=== PATIENT | male | born 1950 | race Caucasian/White ===

== ENCOUNTER 2020-10-30 16:02 | Emergency (ER) | payer MEDICARE, SELFPAY ==
[2020-10-30 16:09] VITALS: BP 160/63; PULSE 85; RESP 16; TEMP 37.5; O2SAT 98
--- NOTE | 2020-10-30 16:35 | ED.URI ---
HPI - URI/Sore Throat General Chief Complaint: Upper Respiratory Infection Stated Complaint: fever/congestion/cough Time Seen by Provider: 10/30/20 16:20 Source: patient and RN notes reviewed Mode of arrival: ambulatory Limitations: no limitations History of Present Illness HPI Narrative: Patient presents today complaining of cough, postnasal drip, fever up to 100, nasal congestion since yesterday. Denies shortness of breath, sore throat, rhinorrhea. Denies any sick contacts. He has been taking ibuprofen and Benadryl with relief. Patient was vaccinated against COVID-19 with a [employer] vaccine on 06/09/2020. MD elicited complaint: cough Related Data Home Medications Medication Instructions Recorded Confirmed amlodipine 5 mg PO DAILY 10/30/20 10/30/20 atorvastatin 20 mg PO DAILY 10/30/20 10/30/20 finasteride 5 mg PO DAILY 10/30/20 10/30/20 glimepiride 1 mg PO DAILY 10/30/20 10/30/20 lisinopril-hydrochlorothiazide 20 tablet PO DAILY 10/30/20 10/30/20 metformin 500 mg PO DAILY 10/30/20 10/30/20 metoprolol succinate 100 mg PO DAILY 10/30/20 10/30/20 paroxetine HCl 20 mg PO DAILY 10/30/20 10/30/20 sitagliptin [Januvia] 100 mg PO DAILY 10/30/20 10/30/20 Allergies Allergy/AdvReac Type Severity Reaction Status Date / Time No Known Allergies Allergy Unverified 05/15/13 23:33 Review of Systems Review of Systems: Narrative: CONSTITUTIONAL: Denies body aches, chills, or sweats.+ Fever EYES: Denies visual changes, redness, or discharge. ENT: Denies rhinorrhea, sore throat, or otalgia.+ Congestion, postnasal drip CARDIOVASCULAR: Denies chest pain, palpitations, or edema. RESPIRATORY: Denies dyspnea.+ Cough GASTROINTESTINAL: Denies abdominal pain, nausea, vomiting, or diarrhea. GENITOURINARY: Denies dysuria or hematuria. SKIN: Denies rash, itching, or wounds. MUSCULOSKELETAL: Denies back pain, joint pain, or myalgia. NEUROLOGIC: Denies headache, numbness, tingling, or weakness. PSYCH: Denies depression or anxiety. [facility] Past Medical History Medical History (Updated 10/30/20 @ 16:41 by Heidi Olivares, [facility], ) Anxiety Diabetes High cholesterol Hypertension Panic attacks Family History Family History (Updated 02/16/14 @ 08:45 by DOCTOR UNKNOWN) Other Hypertension Social History Social History Smoking status: Never smoker Alcohol intake: never Comments At time of signature, I have reviewed and agree with nursing past medical, surgical, social and family history unless otherwise noted. Please see nursing chart for further information. There is no relevant family history pertinent to the presenting complaint Exam Narrative: Exam Narrative: GENERAL: Well-appearing, well-nourished, and in no acute distress. HEAD: Normocephalic, atraumatic. EYES: EOMI. No redness or drainage. Conjunctivae normal. ENT: Mucous membranes pink and moist. Nares congested. No rhinorrhea. TMs normal bilaterally. Throat normal. Uvula midline. NECK: Normal AROM. Supple. No lymphadenopathy. CHEST: No respiratory distress. Clear to auscultation. HEART: Regular rate and rhythm. No murmur appreciated. Normal peripheral pulses. EXTREMITIES: Normal range of motion. No edema. SKIN: Warm, dry, no rash. Capillary refill normal. Normal skin turgor. NEURO: No focal deficits. Alert and oriented x3. Gait steady. PSYCH: Normal affect. No signs of depression or anxiety. Course Vital Signs Vital signs: Vital Signs Temperature 99.5 F 10/30/20 16:09 Pulse Rate 85 10/30/20 16:09 Respiratory Rate 16 10/30/20 16:09 Blood Pressure 160/63 H 10/30/20 16:09 Pulse Oximetry 98 10/30/20 16:09 Temperature 99.5 F 10/30/20 16:09 Pulse Rate 85 10/30/20 16:09 Respiratory Rate 16 10/30/20 16:09 Blood Pressure 160/63 H 10/30/20 16:09 Pulse Oximetry 98 10/30/20 16:09 Reviewed. Pt has been instructed to follow up with his PCP regarding his elevated blood pressure today. MDM - URI/Sore Throat Diff
== END 2020-10-30 16:48 | disposition home or self-care (01) ==
PROVIDERS: Emergency Provider Nurse Practitioner; PCP Family Medicine Adolescent Medicine
DX: U07.1 COVID-19 (principal); F41.9 Anxiety disorder, unspecified; E11.9 Type 2 diabetes mellitus without complications; E78.00 Pure hypercholesterolemia, unspecified; I10 Essential (primary) hypertension
CPT/HCPCS: 87426; 99203; 99213; C9803; G0463

== ENCOUNTER 2020-11-10 03:28 | Inpatient (IN) | payer MEDICARE, SELFPAY ==
[2020-11-10] VITALS (23 sets, daily range): BP systolic 151–189; BP diastolic 55–73; PULSE 57–95; RESP 12–20; TEMP 36.4–37.3; O2SAT 85–97; BMI 34.8
--- NOTE | ~2020-11-10 | XR_ITS ---
EXAMINATION: XR chest 1V portable INDICATION: Shortness of breath TECHNIQUE: Portable AP chest at 0343 hours COMPARISON: 06/21/2017 FINDINGS: There are diffuse opacities throughout all lung zones. There is no pleural effusion or. The heart size is upper limits of normal for technique. IMPRESSION: 1. Diffuse lung disease, consistent with atelectasis versus pneumonia versus pulmonary edema. Reviewed, dictated and finalized at location A. IMPRESSION: 1. Diffuse lung disease, consistent with atelectasis versus pneumonia versus pu lmonary edema.
--- NOTE | 2020-11-10 03:36 | ECG_ITS ---
Measurements Intervals [place] Rate: 59 P: 28 NE: 208 QRS: -4 QRSD: 106 T: -4 QT: 487 QTc: 484 Interpretive Statements SINUS BRADYCARDIA INCOMPLETE RIGHT BUNDLE BRANCH BLOCK PROLONGED QT INTERVAL BASELINE ARTIFACT- I, II, III, AVR, AVL, AVF, V1-V6 ABNORMAL ECG Electronically Signed On 11-10-2020 6:31:55 CDT by Ehsan Saenz D.O.
[2020-11-10 04:05] LABS: Basophils Percent Auto 0.1 % (0.2-1.2); Eosinophils Percent Auto 0.1 % (0-4.4); Hematocrit 37.2 % (42.0-52.0); Hemoglobin 12.2 g/dL (14.0-18.0); Immature Granulocyte Absolute 0.15 K/mm3 (0.00-0.031); Immature Granulocyte Percent A 2.2 % (0-0.5); Lymphocytes Absolute Auto 0.61 K/mm3 (0.9-3.2); Lymphocytes Percent Auto 8.9 % (18.3-44.2); Mean Corpuscular HGB Conc 32.8 g/dl (32-36); Mean Corpuscular Hemoglobin 28.8 pg (26-34); Mean Corpuscular Volume 87.9 fl (80-100); Monocytes Absolute Auto 0.3 K/mm3 (0.1-0.6); Monocytes Percent Auto 4.5 % (2.6-8.5); Neutrophils Absolute Auto 5.8 K/mm3 (1.3-6.7); Neutrophils Percent Auto 84.2 % (45.5-73.1); Platelet Count Result 214 k/mm3 (150-375); Red Blood Count 4.23 M/mm3 (4.6-6.20); Red Cell Distribution Width 13.8 % (11.5-14.5); White Blood Count 6.8 K/mm3 (4.5-10.0)
[2020-11-10 04:16] LABS: INR 1.1; Prothrombin Time 13.7 Seconds (11.1-14.7)
[2020-11-10 04:17] LABS: Partial Thromboplastin Time 28.9 SECONDS (22.3-36.8)
[2020-11-10 04:21] LABS: Lactic Acid Reflex 1.7 mmol/L (0.7-2.1)
--- NOTE | 2020-11-10 04:23 | ED.SOB ---
HPI - SOB/Dyspnea General Chief Complaint: Shortness of Breath/Dyspnea Stated Complaint: covid + sob History of Present Illness HPI Narrative: 69 yo male w/ h/o DM, htn presents from home by EMS for COVID-19. He tested positive for COVID-19 at the end of last month. Since that time he has had cough, congestion, SOB, fever, generalized weakness. He has stopped taking his medications. He does not feel that he is able to take care of himself at home. Related Data Home Medications Medication Instructions Recorded Confirmed amlodipine 5 mg PO DAILY 10/30/20 10/30/20 atorvastatin 20 mg PO DAILY 10/30/20 10/30/20 finasteride 5 mg PO DAILY 10/30/20 10/30/20 glimepiride 1 mg PO DAILY 10/30/20 10/30/20 lisinopril-hydrochlorothiazide 20 tablet PO DAILY 10/30/20 10/30/20 metformin 500 mg PO DAILY 10/30/20 10/30/20 metoprolol succinate 100 mg PO DAILY 10/30/20 10/30/20 paroxetine HCl 20 mg PO DAILY 10/30/20 10/30/20 sitagliptin [Januvia] 100 mg PO DAILY 10/30/20 10/30/20 Allergies Allergy/AdvReac Type Severity Reaction Status Date / Time No Known Allergies Allergy Verified 11/10/20 03:40 Review of Systems Constitutional: Constitutional: Reports fatigue, Reports fever(s) and Reports weakness ENT: Denies sore throat Cardiovascular: Cardiovascular: Denies chest pain Respiratory: Respiratory: Reports chest congestion, Reports cough and Reports dyspnea Gastrointestinal: Gastrointestinal: Reports abdominal pain, Reports diarrhea, Reports nausea and Denies vomiting Genitourinary: Genitourinary: Reports no additional male genitourinary complaints Musculoskeletal: Musculoskeletal: Reports myalgias Neurologic: Reports weakness PMFSH Past Medical History Medical History Anxiety Diabetes High cholesterol Hypertension Panic attacks Family History Family History Other Hypertension Social History Social History Smoking status: Never smoker Alcohol intake: never Exam Const: General: alert and ill appearing acutely and chronically Orientation/consciousness: patient oriented x3 Other: deshevled HENMT: Head: normal to inspection Eyes: Pupils: Equal, round and reactive pupils present Neck: Neck: normal visual inspection Resp: Effort & Inspection: normal respiratory effort Auscultation: crackles Cardio: Rate: regular rate Rhythm: regular rhythm GI: GI Palp: Yes Soft to palpation and No Tenderness to palpation present (GI) Skin: General skin exam: normal color Neuro: General: patient oriented x3, moves all extremities and CN's II-XI intact bilaterally Speech: normal speech Extrem: General: edema bilateral (mild) Course Vital Signs Vital signs: Vital Signs Temperature 37.2 C 11/10/20 03:28 Pulse Rate 61 11/10/20 03:28 Respiratory Rate 20 11/10/20 03:28 Blood Pressure 189/70 H 11/10/20 03:28 Pulse Oximetry 85 L 11/10/20 03:28 Temperature 37.2 C 11/10/20 03:28 Pulse Rate 61 11/10/20 03:28 Respiratory Rate 20 11/10/20 03:28 Blood Pressure 189/70 H 11/10/20 03:28 Pulse Oximetry 93 11/10/20 03:28 MDM - SOB/Dyspnea Differential Diagnosis Differential diagnosis: Likely acute exacerbation of chronic obstructive airways disease Medical Records Attestation: I reviewed the patient's medical records. Lab Data Attestation: I reviewed the patient's lab results. Result diagrams: 11/10/20 03:57 11/10/20 03:57 Labs: Lab Results 11/10/20 11/10/20 11/10/20 Range/Units 03:57 03:57 03:57 WBC 6.8 (4.5-10.0) K/mm3 RBC 4.23 L (4.6-6.20) M/mm3 Hgb 12.2 L (14.0-18.0) g/dL Hct 37.2 L (42.0-52.0) % MCV 87.9 (80-100) fl MCH 28.8 (26-34) pg MCHC 32.8 (32-36) g/dl RDW 13.8 (11.5-14.5) % Plt Count 214 (150-375) k/mm3 MPV 11.0 H (7
[2020-11-10] MEDS: DEXAMETHASONE SOD PHOS INJ 4 MG/ML VIAL 10 MG IV PUSH (04:28)
[2020-11-10 04:29] LABS: NT Pro B Type Natriuretic Pept 777 pg/mL (5-100)
[2020-11-10 04:41] LABS: Add Urine Microscopic? YES; Appearance Urine Clear (Clear); Bilirubin Urine Negative (Negative); Blood Urine 1+ (Negative); Color Urine Yellow (Yellow); Glucose Urine UA Negative (Negative); Ketones Urine Negative (Negative); Leukocyte Esterase Ur Negative LEU/UL (Negative); Nitrate Urine Negative (Negative); Protein Urine 2+ mg/dL (Negative); RBC Urine 0-2 /hpf (0-2); Squamous Epithelial Cell Urine Rare /hpf (Few); WBC Urine 0-3 /hpf
[2020-11-10 04:43] LABS: Alanine Aminotransferase 31 U/L (4-50); Albumin Level 3.2 g/dL (3.5-5.1); Alkaline Phosphatase 62 U/L (38-126); Anion Gap 4 mmol/L (8-16); Aspartate Amino Transferase 41 U/L (17-59); Bilirubin,Total 1.2 mg/dL (0.2-1.3); Blood Urea Nitrogen 14 mg/dL (9-20); CRP 8.8 mg/dL (<1.0); Calcium 8.3 mg/dL (8.4-10.2); Carbon Dioxide 35 mmol/L (22-30); Chloride 96 mmol/L (98-107); Estimated CRCL calculation 100 ml/min; Estimated Glomerular Filt Rate > 60; Glucose 264 mg/dL (65-110); Potassium 2.8 mmol/L (3.4-5.0); Sodium 135 mmol/L (137-145)
[2020-11-10 05:27] LABS: INR 1.1; Prothrombin Time 13.8 Seconds (11.1-14.7)
--- NOTE | 2020-11-10 06:31 | ADMGEN ---
This patient, Christian Prado, was admitted to 3 Med Surg Room 315-01 AT 0545. Patient/family oriented to hospital policies and general routines including ID bracelet, bed and alarms, visiting hours, pain management, procedures, bathroom and other care routines, personal items, smoking policy, room service/diet, and visiting hours. Information on how to activate the Rapid Response Team has been discussed. Patient/Family are encouraged to report perceived risks to care and to ask questions if they do not understand what they are told or what they should do.
[2020-11-10] MEDS: REMDESIVIR 200 MG/NS 250 ML 200 MG/250 ML BAG 250 MG IVPB (07:32)
[2020-11-10 08:24] LABS: Magnesium 1.6 mg/dL (1.6-2.3)
[2020-11-10] MEDS: IPRATROPIUM BR 0.02% INH SOLN 0.5 MG/2.5 ML VIAL INHALATION ×3 (08:30→20:28)
[2020-11-10] MEDS: ALBUTEROL SULFATE NEB 2.5 MG/0.5 ML INH 5 MG INHALATION ×3 (08:30→20:29)
[2020-11-10 08:39] LABS: Glucose Point of Care 314 mg/dl (65-105)
[2020-11-10] MEDS: INSULIN ASPART (*BKC) 100 UNITS/ML SUB-Q ×4 (09:21→21:34)
[2020-11-10] MEDS: metFORMIN HCL XR 500 MG TAB.SR.24H PO (09:29)
[2020-11-10] MEDS: GLIMEPIRIDE 1 MG TABLET PO (09:29)
[2020-11-10] MEDS: amLODIPine BESYLATE 5 MG TABLET PO (09:29)
[2020-11-10] MEDS: FINASTERIDE 5 MG TABLET PO (09:30)
[2020-11-10] MEDS: PARoxetine 20 MG TABLET PO (09:30)
[2020-11-10] MEDS: ASPIRIN 81 MG CHEWABLE TABLET PO (09:30)
[2020-11-10] MEDS: METOPROLOL SUCCINATE EXT REL 100 MG TABCR PO (09:30)
[2020-11-10] MEDS: hydroCHLOROthiazide 12.5 MG CAPSULE PO (09:31)
[2020-11-10] MEDS: lisinopriL 20 MG TABLET PO (09:31)
[2020-11-10] MEDS: ATORVASTATIN 20 MG TABLET PO (09:31)
[2020-11-10 11:40] LABS: Glucose Point of Care 328 mg/dl (65-105)
[2020-11-10] MEDS: ENOXAPARIN 40 MG/0.4 ML SYRINGE SUB-Q ×2 (11:54→20:05)
--- NOTE | 2020-11-10 14:52 | PM.IMHP ---
H&P: HPI History of Present Illness Date/Time: 11/10/20 14:52 patient is 69-year-old male history of diabetes, hypertension and COPD, patient was diagnosed with COVID-19 end of last month, patient presented emergency depart is more tired and unable to take care of himself, he has not been taking his medication, is a poor historian, upon arrival his oxygen was 85% on room air and patient was placed on 2 L nasal cannula, from emergency depart patient was started on dexamethasone 10 mg IV q.day 04/16, Remdesivir 04/11, and patient has agreed to the convalescent plasma today. chest x-ray shows pneumonia versus pulmonary edema, is hypokalemic with potassium of 2.8, most likely secondary to poor p.o. intake, will supplement. Patient is unable to provider detail ROS. Chief Complaint: COVID-19 Review of Systems Review of Systems: ROS unobtainable: Yes unobtainable due to medical condition PMFSH Past Medical History Medical History (Updated 11/10/20 @ 15:14 by Alex Toth MD) Anxiety Diabetes High cholesterol Hypertension Panic attacks Family History Family History (Updated 11/10/20 @ 06:35 by Chuyita Winter RN) Father Hypertension Cerebrovascular accident Mother Hypertension Cerebrovascular accident Social History Social History Smoking status: Never smoker Alcohol intake: never Substance use: never Spiritual care concerns: No Meds Home Medications and Allergies Home Medications Medication Instructions Recorded Confirmed Type amlodipine 5 mg PO DAILY 10/30/20 11/10/20 History atorvastatin 20 mg PO DAILY 10/30/20 11/10/20 History finasteride 5 mg PO DAILY 10/30/20 11/10/20 History glimepiride 1 mg PO DAILY 10/30/20 11/10/20 History lisinopril-hydrochlorothiazide 20 tablet PO DAILY 10/30/20 11/10/20 History metformin 500 mg PO DAILY 10/30/20 11/10/20 History metoprolol succinate 100 mg PO DAILY 10/30/20 11/10/20 History paroxetine HCl 20 mg PO DAILY 10/30/20 11/10/20 History sitagliptin [Januvia] 100 mg PO DAILY 10/30/20 11/10/20 History aspirin [Baby Aspirin] 81 mg PO DAILY 11/10/20 11/10/20 History lorazepam 0.5 mg PO TID PRN 11/10/20 11/10/20 History Allergies Allergy/AdvReac Type Severity Reaction Status Date / Time No Known Allergies Allergy Verified 11/10/20 05:42 Vital Signs Vital Signs - 24 hr 11/10/20 03:28 11/10/20 06:00 11/10/20 08:30 Temperature 99.0 F 98.6 F Pulse Rate 61 66 58 L Respiratory Rate 20 18 18 Blood Pressure 189/70 H 180/71 H Pulse Oximetry 93 89 L 90 11/10/20 08:43 11/10/20 09:00 11/10/20 09:15 Temperature 98.6 F Pulse Rate 57 L 60 77 Respiratory Rate 20 14 Blood Pressure 178/68 H Pulse Oximetry 95 95 11/10/20 09:30 11/10/20 12:00 11/10/20 12:47 Temperature 99.1 F Pulse Rate 66 80 95 Respiratory Rate 12 Blood Pressure 153/73 H Pulse Oximetry 90 11/10/20 14:46 Temperature 99.1 F Pulse Rate 95 Respiratory Rate 12 Blood Pressure 153/73 H Pulse Oximetry 90 Exam Narrative: appears chronically ill older than his age Patient is comfortable, NAD HEENT: eyes are clear and none icteric LUNGS: normal respiratory effort ABD: moderately distended Lower extremities: no edema SKIN: nonjaundiced Neuro: confused. H&P: Results Labs Labs: Short CBC 11/10/20 Range/Units 03:57 WBC 6.8 (4.5-10.0) K/mm3 Hgb 12.2 L (14.0-18.0) g/dL Hct 37.2 L (42.0-52.0) % Plt Count 214 (150-375) k/mm3 BMP 11/10/20 11/10/20 03:57 03:57 Sodium 135 L Potassium 2.8 L* Chloride 96 L Carbon Dioxide 35 H BUN 14 Creatinine 0.90 Cancelled Glucose 264 H Calcium 8.3 L Liver Function 11/10/20 11/10/20 Range/Units 03:57 03:57 Total Bilirubin 1.2 (0.2-1.3) mg/dL AST 41 (17-59) U/L ALT 31 Cancelled (4-50) U/L Alkaline Phosphatase 62 (38-126) U/L Albumin 3.2 L (3.5-5.1) g/dL Urine 11/10/20 Range/Un
[2020-11-10 15:08] LABS: Alanine Aminotransferase 41 U/L (4-50); Alkaline Phosphatase 63 U/L (38-126); Anion Gap 12 mmol/L (8-16); Aspartate Amino Transferase 43 U/L (17-59); Bilirubin,Total 0.8 mg/dL (0.2-1.3); Blood Urea Nitrogen 15 mg/dL (9-20); Calcium 7.8 mg/dL (8.4-10.2); Carbon Dioxide 26 mmol/L (22-30); Chloride 91 mmol/L (98-107); Estimated CRCL calculation 113 ml/min; Estimated Glomerular Filt Rate > 60; Glucose 435 mg/dL (65-110); Potassium 3.1 mmol/L (3.4-5.0); Sodium 129 mmol/L (137-145)
[2020-11-10] MEDS: TUBING, BLOOD PLUM PUMP TUBING 1 EACH XX (15:24)
[2020-11-10] MEDS: SODIUM CHLORIDE 0.9% IV 250 ML 30 ML IV CONT (15:25)
[2020-11-10] MEDS: MAGNESIUM SULF 2 GM/WATER 50ML 2 GM/50 ML BAG IVPB (17:10)
[2020-11-10 17:13] LABS: Glucose Point of Care 325 mg/dl (65-105)
[2020-11-10] MEDS: POTASSIUM CHLORIDE 20 MEQ TABLET 40 MEQ PO (17:16)
[2020-11-10 20:12] LABS: Glucose Point of Care 302 mg/dl (65-105)
[2020-11-10] MEDS: INSULIN GLARGINE (*BKC) 100 UNITS/ML 10 UNITS SUB-Q (21:35)
[2020-11-10] MEDS: WATER FOR IRRIGATION, STERILE 1,000 ML BOTTLE 1000 ML (22:00)
[2020-11-11] VITALS (18 sets, daily range): BP systolic 154–170; BP diastolic 63–73; PULSE 56–83; RESP 14–24; TEMP 36.4–36.8; O2SAT 91–95
[2020-11-11] MEDS: IPRATROPIUM BR 0.02% INH SOLN 0.5 MG/2.5 ML VIAL INHALATION ×4 (02:33→19:54)
[2020-11-11] MEDS: ALBUTEROL SULFATE NEB 2.5 MG/0.5 ML INH 5 MG INHALATION ×4 (02:33→19:54)
[2020-11-11 07:35] LABS: Hematocrit 36.8 % (42.0-52.0); Hemoglobin 11.9 g/dL (14.0-18.0); Mean Corpuscular HGB Conc 32.3 g/dl (32-36); Mean Corpuscular Hemoglobin 29.1 pg (26-34); Mean Platelet Volume 11.5 fl (7.4-10.4); Platelet Count Result 214 k/mm3 (150-375); Red Blood Count 4.09 M/mm3 (4.6-6.20)
[2020-11-11 07:46] LABS: INR 1.1; Prothrombin Time 14.4 Seconds (11.1-14.7)
[2020-11-11 07:49] LABS: Alanine Aminotransferase 29 U/L (4-50); Alkaline Phosphatase 53 U/L (38-126); Anion Gap 8 mmol/L (8-16); Aspartate Amino Transferase 38 U/L (17-59); Bilirubin,Total 0.7 mg/dL (0.2-1.3); Blood Urea Nitrogen 15 mg/dL (9-20); CRP 7.6 mg/dL (<1.0); Calcium 7.9 mg/dL (8.4-10.2); Carbon Dioxide 28 mmol/L (22-30); Chloride 98 mmol/L (98-107); Estimated CRCL calculation 113 ml/min; Estimated Glomerular Filt Rate > 60; Glucose 218 mg/dL (65-110); Magnesium 1.8 mg/dL (1.6-2.3); Potassium 2.6 mmol/L (3.4-5.0); Sodium 134 mmol/L (137-145)
[2020-11-11 07:51] LABS: Glucose Point of Care 217 mg/dl (65-105)
[2020-11-11] MEDS: POTASSIUM CHLORIDE 20 MEQ TABLET 40 MEQ PO ×3 (08:58→16:03)
[2020-11-11] MEDS: MAGNESIUM OXIDE 400 MG TABLET PO (08:59)
[2020-11-11] MEDS: ATORVASTATIN 20 MG TABLET PO (09:02)
[2020-11-11] MEDS: ENOXAPARIN 40 MG/0.4 ML SYRINGE SUB-Q ×2 (09:02→20:50)
[2020-11-11] MEDS: GLIMEPIRIDE 1 MG TABLET PO (09:05)
[2020-11-11] MEDS: METOPROLOL SUCCINATE EXT REL 100 MG TABCR PO (09:06)
[2020-11-11] MEDS: metFORMIN HCL XR 500 MG TAB.SR.24H PO (09:06)
[2020-11-11] MEDS: PARoxetine 20 MG TABLET PO (09:06)
[2020-11-11] MEDS: amLODIPine BESYLATE 5 MG TABLET PO (09:06)
[2020-11-11] MEDS: ASPIRIN 81 MG CHEWABLE TABLET PO (09:07)
[2020-11-11] MEDS: FINASTERIDE 5 MG TABLET PO (09:07)
[2020-11-11] MEDS: lisinopriL 20 MG TABLET PO (09:08)
[2020-11-11] MEDS: INSULIN ASPART (*BKC) 100 UNITS/ML SUB-Q ×4 (09:11→18:03)
[2020-11-11] MEDS: REMDESIVIR 100 MG/NS 250 ML 100 MG/250 ML BAG 250 MG IVPB (10:16)
[2020-11-11 12:24] LABS: Glucose Point of Care 453 mg/dl (65-105)
[2020-11-11 15:48] LABS: Glucose Point of Care 404 mg/dl (65-105)
[2020-11-11] MEDS: INSULIN ASPART (*BKC) 100 UNITS/ML 8 UNITS SUB-Q (16:00)
--- NOTE | 2020-11-11 17:33 | PM.IMPN ---
Progress Note: A&P Assessment and Plan (1) COVID-19: Code(s): U07.1 - COVID-19 Status: Acute Assessment and Plan: 11/11: Remdesivir and Dexamethasone day 2, Oxygen requirement 7 L (stable) Continue Azithromycin and Ceftriaxone to cover possible concomitan CAP Consider adding Tocilizumab IF oxygen requirement and CRP increase (2) Acute respiratory failure with hypoxia: Code(s): J96.01 - Acute respiratory failure with hypoxia Status: Acute Assessment and Plan: Due to COVID-19 Pneumonia (3) Hypokalemia: Code(s): E87.6 - Hypokalemia Status: Acute Assessment and Plan: Likely due to poor p.o. intake PO supplementation F/u lab (4) Diabetes: Code(s): E11.9 - Type 2 diabetes mellitus without complications Status: Inactive Assessment and Plan: Hyperglycemia due to steroid continue SSI protocol (5) Hypertension: Code(s): I10 - Essential (primary) hypertension Status: Inactive Assessment and Plan: Continue home meds Monitor Subjective Date/time seen: 11/11/20 17:33 Interval history: Admitted 11/10 with acute hypoxia and COVID-19 pneumonia. 11/10 Dexamethasone and Remdesivir started. 11/11 visit: Feeling better. Appetite fair. Food tastes bland. Tired. No cp. No sob at rest. Minimal cough. No gi/gu c/o. No ABNL bleeding. Review of Systems Review of Systems: All systems reviewed & are unremarkable except as noted in HPI and below Exam Narrative: GEN: Patient is comfortable, NAD HEENT: PERRL, sclerae nonicteric, mucosa moist NECK: No JVD LUNGS: normal respiratory effort, coarse BS ABD: BS+, soft, nontender Lower extremities: no edema or cyanosis NEURO: CN symmetric to inspection PSYCH: Alert. Ox4. Objective Data Vital Signs Vital Signs: Vital Signs - 24 hr 11/10/20 20:00 11/10/20 20:23 11/10/20 20:32 Temperature 97.6 F Pulse Rate 60 72 70 Respiratory Rate 18 16 16 Blood Pressure 154/55 H Pulse Oximetry 91 11/10/20 21:56 11/10/20 22:45 11/10/20 23:28 Temperature Pulse Rate Respiratory Rate Blood Pressure Pulse Oximetry 90 90 94 11/11/20 00:00 11/11/20 02:22 11/11/20 02:33 Temperature 97.6 F Pulse Rate 62 67 Respiratory Rate 18 16 Blood Pressure 155/65 H Pulse Oximetry 94 91 11/11/20 02:44 11/11/20 04:00 11/11/20 08:00 Temperature 97.5 F L Pulse Rate 70 61 56 L Respiratory Rate 14 18 Blood Pressure 164/63 H Pulse Oximetry 95 91 11/11/20 08:18 11/11/20 09:06 11/11/20 09:10 Temperature 97.9 F Pulse Rate 61 66 62 Respiratory Rate 14 16 Blood Pressure 165/67 H Pulse Oximetry 95 91 11/11/20 09:24 11/11/20 14:00 11/11/20 14:16 Temperature 97.7 F Pulse Rate 68 67 76 Respiratory Rate 16 14 16 Blood Pressure 154/67 H Pulse Oximetry 92 11/11/20 14:28 11/11/20 16:00 Temperature Pulse Rate 83 65 Respiratory Rate 16 Blood Pressure Pulse Oximetry Intake/Output Intake/Output: Intake & Output 11/08/20 11/09/20 11/10/20 11/11/20 23:59 23:59 23:59 23:59 Intake Total 2719 1580 Output Total 500 Balance 2719 1080 Meds/Results Medications: Active Medications Generic Name Dose Route Start Last Admin Trade Name Oscar PRN Reason Stop Dose Admin Albuterol 5 mg 11/10/20 08:00 11/11/20 14:16 Albuterol Sulfate Neb 2.5 Mg/0.5 Ml Inh INHALATION 5 mg Q6HRT RODDY Administration Amlodipine Besylate 5 mg 11/10/20 09:00 11/11/20 09:06 Amlodipine Besylate 5 Mg Tablet PO 5 mg DAILY RODDY Administration Aspirin 81 mg 11/10/20 09:00 11/11/20 09:07 Aspirin 81 Mg Chewable Tablet PO 81 mg DAILY RODDY Administration Atorvastatin Calcium 20 mg 11/10/20 09:00 11/11/20 09:02 Atorvastatin 20 Mg Tablet PO 20 mg DAILY [facility] Administration Dexamethasone Sodium Phosphate 6 mg 11/10/20 09:00 11/11/20 09:15 Dexamethasone Sod Phos Inj 10 Mg/Ml 1 Ml Vial IV PUSH 11/19/20 09:01 6 mg DAILY [facility]
[2020-11-11 17:46] LABS: Glucose Point of Care 313 mg/dl (65-105)
[2020-11-11] MEDS: INSULIN GLARGINE (*BKC) 100 UNITS/ML 25 UNITS SUB-Q (20:49)
[2020-11-11 22:46] LABS: Glucose Point of Care 262 mg/dl (65-105)
[2020-11-12] VITALS (18 sets, daily range): BP systolic 160–175; BP diastolic 41–77; PULSE 60–75; RESP 12–20; TEMP 36.8–37.1; O2SAT 91–95
[2020-11-12] MEDS: ALBUTEROL SULFATE NEB 2.5 MG/0.5 ML INH 5 MG INHALATION ×4 (02:04→20:27)
[2020-11-12] MEDS: IPRATROPIUM BR 0.02% INH SOLN 0.5 MG/2.5 ML VIAL INHALATION ×4 (02:05→20:27)
[2020-11-12 07:50] LABS: Glucose Point of Care 223 mg/dl (65-105)
[2020-11-12 08:00] LABS: Hematocrit 36.3 % (42.0-52.0); Hemoglobin 12.2 g/dL (14.0-18.0); Mean Corpuscular HGB Conc 33.6 g/dl (32-36); Mean Corpuscular Hemoglobin 29.5 pg (26-34); Mean Corpuscular Volume 87.9 fl (80-100); Mean Platelet Volume 11.3 fl (7.4-10.4); Platelet Count Result 265 k/mm3 (150-375); Red Blood Count 4.13 M/mm3 (4.6-6.20); Red Cell Distribution Width 13.8 % (11.5-14.5); White Blood Count 7.3 K/mm3 (4.5-10.0)
[2020-11-12 08:11] LABS: INR 1.2; Prothrombin Time 14.9 Seconds (11.1-14.7)
[2020-11-12 08:16] LABS: Alanine Aminotransferase 33 U/L (4-50); Albumin Level 3.2 g/dL (3.5-5.1); Alkaline Phosphatase 61 U/L (38-126); Anion Gap 7 mmol/L (8-16); Aspartate Amino Transferase 36 U/L (17-59); Bilirubin,Total 0.7 mg/dL (0.2-1.3); Blood Urea Nitrogen 15 mg/dL (9-20); Calcium 8.1 mg/dL (8.4-10.2); Carbon Dioxide 30 mmol/L (22-30); Chloride 99 mmol/L (98-107); Estimated CRCL calculation 113 ml/min; Estimated Glomerular Filt Rate > 60; Glucose 189 mg/dL (65-110); Magnesium 1.8 mg/dL (1.6-2.3); Potassium 2.8 mmol/L (3.4-5.0); Sodium 136 mmol/L (137-145)
[2020-11-12 08:31] LABS: CRP 13.3 mg/dL (<1.0)
[2020-11-12] MEDS: INSULIN ASPART (*BKC) 100 UNITS/ML SUB-Q ×3 (09:13→16:11)
[2020-11-12] MEDS: POTASSIUM CHLORIDE 20 MEQ TABLET.ER 40 MEQ PO ×3 (09:14→16:11)
[2020-11-12] MEDS: ASPIRIN 81 MG CHEWABLE TABLET PO (09:14)
[2020-11-12] MEDS: METOPROLOL SUCCINATE EXT REL 100 MG TABCR PO (09:14)
[2020-11-12] MEDS: metFORMIN HCL XR 500 MG TAB.SR.24H PO (09:14)
[2020-11-12] MEDS: amLODIPine BESYLATE 5 MG TABLET 10 MG PO (09:14)
[2020-11-12] MEDS: ENOXAPARIN 40 MG/0.4 ML SYRINGE SUB-Q ×2 (09:14→21:18)
[2020-11-12] MEDS: PARoxetine 20 MG TABLET PO (09:14)
[2020-11-12] MEDS: lisinopriL 20 MG TABLET PO (09:15)
[2020-11-12] MEDS: MAGNESIUM OXIDE 400 MG TABLET PO (09:15)
[2020-11-12] MEDS: GLIMEPIRIDE 1 MG TABLET PO (09:15)
[2020-11-12] MEDS: ATORVASTATIN 20 MG TABLET PO (09:15)
[2020-11-12] MEDS: MAGNESIUM SULF 1 GM/D5W 100 ML 1 GM/100 ML BAG IVPB (09:15)
[2020-11-12] MEDS: FINASTERIDE 5 MG TABLET PO (09:15)
[2020-11-12] MEDS: REMDESIVIR 100 MG/NS 250 ML 100 MG/250 ML BAG 250 MG IVPB (10:58)
[2020-11-12 12:24] LABS: Glucose Point of Care 330 mg/dl (65-105)
[2020-11-12 16:40] LABS: Glucose Point of Care 385 mg/dl (65-105)
--- NOTE | 2020-11-12 17:34 | PM.IMPN ---
Progress Note: A&P Assessment and Plan (1) COVID-19: Code(s): U07.1 - COVID-19 Status: Acute Assessment and Plan: 11/12: Remdesivir and Dexamethasone day 3, Oxygen requirement 7 L (stable) Continue Azithromycin and Ceftriaxone to cover possible concomitant CAP Consider adding Tocilizumab IF oxygen requirements and CRP increase (2) Acute respiratory failure with hypoxia: Code(s): J96.01 - Acute respiratory failure with hypoxia Status: Acute Assessment and Plan: Due to COVID-19 Pneumonia (3) Hypokalemia: Code(s): E87.6 - Hypokalemia Status: Acute Assessment and Plan: Likely due to poor p.o. intake PO supplementation F/u lab (4) Diabetes: Code(s): E11.9 - Type 2 diabetes mellitus without complications Status: Inactive Assessment and Plan: Hyperglycemia due to steroid continue SSI protocol and premeal insulin and basal glargine (5) Hypertension: Code(s): I10 - Essential (primary) hypertension Status: Inactive Assessment and Plan: Continue home meds Monitor Subjective Date/time seen: 11/12/20 17:34 Interval history: Admitted 11/10 with acute hypoxia and COVID-19 pneumonia. 11/10 Dexamethasone and Remdesivir started. 11/12 visit: Feeling better. Appetite fair. Food tastes bland. Tired. No cp. No sob at rest. Minimal cough. No gi/gu c/o. No ABNL bleeding. Review of Systems Review of Systems: All systems reviewed & are unremarkable except as noted in HPI and below Exam Narrative: GEN: NAD HEENT: PERRL, sclerae nonicteric, mucosa moist NECK: No JVD HEART: NLS S1/S2, RR LUNGS: normal respiratory effort, COARSE BS WITH SCATTERED CRACKLES AT BASES ABD: BS+, soft, nontender Lower extremities: no edema or cyanosis NEURO: CN symmetric to inspection PSYCH: Alert. Ox4. Objective Data Vital Signs Vital Signs: Vital Signs - 24 hr 11/11/20 20:00 11/11/20 20:10 11/11/20 20:15 Temperature 98.1 F Pulse Rate 74 70 75 Respiratory Rate 20 20 Blood Pressure 164/66 H Pulse Oximetry 92 11/11/20 23:38 11/12/20 00:00 11/12/20 02:05 Temperature 98.2 F Pulse Rate 65 62 64 Respiratory Rate 20 20 Blood Pressure 170/73 H Pulse Oximetry 91 91 11/12/20 02:21 11/12/20 04:00 11/12/20 08:00 Temperature 98.3 F 98.4 F Pulse Rate 60 60 70 Respiratory Rate 16 20 12 Blood Pressure 164/41 H 175/77 H Pulse Oximetry 94 95 11/12/20 09:01 11/12/20 09:11 11/12/20 09:14 Temperature Pulse Rate 65 62 62 Respiratory Rate 18 18 Blood Pressure Pulse Oximetry 11/12/20 09:15 11/12/20 12:00 11/12/20 14:15 Temperature Pulse Rate 74 73 Respiratory Rate 18 Blood Pressure Pulse Oximetry 93 11/12/20 14:25 11/12/20 14:45 11/12/20 16:08 Temperature 98.7 F 98.2 F Pulse Rate 74 71 73 Respiratory Rate 18 12 14 Blood Pressure 167/76 H 169/74 H Pulse Oximetry 92 94 Intake/Output Intake/Output: Intake & Output 11/09/20 11/10/20 11/11/20 11/12/20 23:59 23:59 23:59 23:59 Intake Total 2719 3040 1250 Output Total 500 500 Balance 2719 6890 750 Meds/Results Medications: Active Medications Generic Name Dose Route Start Last Admin Trade Name Oscar PRN Reason Stop Dose Admin Albuterol 5 mg 11/10/20 08:00 11/12/20 14:14 Albuterol Sulfate Neb 2.5 Mg/0.5 Ml Inh INHALATION 5 mg Q6HRT RODDY Administration Amlodipine Besylate 10 mg 11/12/20 09:00 11/12/20 09:14 Amlodipine Besylate 5 Mg Tablet PO 10 mg DAILY RODDY Administration Aspirin 81 mg 11/10/20 09:00 11/12/20 09:14 Aspirin 81 Mg Chewable Tablet PO 81 mg DAILY RODDY Administration Atorvastatin Calcium 20 mg 11/10/20 09:00 11/12/20 09:15 Atorvastatin 20 Mg Tablet PO 20 mg DAILY RODDY Administration Dexamethasone Sodium Phosphate 6 mg 11/10/20 09:00 11/12/20 09:14 Dexamethasone Sod Phos Inj 10 Mg/Ml 1 Ml Vial IV PUSH 11/19/20 09:01 6 mg DAILY RODDY Administration Dextrose 12.
[2020-11-12] MEDS: INSULIN GLARGINE (*BKC) 100 UNITS/ML 25 UNITS SUB-Q (21:19)
[2020-11-13] VITALS (14 sets, daily range): BP systolic 149–178; BP diastolic 55–87; PULSE 61–80; RESP 18–20; TEMP 36.2–37.2; O2SAT 91–96
[2020-11-13] MEDS: ALBUTEROL SULFATE NEB 2.5 MG/0.5 ML INH 5 MG INHALATION ×4 (02:30→23:46)
[2020-11-13] MEDS: IPRATROPIUM BR 0.02% INH SOLN 0.5 MG/2.5 ML VIAL INHALATION ×4 (02:31→23:46)
[2020-11-13 04:34] LABS: Glucose Point of Care 353 mg/dl (65-105)
[2020-11-13 06:46] LABS: Hematocrit 35.5 % (42.0-52.0); Hemoglobin 11.9 g/dL (14.0-18.0); Mean Corpuscular HGB Conc 33.5 g/dl (32-36); Mean Corpuscular Hemoglobin 29.2 pg (26-34); Mean Platelet Volume 11.3 fl (7.4-10.4); Platelet Count Result 287 k/mm3 (150-375); Red Blood Count 4.08 M/mm3 (4.6-6.20); Red Cell Distribution Width 13.7 % (11.5-14.5); White Blood Count 7.7 K/mm3 (4.5-10.0)
[2020-11-13 06:59] LABS: INR 1.2; Prothrombin Time 15.1 Seconds (11.1-14.7)
[2020-11-13 07:01] LABS: Alanine Aminotransferase 31 U/L (4-50); Albumin Level 2.7 g/dL (3.5-5.1); Alkaline Phosphatase 58 U/L (38-126); Anion Gap 6 mmol/L (8-16); Aspartate Amino Transferase 29 U/L (17-59); Bilirubin,Total 0.5 mg/dL (0.2-1.3); Blood Urea Nitrogen 17 mg/dL (9-20); CRP 7.8 mg/dL (<1.0); Calcium 8.2 mg/dL (8.4-10.2); Carbon Dioxide 26 mmol/L (22-30); Chloride 104 mmol/L (98-107); Estimated CRCL calculation 128 ml/min; Estimated Glomerular Filt Rate > 60; Glucose 142 mg/dL (65-110); Magnesium 1.7 mg/dL (1.6-2.3); Potassium 3.9 mmol/L (3.4-5.0); Sodium 136 mmol/L (137-145)
[2020-11-13 07:38] LABS: Glucose Point of Care 155 mg/dl (65-105)
[2020-11-13] MEDS: ENOXAPARIN 40 MG/0.4 ML SYRINGE SUB-Q ×2 (08:52→21:58)
[2020-11-13] MEDS: lisinopriL 20 MG TABLET PO (09:42)
[2020-11-13] MEDS: POTASSIUM CHLORIDE 20 MEQ TABLET.ER 40 MEQ PO ×3 (09:42→15:57)
[2020-11-13] MEDS: PARoxetine 20 MG TABLET PO (09:42)
[2020-11-13] MEDS: amLODIPine BESYLATE 5 MG TABLET 10 MG PO (09:42)
[2020-11-13] MEDS: ATORVASTATIN 20 MG TABLET PO (09:42)
[2020-11-13] MEDS: ASPIRIN 81 MG CHEWABLE TABLET PO (09:42)
[2020-11-13] MEDS: GLIMEPIRIDE 1 MG TABLET PO ×2 (09:42→15:57)
[2020-11-13] MEDS: metFORMIN HCL XR 500 MG TAB.SR.24H PO (09:42)
[2020-11-13] MEDS: FINASTERIDE 5 MG TABLET PO (09:43)
[2020-11-13] MEDS: METOPROLOL SUCCINATE EXT REL 100 MG TABCR PO (09:43)
[2020-11-13] MEDS: MAGNESIUM OXIDE 400 MG TABLET PO (09:43)
[2020-11-13] MEDS: REMDESIVIR 100 MG/NS 250 ML 100 MG/250 ML BAG 250 MG IVPB (10:49)
[2020-11-13 11:24] LABS: Glucose Point of Care 243 mg/dl (65-105)
[2020-11-13] MEDS: INSULIN ASPART (*BKC) 100 UNITS/ML SUB-Q ×2 (12:03→18:18)
--- NOTE | 2020-11-13 15:12 | PM.IMPN ---
Progress Note: A&P Assessment and Plan (1) COVID-19: Code(s): U07.1 - COVID-19 Status: Acute Assessment and Plan: 11/13/20 15:12 patient with COVID-19 patient is 69-year-old male history of diabetes, hypertension and COPD, patient was diagnosed with COVID-19 end of last month, patient presented emergency depart is more tired and unable to take care of himself, he has not been taking his medication, is a poor historian, upon arrival his oxygen was 85% on room air and patient was placed on 2 L nasal cannula, from emergency depart patient was started on dexamethasone 10 mg IV q.day 04/16, Remdesivir 04/11, and patient has agreed to the convalescent plasma today. chest x-ray shows pneumonia versus pulmonary edema, is hypokalemic with potassium of 2.8, most likely secondary to poor p.o. intake, will supplement. Patient is unable to provider detail ROS. 11/13: Remdesivir and Dexamethasone day 4, Oxygen requirement 5 L improving compare tp 7 L on 11/12 similarly CRP is trending down to 7.8 compared to 13.3 on 11/12 patient clinically symptoms are improving will continue to monitor, patient is unable to take care of himself will need the placement upon discharge Continue Azithromycin and Ceftriaxone to cover possible concomitant CAP (2) Acute respiratory failure with hypoxia: Code(s): J96.01 - Acute respiratory failure with hypoxia Status: Acute Assessment and Plan: Due to COVID-19 Pneumonia (3) Hypokalemia: Code(s): E87.6 - Hypokalemia Status: Acute Assessment and Plan: Likely due to poor p.o. intake PO supplementation F/u lab (4) Diabetes: Code(s): E11.9 - Type 2 diabetes mellitus without complications Status: Inactive Assessment and Plan: Hyperglycemia due to steroid continue SSI protocol and premeal insulin and basal glargine (5) Hypertension: Code(s): I10 - Essential (primary) hypertension Status: Inactive Assessment and Plan: Continue home meds Monitor Subjective Date/time seen: 11/13/20 15:12 patient with COVID-19 patient is 69-year-old male history of diabetes, hypertension and COPD, patient was diagnosed with COVID-19 end of last month, patient presented emergency depart is more tired and unable to take care of himself, he has not been taking his medication, is a poor historian, upon arrival his oxygen was 85% on room air and patient was placed on 2 L nasal cannula, from emergency depart patient was started on dexamethasone 10 mg IV q.day 04/16, Remdesivir 04/11, and patient has agreed to the convalescent plasma today. chest x-ray shows pneumonia versus pulmonary edema, is hypokalemic with potassium of 2.8, most likely secondary to poor p.o. intake, will supplement. Patient is unable to provider detail ROS. 11/13: Remdesivir and Dexamethasone day 4, Oxygen requirement 5 L improving compare tp 7 L on 11/12 similarly CRP is trending down to 7.8 compared to 13.3 on 11/12 patient clinically symptoms are improving will continue to monitor, patient is unable to take care of himself will need the placement upon discharge Continue Azithromycin and Ceftriaxone to cover possible concomitant CAP Review of Systems Review of Systems: All systems reviewed & are unremarkable except as noted in HPI and below Exam Narrative: Patient is comfortable, NAD HEENT: eyes are clear and none icteric, nasal cannula LUNGS: normal respiratory effort ABD: distended Lower extremities: no edema SKIN: nonjaundiced Neuro: grossly intact. Objective Data Vital Signs Vital Signs: Vital Signs - 24 hr 11/12/20 16:00 11/12/20 16:08 11/12/20 20:00 Temperature 98.2 F 98.6 F Pulse Rate 72 73 75 Respiratory Rate 14 20 Blood Pressure 169/74 H 160/75 H Pulse Oximetry 94 92 11/12/20 20:28 11/12/20 20:39 11/13/20 00:00 Temperature 97.9 F Pulse Rate 70 72 72 Respiratory Rate 20 Blood Pressure 178/72 H Pulse Oximetry 94 11/13
[2020-11-13 17:01] LABS: Glucose Point of Care 390 mg/dl (65-105)
[2020-11-13] MEDS: INSULIN GLARGINE (*BKC) 100 UNITS/ML 25 UNITS SUB-Q (22:00)
[2020-11-13 22:06] LABS: Glucose Point of Care 340 mg/dl (65-105)
--- NOTE | 2020-11-13 23:46 | PCRCNOTE ---
Window of time for administration has passed. See next scheduled administration.
[2020-11-14] VITALS (17 sets, daily range): BP systolic 121–169; BP diastolic 53–83; PULSE 50–75; RESP 18–20; TEMP 36.2–36.8; O2SAT 92–97
[2020-11-14] MEDS: ALBUTEROL SULFATE NEB 2.5 MG/0.5 ML INH 5 MG INHALATION ×4 (02:06→20:27)
[2020-11-14] MEDS: IPRATROPIUM BR 0.02% INH SOLN 0.5 MG/2.5 ML VIAL INHALATION ×4 (02:07→20:27)
[2020-11-14 06:23] LABS: Hematocrit 38.8 % (42.0-52.0); Hemoglobin 12.3 g/dL (14.0-18.0); Mean Corpuscular HGB Conc 31.7 g/dl (32-36); Mean Corpuscular Hemoglobin 28.9 pg (26-34); Mean Corpuscular Volume 91.1 fl (80-100); Mean Platelet Volume 11.3 fl (7.4-10.4); Platelet Count Result 295 k/mm3 (150-375); Red Blood Count 4.26 M/mm3 (4.6-6.20); White Blood Count 6.2 K/mm3 (4.5-10.0)
[2020-11-14 06:42] LABS: INR 1.1; Prothrombin Time 14.4 Seconds (11.1-14.7)
[2020-11-14 06:44] LABS: Alanine Aminotransferase 32 U/L (4-50); Albumin Level 2.6 g/dL (3.5-5.1); Alkaline Phosphatase 62 U/L (38-126); Anion Gap 3 mmol/L (8-16); Aspartate Amino Transferase 25 U/L (17-59); Bilirubin,Total 0.6 mg/dL (0.2-1.3); Blood Urea Nitrogen 16 mg/dL (9-20); CRP 5.3 mg/dL (<1.0); Calcium 8.1 mg/dL (8.4-10.2); Carbon Dioxide 29 mmol/L (22-30); Chloride 102 mmol/L (98-107); Estimated CRCL calculation 128 ml/min; Estimated Glomerular Filt Rate > 60; Glucose 197 mg/dL (65-110); Magnesium 1.6 mg/dL (1.6-2.3); Potassium 4.3 mmol/L (3.4-5.0); Sodium 134 mmol/L (137-145)
[2020-11-14 06:54] LABS: Glucose Point of Care 207 mg/dl (65-105)
[2020-11-14 07:43] LABS: Glucose Point of Care 198 mg/dl (65-105)
[2020-11-14] MEDS: REMDESIVIR 100 MG/NS 250 ML 100 MG/250 ML BAG 250 MG IVPB (10:34)
[2020-11-14] MEDS: INSULIN ASPART (*BKC) 100 UNITS/ML SUB-Q ×3 (10:39→18:25)
[2020-11-14] MEDS: ATORVASTATIN 20 MG TABLET PO (10:40)
[2020-11-14] MEDS: amLODIPine BESYLATE 5 MG TABLET 10 MG PO (10:40)
[2020-11-14] MEDS: lisinopriL 20 MG TABLET PO (10:40)
[2020-11-14] MEDS: POTASSIUM CHLORIDE 20 MEQ TABLET.ER 40 MEQ PO ×3 (10:40→18:26)
[2020-11-14] MEDS: ASPIRIN 81 MG CHEWABLE TABLET PO (10:41)
[2020-11-14] MEDS: ENOXAPARIN 40 MG/0.4 ML SYRINGE SUB-Q ×2 (10:41→20:15)
[2020-11-14] MEDS: FINASTERIDE 5 MG TABLET PO (10:41)
[2020-11-14] MEDS: metFORMIN HCL XR 500 MG TAB.SR.24H PO (10:42)
[2020-11-14] MEDS: METOPROLOL SUCCINATE EXT REL 100 MG TABCR PO (10:42)
[2020-11-14] MEDS: PARoxetine 20 MG TABLET PO (10:42)
[2020-11-14] MEDS: MAGNESIUM OXIDE 400 MG TABLET PO (10:43)
[2020-11-14] MEDS: GLIMEPIRIDE 1 MG TABLET PO ×2 (10:43→18:27)
[2020-11-14 12:17] LABS: Glucose Point of Care 271 mg/dl (65-105)
[2020-11-14] MEDS: guaiFENesin 12 HR 600 MG TABCR 1200 MG PO ×2 (14:41→20:15)
--- NOTE | 2020-11-14 15:49 | PM.IMPN ---
Progress Note: A&P Assessment and Plan (1) COVID-19: Code(s): U07.1 - COVID-19 Status: Acute Assessment and Plan: 11/13/20 15:12 patient with COVID-19 patient is 69-year-old male history of diabetes, hypertension and COPD, patient was diagnosed with COVID-19 end of last month, patient presented emergency depart is more tired and unable to take care of himself, he has not been taking his medication, is a poor historian, upon arrival his oxygen was 85% on room air and patient was placed on 2 L nasal cannula, from emergency depart patient was started on dexamethasone 10 mg IV q.day 04/16, Remdesivir 04/11, and patient has agreed to the convalescent plasma today. chest x-ray shows pneumonia versus pulmonary edema, is hypokalemic with potassium of 2.8, most likely secondary to poor p.o. intake, will supplement. Patient is unable to provider detail ROS. 11/13: Remdesivir and Dexamethasone day 4, Oxygen requirement 5 L improving compare tp 7 L on 11/12 similarly CRP is trending down to 7.8 compared to 13.3 on 11/12 patient clinically symptoms are improving will continue to monitor, patient is unable to take care of himself will need the placement upon discharge Continue Azithromycin and Ceftriaxone to cover possible concomitant CAP 11/14 remdesivir and dexamethasone day 5. Oxygen requirement 5 L improved. CRP trending down currently at 5.3. Likely need oxygen at discharge continue taper oxygen finished his remdesivir today however may continue for 5 more days. Continue ceftriaxone and azithromycin for concomitant community-acquired pneumonia. Do not see PT OT note will order one (2) Acute respiratory failure with hypoxia: Code(s): J96.01 - Acute respiratory failure with hypoxia Status: Acute Assessment and Plan: Due to COVID-19 Pneumonia currently on oxygen therapy (3) Hypokalemia: Code(s): E87.6 - Hypokalemia Status: Acute Assessment and Plan: Likely due to poor p.o. intake PO supplementation F/u lab (4) Diabetes: Code(s): E11.9 - Type 2 diabetes mellitus without complications Status: Inactive Assessment and Plan: Hyperglycemia due to steroid continue SSI protocol and premeal insulin and basal glargine (5) Hypertension: Code(s): I10 - Essential (primary) hypertension Status: Inactive Assessment and Plan: Continue home meds Monitor Subjective Date/time seen: 11/14/20 15:49 Interval history: Admitted 11/10 with acute hypoxia and COVID-19 pneumonia. 11/10 Dexamethasone and Remdesivir started. He is feeling better every day. Appetite is good. Still needing oxygen but has lowered down no chest pain minimal cough Review of Systems Review of Systems: All systems reviewed & are unremarkable except as noted in HPI and below Exam Narrative: Patient is comfortable, NAD HEENT: eyes are clear and none icteric, nasal cannula LUNGS: normal respiratory effort bilateral decreased breath sound ABD: distended soft nontender Lower extremities: no edema no cyanosis or clubbing SKIN: nonjaundiced Neuro: grossly intact. Alert and oriented x3 Objective Data Vital Signs Vital Signs: Vital Signs - 24 hr 11/13/20 16:00 11/13/20 20:00 11/13/20 20:30 Temperature 97.7 F 98.9 F Pulse Rate 71 68 Respiratory Rate 20 20 Blood Pressure 155/55 H 150/87 H Pulse Oximetry 94 96 95 11/14/20 00:00 11/14/20 02:07 11/14/20 02:15 Temperature 98.1 F Pulse Rate 64 74 75 Respiratory Rate 20 18 18 Blood Pressure 143/56 H Pulse Oximetry 96 11/14/20 04:00 11/14/20 08:00 11/14/20 09:42 Temperature 97.3 F L 97.8 F Pulse Rate 58 L 50 L 61 Respiratory Rate 18 18 20 Blood Pressure 161/83 H 152/58 H Pulse Oximetry 96 92 92 11/14/20 09:54 11/14/20 10:42 11/14/20 12:00 Temperature 97.6 F Pulse Rate 64 64 65 Respiratory Rate 20 18 Blood Pressure 152/54 H Pulse Oximetry 94 11/14/20 15:23 Temperature Pulse Rate 66 Resp
[2020-11-14 17:03] LABS: Glucose Point of Care 339 mg/dl (65-105)
[2020-11-14] MEDS: INSULIN GLARGINE (*BKC) 100 UNITS/ML 25 UNITS SUB-Q (20:16)
[2020-11-15] VITALS (15 sets, daily range): BP systolic 130–162; BP diastolic 53–86; PULSE 57–77; RESP 18–22; TEMP 36.3–36.9; O2SAT 91–100
[2020-11-15 00:11] LABS: Glucose Point of Care 349 mg/dl (65-105)
[2020-11-15] MEDS: IPRATROPIUM BR 0.02% INH SOLN 0.5 MG/2.5 ML VIAL INHALATION ×3 (03:30→20:52)
[2020-11-15] MEDS: ALBUTEROL SULFATE NEB 2.5 MG/0.5 ML INH 5 MG INHALATION ×3 (03:30→20:52)
[2020-11-15 06:39] LABS: Hematocrit 41.5 % (42.0-52.0); Hemoglobin 13.3 g/dL (14.0-18.0); Mean Corpuscular Hemoglobin 28.9 pg (26-34); Mean Platelet Volume 11.8 fl (7.4-10.4); Platelet Count Result 320 k/mm3 (150-375); Red Blood Count 4.61 M/mm3 (4.6-6.20); White Blood Count 8.3 K/mm3 (4.5-10.0)
[2020-11-15 06:50] LABS: Alanine Aminotransferase 36 U/L (4-50); Albumin Level 3.2 g/dL (3.5-5.1); Alkaline Phosphatase 68 U/L (38-126); Anion Gap 8 mmol/L (8-16); Aspartate Amino Transferase 31 U/L (17-59); Bilirubin,Total 0.7 mg/dL (0.2-1.3); Blood Urea Nitrogen 16 mg/dL (9-20); CRP 3.7 mg/dL (<1.0); Calcium 8.7 mg/dL (8.4-10.2); Carbon Dioxide 23 mmol/L (22-30); Chloride 102 mmol/L (98-107); Estimated CRCL calculation 128 ml/min; Estimated Glomerular Filt Rate > 60; Glucose 172 mg/dL (65-110); Magnesium 1.6 mg/dL (1.6-2.3); Sodium 133 mmol/L (137-145)
[2020-11-15 08:30] LABS: Glucose Point of Care 169 mg/dl (65-105)
[2020-11-15] MEDS: METOPROLOL SUCCINATE EXT REL 100 MG TABCR PO (09:01)
[2020-11-15] MEDS: POTASSIUM CHLORIDE 20 MEQ TABLET.ER 40 MEQ PO ×3 (09:01→17:28)
[2020-11-15] MEDS: guaiFENesin 12 HR 600 MG TABCR 1200 MG PO ×2 (09:01→20:26)
[2020-11-15] MEDS: amLODIPine BESYLATE 5 MG TABLET 10 MG PO (09:01)
[2020-11-15] MEDS: FINASTERIDE 5 MG TABLET PO (09:02)
[2020-11-15] MEDS: ATORVASTATIN 20 MG TABLET PO (09:02)
[2020-11-15] MEDS: lisinopriL 20 MG TABLET PO (09:02)
[2020-11-15] MEDS: PARoxetine 20 MG TABLET PO (09:02)
[2020-11-15] MEDS: MAGNESIUM OXIDE 400 MG TABLET PO (09:02)
[2020-11-15] MEDS: GLIMEPIRIDE 1 MG TABLET PO ×2 (09:02→17:28)
[2020-11-15] MEDS: metFORMIN HCL XR 500 MG TAB.SR.24H PO (09:02)
[2020-11-15] MEDS: ASPIRIN 81 MG CHEWABLE TABLET PO (09:03)
[2020-11-15] MEDS: ENOXAPARIN 40 MG/0.4 ML SYRINGE SUB-Q ×2 (09:03→20:26)
[2020-11-15] MEDS: INSULIN ASPART (*BKC) 100 UNITS/ML SUB-Q ×3 (09:04→17:28)
[2020-11-15 11:44] LABS: Glucose Point of Care 264 mg/dl (65-105)
[2020-11-15 17:36] LABS: Glucose Point of Care 318 mg/dl (65-105)
--- NOTE | 2020-11-15 18:03 | PM.IMPN ---
Progress Note: A&P Assessment and Plan (1) COVID-19: Code(s): U07.1 - COVID-19 Status: Acute Assessment and Plan: 11/13/20 15:12 patient with COVID-19 patient is 69-year-old male history of diabetes, hypertension and COPD, patient was diagnosed with COVID-19 end of last month, patient presented emergency depart is more tired and unable to take care of himself, he has not been taking his medication, is a poor historian, upon arrival his oxygen was 85% on room air and patient was placed on 2 L nasal cannula, from emergency depart patient was started on dexamethasone 10 mg IV q.day 04/16, Remdesivir 04/11, and patient has agreed to the convalescent plasma today. chest x-ray shows pneumonia versus pulmonary edema, is hypokalemic with potassium of 2.8, most likely secondary to poor p.o. intake, will supplement. Patient is unable to provider detail ROS. 11/13: Remdesivir and Dexamethasone day 4, Oxygen requirement 5 L improving compare tp 7 L on 11/12 similarly CRP is trending down to 7.8 compared to 13.3 on 11/12 patient clinically symptoms are improving will continue to monitor, patient is unable to take care of himself will need the placement upon discharge Continue Azithromycin and Ceftriaxone to cover possible concomitant CAP 11/14 remdesivir and dexamethasone day 5. Oxygen requirement 5 L improved. CRP trending down currently at 5.3. Likely need oxygen at discharge continue taper oxygen finished his remdesivir today however may continue for 5 more days. Continue ceftriaxone and azithromycin for concomitant community-acquired pneumonia. Do not see PT OT note will order one 11/15/20 Patient saturating 97% on room air doing very well anticipate discharging him home tomorrow with 5 more days of dexamethasone. Continue current care. Assess for home O2 need tomorrow (2) Acute respiratory failure with hypoxia: Code(s): J96.01 - Acute respiratory failure with hypoxia Status: Acute Assessment and Plan: Due to COVID-19 Pneumonia currently on oxygen therapy (3) Hypokalemia: Code(s): E87.6 - Hypokalemia Status: Acute Assessment and Plan: Likely due to poor p.o. intake PO supplementation F/u lab (4) Diabetes: Code(s): E11.9 - Type 2 diabetes mellitus without complications Status: Inactive Assessment and Plan: Hyperglycemia due to steroid continue SSI protocol and premeal insulin and basal glargine (5) Hypertension: Code(s): I10 - Essential (primary) hypertension Status: Inactive Assessment and Plan: Continue home meds Monitor Subjective Date/time seen: 11/15/20 18:03 Patient saturating 97% on room air doing very well anticipate discharging him home tomorrow with 5 more days of dexamethasone We discussed use of steroids and steroid induced hyperglycemia and we will review discharge medications for patient tomorrow with indications of what to do his blood sugars elevated. Patient does have a glucometer in his home. Will need 6 minute walk test in the morning patient is agreeable. Exam Narrative: Patient is comfortable, NAD HEENT: eyes are clear and none icteric, nasal cannula LUNGS: normal respiratory effort ABD: distended soft nontender Lower extremities: no edema no cyanosis or clubbing SKIN: nonjaundiced Neuro: grossly intact. Alert and oriented x3 Objective Data Vital Signs Vital Signs: Vital Signs - 24 hr 11/14/20 20:00 11/14/20 20:27 11/14/20 20:41 Temperature Pulse Rate 66 68 Respiratory Rate 20 20 Blood Pressure Pulse Oximetry 93 11/14/20 20:45 11/14/20 21:16 11/14/20 23:50 Temperature 98.2 F 97.3 F L Pulse Rate 68 62 Respiratory Rate 18 18 Blood Pressure 169/81 H 152/69 H Pulse Oximetry 93 95 97 11/15/20 03:00 11/15/20 03:30 11/15/20 03:39 Temperature 97.3 F L Pulse Rate 64 71 73 Respiratory Rate 18 20 20 Blood Pressure 130/53 L Pulse Oximetry 95 11/15/20 08:00 11/15/20
[2020-11-15] MEDS: INSULIN GLARGINE (*BKC) 100 UNITS/ML 25 UNITS SUB-Q (22:18)
[2020-11-15 23:02] LABS: Glucose Point of Care 293 mg/dl (65-105)
[2020-11-16] VITALS (17 sets, daily range): BP systolic 144–167; BP diastolic 68–73; PULSE 64–84; RESP 16–20; TEMP 36.4–37.1; O2SAT 85–99
[2020-11-16] MEDS: IPRATROPIUM BR 0.02% INH SOLN 0.5 MG/2.5 ML VIAL INHALATION ×3 (02:05→14:15)
[2020-11-16] MEDS: ALBUTEROL SULFATE NEB 2.5 MG/0.5 ML INH 5 MG INHALATION ×3 (02:06→14:15)
[2020-11-16 07:24] LABS: Hematocrit 39.7 % (42.0-52.0); Hemoglobin 12.7 g/dL (14.0-18.0); Mean Corpuscular Hemoglobin 28.8 pg (26-34); Mean Platelet Volume 11.6 fl (7.4-10.4); Platelet Count Result 329 k/mm3 (150-375); Red Blood Count 4.41 M/mm3 (4.6-6.20); Red Cell Distribution Width 14.3 % (11.5-14.5); White Blood Count 8.1 K/mm3 (4.5-10.0)
[2020-11-16 07:42] LABS: Alanine Aminotransferase 36 U/L (4-50); Albumin Level 3.1 g/dL (3.5-5.1); Alkaline Phosphatase 66 U/L (38-126); Anion Gap 8 mmol/L (8-16); Aspartate Amino Transferase 29 U/L (17-59); Bilirubin,Total 0.5 mg/dL (0.2-1.3); Blood Urea Nitrogen 16 mg/dL (9-20); CRP 2.2 mg/dL (<1.0); Calcium 8.8 mg/dL (8.4-10.2); Carbon Dioxide 23 mmol/L (22-30); Chloride 100 mmol/L (98-107); Estimated CRCL calculation 128 ml/min; Estimated Glomerular Filt Rate > 60; Glucose 196 mg/dL (65-110); Magnesium 1.6 mg/dL (1.6-2.3); Potassium 4.8 mmol/L (3.4-5.0); Sodium 131 mmol/L (137-145)
[2020-11-16 08:35] LABS: Glucose Point of Care 186 mg/dl (65-105)
[2020-11-16] MEDS: INSULIN ASPART (*BKC) 100 UNITS/ML SUB-Q ×2 (08:54→12:25)
[2020-11-16] MEDS: ENOXAPARIN 40 MG/0.4 ML SYRINGE SUB-Q (08:55)
[2020-11-16] MEDS: MAGNESIUM OXIDE 400 MG TABLET PO (08:56)
[2020-11-16] MEDS: PARoxetine 20 MG TABLET PO (08:56)
[2020-11-16] MEDS: lisinopriL 20 MG TABLET PO (08:56)
[2020-11-16] MEDS: POTASSIUM CHLORIDE 20 MEQ TABLET.ER 40 MEQ PO ×2 (08:57→12:26)
[2020-11-16] MEDS: amLODIPine BESYLATE 5 MG TABLET 10 MG PO (08:58)
[2020-11-16] MEDS: GLIMEPIRIDE 1 MG TABLET PO (08:58)
[2020-11-16] MEDS: guaiFENesin 12 HR 600 MG TABCR 1200 MG PO (08:58)
[2020-11-16] MEDS: metFORMIN HCL XR 500 MG TAB.SR.24H PO (08:58)
[2020-11-16] MEDS: ATORVASTATIN 20 MG TABLET PO (08:59)
[2020-11-16] MEDS: ASPIRIN 81 MG CHEWABLE TABLET PO (08:59)
[2020-11-16] MEDS: METOPROLOL SUCCINATE EXT REL 100 MG TABCR PO (08:59)
[2020-11-16] MEDS: FINASTERIDE 5 MG TABLET PO (09:00)
--- NOTE | 2020-11-16 11:03 | HOMEO2EVAL ---
Evaluation was performed at [facility] Home Oxygen Evaluation RC: Home Oxygen (O2) Evaluation Start: 11/15/20 16:46 Freq: ONCE Status: Active Protocol: RPE Activity Type Activity Date Activity User E-Sign Co-Sign Detail Recorded Client Recorded Date Recorded By Document 11/16/20 10:40 [email or web address] [email or web address] 11/16/20 11:02 DJO Document 11/16/20 10:41 [email or web address] 11/16/20 11:02 DJO Document 11/16/20 10:42 [email or web address] [email or web address] 11/16/20 11:02 DJO Document 11/16/20 10:43 [email or web address] [email or web address] 11/16/20 11:02 DJO Document 11/16/20 10:45 [email or web address] [email or web address] 11/16/20 11:02 DJO Document 11/16/20 10:50 [email or web address] [email or web address] 11/16/20 11:02 DJO 11/16/20 11/16/20 11/16/20 10:40 10:41 10:42 Home O2 Evaluation Test Phase Resting Exercise Exercise Oxygen Delivery Room Air Room Air Nasal Cannula Oxygen Flow Rate (L/min) 1 Pulse Oximetry (90-100 %) 90 85 L 85 L Home Oxygen Evaluation Comments PT REQUIRES 3 LITERS HOME O2 WITH EXERTION Treatment Charges O2 Evaluation - Inpatient 11/16/20 11/16/20 11/16/20 10:43 10:45 10:50 Home O2 Evaluation Test Phase Exercise Exercise Resting Oxygen Delivery Nasal Cannula Nasal Cannula Room Air Oxygen Flow Rate (L/min) 2 3 Pulse Oximetry (90-100 %) 87 L 90 91 Home Oxygen Evaluation Comments Treatment Charges
--- NOTE | 2020-11-16 11:08 | PCRCNOTE ---
HOME O2 EVAL COMPLETED, SET UP WITH [facility], WILL BRING TANK TO ROOM FOR TRANSPORT HOME.
--- NOTE | 2020-11-16 11:08 | PCRCNOTE ---
PT REQUIRES 3 L WITH EXERTION ONLY, ROOM AIR AT REST
[2020-11-16 12:41] LABS: Glucose Point of Care 231 mg/dl (65-105)
--- NOTE | 2020-11-16 14:58 | PM.DS ---
DS: Admitting Diagnosis Admitting Diagnosis (1) COVID-19: Code(s): (2) Acute respiratory failure with hypoxia: Code(s): (3) Hypokalemia: Code(s): (4) Diabetes: Code(s): (5) Hypertension: Code(s): DS: Discharge Diagnosis Discharge Diagnosis (1) COVID-19: Code(s): U07.1 - COVID-19 Status: Acute (2) Acute respiratory failure with hypoxia: Code(s): J96.01 - Acute respiratory failure with hypoxia Status: Acute (3) Hypokalemia: Code(s): E87.6 - Hypokalemia Status: Acute (4) Hypertension: Code(s): I10 - Essential (primary) hypertension Status: Acute (5) Diabetes: Code(s): E11.9 - Type 2 diabetes mellitus without complications Status: Acute DS: Summary Hospital Course Reason for hospitalization: SOB Hospital Course: 69-year-old male admitted to the hospital with Coronavirus. He received Supplemental oxygen, Remdesivir, dexamethasone of and responded appropriately to medical therapy. patient was subsequently discharged home in stable condition on 3 L of oxygen to use when ambulating or during other activities causing exertion. he is to follow-up with primary care physician within 3 days Via telemedicine visit. Time Spent with Patient Time attestation: Total time spent providing and/or coordinating discharge services: Exam Narrative: Patient is comfortable, NAD HEENT: eyes are clear and none icteric, nasal cannula LUNGS: normal respiratory effort ABD: distended soft nontender Lower extremities: no edema no cyanosis or clubbing SKIN: nonjaundiced Neuro: grossly intact. Alert and oriented x3 DS: Data Data Completed and Pending Labs on day of discharge: Labs from last 24 hours 11/16/20 11/16/20 11/16/20 12:20 07:59 06:32 WBC RBC Hgb Hct MCV MCH MCHC RDW Plt Count MPV Sodium 131 L Potassium 4.8 Chloride 100 Carbon Dioxide 23 Anion Gap 8 BUN 16 Creatinine 0.70 Estim Creat Clear Calc 128 Estimated GFR > 60 Glucose 196 H POC Capillary Glucose 231 H 186 H Calcium 8.8 Magnesium 1.6 Total Bilirubin 0.5 AST 29 ALT 36 Alkaline Phosphatase 66 C-Reactive Protein 2.2 H Total Protein 6.0 L Albumin 3.1 L 11/16/20 11/15/20 11/15/20 06:32 22:16 17:24 WBC 8.1 RBC 4.41 L Hgb 12.7 L Hct 39.7 L MCV 90.0 MCH 28.8 MCHC 32.0 RDW 14.3 Plt Count 329 MPV 11.6 H Sodium Potassium Chloride Carbon Dioxide Anion Gap BUN Creatinine Estim Creat Clear Calc Estimated GFR Glucose POC Capillary Glucose 293 H 318 H Calcium Magnesium Total Bilirubin AST ALT Alkaline Phosphatase C-Reactive Protein Total Protein Albumin Discharge Plan Discharge Attending physician on discharge: Anastacia De La Rosa Discharging Clinician: Anastacia De La Rosa Patient Disposition: Home, Self-Care Activity: as tolerated Diet: heart healthy and diabetic Patient Instructions: Antibiotic Form, Aspirin (By mouth) Stand Alone Forms: General Discharge Information Follow-up/Referrals: Aaron Bailey MD [Primary Care Provider] - (follow up for potassium lab) Discharge Medications: New benzonatate 100 mg Capsule 100 mg PO TID PRN (Reason: Cough) Qty: 20 RF: 0 potassium chloride [K-Tab] 20 mEq Tablet Extended Release 20 meq PO DAILY Qty: 10 RF: 0 glimepiride 1 mg tablet 1 mg PO QACBREAK PRN (Reason: Blood glucose greater than 250 ) Qty: 5 RF: 0 dexamethasone 6 mg tablet 6 mg PO DAILY Qty: 5 RF: 0 Continued atorvastatin 20 mg tablet 20 mg PO DAILY RF: 0 lisinopril-hydrochlorothiazide 20-12.5 mg tablet 20 tablet PO DAILY RF: 0 metoprolol succinate 100 mg tablet extended release 24 hr 100 mg PO DAILY RF: 0 amlodipine 5 mg tablet 5 mg PO DAILY RF: 0 paroxeti
[2020-11-16] MEDS: FAMOTIDINE 10 MG TABLET PO (15:10)
== END 2020-11-16 16:10 | disposition home or self-care (01) | DRG 177 ==
LOC: ANHED 05:10 → ANH3MEDSUR 05:22
PROVIDERS: Admitting Provider Internal Medicine; Emergency Provider Emergency Medicine; PCP Family Medicine Adolescent Medicine; Visit Provider Family Medicine
DX: U07.1 COVID-19 (principal); J12.82 Pneumonia due to coronavirus disease 2019; J96.01 Acute respiratory failure with hypoxia; J18.9 Pneumonia, unspecified organism; J44.0 Chronic obstructive pulmonary disease with (acute) lower respiratory infection; E87.6 Hypokalemia; I10 Essential (primary) hypertension; E11.65 Type 2 diabetes mellitus with hyperglycemia; T38.0X5A Adverse effect of glucocorticoids and synthetic analogues, initial encounter
CPT/HCPCS: 36415; 36430; 71045; 80053; 81001; 82565; 82948; 83605; 83735; 83880; 84460; 85025; 85027; 85610; 85730; 86140; 86900; 86901; 87040; 93005; 94618; 94640; 96374; 97161; 99285; A9270; J0456; J0696; J1100; J1650; J1815; J3475; J3480; J7050; P9059

== ENCOUNTER 2020-12-16 22:38 | Inpatient (IN) | payer MEDICARE, SELFPAY ==
--- NOTE | ~2020-12-16 | XR_ITS ---
EXAMINATION: XR foot RT min 3V EXAM DATE: 12/16/2020 23:21 INDICATION: Right foot pain, diabetic. TECHNIQUE: Right foot dorsoplantar, lateral and oblique projections obtained and reviewed. Compariso n is made to prior examination from 02/16/2014. 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 There is moderate 1 st tarsometatarsal primary osteoarthritis. There are no acute fractures or dislocations identified. There is no subcutaneous gas. There are arterial calcifications, arteriosclerosis. There are no ra diopaque foreign bodies. Small inferior calcaneal spur. There are no bony erosions identified. IMPRESSION: Chronic findings as above. Reviewed, dictated and finalized at location A. IMPRESSION: Chronic findings as above.
--- NOTE | ~2020-12-16 | XR_ITS ---
EXAMINATION: XR surgery orthopedic DATE: 12/22/2020 08:21 INDICATION: Septic arthritis at the right fourth metatarsophalangeal joint with foreign body in the a djacent soft tissues. TECHNIQUE: 3 fluoroscopic images of the right forefoot were obtained during procedure performed by Dr Priyanka Calvillo. Radiologist was not present for the imaging or procedure. The amount of fluoroscopy time u sed during this procedure was 0.6 minutes. COMPARISON: 12/20/2020 FINDINGS: Interval widening of the fourth metatarsophalangeal joint with osteotomy involving the head of the fo urth metatarsal presumably for osteomyelitis. There is some likely postoperative soft tissue gas in t he soft tissues plantar to the base of the fourth proximal phalanx at the site of a previously seen s mall foreign body which is not appreciated on the provided fluoroscopic images suggesting interval de bridement. Change chronic osteonecrosis at the head of the second metatarsal. No acute fracture. IMPRESSION: 1. Fluoroscopy utilized during debridement of a small foreign body at the base of the fourth toe and osteotomy at the head of the fourth metatarsal presumably for osteomyelitis. See procedure note for f urther detail. Reviewed, dictated and finalized at location A. IMPRESSION: 1. Fluoroscopy utilized during debridement of a small foreign body at the base of the fourth toe and osteotomy at the head of the fourth metatarsal presumably for osteomyelitis. See procedure note for further detail.
--- NOTE | ~2020-12-16 | XR_ITS ---
EXAMINATION: XR foot RT min 3V DATE: 12/20/2020 17:16 INDICATION: Foreign body at the fourth metatarsal. TECHNIQUE: Dorsoplantar, two oblique and lateral views of the right foot were obtained. COMPARISON: Radiograph dated 12/16/2020 FINDINGS: No interval change in a 2-3 mm thin triangular foreign body potentially a shard of glass situated in the soft tissues at the plantar aspect of the base of the fourth toe. No soft tissue gas. Bone alignm ent is normal. Chronic osteonecrosis and collapse of the articular surface of the head of the second metatarsal. No fracture. There appears be a tiny erosion with subtle lucency and possibly a clearly d efined cortical line at the lateral margin of the articular surface at the base of the fourth proxima l phalanx suspicious for very early osteomyelitis. Polyarticular osteoarthritis, moderate severity at the first tarsal metatarsal joint and mild at multiple of the remaining tarsal metatarsal, metatarso phalangeal and interphalangeal joints. IMPRESSION: 1. Persistent 2-3 mm radiopaque foreign body, potentially shard of glass in the soft tissues at the p lantar aspect of the base of the fourth toe. 2. Likely tiny erosion at the lateral base of the fourth proximal phalanx suspicious for early osteom yelitis. 3. Chronic osteonecrosis and collapse of the articular surface at the head of the second metatarsal. Reviewed, dictated and finalized at location A. IMPRESSION: 1. Persistent 2-3 mm radiopaque foreign body, potentially shard of glass in the soft tissues at the plantar aspect of the base of the fourth toe. 2. Likely tiny erosion at the lateral base of the fourth proximal phalanx suspi cious for early osteomyelitis. 3. Chronic osteonecrosis and collapse of the articular surface at the head of t he second metatarsal.
--- NOTE | ~2020-12-16 | MR_ITS ---
EXAMINATION: MR foot RT wo/w con DATE: 12/20/2020 14:42 INDICATION: Diabetic foot infection with wound at the right foot TECHNIQUE: Magnetic resonance imaging (MRI) of the right fore/mid foot was performed without and with 20 mL Multihance intravenous contrast. Sequences included axial, sagittal and coronal T1-weighted FS E and T2-weighted FS FSE, axial T1-weighted FS FSE and postcontrast axial and coronal T1-weighted FS FSE. COMPARISON: Right foot radiographs dated 12/16/2020 FINDINGS: Bone alignment is normal. No acute fracture. There is chronic osteonecrosis with chronic collapse of the articular surface at the head of the second metatarsal (Freiberg's infraction) which can be seen dating back to radiograph dated 02/16/2014. Mild underlying degenerative subarticular cystic changes. Moderate osteoarthritis with subarticular edema and cystic change at the first tarsal metatarsal yovana nt. Mild osteoarthritis at the first metatarsophalangeal joint with small focus of subarticular edema at the head of the first metatarsal. There is a small focus of susceptibility artifact in the plantar soft tissues plantar to the head of the second metatarsal with irregularity to the skin surface suggesting possible puncture injury with foreign body. On the prior radiographs there is a subtle triangular density suggesting a 2 mm glass f ragment. Likely septic arthritis at the fourth metatarsophalangeal joint with enhancing synovitis at the margins of a small joint effusion. There is additional peripheral enhancement at the margins of a n irregular extra-articular T2 hyperintense fluid collection/abscess situated in the dorsal soft tiss ues between the fourth and fifth metatarsophalangeal joints. The abscess measures 3.3 cm proximal to distal, 1.2 cm medial collateral and 1.6 cm dorsal to plantar. There is marrow edema and enhancement at the head of the fourth metatarsal and throughout the fourth proximal phalanx which most likely arik ctive in etiology. Could not exclude osteomyelitis however there is no evident geographic loss of T1 marrow fat signal or cortical erosion to more specifically suggest this. Diffuse soft tissue edema th roughout the forefoot with skin thickening of the dorsum of the foot. There is moderate fatty atrophy of the intrinsic musculature of the foot suggesting sequela of chronic diabetic neuropathy. IMPRESSION: 1. Likely septic arthritis at the fourth metatarsophalangeal joint with adjacent 3.3 x 1.2 x 1.6 jessica lar abscess in the dorsal soft tissues between the fourth and fifth metatarsophalangeal joints. This appears to result from a likely puncture wound with 2 mm triangular likely glass fragment seen at thi s location on recent prior radiographs. If there is no history of this having been removed would jael mmend repeat radiographs to more definitively determine whether this remains present. 2. Marrow edema and enhancement at the head of the fourth metatarsal and throughout the fourth proxim al phalanx which is likely reactive although could not absolutely exclude early osteomyelitis. The in tegrity of the cortices at this location could be reassessed on the recommended radiographs. 3. Osteonecrosis (Freiberg's infraction) with chronic collapse of the articular surface at the head o f the second metatarsal. 4. Polyarticular osteoarthritis, moderate at the first tarsal metatarsal joint and mild at the first and second tarsal metatarsal joints. Reviewed, dictated and finalized at location A. IMPRESSION: 1. Likely septic arthritis at the fourth metatarsophalangeal joint with adjacen t 3.3 x 1.2 x 1.6 similar abscess in the dorsal soft tissues between the fourth and fifth metatarsophalangeal joints. This appears to result from a likely pun cture wound with 2 mm triangula
--- NOTE | ~2020-12-16 | US_ITS ---
EXAMINATION: US arterial ankle brachial ind EXAM DATE: 12/19/2020 16:06 INDICATION: Right diabetic foot wound TECHNIQUE: Segmental pressures and plethysmographic and Doppler waveforms of the brachial and lower e xtremity arteries were obtained. There is no prior study for comparison. FINDINGS: Right and left brachial artery pressures of 164 mm Hg and 168 mm Hg, respectively, are concordant (no rmal difference <= 30 mmHg). RIGHT LEG: The ankle-brachial index (ARTURO) is could not obtain (normal >= 0.9-1). The great toe-brachial index (TBI) is 0.92 (normal >= 0.65). The lower extremity ratios, segmental pressure gradients as follows; Dorsalis pedis: Could not obtain ( mmHg). Posterior tibial: Could not obtain ( mmHg). (Normal gradients <= 20-30 mmHg between adjacent levels on the same leg or the same levels on the two legs). Arterial waveforms are monophasic. LEFT LEG: The ankle-brachial index (ARTURO) is could not obtain (normal >= 0.9-1). The great toe-brachial index (TBI) is 1.14 (normal >= 0.65). The lower extremity ratios, segmental pressure gradients as follows; Dorsalis pedis: Could not obtain ( mmHg). Posterior tibial: Could not obtain ( mmHg). (Normal gradients <= 20-30 mmHg between adjacent levels on the same leg or the same levels on the two legs). Arterial waveforms are monophasic. IMPRESSION: 1. Could not cuff occlude calf arteries to obtain ankle brachial indices. 2. Monophasic waveforms. 3. Normal toe brachial indices bilaterally. Reviewed, dictated and finalized at location B.
[2020-12-16 22:39] VITALS: BP 164/68; PULSE 75; RESP 18; TEMP 36.5; O2SAT 94
--- NOTE | 2020-12-16 22:52 | PC.NURSE ---
Pt ambulatory to ED 11 from . Reports he is here for possible cellulitis, which he has had before. On arrival, pt has reddened area to RLE, with +2 pitting edema to RIGHT foot, which pt reports has been there approx. 1 week. Pt also reports he found a nail in his shoe, and had to use pliers to remove it. has not called PCP for this. Pt also reports had COVID in OCTOBER 2020. Pt denies pain. a/o x 4. ambulatory c steady even, unassisted gait.
[2020-12-16 22:58] VITALS: BP 148/73; PULSE 68; RESP 18; TEMP 35.7; O2SAT 96
--- NOTE | 2020-12-16 23:04 | ECG_ITS ---
Measurements Intervals [place] Rate: 70 P: 29 OR: 230 QRS: -7 QRSD: 94 T: 7 QT: 400 QTc: 432 Interpretive Statements SINUS RHYTHM WITH FIRST DEGREE AV BLOCK BORDERLINE T WAVE ABNORMALITY- INFERIOR LEADS BASELINE ARTIFACT- I, II, AVR, AVL ABNORMAL ECG Electronically Signed On 12-17-2020 7:48:09 CDT by Ehsan Saenz D.O.
[2020-12-16 23:34] LABS: Basophils Percent Auto 0.2 % (0.2-1.2); Eosinophils Percent Auto 0.4 % (0-4.4); Hematocrit 38.4 % (42.0-52.0); Hemoglobin 12.7 g/dL (14.0-18.0); Immature Granulocyte Absolute 0.03 K/mm3 (0.00-0.031); Immature Granulocyte Percent A 0.3 % (0-0.5); Lymphocytes Absolute Auto 0.86 K/mm3 (0.9-3.2); Lymphocytes Percent Auto 9.4 % (18.3-44.2); Mean Corpuscular HGB Conc 33.1 g/dl (32-36); Mean Corpuscular Hemoglobin 29.7 pg (26-34); Mean Corpuscular Volume 89.7 fl (80-100); Monocytes Absolute Auto 0.9 K/mm3 (0.1-0.6); Monocytes Percent Auto 9.9 % (2.6-8.5); Neutrophils Absolute Auto 7.3 K/mm3 (1.3-6.7); Neutrophils Percent Auto 79.8 % (45.5-73.1); Platelet Count Result 186 k/mm3 (150-375); Red Blood Count 4.28 M/mm3 (4.6-6.20); Red Cell Distribution Width 13.6 % (11.5-14.5); White Blood Count 9.1 K/mm3 (4.5-10.0)
[2020-12-16 23:46] LABS: Lactic Acid Reflex 1.3 mmol/L (0.7-2.1)
[2020-12-17] VITALS (19 sets, daily range): BP systolic 126–156; BP diastolic 63–75; PULSE 65–79; RESP 14–22; TEMP 35.7–37.5; O2SAT 91–98; BMI 33.6
[2020-12-17] MEDS: ONDANSETRON INJ 4 MG/2 ML VIAL IV PUSH ×2 (00:06→15:53)
[2020-12-17] MEDS: SODIUM CHLORIDE 0.9% IV 1,000 ML 999 ML IV CONT (00:08)
[2020-12-17 00:15] LABS: Alanine Aminotransferase 14 U/L (4-50); Albumin Level 3.8 g/dL (3.5-5.1); Alkaline Phosphatase 60 U/L (38-126); Anion Gap 9 mmol/L (8-16); Aspartate Amino Transferase 16 U/L (17-59); Bilirubin,Total 1.4 mg/dL (0.2-1.3); Blood Urea Nitrogen 10 mg/dL (9-20); Calcium 9.9 mg/dL (8.4-10.2); Carbon Dioxide 34 mmol/L (22-30); Chloride 91 mmol/L (98-107); Estimated Glomerular Filt Rate > 60; Glucose 153 mg/dL (65-110); Potassium 3.2 mmol/L (3.4-5.0); Sodium 134 mmol/L (137-145)
[2020-12-17 00:16] LABS: Lipase 172 U/L (23-300)
[2020-12-17] MEDS: TETANUS,DIPHTHERIA,AC PERTUSSIS ADULT (0.5 ML) BOOSTRIX IM (00:21)
--- NOTE | 2020-12-17 00:39 | ED.GENADULT ---
HPI - General Adult General Chief complaint: Skin/Abscess/Foreign Body Stated complaint: Nausea/vomiting, fever, redness to legs Time Seen by Provider: 12/16/20 22:58 History of Present Illness HPI narrative: Patient is a 70-year-old gentleman who presents the emergency department with chief complaint of redness and swelling on his right lower extremity. The patient states that he found a screw in his shoe and had to pull the screw out. The patient states that he has a small wound on his right foot and has noticed that he started having swelling and redness on his right lower extremity that is extending up his leg. Patient reports he has history of diabetes reports that its not improved by anything nor is it worsened by anything. Related Data Home Medications Medication Instructions Recorded Confirmed Januvia 100 mg PO DAILY 10/30/20 11/10/20 amlodipine 5 mg PO DAILY 10/30/20 11/10/20 atorvastatin 20 mg PO DAILY 10/30/20 11/10/20 finasteride 5 mg PO DAILY 10/30/20 11/10/20 lisinopril-hydrochlorothiazide 20 tablet PO DAILY 10/30/20 11/10/20 metoprolol succinate 100 mg PO DAILY 10/30/20 11/10/20 paroxetine HCl 20 mg PO DAILY 10/30/20 11/10/20 aspirin 81 mg PO DAILY 11/10/20 11/10/20 lorazepam 0.5 mg PO TID PRN 11/10/20 11/10/20 Allergies Allergy/AdvReac Type Severity Reaction Status Date / Time No Known Allergies Allergy Verified 12/16/20 22:50 Review of Systems Review of Systems: A 10 system review of systems was completed on the patient and is negative except for what is stated in the HPI. Nursing and ancillary documentation was reviewed. [facility] Past Medical History Medical History Anxiety Diabetes High cholesterol Hypertension Panic attacks Family History Family History Father Hypertension Cerebrovascular accident Mother Hypertension Cerebrovascular accident Social History Social History Smoking status: Never smoker Alcohol intake: never Substance use: never Spiritual care concerns: No Exam Narrative: GENERAL: Well-appearing, well-nourished, and in no acute distress. HEAD: Normocephalic, atraumatic. EYES: PERRLA and EOMI. ENT: Nares clear, no rhinorrhea or epistaxis. Mucous membranes moist. NECK: Supple. CHEST: Clear to auscultation. No respiratory distress. HEART: Regular rate and rhythm. No murmur heard. Normal peripheral pulses. ABDOMEN: Soft, nontender, nondistended, normal active bowel sounds. EXTREMITIES: Normal range of motion. No edema. There is redness present of the right lower extremity streaking up from the foot there is a ulceration present on the plantar aspect of the foot SKIN: Warm, dry, no rash. NEURO: No focal deficits. Alert and oriented x3. PSYCH: Normal mood and affect. Course Vital Signs Vital signs: Vital Signs Temperature 36.5 C 12/16/20 22:39 Pulse Rate 75 12/16/20 22:39 Respiratory Rate 18 12/16/20 22:39 Blood Pressure 164/68 H 12/16/20 22:39 Pulse Oximetry 94 12/16/20 22:39 Temperature 36.5 C 12/16/20 22:39 Pulse Rate 69 12/17/20 00:36 Respiratory Rate 18 12/17/20 00:36 Blood Pressure 156/65 H 12/17/20 00:36 Pulse Oximetry 95 12/17/20 00:36 Medical Decision Making Vital Signs Vital Signs: Vital Signs Temperature 36.5 C 12/16/20 22:39 Pulse Rate 75 12/16/20 22:39 Respiratory Rate 18 12/16/20 22:39 Blood Pressure 164/68 H 12/16/20 22:39 Pulse Oximetry 94 12/16/20 22:39 Temperature 36.5 C 12/16/20 22:39 Pulse Rate 69 12/17/20 00:36 Respiratory Rate 18 12/17/20 00:36 Blood Pressure 156/65 H 12/17/20 00:36 Pulse Oximetry 95 12/17/20 00:36 Lab Data Result diagrams: 12/16/20 23:26 12/16/20 23:56 Labs: Lab Results 12/16/20 12/16/20 12/16/20 Range/Units
[2020-12-17 00:40] LABS: Troponin I < 0.012 ng/mL (0.000-0.034)
--- NOTE | 2020-12-17 01:51 | PM.IMHP ---
H&P: HPI History of Present Illness Date/Time: 12/17/20 01:51 Chief Complaint: Right foot she infection Narrative: 70-year-old male with past medical history of peripheral neuropathy and insulin-dependent diabetes mellitus, who presented to the ER with right foot is erythema after a screw was wedged inside his shoe. The patient and had 1 week of nausea and intermittent vomiting. He has been using Zofran with some relief in his symptoms. He has had decreased oral intake. And that not list any fevers or chills. He had been having some intermittent headache. It was until about 3 days ago that he noticed some erythema to the top of his foot. On further inspection he actually noticed the ulcer to bottom of his right foot and an area of prior callus at the base of the 4th metatarsal. Denied any significant pain to the area and has not noticed any drainage. He has had ulcers in this area previously but has been quite some time. He has noticed that the erythema when from his foot up into his left lateral calf. It is been accompanied by some swelling. He denies any fevers or chills. He received his [employer] COVID vaccine in June. He developed COVID in October and was hospitalized in November for COVID symptoms. His respiratory symptoms have since resolved. Review of Systems Review of Systems: 12 systems were reviewed with pertinent positives and negatives per HPI. Except as documented in the HPI, all other systems were reviewed and are negative. [facility] Past Medical History Medical History (Updated 12/17/20 @ 07:59 by Karen Navarro DO) Anxiety BPH (benign prostatic hyperplasia) COVID-19 (11/2020) Diabetes High cholesterol Hypertension Panic attacks TIA (transient ischemic attack) (~2018) Expressive aphasia that resolved Surgical History Surgical History (Updated 12/17/20 @ 07:53 by Karen Navarro DO) No significant past surgical history Family History Family History Father Hypertension Cerebrovascular accident Mother Hypertension Cerebrovascular accident Social History Social History (Updated 12/17/20 @ 07:57 by Karen Navarro DO) Social History: He lives in [place] with his of 45 years. 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 He drinks on average 1 alcoholic beverage a year. He has never smoked. He denies any illicit substance use. He is independent in all activities of daily living. He and his have 4 medium to large dogs. Primary care physician: Dr. Schneider Code status: DNR/DNI. He is okay with pressors and noninvasive respiratory support if needed. Surrogate decision maker: Smoking status: Never smoker Alcohol intake: never Substance use: never Spiritual care concerns: Yes Meds Home Medications and Allergies Home Medications Medication Instructions Recorded Confirmed Type Januvia 100 mg PO DAILY 10/30/20 12/17/20 History amlodipine 5 mg PO DAILY 10/30/20 12/17/20 History atorvastatin 20 mg PO DAILY 10/30/20 12/17/20 History finasteride 5 mg PO DAILY 10/30/20 12/17/20 History lisinopril-hydrochlorothiazide 20 tablet PO BID 10/30/20 12/17/20 History metoprolol succinate 100 mg PO DAILY 10/30/20 12/17/20 History paroxetine HCl 20 mg PO DAILY 10/30/20 12/17/20 History aspirin 81 mg PO DAILY 11/10/20 12/17/20 History glimepiride 1 mg PO QACBREAK PRN #5 tablet 11/16/20 12/17/20 Rx glimepiride 1 mg PO QACDINNER 5 Days #0 tablet 11/16/20 12/17/20 Rx calcium carbonate 1,000 mg PO PRN PRN 12/17/20 12/17/20 History ibuprofen 800 mg PO Q6H PRN 12/17/20 12/17/20 History metformin 1,000 mg PO BID 12/17/20 12/17/20 History Allergies Allergy/AdvReac Type Severity Reaction Status Date / Time No Known Allergies Allergy Verified 12/17/20 03:29 Vital Signs Vital Signs - 24 hr 12/16/20 22:39 12/17/20 00:36 Temperature 97.7 F Pulse Rate 75 69 Respiratory Rate 18 18 Blood Pressure 164
[2020-12-17 03:29] LABS: Add Urine Microscopic? YES; Amorphous Sediment Urine Few; Appearance Urine Cloudy (Clear); Bacteria Urine Trace /hpf; Bilirubin Urine Negative (Negative); Blood Urine Negative (Negative); Color Urine Yellow (Yellow); Glucose Urine UA Negative (Negative); Ketones Urine Negative (Negative); Leukocyte Esterase Ur Negative LEU/UL (Negative); Mucus Urine Rare /lpf; Nitrate Urine Negative (Negative); Protein Urine 2+ mg/dL (Negative); Specific Grav Ur 1.019 (1.001-1.035); Squamous Epithelial Cell Urine Rare /hpf (Few); Urobilinogen Urine Negative mg/dL (<2.0); WBC Urine 0-3 /hpf
--- NOTE | 2020-12-17 03:29 | ADMGEN ---
This patient, Christian Prado, was admitted to Medical Room 348-01. Patient/family oriented to hospital policies and general routines including ID bracelet, bed and alarms, visiting hours, pain management, procedures, bathroom and other care routines, personal items, smoking policy, room service/diet, and visiting hours. Information on how to activate the Rapid Response Team has been discussed. Patient/Family are encouraged to report perceived risks to care and to ask questions if they do not understand what they are told or what they should do.
[2020-12-17] MEDS: POTASSIUM CHLORIDE 20 MEQ TABLET 40 MEQ PO ×2 (05:39→09:24)
[2020-12-17 05:54] LABS: Troponin I < 0.012 ng/mL (0.000-0.034)
[2020-12-17 07:55] LABS: Glucose Point of Care 169 mg/dl (65-105)
--- NOTE | 2020-12-17 08:46 | PM.EVENT ---
Event Note Event Note Event Note: Follow-up rounding note; patient admitted this morning Patient doing well resting in his bed. we reviewed diabetic indications to check inside shoes with hands prior to putting them on. He acknowledges understanding. Otherwise doing okay. -potassium repleted -Cont current care.
[2020-12-17 08:47] LABS: Hematocrit 37.3 % (42.0-52.0); Hemoglobin 12.4 g/dL (14.0-18.0); Mean Corpuscular HGB Conc 33.2 g/dl (32-36); Mean Corpuscular Hemoglobin 29.9 pg (26-34); Mean Corpuscular Volume 89.9 fl (80-100); Mean Platelet Volume 11.1 fl (7.4-10.4); Platelet Count Result 185 k/mm3 (150-375); Red Blood Count 4.15 M/mm3 (4.6-6.20); Red Cell Distribution Width 13.2 % (11.5-14.5); White Blood Count 8.5 K/mm3 (4.5-10.0)
[2020-12-17 08:48] LABS: Anion Gap 10 mmol/L (8-16); Blood Urea Nitrogen 9 mg/dL (9-20); Calcium 9.1 mg/dL (8.4-10.2); Carbon Dioxide 31 mmol/L (22-30); Chloride 93 mmol/L (98-107); Estimated CRCL calculation 110 ml/min; Estimated Glomerular Filt Rate > 60; Glucose 185 mg/dL (65-110); Potassium 3.3 mmol/L (3.4-5.0); Sodium 134 mmol/L (137-145)
[2020-12-17] MEDS: lisinopriL 20 MG TABLET PO ×2 (09:23→17:17)
[2020-12-17] MEDS: METOPROLOL SUCCINATE EXT REL 100 MG TABCR PO (09:23)
[2020-12-17] MEDS: metFORMIN HCL XR 500 MG TAB.SR.24H 1000 MG PO ×2 (09:23→17:17)
[2020-12-17] MEDS: ASPIRIN 81 MG CHEWABLE TABLET PO (09:23)
[2020-12-17] MEDS: hydroCHLOROthiazide 12.5 MG CAPSULE PO ×2 (09:23→17:17)
[2020-12-17] MEDS: ATORVASTATIN 20 MG TABLET PO (09:23)
[2020-12-17] MEDS: FINASTERIDE 5 MG TABLET PO (09:24)
[2020-12-17] MEDS: PARoxetine 20 MG TABLET PO (09:24)
[2020-12-17] MEDS: amLODIPine BESYLATE 5 MG TABLET PO (09:24)
[2020-12-17] MEDS: ENOXAPARIN 40 MG/0.4 ML SYRINGE SUB-Q (09:24)
[2020-12-17 12:33] LABS: Glucose Point of Care 185 mg/dl (65-105)
[2020-12-17] MEDS: IBUPROFEN 400 MG TABLET 800 MG PO (15:53)
[2020-12-17 17:13] LABS: Glucose Point of Care 175 mg/dl (65-105)
[2020-12-17] MEDS: GLIMEPIRIDE 1 MG TABLET PO (17:17)
[2020-12-17 19:46] LABS: Glucose Point of Care 177 mg/dl (65-105)
[2020-12-18 05:53] VITALS: BP 131/72; PULSE 76; RESP 18; TEMP 36.7; O2SAT 98
[2020-12-18 06:34] LABS: Estimated CRCL calculation 89 ml/min; Estimated Glomerular Filt Rate > 60
[2020-12-18] MEDS: ENOXAPARIN 40 MG/0.4 ML SYRINGE SUB-Q (08:05)
[2020-12-18 08:06] VITALS: PULSE 84
[2020-12-18] MEDS: ASPIRIN 81 MG CHEWABLE TABLET PO (08:06)
[2020-12-18] MEDS: METOPROLOL SUCCINATE EXT REL 100 MG TABCR PO (08:06)
[2020-12-18] MEDS: lisinopriL 20 MG TABLET PO ×2 (08:06→17:56)
[2020-12-18] MEDS: PARoxetine 20 MG TABLET PO (08:07)
[2020-12-18] MEDS: hydroCHLOROthiazide 12.5 MG CAPSULE PO ×2 (08:07→17:56)
[2020-12-18] MEDS: metFORMIN HCL XR 500 MG TAB.SR.24H 1000 MG PO ×2 (08:08→17:56)
[2020-12-18] MEDS: ATORVASTATIN 20 MG TABLET PO (08:08)
[2020-12-18] MEDS: FINASTERIDE 5 MG TABLET PO (08:08)
[2020-12-18] MEDS: amLODIPine BESYLATE 5 MG TABLET PO (08:08)
[2020-12-18] MEDS: INSULIN ASPART (*BKC) 100 UNITS/ML SUB-Q (08:16)
[2020-12-18 08:30] LABS: Glucose Point of Care 233 mg/dl (65-105)
[2020-12-18 09:15] LABS: Anion Gap 10 mmol/L (8-16); Blood Urea Nitrogen 12 mg/dL (9-20); Calcium 8.7 mg/dL (8.4-10.2); Carbon Dioxide 27 mmol/L (22-30); Chloride 96 mmol/L (98-107); Estimated CRCL calculation 89 ml/min; Estimated Glomerular Filt Rate > 60; Glucose 248 mg/dL (65-110); Potassium 3.5 mmol/L (3.4-5.0); Sodium 133 mmol/L (137-145)
[2020-12-18 09:21] LABS: Hematocrit 37.1 % (42.0-52.0)
[2020-12-18 10:18] LABS: Hemoglobin A1C 6.9 % (<5.7)
[2020-12-18 12:41] LABS: Glucose Point of Care 187 mg/dl (65-105)
[2020-12-18 14:28] VITALS: BP 167/62; PULSE 73; RESP 16; TEMP 37.2
[2020-12-18 15:01] LABS: Vancomycin Trough 19.1 ug/mL (10.0-20.0)
[2020-12-18] MEDS: ONDANSETRON INJ 4 MG/2 ML VIAL IV PUSH (16:03)
--- NOTE | 2020-12-18 17:17 | PM.IMPN ---
Progress Note: A&P Assessment and Plan (1) Foot ulcer, right: Qualifiers: Non-pressure ulcer stage: unspecified non-pressure ulcer stage Qualified Code(s): L97.519 - Non-pressure chronic ulcer of other part of right foot with unspecified severity Code(s): L97.519 - Non-pressure chronic ulcer of other part of right foot with unspecified severity Status: Acute Assessment and Plan: Superficial ulcer secondary to puncture wound from screw that was inside his shoe which occurred several days prior to presentation. Low grade temp 99.8 yesterday, afebrile today. Continue empiric vancomycin and Zosyn Blood cultures negative to date Foot x-ray without evidence of acute findings, no findings to suggest osteomyelitis Appreciate Wound Care evaluation Supportive care. Analgesics available as needed for pain. Ice as needed. Elevate extremity. (2) Cellulitis of leg, right: Code(s): L03.115 - Cellulitis of right lower limb Status: Acute Assessment and Plan: Plan as above (3) Hypokalemia: Code(s): E87.6 - Hypokalemia Status: Acute Assessment and Plan: Probably secondary to nausea/vomiting. Potassium improved at 3.5 today Will administer an additional 20 mEq p.o. 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 Last BP 167/62, may be elevated due to pain Continue amlodipine, lisinopril, metoprolol, hydrochlorothiazide Monitor BP trends Subjective Date/time seen: 12/18/20 17:17 Interval history: Date of service: 12/18/2020 Christian Prado is 70-year-old male with history of BPH, hyperlipidemia, hypertension, TIA, and type 2 diabetes mellitus who is seen in follow-up for right foot puncture wound and right lower extremity cellulitis. He is feeling better today. He rates his right foot pain as 2/10. He does endorse neuropathy in the lower extremities. He feels the redness has improved and the area is less warm. He has been able to bear weight without pain. He denies nausea or vomiting. He does endorse chills today and feels feverish, though has not had an elevated temperature. His appetite has been good. Has been having regular bowel movements and denies any urinary symptoms. No abdominal pain, chest pain, shortness breath, cough, dizziness, lightheadedness, or increased weakness. Review of Systems Review of Systems: All systems reviewed & are unremarkable except as noted in HPI and below Exam Narrative: Mr. Prado is a well-nourished, well-appearing 70-year-old male who is lying supine in bed. He appears comfortable and is in NARD. Neuro: awake, alert and oriented x4, speech clear, no focal neuro deficits noted HEENMT: normocephalic, atraumatic, EOMI, sclerae anicteric Neck: supple, no lymphadenopathy Respiratory: clear to auscultation bilaterally, nonlabored breathing Cardio: regular rate, regular rhythm with S1-S2 Abdomen: nondistended, normoactive bowel sounds, soft, nontender to palpation Extremities: Bilateral lower extremities with 1+ edema. Right lower extremity erythematous and tender tender to palpation. DP pulses 2+ bilaterally. Brisk capillary refill bilaterally. Neurovascularly intact. Able to wiggle toes bilaterally.
[2020-12-18] MEDS: POTASSIUM CHLORIDE 20 MEQ TABLET PO (17:55)
[2020-12-18] MEDS: GLIMEPIRIDE 1 MG TABLET PO (17:56)
[2020-12-18 18:18] LABS: Glucose Point of Care 158 mg/dl (65-105)
[2020-12-18 21:18] VITALS: TEMP 37.7
[2020-12-18 21:18] LABS: Glucose Point of Care 179 mg/dl (65-105)
[2020-12-18] MEDS: ACETAMINOPHEN 325 MG TABLET 650 MG PO (21:18)
[2020-12-18 21:57] VITALS: BP 147/65; PULSE 73; RESP 18; TEMP 37.7; O2SAT 94
[2020-12-18 22:18] VITALS: TEMP 36.3
[2020-12-19] VITALS (7 sets, daily range): BP systolic 137–155; BP diastolic 60–75; PULSE 75–86; RESP 16–18; TEMP 36–37.7; O2SAT 95–96
[2020-12-19 07:33] LABS: Hematocrit 36.8 % (42.0-52.0); Hemoglobin 11.9 g/dL (14.0-18.0); Mean Corpuscular HGB Conc 32.3 g/dl (32-36); Mean Corpuscular Hemoglobin 29.3 pg (26-34); Mean Corpuscular Volume 90.6 fl (80-100); Mean Platelet Volume 10.4 fl (7.4-10.4); Platelet Count Result 182 k/mm3 (150-375); Red Blood Count 4.06 M/mm3 (4.6-6.20); Red Cell Distribution Width 13.2 % (11.5-14.5); White Blood Count 6.8 K/mm3 (4.5-10.0)
[2020-12-19 07:49] LABS: Anion Gap 9 mmol/L (8-16); Blood Urea Nitrogen 12 mg/dL (9-20); Carbon Dioxide 28 mmol/L (22-30); Chloride 97 mmol/L (98-107); Estimated CRCL calculation 69 ml/min; Estimated Glomerular Filt Rate 55; Glucose 182 mg/dL (65-110); Magnesium 1.6 mg/dL (1.6-2.3); Potassium 3.6 mmol/L (3.4-5.0); Sodium 134 mmol/L (137-145)
[2020-12-19] MEDS: METOPROLOL SUCCINATE EXT REL 100 MG TABCR PO (08:16)
[2020-12-19] MEDS: PARoxetine 20 MG TABLET PO (08:17)
[2020-12-19] MEDS: ATORVASTATIN 20 MG TABLET PO (08:18)
[2020-12-19] MEDS: FINASTERIDE 5 MG TABLET PO (08:18)
[2020-12-19] MEDS: lisinopriL 20 MG TABLET PO ×2 (08:18→17:26)
[2020-12-19] MEDS: ENOXAPARIN 40 MG/0.4 ML SYRINGE SUB-Q (08:18)
[2020-12-19] MEDS: metFORMIN HCL XR 500 MG TAB.SR.24H 1000 MG PO ×2 (08:18→17:25)
[2020-12-19] MEDS: ASPIRIN 81 MG CHEWABLE TABLET PO (08:18)
[2020-12-19] MEDS: hydroCHLOROthiazide 12.5 MG CAPSULE PO ×2 (08:18→17:26)
[2020-12-19] MEDS: amLODIPine BESYLATE 5 MG TABLET PO (08:18)
[2020-12-19 08:33] LABS: CRP 14.1 mg/dL (<1.0)
[2020-12-19] MEDS: SILVERGEL (ELTA) 45 ML 1 APPLIC TOPICAL (10:09)
[2020-12-19 11:52] LABS: Glucose Point of Care 149 mg/dl (65-105)
--- NOTE | 2020-12-19 15:14 | PM.IMPN ---
Progress Note: A&P Assessment and Plan (1) Foot ulcer, right: Qualifiers: Non-pressure ulcer stage: unspecified non-pressure ulcer stage Qualified Code(s): L97.519 - Non-pressure chronic ulcer of other part of right foot with unspecified severity Code(s): L97.519 - Non-pressure chronic ulcer of other part of right foot with unspecified severity Status: Acute Assessment and Plan: Plantar ulcer secondary to puncture wound from screw that was inside his shoe which occurred several days prior to presentation. Low grade temp 99.8. No leukocytosis. CRP is elevated at 14.1 Continue empiric vancomycin and Zosyn Blood cultures negative to date Appreciate Wound Care evaluation Consult to general surgery; input is appreciateds Supportive care. Analgesics available as needed for pain. Ice as needed. Elevate extremity. Foot x-ray without evidence of acute findings, no findings to suggest osteomyelitis. Will proceed with MRI per general surgery recommendations. Also evaluate ARTURO (2) Cellulitis of leg, right: Code(s): L03.115 - Cellulitis of right lower limb Status: Acute Assessment and Plan: Plan as above (3) Hypokalemia: Code(s): E87.6 - Hypokalemia Status: Acute Assessment and Plan: Probably secondary to nausea/vomiting. Potassium improved at 3.6 today and patient's p.o. intake is good Monitor BMP daily (4) Diabetes: Qualifiers: Diabetes mellitus type: type 2 Diabetes mellitus long-term insulin use: without long-term use Diabetes mellitus complication status: with neurologic complications Diabetes mellitus complication detail: with polyneuropathy Qualified Code(s): E11.42 - Type 2 diabetes mellitus with diabetic polyneuropathy Code(s): E11.9 - Type 2 diabetes mellitus without complications Status: Acute Assessment and Plan: A1c is 6.9 Continue Accu-Cheks, sliding scale insulin, hypoglycemic protocol Continue home glimepiride and metformin (5) Hypertension: Code(s): I10 - Essential (primary) hypertension Status: Acute Assessment and Plan: Blood pressure reviewed and has been fairly well controlled. Last BP 150/67, may be elevated due to pain Continue amlodipine, lisinopril, metoprolol, hydrochlorothiazide Monitor BP trends Subjective Date/time seen: 12/19/20 15:14 Interval history: Date of service: 12/19/2020 Christian Prado is 70-year-old male with history of BPH, hyperlipidemia, hypertension, TIA, and type 2 diabetes mellitus who is seen in follow-up for right foot puncture wound and right lower extremity cellulitis. He is doing fairly well today. He feels that his friends has improved he endorses swelling of the ankle. His foot pain is well controlled and he denies pain with weight-bearing. Denies nausea, vomiting, fever, or chills. He has been eating drinking well. He has been having regular bowel movements. Denies any urinary symptoms. Denies shortness breath, cough, or chest pain. He is in good spirits. Review of Systems Review of Systems: All systems reviewed & are unremarkable except as noted in HPI and below Exam Narrative: Mr. Prado is a well-nourished, well-appearing 70-year-old male who is lying supine in bed. He appears comfortable and is in NARD. Neuro: awake, alert and oriented x4, speech clear, no focal neuro deficits noted HEENMT: normocephalic, atraumatic, EOMI, sclerae anicteric Neck: supple, no lymphadenopathy Respiratory: clear to auscultation bilaterally, nonlabored breathing Cardio: regular rate, regular rhythm with S1-S2 Abdomen: nondistended, normoactive bowel sounds, soft, nontender to palpation Extremities: Bilateral lower extremities with 1+ edema. Right lower extremity is erythematous and tender to palpation. DP pulses 2+ bilaterally. Brisk capillary refill bilaterally. Neurovascularly intact. Able to wiggle toes bilaterally. Skin
--- NOTE | 2020-12-19 15:24 | PM.CNGS ---
Assessment and Plan Assessment and plan (1) Foot ulcer, right: Qualifiers: Non-pressure ulcer stage: unspecified non-pressure ulcer stage Qualified Code(s): L97.519 - Non-pressure chronic ulcer of other part of right foot with unspecified severity Code(s): L97.519 - Non-pressure chronic ulcer of other part of right foot with unspecified severity Status: Acute Assessment and Plan: He presents with a right foot ulcer on the plantar aspect of his foot with surrounding cellulitis extending to the dorsal aspect. This was caused by injury to his foot from a nail. He received a tetanus vaccination on admission. Foot x-ray was reviewed and discussed with the patient in detail. This appears to have only chronic findings, and no evidence of osteomyelitis. The wound does not appear to have any purulent drainage or significant necrotic tissue that would benefit from surgical intervention at this time. We will continue local wound care for now with silver gel dressing changes daily. We will order an MRI of the foot to further assess for potential osteomyelitis or deeper tissue involvement. We will also order ABIs. I have ordered for the nurse to apply a post-op shoe for ambulation to reduce pressure to this area. Encouraged the patient to prevent putting pressure on the wound while he walks. Elevated the right lower extremity when at rest. Continue broad-spectrum IV antibiotics. Will await further recommendations depending on diagnostic imaging. Thank you for allowing us to see the patient in consultation and we will continue to follow along with you. (2) Cellulitis of leg, right: Code(s): L03.115 - Cellulitis of right lower limb Status: Acute Assessment and Plan: Appears the cellulitis has improved some with the IV antibiotics. Continue management as above. (3) Diabetes: Qualifiers: Diabetes mellitus type: type 2 Diabetes mellitus intermediate insulin use: without intermediate use Diabetes mellitus complication status: with neurologic complications Diabetes mellitus complication detail: with polyneuropathy Qualified Code(s): E11.42 - Type 2 diabetes mellitus with diabetic polyneuropathy Code(s): E11.9 - Type 2 diabetes mellitus without complications Status: Acute Assessment and Plan: Hgb A1C 6.9 this admission. Glucose primarily has been in 150-180's currently. Glycemic control is important for his infection and healing. Management per Hospitalist. (4) Hypertension: Code(s): I10 - Essential (primary) hypertension Status: Acute Additional Plan I have discussed the patient's case and plan of care with Dr. Kincaid. History of Present Illness Consult details Consult date: 12/19/20 Reason for consult: wound care (Right foot ulcer) Requesting physician: Lorna Fall PA-C Narrative: This is a 70-year-old male with a history of type 2 diabetes mellitus and hypertension, who presented to the ER for evaluation of a right foot wound. He reports noticing a nail in his right shoe about 1 week ago when taking his tennis shoes off. There was a puncture wound where the nail was, but he did not feel this due to his neuropathy. Over the next few days, he began to notice swelling and redness of his right foot. He reports some clear, bloody drainage coming from the wound during the day. He developed vomiting and also reports a temperature of 99F off and on over the past few days. Due to his progressive symptoms, he presented to the ER for evaluation. He was admitted with right foot cellulitis and started on broad-spectrum IV antibiotics. Wound care was consulted for the plantar foot wound. After their evaluation, our service was consulted to evaluate the right foot wound. 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 No subcutaneous gas, acute fractures, or evidence of osteomyelitis. The x-ray does mention arterial calcifications,
[2020-12-19 16:55] LABS: Glucose Point of Care 165 mg/dl (65-105)
[2020-12-19] MEDS: GLIMEPIRIDE 1 MG TABLET PO (17:26)
[2020-12-19] MEDS: ACETAMINOPHEN 325 MG TABLET 650 MG PO (19:47)
[2020-12-19 20:52] LABS: Glucose Point of Care 208 mg/dl (65-105)
[2020-12-20 05:46] VITALS: BP 145/74; PULSE 70; RESP 16; TEMP 37.1; O2SAT 95
[2020-12-20 05:48] LABS: Hematocrit 35.1 % (42.0-52.0); Hemoglobin 11.5 g/dL (14.0-18.0); Mean Corpuscular HGB Conc 32.8 g/dl (32-36); Mean Corpuscular Hemoglobin 29.7 pg (26-34); Mean Corpuscular Volume 90.7 fl (80-100); Mean Platelet Volume 10.6 fl (7.4-10.4); Platelet Count Result 187 k/mm3 (150-375); Red Blood Count 3.87 M/mm3 (4.6-6.20); Red Cell Distribution Width 13.2 % (11.5-14.5); White Blood Count 5.9 K/mm3 (4.5-10.0)
[2020-12-20 06:17] LABS: Anion Gap 8 mmol/L (8-16); Blood Urea Nitrogen 13 mg/dL (9-20); CRP 8.1 mg/dL (<1.0); Calcium 8.6 mg/dL (8.4-10.2); Carbon Dioxide 31 mmol/L (22-30); Chloride 98 mmol/L (98-107); Estimated CRCL calculation 69 ml/min; Estimated Glomerular Filt Rate 55; Glucose 151 mg/dL (65-110); Potassium 3.3 mmol/L (3.4-5.0); Sodium 137 mmol/L (137-145)
[2020-12-20] MEDS: metFORMIN HCL XR 500 MG TAB.SR.24H 1000 MG PO ×2 (08:54→17:49)
[2020-12-20] MEDS: ENOXAPARIN 40 MG/0.4 ML SYRINGE SUB-Q (08:54)
[2020-12-20] MEDS: lisinopriL 20 MG TABLET PO ×2 (08:54→17:48)
[2020-12-20] MEDS: ASPIRIN 81 MG CHEWABLE TABLET PO (08:54)
[2020-12-20 08:55] VITALS: PULSE 76
[2020-12-20] MEDS: FINASTERIDE 5 MG TABLET PO (08:55)
[2020-12-20] MEDS: ATORVASTATIN 20 MG TABLET PO (08:55)
[2020-12-20] MEDS: METOPROLOL SUCCINATE EXT REL 100 MG TABCR PO (08:55)
[2020-12-20] MEDS: amLODIPine BESYLATE 5 MG TABLET PO (08:55)
[2020-12-20] MEDS: hydroCHLOROthiazide 12.5 MG CAPSULE PO ×2 (08:55→17:49)
[2020-12-20] MEDS: PARoxetine 20 MG TABLET PO (08:57)
[2020-12-20] MEDS: CALCIUM CARBONATE (TUMS) 500 MG (200 MG ELEMENTAL) 1000 MG PO (08:58)
[2020-12-20] MEDS: SILVERGEL (ELTA) 45 ML 1 APPLIC TOPICAL (10:57)
[2020-12-20 14:00] VITALS: BP 141/80; PULSE 82; RESP 18; TEMP 36.7; O2SAT 98
[2020-12-20 14:58] LABS: Glucose Point of Care 188 mg/dl (65-105)
--- NOTE | 2020-12-20 15:00 | PM.PNGS ---
Progress Note: A&P Assessment and Plan (1) Foot ulcer, right: Qualifiers: Non-pressure ulcer stage: unspecified non-pressure ulcer stage Qualified Code(s): L97.519 - Non-pressure chronic ulcer of other part of right foot with unspecified severity Code(s): L97.519 - Non-pressure chronic ulcer of other part of right foot with unspecified severity Status: Acute Assessment and Plan: Right foot ulcer on the plantar aspect of his foot resulting from an injury. Surrounding cellulitis appears to be improving. Wound unchanged today. Still no purulent drainage. ABIs showed normal TBI bilaterally, but ABIs were unable to be obtained due to inability to cuff the arteries in bilateral legs. Would likely benefit from outpatient vascular evaluation. Continue IV antibiotics. Await MRI results. (2) Cellulitis of leg, right: Code(s): L03.115 - Cellulitis of right lower limb Status: Acute Assessment and Plan: Continues to improve with the IV antibiotics. 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 Kincaid. Subjective Subjective Date/Time Seen: 12/20/20 11:00 Patient reports: no new complaints and tolerating a regular diet Interval history: Patient seen today without any new complaints. No acute changes overnight. WBC normal today. He did have a low grade temp of 99.8F last night again. Review of Systems Review of Systems: All systems reviewed & are unremarkable except as noted in HPI and below Exam Const: General: comfortable and no acute distress Orientation/consciousness: patient oriented x3 Skin: Other: Right foot with small open wound on the plantar aspect of the forefoot overlying about the head of the 4th met. Surrounding cellulitis and edema improving with redness decreasing in size from the demarcated lines. Neuro: General: moves all extremities and no focal motor deficits Psych: Mental Status: mental status grossly normal Insight: Good insight present (Psych) Judgement: Good judgement present (Psych) Objective Data Vital Signs Vital Signs: Vital Signs - 24 hr 12/19/20 19:47 12/19/20 19:48 12/19/20 19:49 Temperature 99.8 F H 99.8 F H Pulse Rate 75 Respiratory Rate 16 Blood Pressure 155/60 H Pulse Oximetry 96 96 12/19/20 20:47 12/20/20 05:46 12/20/20 08:55 Temperature 98.4 F 98.8 F Pulse Rate 70 76 Respiratory Rate 16 Blood Pressure 145/74 H Pulse Oximetry 95 12/20/20 14:00 Temperature 98.1 F Pulse Rate 82 Respiratory Rate 18 Blood Pressure 141/80 H Pulse Oximetry 98 Intake/Output Intake/Output: Intake & Output 12/17/20 12/18/20 12/19/20 12/20/20 23:59 23:59 23:59 23:59 Intake Total 3040 2090 2040 780 Output Total 450 250 875 Balance 2590 1840 1165 780 Meds/Results Medications: Active Medications Generic Name Dose Route Start Last Admin Trade Name Freq PRN Reason Stop Dose Admin Acetaminophen 650 mg 12/18/20 20:43 12/19/20 19:47 Acetaminophen 325 Mg Tablet PO 650 mg Q6H PRN Administration Mild Pain (1-3) or Fever Amlodipine Besylate 5 mg 12/17/20 09:00 12/20/20 08:55 Amlodipine Besylate 5 Mg Tablet PO 5 mg DAILY RODDY Administration Aspirin 81 mg 12/17/20 09:00 12/20/20 08:54 Aspirin 81 Mg Chewable Tablet PO 81 mg DAILY RODDY Administration Atorvastatin Calcium 20 mg 12/17/20 09:00 12/20/20 08:55 Atorvastatin 20 Mg Tablet PO 20 mg CHARLIE
--- NOTE | 2020-12-20 15:00 | PM.IMPN ---
Progress Note: A&P Assessment and Plan (1) Foot ulcer, right: Qualifiers: Non-pressure ulcer stage: unspecified non-pressure ulcer stage Qualified Code(s): L97.519 - Non-pressure chronic ulcer of other part of right foot with unspecified severity Code(s): L97.519 - Non-pressure chronic ulcer of other part of right foot with unspecified severity Status: Acute Assessment and Plan: Plantar ulcer secondary to puncture wound from screw that was inside his shoe which occurred several days prior to presentation. Low grade temp 99.8 again last night. No leukocytosis. CRP improving Continue empiric vancomycin and Zosyn Blood cultures negative to date Appreciate Wound Care evaluation Appreciate general surgery recommendations Supportive care. Analgesics available as needed for pain. Ice as needed. Elevate extremity. Postop shoe for offloading Foot x-ray without evidence of acute findings, no findings to suggest osteomyelitis. Foot MRI performed today, awaiting results. ARTURO not obtainable for calf arteries, however with normal toe brachial indices bilaterally. (2) Cellulitis of leg, right: Code(s): L03.115 - Cellulitis of right lower limb Status: Acute Assessment and Plan: Plan as above (3) Hypokalemia: Code(s): E87.6 - Hypokalemia Status: Acute Assessment and Plan: Probably secondary to nausea/vomiting. Potassium 3.3 today 20 mg p.o. KCl Monitor BMP daily and check Mag knee (4) Diabetes: Qualifiers: Diabetes mellitus type: type 2 Diabetes mellitus supervisor intermediates insulin use: without care home use Diabetes mellitus complication status: with neurologic complications Diabetes mellitus complication detail: with polyneuropathy Qualified Code(s): E11.42 - Type 2 diabetes mellitus with diabetic polyneuropathy Code(s): E11.9 - Type 2 diabetes mellitus without complications Status: Acute Assessment and Plan: A1c is 6.9. Blood sugars have been slightly elevated Continue Accu-Cheks, sliding scale insulin, hypoglycemic protocol Continue home glimepiride and metformin Will add Lantus during hospitalization for improved glycemic control Tight blood sugar control is imperative for wound healing (5) Hypertension: Code(s): I10 - Essential (primary) hypertension Status: Acute Assessment and Plan: Blood pressure reviewed and has been fairly well controlled. Last BP 141/80 Continue amlodipine, lisinopril, metoprolol, hydrochlorothiazide Monitor BP trends Subjective Date/time seen: 12/20/20 15:00 Interval history: Date of service: 12/20/2020 Christian Prado is 70-year-old male with history of BPH, hyperlipidemia, hypertension, TIA, and type 2 diabetes mellitus who is seen in follow-up for right foot puncture wound and right lower extremity cellulitis. He is feeling well today. He describes discomfort in his right foot that he rates as 2/10. He thinks the redness has improved significantly. No nausea, vomiting, fever, chills, dizziness, lightheadedness. His appetite has been good. No shortness breath, cough, chest pain, palpitations. No additional concerns at this time. Review of Systems Review of Systems: All systems reviewed & are unremarkable except as noted in HPI and below Exam Narrative: Mr. Prado is a well-nourished, well-appearing 70-year-old male who is lying supine in bed. He appears comfortable and is in NARD. Neuro: awake, alert and oriented x4, speech clear, no focal neuro deficits noted HEENMT: normocephalic, atraumatic, EOMI, sclerae anicteric Neck: supple, no lymphadenopathy Respiratory: clear to auscultation bilaterally, nonlabored breathing Cardio: regular rate, regular rhythm with S1-S2 Abdomen: nondistended, normoactive bowel sounds, soft, nontender to palpation Extremities: Bilateral lower extremities with 1+ edema. Right lower extremity erythema resolved
[2020-12-20] MEDS: POTASSIUM CHLORIDE 20 MEQ TABLET PO (15:21)
[2020-12-20 18:21] LABS: Glucose Point of Care 182 mg/dl (65-105)
[2020-12-20] MEDS: INSULIN GLARGINE (*BKC) 100 UNITS/ML 15 UNITS SUB-Q (20:00)
[2020-12-20 20:32] LABS: Glucose Point of Care 173 mg/dl (65-105)
[2020-12-20 20:48] VITALS: BP 159/70; PULSE 69; RESP 20; TEMP 37.1; O2SAT 97
[2020-12-21 04:20] VITALS: BP 154/66; PULSE 74; RESP 17; TEMP 36.8; O2SAT 98
[2020-12-21 06:12] LABS: Hemoglobin 11.4 g/dL (14.0-18.0)
[2020-12-21 06:45] LABS: Anion Gap 7 mmol/L (8-16); Blood Urea Nitrogen 12 mg/dL (9-20); Calcium 8.5 mg/dL (8.4-10.2); Carbon Dioxide 31 mmol/L (22-30); Chloride 97 mmol/L (98-107); Estimated CRCL calculation 65 ml/min; Estimated Glomerular Filt Rate 50; Glucose 160 mg/dL (65-110); Magnesium 1.6 mg/dL (1.6-2.3); Potassium 3.1 mmol/L (3.4-5.0); Sodium 135 mmol/L (137-145)
--- NOTE | 2020-12-21 07:53 | PM.CNOR ---
Assessment and Plan Assessment and plan (1) Diabetic ulcer of right foot associated with diabetes mellitus due to underlying condition: Qualifiers: Diabetic foot ulcer location: other Non-pressure ulcer stage: with bone involvement without evidence of necrosis Qualified Code(s): E08.621 - Diabetes mellitus due to underlying condition with foot ulcer; L97.516 - Non-pressure chronic ulcer of other part of right foot with bone involvement without evidence of necrosis Code(s): E08.621 - Diabetes mellitus due to underlying condition with foot ulcer; L97.519 - Non-pressure chronic ulcer of other part of right foot with unspecified severity Status: Acute Assessment and Plan: New patient evaluation for chief complaint Right diabetic foot infection with ulcer. History, physical exam and radiographs reviewed with the patient. Discussed the condition, nature, etiology and course of natural history with the patient. Treatment options including surgical and nonoperative treatment were reviewed. Risks and benefits of each as well as alternatives reviewed. The patient's questions were answered. Patient currently on intravenous antibiotics with some improvement in the cellulitis. Requires debridement of foot ulcer and removal of foreign body. Discussed nonoperative and operative treatment options with the patient. Risks and benefits of each as well as alternatives were reviewed. All of the patient's questions were answered. The risks of surgery reviewed including but not limited to: Neurovascular damage, wound complication, infection, blood clot, pulmonary embolus, stroke, myocardial infarction, and anesthetic risks up to and including . Continued pain and possible dysfunction were explained. Specific risks of the procedure including later recurrence of deformity. No guarantees were offered. If hardware used, discussed risk of failure/ breakage and possible need for removal. If complications occur, the patient understands the need for further treatment, possible further surgery. Patient verbalizes understanding and wishes to proceed. PLAN: Debridement right diabetic foot ulcer, Excision of foreign body. (2) Cellulitis of leg, right: Code(s): L03.115 - Cellulitis of right lower limb Status: Acute (3) Foreign body of fifth toe of right foot with infection: Qualifiers: Encounter type: initial encounter Qualified Code(s): S90.454A - Superficial foreign body, right lesser toe(s), initial encounter; L08.9 - Local infection of the skin and subcutaneous tissue, unspecified Code(s): S90.454A - Superficial foreign body, right lesser toe(s), initial encounter; L08.9 - Local infection of the skin and subcutaneous tissue, unspecified Status: Acute History of Present Illness HPI Consult date: 12/21/20 Requesting physician: Lorna Fall PA-C Chief complaint: right foot ulcer and cellulitis Narrative: 70-year-old gentleman with diabetes and peripheral neuropathy admitted for right foot ulcer with cellulitis. Patient reports having found a screw imbedded in the sole of the right shoe which he thinks caused ulcer on the plantar aspect of the forefoot. Patient also noted to have callus in that area however. Subsequent cellulitis of the foot and leg. He was started on intravenous antibiotics. Recent testing shows foreign body in the right foot as well as fluid collection in the 4th MTP joint consistent with septic arthritis. He denies any pain. Review of Systems Constitutional: Constitutional: Denies fever(s) Eyes: Eyes: Denies blurry vision ENT: Reports Normal hearing present Cardiovascular: Cardiovascular: Denies chest pain and Denies dyspnea Respiratory: Respiratory: Denies dyspnea and Denies wheezing Gastrointestinal: Gastrointestinal: Denies abdominal pain Genitourinary: Genitourinary: Denies urinary urgency Musculoskeletal: Musculoskeletal: Reports as per HPI and Repo
[2020-12-21 09:02] VITALS: PULSE 86
[2020-12-21] MEDS: METOPROLOL SUCCINATE EXT REL 100 MG TABCR PO (09:02)
[2020-12-21] MEDS: amLODIPine BESYLATE 5 MG TABLET PO ×2 (09:03→17:16)
[2020-12-21] MEDS: lisinopriL 20 MG TABLET PO ×2 (09:03→17:12)
[2020-12-21] MEDS: FINASTERIDE 5 MG TABLET PO (09:03)
[2020-12-21] MEDS: hydroCHLOROthiazide 12.5 MG CAPSULE PO (09:03)
[2020-12-21] MEDS: POTASSIUM CHLORIDE 20 MEQ TABLET 40 MEQ PO (09:03)
[2020-12-21] MEDS: ATORVASTATIN 20 MG TABLET PO (09:03)
[2020-12-21] MEDS: metFORMIN HCL XR 500 MG TAB.SR.24H 1000 MG PO ×2 (09:04→17:11)
[2020-12-21] MEDS: PARoxetine 20 MG TABLET PO (09:04)
[2020-12-21] MEDS: ENOXAPARIN 40 MG/0.4 ML SYRINGE SUB-Q (09:04)
[2020-12-21] MEDS: ASPIRIN 81 MG CHEWABLE TABLET PO (09:04)
[2020-12-21] MEDS: SILVERGEL (ELTA) 45 ML 1 APPLIC TOPICAL (09:05)
[2020-12-21] MEDS: MAGNESIUM SULF 2 GM/WATER 50ML 2 GM/50 ML BAG IVPB (10:38)
[2020-12-21 11:54] LABS: Glucose Point of Care 162 mg/dl (65-105)
--- NOTE | 2020-12-21 11:59 | WPDANESEPPF ---
Anes - Initial Pre Proc Eval Procedure: Operation Date: 12/22/20 07:30 Proposed Procedures p Debridement Right Diabetic Foot with Removal Foreign Body - Jatin Calvillo MD Date/Time: 12/21/20 11:59 Surgeon: Lorna Fall PA-C Pre Op Diagnosis: right foot ulcer and cellulitis Patient Data Age: 70 Gender: M Height: 1.93 m Weight: 125.3 kg Last Vital Signs Temp 36.8 C 12/21/20 04:20 Pulse 86 12/21/20 09:02 Resp 17 12/21/20 04:20 BP 154/66 H 12/21/20 04:20 Pulse Ox 98 12/21/20 04:20 Allergies Allergy/AdvReac Type Severity Reaction Status Date / Time No Known Allergies Allergy Verified 12/17/20 03:29 Home Medications Medication Instructions Recorded Confirmed Type Januvia 100 mg PO DAILY 10/30/20 12/17/20 History amlodipine 5 mg PO DAILY 10/30/20 12/17/20 History atorvastatin 20 mg PO DAILY 10/30/20 12/17/20 History finasteride 5 mg PO DAILY 10/30/20 12/17/20 History lisinopril-hydrochlorothiazide 20 tablet PO BID 10/30/20 12/17/20 History metoprolol succinate 100 mg PO DAILY 10/30/20 12/17/20 History paroxetine HCl 20 mg PO DAILY 10/30/20 12/17/20 History aspirin 81 mg PO DAILY 11/10/20 12/17/20 History glimepiride 1 mg PO QACBREAK PRN #5 tablet 11/16/20 12/17/20 Rx glimepiride 1 mg PO QACDINNER 5 Days #0 tablet 11/16/20 12/17/20 Rx calcium carbonate 1,000 mg PO PRN PRN 12/17/20 12/17/20 History ibuprofen 800 mg PO Q6H PRN 12/17/20 12/17/20 History metformin 1,000 mg PO BID 12/17/20 12/17/20 History Laboratory Tests 12/20/20 12/20/20 12/20/20 14:43 17:52 19:47 Hgb Hct Sodium Potassium Chloride Carbon Dioxide Anion Gap BUN Creatinine Estim Creat Clear Calc Estimated GFR Glucose POC Capillary Glucose 188 mg/dl H mg/dl 182 mg/dl H mg/dl 173 mg/dl H mg/dl (65-105) (65-105) (65-105) Calcium Magnesium Vancomycin Trough 12/21/20 12/21/20 12/21/20 01:54 05:51 05:51 Hgb 11.4 g/dL L g/dL (14.0-18.0) Hct 35.0 % L % (42.0-52.0) Sodium 135 mmol/L L mmol/L (137-145) Potassium 3.1 mmol/L L mmol/L (3.4-5.0) Chloride 97 mmol/L L mmol/L (98-107) Carbon Dioxide 31 mmol/L H mmol/L (22-30) Anion Gap 7 mmol/L L mmol/L (8-16) BUN 12 mg/dL mg/dL (9-20) Creatinine 1.40 mg/dL H mg/dL (0.7-1.3) Estim Creat Clear Calc 65 ml/min ml/min Estimated GFR 50 L (59 - ) Glucose 160 mg/dL H mg/dL (65-110) POC Capillary Glucose Calcium 8.5 mg/dL mg/dL (8.4-10.2) Magnesium 1.6 mg/dL mg/dL (1.6-2.3) Vancomycin Trough 22.0 ug/mL H ug/mL (10.0-20.0) 12/21/20 11:42 Hgb Hct Sodium Potassium Chloride Carbon Dioxide Anion Gap BUN Creatinine Estim Creat Clear Calc Estimated GFR Glucose POC Capillary Glucose 162 mg/dl H mg/dl (65-105) Calcium Magnesium Vancomycin Trough Patient hx anesthesia problems: none Family hx anesthesia problems: none PMFSH Past Medical History Medical History (Updated 12/21/20 @ 14:38 by Lorna Fall PA-C) Anxiety BPH (benign prostatic hyperplasia) COVID-19 (11/2020) Diabetes Diabetic ulcer of right foot associated with diabetes mellitus due to underlying condition Foreign body of fifth toe of right foot with infection High cholesterol History of osteomyelitis Right great toe wound and osteomyelitis treated with IV antibiotics Hypertension Panic attacks TIA (transient ischemic attack) (~2019) Expressive aphasia that resolved Surgical History Surgical History No significant past surgical history Family History Family Hi
[2020-12-21 14:00] VITALS: BP 158/71; PULSE 77; RESP 18; TEMP 37.1; O2SAT 99
--- NOTE | 2020-12-21 14:33 | P.PNIM_ITS ---
Progress Note: A&P Assessment and Plan (1) Foot ulcer, right: Qualifiers: Non-pressure ulcer stage: unspecified non-pressure ulcer stage Qualified Code(s): L97.519 - Non-pressure chronic ulcer of other part of right foot with unspecified severity Code(s): L97.519 - Non-pressure chronic ulcer of other part of right foot with unspecified severity Status: Acute Assessment and Plan: Plantar ulcer secondary to puncture wound from screw that was inside his shoe which occurred several days prior to presentation. He has had low grade fever with T max 99.8. Afebrile today. No leukocytosis. CRP improved * Continue empiric vancomycin and Zosyn * Blood cultures negative to date * Appreciate Wound Care evaluation * Appreciate general surgery recommendations * Supportive care. Analgesics available as needed for pain. Ice as needed. Elevate extremity. Postop shoe for offloading * Foot x-ray without evidence of acute findings, no findings to suggest osteomyelitis. Foot MRI reviewed which showed likely septic arthritis with adjacent abscess between 4th and 5th metatarsophalangeal joints likely from a puncture wound with a glass fragment seen in the location. Follow-up foot x- ray demonstrated 2-3 mm radiopaque foreign body at the plantar aspect of the base of the 4th toe. * Consult to orthopedic surgeon, Dr. Calvillo. Planning for excision of foreign body with debridement of right foot ulcer in the OR tomorrow. * ARTURO not obtainable for calf arteries, however with normal toe brachial indices bilaterally. (2) Cellulitis of leg, right: Code(s): L03.115 - Cellulitis of right lower limb Status: Acute Assessment and Plan: Plan as above (3) Hypokalemia: Code(s): E87.6 - Hypokalemia Status: Acute Assessment and Plan: Probably due to nausea/vomiting and poor p.o. intake. Potassium 3.1 today. * Mag 1.6. Administer 2 g IV magnesium sulfate and 40 mg p.o. KCl * Monitor BMP daily (4) Diabetes: Qualifiers: Diabetes mellitus type: type 2 Diabetes mellitus senior care insulin use: without senior care use Diabetes mellitus complication status: with neurologic complications Diabetes mellitus complication detail: with polyneuropathy Qualified Code(s): E11.42 - Type 2 diabetes mellitus with diabetic polyneuropathy Code(s): E11.9 - Type 2 diabetes mellitus without complications Status: Acute Assessment and Plan: A1c is 6.9. Blood sugars have been slightly elevated, fasting glucose today 160 * Continue Accu-Cheks, sliding scale insulin, hypoglycemic protocol * Continue home glimepiride and metformin * Will add Lantus during hospitalization for improved glycemic control. Monitor blood sugar trends and titrate as needed. * Tight blood sugar control is imperative for wound healing (5) Hypertension: Code(s): I10 - Essential (primary) hypertension Status: Acute Assessment and Plan: Blood pressure reviewed and has been reasonable. Last BP 158/71 * Continue amlodipine, lisinopril, metoprolol, hydrochlorothiazide * Monitor BP trends (6) Acute kidney injury: Code(s): N17.9 - Acute kidney failure, unspecified Status: Acute Assessment and Plan: Slight increase in creatinine up to 1.4 today. * Continue to monitor renal function closely * May be related to IV vancomycin. Reassess renal function tomorrow and consider discontinuing Vanc if further increase in Cr * Some of his blood pressure medications may need to be held if Cr remaining danny
--- NOTE | 2020-12-21 14:33 | PM.IMPN ---
Progress Note: A&P Assessment and Plan (1) Foot ulcer, right: Qualifiers: Non-pressure ulcer stage: unspecified non-pressure ulcer stage Qualified Code(s): L97.519 - Non-pressure chronic ulcer of other part of right foot with unspecified severity Code(s): L97.519 - Non-pressure chronic ulcer of other part of right foot with unspecified severity Status: Acute Assessment and Plan: Plantar ulcer secondary to puncture wound from screw that was inside his shoe which occurred several days prior to presentation. He has had low grade fever with T max 99.8. Afebrile today. No leukocytosis. CRP improved Continue empiric vancomycin and Zosyn Blood cultures negative to date Appreciate Wound Care evaluation Appreciate general surgery recommendations Supportive care. Analgesics available as needed for pain. Ice as needed. Elevate extremity. Postop shoe for offloading Foot x-ray without evidence of acute findings, no findings to suggest osteomyelitis. Foot MRI reviewed which showed likely septic arthritis with adjacent abscess between 4th and 5th metatarsophalangeal joints likely from a puncture wound with a glass fragment seen in the location. Follow-up foot x-ray demonstrated 2-3 mm radiopaque foreign body at the plantar aspect of the base of the 4th toe. Consult to orthopedic surgeon, Dr. Calvillo. Planning for excision of foreign body with debridement of right foot ulcer in the OR tomorrow. ARTURO not obtainable for calf arteries, however with normal toe brachial indices bilaterally. (2) Cellulitis of leg, right: Code(s): L03.115 - Cellulitis of right lower limb Status: Acute Assessment and Plan: Plan as above (3) Hypokalemia: Code(s): E87.6 - Hypokalemia Status: Acute Assessment and Plan: Probably due to nausea/vomiting and poor p.o. intake. Potassium 3.1 today. Mag 1.6. Administer 2 g IV magnesium sulfate and 40 mg p.o. KCl Monitor BMP daily (4) Diabetes: Qualifiers: Diabetes mellitus type: type 2 Diabetes mellitus terminal make up operator insulin use: without terminal make up operator use Diabetes mellitus complication status: with neurologic complications Diabetes mellitus complication detail: with polyneuropathy Qualified Code(s): E11.42 - Type 2 diabetes mellitus with diabetic polyneuropathy Code(s): E11.9 - Type 2 diabetes mellitus without complications Status: Acute Assessment and Plan: A1c is 6.9. Blood sugars have been slightly elevated, fasting glucose today 160 Continue Accu-Cheks, sliding scale insulin, hypoglycemic protocol Continue home glimepiride and metformin Will add Lantus during hospitalization for improved glycemic control. Monitor blood sugar trends and titrate as needed. Tight blood sugar control is imperative for wound healing (5) Hypertension: Code(s): I10 - Essential (primary) hypertension Status: Acute Assessment and Plan: Blood pressure reviewed and has been reasonable. Last BP 158/71 Continue amlodipine, lisinopril, metoprolol, hydrochlorothiazide Monitor BP trends (6) Acute kidney injury: Code(s): N17.9 - Acute kidney failure, unspecified Status: Acute Assessment and Plan: Slight increase in creatinine up to 1.4 today. Continue to monitor renal function closely May be related to IV vancomycin. Reassess renal function tomorrow and consider discontinuing Vanc if further increase in Cr Some of his blood pressure medications may need to be held if Cr remaining elevated. Will monitor closely for now. He is getting gentle IV fluids per anesthesia today, this may improve renal function Subjective Date/time seen: 12/21/20 14:33 Interval history: Date of service: 12/21/2020 Christian Prado is 70-year-old male with history of BPH, hyperlipidemia, hypertension, TIA, and type 2 diabetes mellitus who is seen in follow-up for right foot puncture wound and right
[2020-12-21 17:16] LABS: Glucose Point of Care 131 mg/dl (65-105)
[2020-12-21 20:00] VITALS: PULSE 72; RESP 18; O2SAT 97
[2020-12-21 20:49] VITALS: BP 159/71; PULSE 72; RESP 18; TEMP 37.1; O2SAT 97
[2020-12-21] MEDS: INSULIN GLARGINE (*BKC) 100 UNITS/ML 15 UNITS SUB-Q (20:49)
[2020-12-21 21:10] LABS: Glucose Point of Care 211 mg/dl (65-105)
[2020-12-22] VITALS (15 sets, daily range): BP systolic 127–173; BP diastolic 55–76; PULSE 62–80; RESP 16–20; TEMP 36.4–36.9; O2SAT 96–99
[2020-12-22 06:12] LABS: Glucose Point of Care 151 mg/dl (65-105)
[2020-12-22 06:13] LABS: Hematocrit 36.6 % (42.0-52.0); Mean Corpuscular HGB Conc 32.8 g/dl (32-36); Mean Corpuscular Hemoglobin 29.6 pg (26-34); Mean Corpuscular Volume 90.4 fl (80-100); Mean Platelet Volume 10.5 fl (7.4-10.4); Platelet Count Result 214 k/mm3 (150-375); Red Blood Count 4.05 M/mm3 (4.6-6.20); Red Cell Distribution Width 13.1 % (11.5-14.5); White Blood Count 5.9 K/mm3 (4.5-10.0)
[2020-12-22 06:35] LABS: Anion Gap 8 mmol/L (8-16); Blood Urea Nitrogen 11 mg/dL (9-20); Calcium 8.3 mg/dL (8.4-10.2); Carbon Dioxide 31 mmol/L (22-30); Chloride 99 mmol/L (98-107); Estimated CRCL calculation 69 ml/min; Estimated Glomerular Filt Rate 55; Glucose 137 mg/dL (65-110); Potassium 3.1 mmol/L (3.4-5.0); Sodium 138 mmol/L (137-145)
[2020-12-22] MEDS: LACTATED RINGERS 1,000 ML 30 ML IV CONT (06:51)
--- NOTE | 2020-12-22 07:14 | WPDHPUPDATE1 ---
History and Physical Update Update Date/Time: 12/22/20 07:14 History and Physical has been reviewed, including an updated exam of the patient. There are NO changes in the patient's condition. Risks, benefits, and alternatives have been discussed and questions answered. Patient agrees to proceed with procedure.
--- NOTE | 2020-12-22 08:18 | SUR.OPER ---
Specimen culture given to STIVEN Amaya. Received by Alisa in pathology at 0810
--- NOTE | 2020-12-22 08:19 | SUR.OPER ---
second specimen given to STIVEN Amaya. Received by Julissa in pathology at 0820
[2020-12-22 08:32] LABS: Glucose Point of Care 135 mg/dl (65-105)
--- NOTE | 2020-12-22 08:38 | W.PM.PROC2 ---
Procedure Note - Detailed Date of Procedure 12/22/20 Pre-op Diagnosis right foot ulcer and cellulitis, foreign body Post-op Diagnosis same Procedure Performed Excision osteomyelitis right foot, removal of foreign body Surgeon Jatin Calvillo MD Hospice Chaplain technical assistant Anesthesia general Indications 70-year-old gentleman with diabetes and peripheral neuropathy presents with ulcer on plantar aspect of the right foot. Radiographs and MRI suggest involvement of the 4th metatarsal head. Foreign body on the medial aspect of the small toe also noted on radiographs. Patient presents for operative treatment. He has been started on IV antibiotics. Findings Infection involving the 4th metatarsal head and metatarsophalangeal joint. Porcelain appearing foreign body medial small toe 4 mm. Description of Procedure What was done: Patient identified in the preoperative holding. Informed consent given. Operative extremity marked. Patient received intravenous antibiotics. Patient brought to the operating room where underwent general anesthetic by anesthesia team. Positioned supine on operating room table. Time-out performed confirming the patient, site of the surgery and the plan. Right foot prepped and draped usual sterile surgical fashion using a Betadine prep solution. Foot and Ankle exsanguinated and a calf tourniquet inflated to 250 mmHg. The plantar aspect of the right foot was approximately 5 mm ulcer plantar to the 4th metatarsal head. This was enlarged proximally and distally with 15 blade knife. Dissection carried down to the metatarsophalangeal joint. Capsulotomy performed. Mild purulence in the metatarsophalangeal joint and softening of the 4th metatarsal head noted. Metatarsal head debrided with a rongeur. The wound was then thoroughly irrigated with antibiotic solution. Skin was closed with 0 Prolene interrupted suture. Longitudinal incision then made on the medial aspect of the small toe. Hemostasis controlled electrocautery. Dissection carried down into the soft tissue at the base of the small toe and webspace. Small portion of foreign material that was white was encountered. Appeared to be porcelain or some type of [place]. This was removed and passed off. Wound thoroughly irrigated antibiotic solution. Image intensification brought in to confirm removal of the loose body and resection of the metatarsal head. Skin closed with 3-0 nylon interrupted suture. Sterile dressing applied. The patient was then woken from anesthesia, extubated and taken to the recovery room in stable condition. All sponge, needle, instrument counts were correct at the end of the case. Implants None Estimated Blood Loss -20.0 Tourniquet Time 45 Urine Output 600 Drains No Packing No Pathology yes (G stain and cultures, foreign body) Complications None Condition stable Disposition PACU
[2020-12-22] MEDS: ATORVASTATIN 20 MG TABLET PO (11:15)
[2020-12-22] MEDS: ASPIRIN 81 MG CHEWABLE TABLET PO (11:15)
[2020-12-22] MEDS: ENOXAPARIN 40 MG/0.4 ML SYRINGE SUB-Q (11:15)
[2020-12-22] MEDS: amLODIPine BESYLATE 2.5 MG TABLET 7.5 MG PO (11:15)
[2020-12-22] MEDS: FINASTERIDE 5 MG TABLET PO (11:16)
[2020-12-22] MEDS: METOPROLOL SUCCINATE EXT REL 100 MG TABCR PO (11:16)
[2020-12-22] MEDS: lisinopriL 20 MG TABLET PO ×2 (11:16→17:14)
[2020-12-22] MEDS: metFORMIN HCL XR 500 MG TAB.SR.24H 1000 MG PO ×2 (11:16→17:14)
[2020-12-22] MEDS: PARoxetine 20 MG TABLET PO (11:17)
[2020-12-22] MEDS: DOCUSATE SODIUM 100 MG CAPSULE PO ×2 (11:17→17:14)
[2020-12-22 13:09] LABS: Glucose Point of Care 147 mg/dl (65-105)
--- NOTE | 2020-12-22 13:32 | PM.IMPN ---
Progress Note: A&P Assessment and Plan (1) Foot ulcer, right: Qualifiers: Non-pressure ulcer stage: unspecified non-pressure ulcer stage Qualified Code(s): L97.519 - Non-pressure chronic ulcer of other part of right foot with unspecified severity Code(s): L97.519 - Non-pressure chronic ulcer of other part of right foot with unspecified severity Status: Acute Assessment and Plan: Plantar ulcer secondary to puncture wound from screw that was inside his shoe which occurred several days prior to presentation. He has had low grade fever with T max 99.8. Afebrile today. No leukocytosis. CRP improved Continue empiric vancomycin and Zosyn Blood cultures negative to date Appreciate Wound Care evaluation Appreciate general surgery recommendations Supportive care. Analgesics available as needed for pain. Ice as needed. Elevate extremity. Postop shoe for offloading Foot x-ray without evidence of acute findings, no findings to suggest osteomyelitis. Foot MRI reviewed which showed likely septic arthritis with adjacent abscess between 4th and 5th metatarsophalangeal joints likely from a puncture wound with a glass fragment seen in the location. Follow-up foot x-ray demonstrated 2-3 mm radiopaque foreign body at the plantar aspect of the base of the 4th toe. Consult to orthopedic surgeon, Dr. Calvillo. Planning for excision of foreign body with debridement of right foot ulcer in the OR tomorrow. ARTURO not obtainable for calf arteries, however with normal toe brachial indices bilaterally. 12/22 patient with right foot 4th metatarsal head radiograph and MRI suspicious osteomyelitis and FB on the medial aspect 5th toe patient was taken to OR and had excision osteomyelitis right foot, removal of foreign body patient just returned from the surgery feeling better complains of pain, will continue to monitor patient be seen orthopedic surgeon as well as PT OT and further recommendation to follow. (2) Cellulitis of leg, right: Code(s): L03.115 - Cellulitis of right lower limb Status: Acute Assessment and Plan: Plan as above (3) Hypokalemia: Code(s): E87.6 - Hypokalemia Status: Acute Assessment and Plan: Probably due to nausea/vomiting and poor p.o. intake. Potassium 3.1 today. Mag 1.6. Administer 2 g IV magnesium sulfate and 40 mg p.o. KCl Monitor BMP daily (4) Diabetes: Qualifiers: Diabetes mellitus type: type 2 Diabetes mellitus fci insulin use: without fci use Diabetes mellitus complication status: with neurologic complications Diabetes mellitus complication detail: with polyneuropathy Qualified Code(s): E11.42 - Type 2 diabetes mellitus with diabetic polyneuropathy Code(s): E11.9 - Type 2 diabetes mellitus without complications Status: Acute Assessment and Plan: A1c is 6.9. Blood sugars have been slightly elevated, fasting glucose today 160 Continue Accu-Cheks, sliding scale insulin, hypoglycemic protocol Continue home glimepiride and metformin Will add Lantus during hospitalization for improved glycemic control. Monitor blood sugar trends and titrate as needed. Tight blood sugar control is imperative for wound healing (5) Hypertension: Code(s): I10 - Essential (primary) hypertension Status: Acute Assessment and Plan: Blood pressure reviewed and has been reasonable. Last BP 158/71 Continue amlodipine, lisinopril, metoprolol, hydrochlorothiazide Monitor BP trends (6) Acute kidney injury: Code(s): N17.9 - Acute kidney failure, unspecified Status: Acute Assessment and Plan: Slight increase in creatinine up to 1.4 today. Continue to monitor renal function closely May be related to IV vancomycin. Reassess renal function tomorrow and consider discontinuing Vanc if further increase in Cr Some of his blood pressure medications may need to be held if Cr remaining danny
[2020-12-22] MEDS: ONDANSETRON INJ 4 MG/2 ML VIAL IV PUSH (16:56)
[2020-12-22 17:23] LABS: Glucose Point of Care 181 mg/dl (65-105)
[2020-12-22] MEDS: CALCIUM CARBONATE (TUMS) 500 MG (200 MG ELEMENTAL) 1000 MG PO (20:31)
[2020-12-22] MEDS: INSULIN GLARGINE (*BKC) 100 UNITS/ML 15 UNITS SUB-Q (20:32)
[2020-12-22 20:42] LABS: Glucose Point of Care 201 mg/dl (65-105)
[2020-12-23 04:17] VITALS: BP 166/64; PULSE 66; RESP 18; TEMP 36.6; O2SAT 98
[2020-12-23 08:00] VITALS: BP 163/69; PULSE 68; TEMP 36.7; O2SAT 99
[2020-12-23 08:45] LABS: Glucose Point of Care 162 mg/dl (65-105)
[2020-12-23] MEDS: ASPIRIN 81 MG CHEWABLE TABLET PO (09:33)
[2020-12-23] MEDS: metFORMIN HCL XR 500 MG TAB.SR.24H 1000 MG PO ×2 (09:33→18:04)
[2020-12-23 09:35] VITALS: PULSE 100
[2020-12-23] MEDS: METOPROLOL SUCCINATE EXT REL 100 MG TABCR PO (09:35)
[2020-12-23] MEDS: amLODIPine BESYLATE 2.5 MG TABLET 7.5 MG PO (09:35)
[2020-12-23] MEDS: FINASTERIDE 5 MG TABLET PO (09:36)
[2020-12-23] MEDS: ATORVASTATIN 20 MG TABLET PO (09:36)
[2020-12-23] MEDS: ENOXAPARIN 40 MG/0.4 ML SYRINGE SUB-Q (09:37)
[2020-12-23] MEDS: PARoxetine 20 MG TABLET PO (09:37)
[2020-12-23] MEDS: lisinopriL 20 MG TABLET PO ×2 (09:37→18:04)
[2020-12-23 11:13] VITALS: BP 148/77; PULSE 69; RESP 24; TEMP 36.8; O2SAT 97
[2020-12-23 12:48] LABS: Glucose Point of Care 226 mg/dl (65-105)
[2020-12-23] MEDS: INSULIN ASPART (*BKC) 100 UNITS/ML SUB-Q (13:12)
--- NOTE | 2020-12-23 13:44 | P.PNIM_ITS ---
Progress Note: A&P Assessment and Plan (1) Foot ulcer, right: Qualifiers: Non-pressure ulcer stage: unspecified non-pressure ulcer stage Qualified Code(s): L97.519 - Non-pressure chronic ulcer of other part of right foot with unspecified severity Code(s): L97.519 - Non-pressure chronic ulcer of other part of right foot with unspecified severity Status: Acute Assessment and Plan: Plantar ulcer secondary to puncture wound from screw that was inside his shoe which occurred several days prior to presentation. He has had low grade fever with T max 99.8. Afebrile today. No leukocytosis. CRP improved * Continue empiric vancomycin and Zosyn * Blood cultures negative to date * Appreciate Wound Care evaluation * Appreciate general surgery recommendations * Supportive care. Analgesics available as needed for pain. Ice as needed. Elevate extremity. Postop shoe for offloading * Foot x-ray without evidence of acute findings, no findings to suggest osteomyelitis. Foot MRI reviewed which showed likely septic arthritis with adjacent abscess between 4th and 5th metatarsophalangeal joints likely from a puncture wound with a glass fragment seen in the location. Follow-up foot x- ray demonstrated 2-3 mm radiopaque foreign body at the plantar aspect of the base of the 4th toe. * ARTURO not obtainable for calf arteries, however with normal toe brachial indices bilaterally. 12/22 excision osteomyelitis right foot, removal of foreign body 12/23 Continue Vanc and Primaxin (2) Cellulitis of leg, right: Code(s): L03.115 - Cellulitis of right lower limb Status: Acute Assessment and Plan: Plan as above (3) Hypokalemia: Code(s): E87.6 - Hypokalemia Status: Acute Assessment and Plan: Probably due to nausea/vomiting and poor p.o. intake. 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 Blood sugars have been slightly elevated, fasting glucose today 160 * Continue Accu-Cheks, sliding scale insulin, hypoglycemic protocol * Continue home glimepiride and metformin * Lantus added during hospitalization for improved glycemic control. Monitor b lood sugar trends and titrate as needed. * 12/23 glucose reviewed and Lantus increased from 15 to 20 U (5) Hypertension: Code(s): I10 - Essential (primary) hypertension Status: Acute Assessment and Plan: Blood pressure reviewed and has been reasonable. Last BP 158/71 * Continue amlodipine, lisinopril, metoprolol, hydrochlorothiazide * 12/23 reviewed and adequate (6) Acute kidney injury: Code(s): N17.9 - Acute kidney failure, unspecified Status: Acute Assessment and Plan: Slight increase in creatinine up to 1.4 today. * Continue to monitor renal function closely * May be related to IV vancomycin. Reassess renal function tomorrow and consider discontinuing Vanc if further increase in Cr * Some of his blood pressure medications may need to be held if Cr remaining elevated. Will monitor closely for now. * He is getting gentle IV fluids per anesthesia today, this may improve renal function
--- NOTE | 2020-12-23 13:44 | PM.IMPN ---
Progress Note: A&P Assessment and Plan (1) Foot ulcer, right: Qualifiers: Non-pressure ulcer stage: unspecified non-pressure ulcer stage Qualified Code(s): L97.519 - Non-pressure chronic ulcer of other part of right foot with unspecified severity Code(s): L97.519 - Non-pressure chronic ulcer of other part of right foot with unspecified severity Status: Acute Assessment and Plan: Plantar ulcer secondary to puncture wound from screw that was inside his shoe which occurred several days prior to presentation. He has had low grade fever with T max 99.8. Afebrile today. No leukocytosis. CRP improved Continue empiric vancomycin and Zosyn Blood cultures negative to date Appreciate Wound Care evaluation Appreciate general surgery recommendations Supportive care. Analgesics available as needed for pain. Ice as needed. Elevate extremity. Postop shoe for offloading Foot x-ray without evidence of acute findings, no findings to suggest osteomyelitis. Foot MRI reviewed which showed likely septic arthritis with adjacent abscess between 4th and 5th metatarsophalangeal joints likely from a puncture wound with a glass fragment seen in the location. Follow-up foot x-ray demonstrated 2-3 mm radiopaque foreign body at the plantar aspect of the base of the 4th toe. ARTURO not obtainable for calf arteries, however with normal toe brachial indices bilaterally. 12/22 excision osteomyelitis right foot, removal of foreign body 12/23 Continue Vanc and Primaxin (2) Cellulitis of leg, right: Code(s): L03.115 - Cellulitis of right lower limb Status: Acute Assessment and Plan: Plan as above (3) Hypokalemia: Code(s): E87.6 - Hypokalemia Status: Acute Assessment and Plan: Probably due to nausea/vomiting and poor p.o. intake. F/u lab (4) Diabetes: Qualifiers: Diabetes mellitus type: type 2 Diabetes mellitus skilled nursing insulin use: without skilled nursing use Diabetes mellitus complication status: with neurologic complications Diabetes mellitus complication detail: with polyneuropathy Qualified Code(s): E11.42 - Type 2 diabetes mellitus with diabetic polyneuropathy Code(s): E11.9 - Type 2 diabetes mellitus without complications Status: Acute Assessment and Plan: A1c is 6.9. Blood sugars have been slightly elevated, fasting glucose today 160 Continue Accu-Cheks, sliding scale insulin, hypoglycemic protocol Continue home glimepiride and metformin Lantus added during hospitalization for improved glycemic control. Monitor blood sugar trends and titrate as needed. 12/23 glucose reviewed and Lantus increased from 15 to 20 U (5) Hypertension: Code(s): I10 - Essential (primary) hypertension Status: Acute Assessment and Plan: Blood pressure reviewed and has been reasonable. Last BP 158/71 Continue amlodipine, lisinopril, metoprolol, hydrochlorothiazide 12/23 reviewed and adequate (6) Acute kidney injury: Code(s): N17.9 - Acute kidney failure, unspecified Status: Acute Assessment and Plan: Slight increase in creatinine up to 1.4 today. Continue to monitor renal function closely May be related to IV vancomycin. Reassess renal function tomorrow and consider discontinuing Vanc if further increase in Cr Some of his blood pressure medications may need to be held if Cr remaining elevated. Will monitor closely for now. He is getting gentle IV fluids per anesthesia today, this may improve renal function Subjective Date/time seen: 12/23/20 13:44 Interval history: 12/23 visit: Feels good. Tolerating diet. Denied pain, sob, fever, gi/gu issues. Review of Systems Review of Systems: All systems reviewed & are unremarkable except as noted in HPI and below Exam Narrative: moderately obese Patient is comfortable, NAD HEENT: eyes are clear and none icteric LUNGS: normal respiratory effort
[2020-12-23 16:37] VITALS: BP 146/53; PULSE 70; TEMP 35.7; O2SAT 97
[2020-12-23] MEDS: GLIMEPIRIDE 1 MG TABLET PO (18:04)
[2020-12-23 18:28] LABS: Glucose Point of Care 161 mg/dl (65-105)
[2020-12-23 20:31] VITALS: BP 159/67; PULSE 72; RESP 16; TEMP 36.7; O2SAT 97
[2020-12-23] MEDS: INSULIN GLARGINE (*BKC) 100 UNITS/ML 20 UNITS SUB-Q (20:45)
[2020-12-23 21:20] LABS: Glucose Point of Care 176 mg/dl (65-105)
[2020-12-24] MEDS: CALCIUM CARBONATE (TUMS) 500 MG (200 MG ELEMENTAL) 1000 MG PO ×2 (00:19→18:16)
[2020-12-24 06:05] LABS: Anion Gap 9 mmol/L (8-16); Blood Urea Nitrogen 15 mg/dL (9-20); Carbon Dioxide 28 mmol/L (22-30); Chloride 101 mmol/L (98-107); Estimated CRCL calculation 69 ml/min; Estimated Glomerular Filt Rate 55; Glucose 156 mg/dL (65-110); Magnesium 1.8 mg/dL (1.6-2.3); Potassium 3.5 mmol/L (3.4-5.0); Sodium 138 mmol/L (137-145)
[2020-12-24 06:22] VITALS: BP 161/67; PULSE 69; RESP 20; TEMP 36.5; O2SAT 93
[2020-12-24] MEDS: amLODIPine BESYLATE 2.5 MG TABLET 7.5 MG PO (09:30)
[2020-12-24] MEDS: ASPIRIN 81 MG CHEWABLE TABLET PO (09:30)
[2020-12-24] MEDS: ENOXAPARIN 40 MG/0.4 ML SYRINGE SUB-Q (09:30)
[2020-12-24 09:31] VITALS: PULSE 74
[2020-12-24] MEDS: METOPROLOL SUCCINATE EXT REL 100 MG TABCR PO (09:31)
[2020-12-24] MEDS: metFORMIN HCL XR 500 MG TAB.SR.24H 1000 MG PO ×2 (09:31→18:16)
[2020-12-24] MEDS: ATORVASTATIN 20 MG TABLET PO (09:32)
[2020-12-24] MEDS: lisinopriL 20 MG TABLET PO ×2 (09:32→18:17)
[2020-12-24] MEDS: FINASTERIDE 5 MG TABLET PO (09:32)
[2020-12-24] MEDS: PARoxetine 20 MG TABLET PO (09:32)
[2020-12-24] MEDS: INSULIN ASPART (*BKC) 100 UNITS/ML SUB-Q (09:45)
[2020-12-24 09:46] LABS: Glucose Point of Care 207 mg/dl (65-105)
--- NOTE | 2020-12-24 11:40 | PM.PNORT ---
Progress Note: A&P Assessment and Plan (1) Diabetic ulcer of right foot associated with diabetes mellitus due to underlying condition: Qualifiers: Diabetic foot ulcer location: other Non-pressure ulcer stage: with bone involvement without evidence of necrosis Qualified Code(s): E08.621 - Diabetes mellitus due to underlying condition with foot ulcer; L97.516 - Non-pressure chronic ulcer of other part of right foot with bone involvement without evidence of necrosis Code(s): E08.621 - Diabetes mellitus due to underlying condition with foot ulcer; L97.519 - Non-pressure chronic ulcer of other part of right foot with unspecified severity Status: Acute Assessment and Plan: postoperative day 2 debridement right diabetic foot ulcer and osteomyelitis. Cultures pending. Dressing change today. Incisions clean and dry. Continue with dry gauze dressing changes daily. Protective weight-bearing. Okay from orthopedic standpoint to discharge when final antibiotic decision made. Follow-up 2 weeks. (2) Foreign body of fifth toe of right foot with infection: Qualifiers: Encounter type: initial encounter Qualified Code(s): S90.454A - Superficial foreign body, right lesser toe(s), initial encounter; L08.9 - Local infection of the skin and subcutaneous tissue, unspecified Code(s): S90.454A - Superficial foreign body, right lesser toe(s), initial encounter; L08.9 - Local infection of the skin and subcutaneous tissue, unspecified Status: Acute Subjective Subjective Date/Time Seen: 12/24/20 11:40 Post Op day: 2 Principal diagnosis: Right diabetic foot infection Interval history: postoperative day 2. Patient awake and alert. No complaints. No pain right foot. Surgical findings reviewed with patient. Exam Const: General: healthy appearing; No in distress or confusion Orientation/consciousness: patient oriented x3 and No confusion HENMT: Head: normal to inspection, normocephalic and atraumatic Eyes: Conjunctivae: conjunctivae normal Sclera: sclerae normal Resp: Effort & Inspection: normal respiratory effort and no audible wheezes Neuro: General: patient oriented x3 and No confusion Extrem: Right lower extremity: ankle Details: other ( Negative Homans) and foot Details: motor-sensory exam Details: light-touch abnormal Location: in all toes and other ( Dressing changed. Incisions clean and dry. Erythema improved. Minimal swelling.) Psych: Affect: normal affect Objective Data Vital Signs Vital Signs: Vital Signs - 24 hr 12/23/20 16:37 12/23/20 20:31 12/24/20 06:22 Temperature 96.3 F L 98.1 F 97.7 F Pulse Rate 70 72 69 Respiratory Rate 16 20 Blood Pressure 146/53 H 159/67 H 161/67 H Pulse Oximetry 97 97 93 12/24/20 09:31 Temperature Pulse Rate 74 Respiratory Rate Blood Pressure Pulse Oximetry Intake/Output Intake/Output: Intake & Output 12/21/20 12/22/20 12/23/20 12/24/20 23:59 23:59 23:59 23:59 Intake Total 1940 1420 1630 740 Output Total 800 1700 600 150 Balance 1140 -280 1030 590 Meds/Results Medications: Active Medications Generic Name Dose Route Start Last Admin Trade Name Freq PRN Reason Stop Dose Admin Acetaminophen 650 mg 12/18/20 20:43 12/19/20 19:47 Acetaminophen 325 Mg Tablet PO 650 mg Q6H PRN Administration Mild Pain (1-3) or Fever Amlodipine Besylate 7.5 mg 12/22/20 09:00 12/24/20 09:30 Amlodipine Besylate 2.5 Mg Tablet PO 7.5 mg DAILY RODDY Administration Aspirin 81 mg 12/17/20 09:00 12/24/20 09:30 Aspirin 81 Mg Chewable Tablet PO 81 mg DAILY RODDY Administration Atorvastatin Calcium 20 mg 12/17/20 09:00 12/24/20 09:32 Atorvastatin 20 Mg Tablet PO 20 mg DAILY RODDY Administration Calcium Carbonate 1,000 mg 12/17/20 07:01 12/24/20 00:19 Calcium Carbonate (Tums) 500 Mg (200 Mg Elemental) PO 1,000 mg PRN PRN Administration Acid Reflux Dextrose 12.5 gm 12/17/20 05:53
--- NOTE | 2020-12-24 12:52 | PM.IMPN ---
Progress Note: A&P Assessment and Plan (1) Foot ulcer, right: Qualifiers: Non-pressure ulcer stage: unspecified non-pressure ulcer stage Qualified Code(s): L97.519 - Non-pressure chronic ulcer of other part of right foot with unspecified severity Code(s): L97.519 - Non-pressure chronic ulcer of other part of right foot with unspecified severity Status: Acute Assessment and Plan: Plantar ulcer secondary to puncture wound from screw that was inside his shoe which occurred several days prior to presentation. He has had low grade fever with T max 99.8. Afebrile today. No leukocytosis. CRP improved Continue empiric vancomycin and Zosyn Blood cultures negative to date Appreciate Wound Care evaluation Appreciate general surgery recommendations Supportive care. Analgesics available as needed for pain. Ice as needed. Elevate extremity. Postop shoe for offloading Foot x-ray without evidence of acute findings, no findings to suggest osteomyelitis. Foot MRI reviewed which showed likely septic arthritis with adjacent abscess between 4th and 5th metatarsophalangeal joints likely from a puncture wound with a glass fragment seen in the location. Follow-up foot x-ray demonstrated 2-3 mm radiopaque foreign body at the plantar aspect of the base of the 4th toe. ARTURO not obtainable for calf arteries, however with normal toe brachial indices bilaterally. 12/22 excision osteomyelitis right foot, removal of foreign body 12/24 Continue Vanc and Primaxin. Intraoperative culture results still pending. Gram stain with only WBC's. Blood cultures negative. For acute osteomyelitis, 6 weeks of antibiotic therapy is appropriate. (2) Cellulitis of leg, right: Code(s): L03.115 - Cellulitis of right lower limb Status: Acute Assessment and Plan: Plan as above (3) Hypokalemia: Code(s): E87.6 - Hypokalemia Status: Acute Assessment and Plan: Probably due to nausea/vomiting and poor p.o. intake. Resolved (4) Diabetes: Qualifiers: Diabetes mellitus type: type 2 Diabetes mellitus group home insulin use: without group home use Diabetes mellitus complication status: with neurologic complications Diabetes mellitus complication detail: with polyneuropathy Qualified Code(s): E11.42 - Type 2 diabetes mellitus with diabetic polyneuropathy Code(s): E11.9 - Type 2 diabetes mellitus without complications Status: Acute Assessment and Plan: A1c is 6.9. Blood sugars have been slightly elevated, fasting glucose today 160 Continue Accu-Cheks, sliding scale insulin, hypoglycemic protocol Continue home glimepiride and metformin Lantus added during hospitalization for improved glycemic control. Monitor blood sugar trends and titrate as needed. 12/24 glucose reviewed and Lantus increased from 20 to 25 U (5) Hypertension: Code(s): I10 - Essential (primary) hypertension Status: Acute Assessment and Plan: Blood pressure reviewed and has been reasonable. Last BP 158/71 Continue amlodipine, lisinopril, metoprolol, hydrochlorothiazide 12/24 reviewed 161/67, MAP 98, monitor on current therapy (lisinopril 20mg bid) (6) Acute kidney injury: Code(s): N17.9 - Acute kidney failure, unspecified Status: Acute Assessment and Plan: 12/24 creatinine 1.3 Resolved with hydration, treating infection Subjective Date/time seen: 12/24/20 12:52 Review of Systems Review of Systems: All systems reviewed & are unremarkable except as noted in HPI and below Exam Narrative: moderately obese Patient is comfortable, NAD HEENT: eyes are clear and none icteric LUNGS: normal respiratory effort ABD: distended Lower extremities: no edema, right foot surgical dressing SKIN: nonjaundiced Neuro: grossly intact normal speech. Objective Data Vital Signs Vital Signs: Vital Signs - 24 hr 12/23/20 16:37 12/23/20 20:31
[2020-12-24 13:17] LABS: Glucose Point of Care 146 mg/dl (65-105)
[2020-12-24 17:23] LABS: Glucose Point of Care 121 mg/dl (65-105)
[2020-12-24] MEDS: GLIMEPIRIDE 1 MG TABLET PO (18:17)
[2020-12-24 20:31] VITALS: BP 162/68; PULSE 70; RESP 16; TEMP 36.8; O2SAT 99
[2020-12-24 20:36] LABS: Vancomycin Trough 11.4 ug/mL (10.0-20.0)
[2020-12-24] MEDS: INSULIN GLARGINE (*BKC) 100 UNITS/ML 20 UNITS SUB-Q (21:04)
[2020-12-24 21:59] LABS: Glucose Point of Care 165 mg/dl (65-105)
[2020-12-25 03:43] VITALS: BP 142/66; PULSE 64; RESP 16; TEMP 36.6; O2SAT 98
[2020-12-25 06:31] LABS: Estimated CRCL calculation 81 ml/min; Estimated Glomerular Filt Rate > 60
[2020-12-25] MEDS: metFORMIN HCL XR 500 MG TAB.SR.24H 1000 MG PO ×2 (08:07→18:21)
[2020-12-25] MEDS: lisinopriL 20 MG TABLET PO ×2 (08:08→18:22)
[2020-12-25] MEDS: ASPIRIN 81 MG CHEWABLE TABLET PO (08:08)
[2020-12-25] MEDS: PARoxetine 20 MG TABLET PO (08:08)
[2020-12-25] MEDS: ATORVASTATIN 20 MG TABLET PO (08:08)
[2020-12-25] MEDS: FINASTERIDE 5 MG TABLET PO (08:08)
[2020-12-25] MEDS: amLODIPine BESYLATE 2.5 MG TABLET 7.5 MG PO (08:08)
[2020-12-25 08:09] VITALS: PULSE 74
[2020-12-25] MEDS: METOPROLOL SUCCINATE EXT REL 100 MG TABCR PO (08:09)
[2020-12-25] MEDS: ENOXAPARIN 40 MG/0.4 ML SYRINGE SUB-Q (08:09)
[2020-12-25 08:28] LABS: Glucose Point of Care 153 mg/dl (65-105)
--- NOTE | 2020-12-25 12:02 | WPDINFPN2 ---
Progress Note: A&P Assessment and Plan (1) Cellulitis of leg, right: Code(s): L03.115 - Cellulitis of right lower limb Status: Acute Assessment and Plan: 1. Diabetic foot infection after 2 recent puncture wounds. 4th MTP septic arthritis. S aureus isolated. 2. PN REC Vanc #8, through 01/23. Change to ceftriaxone 2 grams once daily, if susceptible S. aureus is isolated. PICC. I was not notified of consult until 1 hour ago. Subjective Date/time seen: 12/25/20 12:02 Objective Data Vital Signs Vital Signs: Vital Signs - 24 hr 12/24/20 20:31 12/25/20 03:43 12/25/20 08:09 Temperature 36.8 C 36.6 C Pulse Rate 70 64 74 Respiratory Rate 16 16 Blood Pressure 162/68 H 142/66 H Pulse Oximetry 99 98 Intake/Output Intake/Output: Intake & Output 12/22/20 12/23/20 12/24/20 12/25/20 23:59 23:59 23:59 23:59 Intake Total 1420 1630 1780 840 Output Total 1700 600 150 Balance -280 1030 1630 840 Meds/Results Medications: Active Medications Generic Name Dose Route Start Last Admin Trade Name Freq PRN Reason Stop Dose Admin Acetaminophen 650 mg 12/18/20 20:43 12/19/20 19:47 Acetaminophen 325 Mg Tablet PO 650 mg Q6H PRN Administration Mild Pain (1-3) or Fever Amlodipine Besylate 7.5 mg 12/22/20 09:00 12/25/20 08:08 Amlodipine Besylate 2.5 Mg Tablet PO 7.5 mg DAILY RODDY Administration Aspirin 81 mg 12/17/20 09:00 12/25/20 08:08 Aspirin 81 Mg Chewable Tablet PO 81 mg DAILY RODDY Administration Atorvastatin Calcium 20 mg 12/17/20 09:00 12/25/20 08:08 Atorvastatin 20 Mg Tablet PO 20 mg DAILY RODDY Administration Calcium Carbonate 1,000 mg 12/17/20 07:01 12/24/20 18:16 Calcium Carbonate (Tums) 500 Mg (200 Mg Elemental) PO 1,000 mg PRN PRN Administration Acid Reflux Dextrose 12.5 gm 12/17/20 05:53 Dextrose 50% 25 Gm/50 Ml Syringe IV PUSH PRN PRN Hypoglycemia Protocol Docusate Sodium 100 mg 12/22/20 09:28 12/25/20 08:09 Docusate Sodium 100 Mg Capsule PO Not Given BID RODDY Enoxaparin Sodium 40 mg 12/17/20 09:00 12/25/20 08:09 Enoxaparin 40 Mg/0.4 Ml Syringe SUB-Q 40 mg DAILY RODDY Administration Finasteride 5 mg 12/17/20 09:00 12/25/20 08:08 Finasteride 5 Mg Tablet PO 5 mg DAILY RODDY Administration Glimepiride 1 mg 12/17/20 17:00 12/24/20 18:17 Glimepiride 1 Mg Tablet PO 1 mg DAILY@1700 RODDY Administration Glucagon 1 mg 12/17/20 05:53 Glucagon For Inj 1 Mg Vial IM PRN PRN Hypoglycemia Protocol Glucose 15 gm 12/17/20 05:53 Glucose Oral Gel 15 Gm Of Glucse In 37.5 Gm Tube PO PRN PRN Hypoglycemia Protocol Dextrose 1,000 mls @ 100 mls/hr 12/17/20 05:53 Dextrose 5% 1,000 Ml IVPB PRN PRN Hypoglycemia Protocol Vancomycin HCl 2,000 mg in 500 mls @ 250 mls/hr 12/21/20 21:00 12/24/20 23:06 Vancomycin 2,000 Mg/D5w 500 Ml IVPB Infused Q36H RODDY Infusion Imipenem/Cilastatin Sodium 500 mg in 100 mls @ 300 mls/hr 12/22/20 00:00 12/25/20 08:07 Primaxin 500 Mg/D5w 100 Ml IVPB 300 mls/hr Q8H RODDY Administration Ibuprofen 800 mg 12/17/20 06:54 12/17/20 15:53 Ibuprofen 400 Mg Tablet PO 800 mg Q6H PRN Administration Pain 4-6 Insulin Aspart 3 - 6 units 12/17/20 08:00 12/25/20 11:51 Insulin Aspart (*Bkc) 100 Units/Ml SUB-Q Not Given TIDWM [facility] Protocol Insulin Glargine 20 units 12/23/20 21:00 12/24/20 21:04 Insulin Glargine (*Bkc) 100 Units/Ml SUB-Q 20 units HS RODDY Administration Lisinopril 20 mg 12/17/20 09:00 12/25/20 08:08 Lisinopril 20 Mg Tablet PO 20 mg BID RODDY Administration Magnesium Hydroxide 30 ml 12/22/20 09:28 Magnesium Hydroxide Susp 30 Ml Udc PO BID PRN Constipation Metformin HCl 1,000 mg 12/17/20 09:00 12/25/20 08:07 Metformin Hcl Xr 500 Mg Tab.Sr.24h PO 1,000 mg BID RODDY Administration Metoprolol Succinate 100 mg 09
[2020-12-25 12:29] LABS: Glucose Point of Care 124 mg/dl (65-105)
--- NOTE | 2020-12-25 12:45 | P.PNIM_ITS ---
Progress Note: A&P Assessment and Plan (1) Foot ulcer, right: Qualifiers: Non-pressure ulcer stage: unspecified non-pressure ulcer stage Qualified Code(s): L97.519 - Non-pressure chronic ulcer of other part of right foot with unspecified severity Code(s): L97.519 - Non-pressure chronic ulcer of other part of right foot with unspecified severity Status: Acute Assessment and Plan: Diabetic right foot ulcer secondary to puncture wound from screw that was inside his shoe which occurred several days prior to presentation. * Continue empiric vancomycin and Zosyn * Blood cultures negative to date * Appreciate Wound Care and General surgery evaluation * Seen in consultation by orthopedic surgery * Supportive care. Analgesics available as needed for pain. Ice as needed. Elevate extremity. Postop shoe for offloading * Foot x-ray without evidence of acute findings, no findings to suggest osteomye litis. Foot MRI reviewed which showed likely septic arthritis with adjacent abscess between 4th and 5th metatarsophalangeal joints likely from a puncture wound with a glass fragment seen in the location. Follow-up foot x-ray demonstrated 2-3 mm radiopaque foreign body at the plantar aspect of the base of the 4th toe. * S/p excision osteomyelitis of right foot with removal of foreign body on 12/06 10/[address] Calvillo. * Wound culture collected with scant growth of S. aureus. Susceptibility results pending. * Appreciate infectious disease consultation. Continue vancomycin. Transition to IV Rocephin 2 grams per ID recs pending susceptibilities * He will need penitentiary antibiotics and will proceed with PICC line. Care coordination following to arrange home infusion. (2) Cellulitis of leg, right: Code(s): L03.115 - Cellulitis of right lower limb Status: Acute Assessment and Plan: Plan as above (3) Hypokalemia: Code(s): E87.6 - Hypokalemia Status: Acute Assessment and Plan: Probably due to nausea/vomiting and poor p.o. intake. Resolved (4) Diabetes: Qualifiers: Diabetes mellitus type: type 2 Diabetes mellitus penitentiary insulin use: without penitentiary use Diabetes mellitus complication status: with neurologic complications Diabetes mellitus complication detail: with polyneuropathy Qualified Code(s): E11.42 - Type 2 diabetes mellitus with diabetic polyneuropathy Code(s): E11.9 - Type 2 diabetes mellitus without complications Status: Acute Assessment and Plan: A1c is 6.9. Last blood sugar 124. * Continue Accu-Cheks, sliding scale insulin, hypoglycemic protocol * Continue home glimepiride and metformin * Lantus added during hospitalization for improved glycemic control, increased to 25 units qHS. * Monitor blood sugar trends and titrate as needed. (5) Hypertension: Code(s): I10 - Essential (primary) hypertension Status: Acute Assessment and Plan: Blood pressure reviewed and has been reasonable. Last BP 142/77 * Continue amlodipine increased to 7.5 mg daily, lisinopril 20 mg BID, metoprolol succinate 100 mg daily * HCTZ was discontinued due to AWILDA. (6) Acute kidney injury: Code(s): N17.9 - Acute kidney failure, unspecified Status: Acute Assessment and Plan: Resolved with hydration, treating infection. Creatinine is 1.1 today * Monitor BMP Subjective Date/time seen: 12/25/20 12:45 Interval history: Date of service: 12/21/2020 Christian Prado is 70-year-old male wi
--- NOTE | 2020-12-25 12:45 | PM.IMPN ---
Progress Note: A&P Assessment and Plan (1) Foot ulcer, right: Qualifiers: Non-pressure ulcer stage: unspecified non-pressure ulcer stage Qualified Code(s): L97.519 - Non-pressure chronic ulcer of other part of right foot with unspecified severity Code(s): L97.519 - Non-pressure chronic ulcer of other part of right foot with unspecified severity Status: Acute Assessment and Plan: Diabetic right foot ulcer secondary to puncture wound from screw that was inside his shoe which occurred several days prior to presentation. Continue empiric vancomycin and Zosyn Blood cultures negative to date Appreciate Wound Care and General surgery evaluation Seen in consultation by orthopedic surgery Supportive care. Analgesics available as needed for pain. Ice as needed. Elevate extremity. Postop shoe for offloading Foot x-ray without evidence of acute findings, no findings to suggest osteomyelitis. Foot MRI reviewed which showed likely septic arthritis with adjacent abscess between 4th and 5th metatarsophalangeal joints likely from a puncture wound with a glass fragment seen in the location. Follow-up foot x-ray demonstrated 2-3 mm radiopaque foreign body at the plantar aspect of the base of the 4th toe. S/p excision osteomyelitis of right foot with removal of foreign body on 12/22/[address] Calvillo. Wound culture collected with scant growth of S. aureus. Susceptibility results pending. Appreciate infectious disease consultation. Continue vancomycin. Transition to IV Rocephin 2 grams per ID recs pending susceptibilities He will need furniture servicer antibiotics and will proceed with PICC line. Care coordination following to arrange home infusion. (2) Cellulitis of leg, right: Code(s): L03.115 - Cellulitis of right lower limb Status: Acute Assessment and Plan: Plan as above (3) Hypokalemia: Code(s): E87.6 - Hypokalemia Status: Acute Assessment and Plan: Probably due to nausea/vomiting and poor p.o. intake. Resolved (4) Diabetes: Qualifiers: Diabetes mellitus type: type 2 Diabetes mellitus furniture servicer insulin use: without furniture servicer use Diabetes mellitus complication status: with neurologic complications Diabetes mellitus complication detail: with polyneuropathy Qualified Code(s): E11.42 - Type 2 diabetes mellitus with diabetic polyneuropathy Code(s): E11.9 - Type 2 diabetes mellitus without complications Status: Acute Assessment and Plan: A1c is 6.9. Last blood sugar 124. Continue Accu-Cheks, sliding scale insulin, hypoglycemic protocol Continue home glimepiride and metformin Lantus added during hospitalization for improved glycemic control, increased to 25 units qHS. Monitor blood sugar trends and titrate as needed. (5) Hypertension: Code(s): I10 - Essential (primary) hypertension Status: Acute Assessment and Plan: Blood pressure reviewed and has been reasonable. Last BP 142/77 Continue amlodipine increased to 7.5 mg daily, lisinopril 20 mg BID, metoprolol succinate 100 mg daily HCTZ was discontinued due to AWILDA. (6) Acute kidney injury: Code(s): N17.9 - Acute kidney failure, unspecified Status: Acute Assessment and Plan: Resolved with hydration, treating infection. Creatinine is 1.1 today Monitor BMP Subjective Date/time seen: 12/25/20 12:45 Interval history: Date of service: 12/21/2020 Christian Prado is 70-year-old male with history of BPH, hyperlipidemia, hypertension, TIA, and type 2 diabetes mellitus who is seen in follow-up for right foot diabetic ulcer. He is doing very well today. He has no pain in the right foot. He denies nausea, vomiting, fever chills, shortness breath, cough, chest pain. He has been having regular bowel movements and denies urinary symptoms. No issues with ambulation. He has been using his post op shoe and walker. He is e
--- NOTE | 2020-12-25 13:15 | PM.PNORT ---
Progress Note: A&P Assessment and Plan (1) Diabetic ulcer of right foot associated with diabetes mellitus due to underlying condition: Qualifiers: Diabetic foot ulcer location: other Non-pressure ulcer stage: with bone involvement without evidence of necrosis Qualified Code(s): E08.621 - Diabetes mellitus due to underlying condition with foot ulcer; L97.516 - Non-pressure chronic ulcer of other part of right foot with bone involvement without evidence of necrosis Code(s): E08.621 - Diabetes mellitus due to underlying condition with foot ulcer; L97.519 - Non-pressure chronic ulcer of other part of right foot with unspecified severity Status: Acute Assessment and Plan: POD #3: Debridement right diabetic foot ulcer and osteomyelitis. Pathology pending. Preliminary cultures reveal Staphylococcus aureus. Dressing change today. Incisions clean and dry. Continue with dry gauze dressing changes daily. Protective weight-bearing. Okay from orthopedic standpoint to discharge when final antibiotic decision made. Follow-up 2 weeks scheduled. (2) Foreign body of fifth toe of right foot with infection: Qualifiers: Encounter type: initial encounter Qualified Code(s): S90.454A - Superficial foreign body, right lesser toe(s), initial encounter; L08.9 - Local infection of the skin and subcutaneous tissue, unspecified Code(s): S90.454A - Superficial foreign body, right lesser toe(s), initial encounter; L08.9 - Local infection of the skin and subcutaneous tissue, unspecified Status: Acute Subjective Subjective Date/Time Seen: 12/25/20 13:15 Post Op day: 3 Principal diagnosis: POD 3 Right Foot Ulcer/Foreign Body Interval history: No new complaints. Hopeful for discharge home as soon as possible. Review of Systems Constitutional: Constitutional: Denies fever(s) Eyes: Eyes: Denies blurry vision ENT: Reports Normal hearing present Cardiovascular: Cardiovascular: Denies chest pain and Denies dyspnea Respiratory: Respiratory: Denies dyspnea and Denies wheezing Gastrointestinal: Gastrointestinal: Denies abdominal pain Genitourinary: Genitourinary: Denies urinary urgency Musculoskeletal: Musculoskeletal: Reports as per HPI and Reports numbness ( Both feet) Integumentary/Breasts: Skin/Breast: Denies changing lesions and Denies sores Neurologic: Reports Normal hearing present, Denies behavioral changes, Denies confusion, Reports numbness ( bilateral lower extremities) and Denies convulsions Psychiatric: Psychiatric: Denies behavioral changes, Denies confusion and Denies hallucinations Endocrine: Endocrine: Denies heat intolerance Hematologic/Lymphatic: Hematologic/Lymphatic: Denies easy bleeding Allergic/Immunologic: Allergic/Immunologic: Denies wheezing Exam Const: General: healthy appearing; No in distress or confusion Orientation/consciousness: patient oriented x3 and No confusion HENMT: Head: normal to inspection, normocephalic and atraumatic Eyes: Conjunctivae: conjunctivae normal Sclera: sclerae normal Resp: Effort & Inspection: normal respiratory effort and no audible wheezes Neuro: General: patient oriented x3 and No confusion Extrem: Right lower extremity: ankle Details: other ( Negative Homans) and foot Details: motor-sensory exam Details: light-touch abnormal Location: in all toes and other ( Dressing changed. Incisions clean and dry. Erythema improved. Minimal swelling.) Psych: Affect: normal affect Objective Data Vital Signs Vital Signs: Vital Signs - 24 hr 12/24/20 20:31 12/25/20 03:43 12/25/20 08:09 Temperature 36.8 C 36.6 C Pulse Rate 70 64 74 Respiratory Rate 16 16 Blood Pressure 162/68 H 142/66 H Pulse Oximetry 99 98 Intake/Output Intake/Output: Intake & Output 12/22/20 12/23/20 12/24/20 12/25/20 23:59 23:59 23:59 23:59 Intake Total 1420 1630 1780 840 Output Total 1700 600 150 Balance -280 1030 1630 840 Meds/R
[2020-12-25 14:00] VITALS: BP 160/71; PULSE 75; RESP 18; TEMP 36.6; O2SAT 97
--- NOTE | 2020-12-25 14:27 | CONS_ITS ---
DATE OF CONSULTATION: 12/25/2020 REASON FOR CONSULTATION: Diabetic foot infection. HISTORY OF PRESENT ILLNESS: 70-year-old male with diabetes, longstanding with peripheral neuropathy, the latter manifested by loss of light touch and pain sensation though he can sense pressure. This is symmetric in both lower extremities from proximal to the ankles, distally into the toes. He reports an episode of cellulitis involving the right first toe about 5 years ago. He was treated by one of my colleagues at [facility], and he reports excellent clinical results at the end of his treatment. He has had several past episodes of cellulitis as well that have been uncomplicated. About 2 weeks prior to admission, he noted subjective fever at home, nausea and occasional vomiting and redness over the dorsum of the foot. He looked at his foot and found a skin defect in the area of the 4th metatarsal head where he has a chronic callus. He promptly inspected the inside of his shoe and removed a portion of a carpentry screw from the sole of the shoe on the inside. He did apply some first aid, but presented to the hospital 8 days ago with increasing redness. Here he has been given imipenem and vancomycin. He was taken to the operating room on December 22 where he underwent wound exploration. Soft bone was noted at the 4th metatarsal head and also purulence in the MTP joint adjacent. More laterally, a small fragment of white hard material was removed from the subcutaneous tissues, with the appearance of a piece of tile. The patient is unaware of where the latter foreign body may have come from. He typically wears socks or shoes when he is indoors. He has had no construction materials inside the house recently. His peripheral neuropathy has prevented him from having any pain associated with this. His nausea and vomiting fully resolved. He has had no fever in recent days. He knows of no vascular compromise and no previous bone infections otherwise. ALLERGIES: NONE KNOWN. HABITS: No tobacco. No alcohol. PRESENT MEDICATIONS: See above. PAST MEDICAL HISTORY: In addition to the above, TIA in 2019, acute coronavirus infection requiring several days hospitalization last month despite Sanjiv and Sanjiv coronavirus vaccination in June, panic attacks, hypertension, hyperlipidemia, BPH, and anxiety. Otherwise as above. FAMILY HISTORY: Hypertension, stroke. REVIEW OF SYSTEMS: Blood sugars usually are 160 to 180. 14-point review otherwise negative. 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 Lives locally. Customarily see Dr. Schneider. PHYSICAL EXAMINATION: GENERAL: This is an elderly male who appears younger than his actual age. No acute distress. VITAL SIGNS: He had a temperature up to 37.7 initially, has been afebrile for a number of days, 142/66, 64, 16, 98% on room air. SKIN: No rashes. Warm and dry. Mildly pale. NODES: He has no cervical adenopathy. EENT: The conjunctivae are normal. Pupils equal, round, reactive to light. No injection. No petechiae. The oropharynx, oral mucosa normal. NECK: No masses, thyromegaly or meningismus. LUNGS: Clear to auscultation and percussion. CARDIAC: Regular rate and rhythm. No murmur, gallop, or rub. Dorsalis pedis, radial pulses all 2+ and equal. ABDOMEN: Mildly obese. No organomegaly, tenderness, mass, or distention. EXTREMITIES: He has a sutured wound over the plantar aspect of the foot in the area of the 4th metatarsal head. There is no erythema in this area; however, he does have some erythema in the interdigital space between toes 4 and 5. He has no lymphangitis. There is trace pedal edema, not pitting. No tenderness. No expressible pus. No satellite lesions or sinus tracts. LABS: A wound culture obtain
[2020-12-25 16:56] LABS: Glucose Point of Care 126 mg/dl (65-105)
[2020-12-25] MEDS: CALCIUM CARBONATE (TUMS) 500 MG (200 MG ELEMENTAL) 1000 MG PO (18:17)
[2020-12-25] MEDS: GLIMEPIRIDE 1 MG TABLET PO (18:22)
[2020-12-25 20:25] VITALS: BP 161/70; PULSE 68; RESP 17; TEMP 36.6; O2SAT 98
[2020-12-25] MEDS: INSULIN GLARGINE (*BKC) 100 UNITS/ML 20 UNITS SUB-Q (20:28)
[2020-12-25 22:26] LABS: Glucose Point of Care 147 mg/dl (65-105)
[2020-12-26 04:31] VITALS: BP 162/68; PULSE 66; RESP 16; TEMP 36.4; O2SAT 94
[2020-12-26 06:26] LABS: Anion Gap 8 mmol/L (8-16); Blood Urea Nitrogen 15 mg/dL (9-20); Calcium 8.7 mg/dL (8.4-10.2); Carbon Dioxide 28 mmol/L (22-30); Chloride 103 mmol/L (98-107); Estimated CRCL calculation 81 ml/min; Estimated Glomerular Filt Rate > 60; Glucose 130 mg/dL (65-110); Potassium 3.2 mmol/L (3.4-5.0); Sodium 139 mmol/L (137-145)
[2020-12-26] MEDS: CALCIUM CARBONATE (TUMS) 500 MG (200 MG ELEMENTAL) 1000 MG PO ×2 (09:06→17:47)
[2020-12-26] MEDS: PARoxetine 20 MG TABLET PO (09:07)
[2020-12-26] MEDS: ENOXAPARIN 40 MG/0.4 ML SYRINGE SUB-Q (09:07)
[2020-12-26] MEDS: metFORMIN HCL XR 500 MG TAB.SR.24H 1000 MG PO ×2 (09:07→17:48)
[2020-12-26 09:08] VITALS: PULSE 86
[2020-12-26] MEDS: amLODIPine BESYLATE 2.5 MG TABLET 7.5 MG PO (09:08)
[2020-12-26] MEDS: ATORVASTATIN 20 MG TABLET PO (09:08)
[2020-12-26] MEDS: METOPROLOL SUCCINATE EXT REL 100 MG TABCR PO (09:08)
[2020-12-26] MEDS: ASPIRIN 81 MG CHEWABLE TABLET PO (09:09)
[2020-12-26] MEDS: FINASTERIDE 5 MG TABLET PO (09:09)
[2020-12-26] MEDS: lisinopriL 20 MG TABLET PO ×2 (09:09→17:48)
[2020-12-26 10:09] LABS: Glucose Point of Care 156 mg/dl (65-105)
--- NOTE | 2020-12-26 10:34 | PCPTNOTE ---
Attempted to see patient for PT at this time, however patient declined due to being hooked up to IV and does not want to move.
--- NOTE | 2020-12-26 11:05 | PCNWS ---
Weekly nutritional screen. Patient is tolerating current diet with adequate intake. No weight loss reported. No nutritional needs at this time.
[2020-12-26] MEDS: LIDOCAINE HCL 1% PF INJ 5 ML VIAL INFILTRATE (11:10)
[2020-12-26 12:08] LABS: Glucose Point of Care 168 mg/dl (65-105)
[2020-12-26] MEDS: POTASSIUM CHLORIDE 20 MEQ TABLET 40 MEQ PO (13:34)
[2020-12-26 14:00] VITALS: BP 169/69; PULSE 73; RESP 16; TEMP 36.5; O2SAT 100
--- NOTE | 2020-12-26 14:25 | P.PNIM_ITS ---
Progress Note: A&P Assessment and Plan (1) Foot ulcer, right: Qualifiers: Non-pressure ulcer stage: unspecified non-pressure ulcer stage Qualified Code(s): L97.519 - Non-pressure chronic ulcer of other part of right foot with unspecified severity Code(s): L97.519 - Non-pressure chronic ulcer of other part of right foot with unspecified severity Status: Acute Assessment and Plan: Diabetic right foot ulcer secondary to puncture wound from screw that was inside his shoe which occurred several days prior to presentation. * Continue empiric vancomycin (started on 12/17/2020) * Blood cultures negative * Appreciate Wound Care and General surgery evaluation * Seen in consultation by orthopedic surgery * Supportive care. Analgesics available as needed for pain. Ice as needed. Elevate extremity. Postop shoe for offloading * Foot x-ray without evidence of acute findings, no findings to suggest os teomyelitis. Foot MRI reviewed which showed likely septic arthritis with adjacent abscess between 4th and 5th metatarsophalangeal joints likely from a puncture wound with a glass fragment seen in the location. Follow-up foot x- ray demonstrated 2-3 mm radiopaque foreign body at the plantar aspect of the base of the 4th toe. * S/p excision osteomyelitis of right foot with removal of foreign body on 12/22/[address] Calvillo. * Wound culture collected with scant growth of MRSA * Appreciate infectious disease consultation. Continue IV vancomycin to complete a 4 week course * PICC line placed today. Care coordination following to arrange home infusion. Once this is complete, the patient can be discharged. (2) Cellulitis of leg, right: Code(s): L03.115 - Cellulitis of right lower limb Status: Acute Assessment and Plan: Plan as above (3) Hypokalemia: Code(s): E87.6 - Hypokalemia Status: Acute Assessment and Plan: Probably due to nausea/vomiting and poor p.o. intake. Potassium is 3.2 today. * Administer 40 mEq p.o. KCl * Monitor BMP. Check magnesium. (4) Diabetes: Qualifiers: Diabetes mellitus type: type 2 Diabetes mellitus alf insulin use: without alf use Diabetes mellitus complication status: with neurologic complications Diabetes mellitus complication detail: with polyneuropathy Qualified Code(s): E11.42 - Type 2 diabetes mellitus with diabetic polyneuropathy Code(s): E11.9 - Type 2 diabetes mellitus without complications Status: Acute Assessment and Plan: A1c is 6.9. Fasting blood sugar this morning 130. * Continue Accu-Cheks, sliding scale insulin, hypoglycemic protocol * Continue home glimepiride and metformin * Lantus added during hospitalization for improved glycemic control, increased to 25 units qHS. * Monitor blood sugar trends and titrate as needed. (5) Hypertension: Code(s): I10 - Essential (primary) hypertension Status: Acute Assessment and Plan: Blood pressure reviewed and has been reasonable elevated above target. Last BP 162/68 * Will increase amlodipine to 10 mg daily. * Continue lisinopril 20 mg BID, metoprolol succinate 100 mg daily * HCTZ was discontinued due to AWILDA. (6) Acute kidney injury: Code(s): N17.9 - Acute kidney failure, unspecified Status: Acute Assessment and Plan: Resolved with hydration, treating infection. Creatinine is 1.1 today * Monitor BMP Subjective Date/time seen: 12/26/20 14:25 Interval history: Date of ser
--- NOTE | 2020-12-26 14:25 | PM.IMPN ---
Progress Note: A&P Assessment and Plan (1) Foot ulcer, right: Qualifiers: Non-pressure ulcer stage: unspecified non-pressure ulcer stage Qualified Code(s): L97.519 - Non-pressure chronic ulcer of other part of right foot with unspecified severity Code(s): L97.519 - Non-pressure chronic ulcer of other part of right foot with unspecified severity Status: Acute Assessment and Plan: Diabetic right foot ulcer secondary to puncture wound from screw that was inside his shoe which occurred several days prior to presentation. Continue empiric vancomycin (started on 12/17/2020) Blood cultures negative Appreciate Wound Care and General surgery evaluation Seen in consultation by orthopedic surgery Supportive care. Analgesics available as needed for pain. Ice as needed. Elevate extremity. Postop shoe for offloading Foot x-ray without evidence of acute findings, no findings to suggest osteomyelitis. Foot MRI reviewed which showed likely septic arthritis with adjacent abscess between 4th and 5th metatarsophalangeal joints likely from a puncture wound with a glass fragment seen in the location. Follow-up foot x-ray demonstrated 2-3 mm radiopaque foreign body at the plantar aspect of the base of the 4th toe. S/p excision osteomyelitis of right foot with removal of foreign body on 12/22/[address] Calvillo. Wound culture collected with scant growth of MRSA Appreciate infectious disease consultation. Continue IV vancomycin to complete a 4 week course PICC line placed today. Care coordination following to arrange home infusion. Once this is complete, the patient can be discharged. (2) Cellulitis of leg, right: Code(s): L03.115 - Cellulitis of right lower limb Status: Acute Assessment and Plan: Plan as above (3) Hypokalemia: Code(s): E87.6 - Hypokalemia Status: Acute Assessment and Plan: Probably due to nausea/vomiting and poor p.o. intake. Potassium is 3.2 today. Administer 40 mEq p.o. KCl Monitor BMP. Check magnesium. (4) Diabetes: Qualifiers: Diabetes mellitus type: type 2 Diabetes mellitus long term acute care registered nurse insulin use: without mcc use Diabetes mellitus complication status: with neurologic complications Diabetes mellitus complication detail: with polyneuropathy Qualified Code(s): E11.42 - Type 2 diabetes mellitus with diabetic polyneuropathy Code(s): E11.9 - Type 2 diabetes mellitus without complications Status: Acute Assessment and Plan: A1c is 6.9. Fasting blood sugar this morning 130. Continue Accu-Cheks, sliding scale insulin, hypoglycemic protocol Continue home glimepiride and metformin Lantus added during hospitalization for improved glycemic control, increased to 25 units qHS. Monitor blood sugar trends and titrate as needed. (5) Hypertension: Code(s): I10 - Essential (primary) hypertension Status: Acute Assessment and Plan: Blood pressure reviewed and has been reasonable elevated above target. Last BP 162/68 Will increase amlodipine to 10 mg daily. Continue lisinopril 20 mg BID, metoprolol succinate 100 mg daily HCTZ was discontinued due to AWILDA. (6) Acute kidney injury: Code(s): N17.9 - Acute kidney failure, unspecified Status: Acute Assessment and Plan: Resolved with hydration, treating infection. Creatinine is 1.1 today Monitor BMP Subjective Date/time seen: 12/26/20 14:25 Interval history: Date of service: 12/26/2020 Christian Prado is 70-year-old male with history of BPH, hyperlipidemia, hypertension, TIA, and type 2 diabetes mellitus who is seen in follow-up for right foot diabetic ulcer. He is feeling well today. He has no complaints. No pain from the right foot. Swelling has improved. Appetite is good. No trouble breathing. Having regular bowel movements and urination. No other concerns. He is extremely eager for di
[2020-12-26] MEDS: CENTRAL LINE FLUSH 10 ML IV PUSH ×2 (14:45→21:15)
--- NOTE | 2020-12-26 15:47 | PM.PNORT ---
Progress Note: A&P Assessment and Plan (1) Diabetic ulcer of right foot associated with diabetes mellitus due to underlying condition: Qualifiers: Diabetic foot ulcer location: other Non-pressure ulcer stage: with bone involvement without evidence of necrosis Qualified Code(s): E08.621 - Diabetes mellitus due to underlying condition with foot ulcer; L97.516 - Non-pressure chronic ulcer of other part of right foot with bone involvement without evidence of necrosis Code(s): E08.621 - Diabetes mellitus due to underlying condition with foot ulcer; L97.519 - Non-pressure chronic ulcer of other part of right foot with unspecified severity Status: Acute Assessment and Plan: POD #4: Debridement right diabetic foot ulcer and osteomyelitis. Pathology reveals MRSA. Dressing change today. Incisions clean and dry. Continue with dry gauze dressing changes daily. Protective weight-bearing. Okay from orthopedic standpoint to discharge when antibiotic arranged. Follow-up 2 weeks scheduled. (2) Foreign body of fifth toe of right foot with infection: Qualifiers: Encounter type: initial encounter Qualified Code(s): S90.454A - Superficial foreign body, right lesser toe(s), initial encounter; L08.9 - Local infection of the skin and subcutaneous tissue, unspecified Code(s): S90.454A - Superficial foreign body, right lesser toe(s), initial encounter; L08.9 - Local infection of the skin and subcutaneous tissue, unspecified Status: Acute Subjective Subjective Date/Time Seen: 12/26/20 15:47 POD #4 No new complaints. Feeling well overall. Ready for d/c home. Review of Systems Constitutional: Constitutional: Denies fever(s) Eyes: Eyes: Denies blurry vision ENT: Reports Normal hearing present Cardiovascular: Cardiovascular: Denies chest pain and Denies dyspnea Respiratory: Respiratory: Denies dyspnea and Denies wheezing Gastrointestinal: Gastrointestinal: Denies abdominal pain Genitourinary: Genitourinary: Denies urinary urgency Musculoskeletal: Musculoskeletal: Reports as per HPI and Reports numbness ( Both feet) Integumentary/Breasts: Skin/Breast: Denies changing lesions and Denies sores Neurologic: Reports Normal hearing present, Denies behavioral changes, Denies confusion, Reports numbness ( bilateral lower extremities) and Denies convulsions Psychiatric: Psychiatric: Denies behavioral changes, Denies confusion and Denies hallucinations Endocrine: Endocrine: Denies heat intolerance Hematologic/Lymphatic: Hematologic/Lymphatic: Denies easy bleeding Allergic/Immunologic: Allergic/Immunologic: Denies wheezing Exam Const: General: healthy appearing; No in distress or confusion Orientation/consciousness: patient oriented x3 and No confusion HENMT: Head: normal to inspection, normocephalic and atraumatic Eyes: Conjunctivae: conjunctivae normal Sclera: sclerae normal Resp: Effort & Inspection: normal respiratory effort and no audible wheezes Neuro: General: patient oriented x3 and No confusion Extrem: Right lower extremity: ankle Details: other ( Negative Homans) and foot Details: motor-sensory exam Details: light-touch abnormal Location: in all toes and other ( Dressing changed. Incisions clean and dry. Erythema improved. Minimal swelling.) Psych: Affect: normal affect Objective Data Vital Signs Vital Signs: Vital Signs - 24 hr 12/25/20 20:25 12/26/20 04:31 12/26/20 09:08 Temperature 36.6 C 36.4 C Pulse Rate 68 66 86 Respiratory Rate 17 16 Blood Pressure 161/70 H 162/68 H Pulse Oximetry 98 94 12/26/20 14:00 Temperature 36.5 C Pulse Rate 73 Respiratory Rate 16 Blood Pressure 169/69 H Pulse Oximetry 100 Intake/Output Intake/Output: Intake & Output 12/23/20 12/24/20 12/25/20 12/26/20 23:59 23:59 23:59 23:59 Intake Total 1630 1780 1300 960 Output Total 600 150 Balance 1030 1630 1300 960 Meds/Results Medications: Active
[2020-12-26] MEDS: GLIMEPIRIDE 1 MG TABLET PO (17:47)
[2020-12-26 18:08] LABS: Glucose Point of Care 125 mg/dl (65-105)
[2020-12-26] MEDS: INSULIN GLARGINE (*BKC) 100 UNITS/ML 20 UNITS SUB-Q (20:34)
[2020-12-26 21:19] VITALS: BP 150/63; PULSE 73; RESP 17; TEMP 36.6; O2SAT 98
[2020-12-26 21:19] LABS: Glucose Point of Care 176 mg/dl (65-105)
[2020-12-27] MEDS: CALCIUM CARBONATE (TUMS) 500 MG (200 MG ELEMENTAL) 1000 MG PO ×2 (00:21→10:32)
[2020-12-27 04:36] VITALS: BP 141/71; PULSE 66; RESP 20; TEMP 36.5; O2SAT 100
[2020-12-27] MEDS: CENTRAL LINE FLUSH 10 ML IV PUSH ×2 (05:19→14:36)
[2020-12-27 05:59] LABS: Anion Gap 7 mmol/L (8-16); Blood Urea Nitrogen 16 mg/dL (9-20); Calcium 8.8 mg/dL (8.4-10.2); Carbon Dioxide 30 mmol/L (22-30); Chloride 102 mmol/L (98-107); Estimated CRCL calculation 81 ml/min; Estimated Glomerular Filt Rate > 60; Glucose 112 mg/dL (65-110); Magnesium 1.7 mg/dL (1.6-2.3); Potassium 3.3 mmol/L (3.4-5.0); Sodium 139 mmol/L (137-145)
[2020-12-27] MEDS: amLODIPine BESYLATE 5 MG TABLET 10 MG PO (09:26)
[2020-12-27] MEDS: ENOXAPARIN 40 MG/0.4 ML SYRINGE SUB-Q (09:26)
[2020-12-27] MEDS: metFORMIN HCL XR 500 MG TAB.SR.24H 1000 MG PO ×2 (09:26→18:28)
[2020-12-27] MEDS: PARoxetine 20 MG TABLET PO (09:27)
[2020-12-27] MEDS: ASPIRIN 81 MG CHEWABLE TABLET PO (09:27)
[2020-12-27 09:28] VITALS: PULSE 66
[2020-12-27] MEDS: ATORVASTATIN 20 MG TABLET PO (09:28)
[2020-12-27] MEDS: lisinopriL 20 MG TABLET PO ×2 (09:28→18:29)
[2020-12-27] MEDS: FINASTERIDE 5 MG TABLET PO (09:28)
[2020-12-27] MEDS: METOPROLOL SUCCINATE EXT REL 100 MG TABCR PO (09:28)
[2020-12-27 10:01] LABS: Glucose Point of Care 152 mg/dl (65-105)
[2020-12-27] MEDS: MAGNESIUM OXIDE 400 MG TABLET PO (10:32)
[2020-12-27] MEDS: POTASSIUM CHLORIDE 20 MEQ TABLET PO (10:32)
[2020-12-27 12:38] LABS: Glucose Point of Care 138 mg/dl (65-105)
[2020-12-27 14:00] VITALS: BP 159/78; PULSE 81; RESP 20; TEMP 36.9; O2SAT 95
--- NOTE | 2020-12-27 14:21 | PM.PNORT ---
Progress Note: A&P Assessment and Plan (1) Diabetic ulcer of right foot associated with diabetes mellitus due to underlying condition: Qualifiers: Diabetic foot ulcer location: other Non-pressure ulcer stage: with bone involvement without evidence of necrosis Qualified Code(s): E08.621 - Diabetes mellitus due to underlying condition with foot ulcer; L97.516 - Non-pressure chronic ulcer of other part of right foot with bone involvement without evidence of necrosis Code(s): E08.621 - Diabetes mellitus due to underlying condition with foot ulcer; L97.519 - Non-pressure chronic ulcer of other part of right foot with unspecified severity Status: Acute Assessment and Plan: POD #5: Debridement right diabetic foot ulcer and osteomyelitis. Pathology reveals MRSA. Continue with dry gauze dressing changes daily. Protective weight-bearing. Okay from orthopedic standpoint to discharge when antibiotic arranged. Follow-up 2 weeks scheduled. (2) Foreign body of fifth toe of right foot with infection: Qualifiers: Encounter type: initial encounter Qualified Code(s): S90.454A - Superficial foreign body, right lesser toe(s), initial encounter; L08.9 - Local infection of the skin and subcutaneous tissue, unspecified Code(s): S90.454A - Superficial foreign body, right lesser toe(s), initial encounter; L08.9 - Local infection of the skin and subcutaneous tissue, unspecified Status: Acute Subjective Subjective Date/Time Seen: 12/27/20 14:21 Post Op day: 5 Principal diagnosis: Right diabetic foot infection Interval history: Patient without complaints. Ready to go home. Exam Const: General: healthy appearing; No in distress or confusion Orientation/consciousness: patient oriented x3 and No confusion HENMT: Head: normal to inspection, normocephalic and atraumatic Eyes: Conjunctivae: conjunctivae normal Sclera: sclerae normal Resp: Effort & Inspection: normal respiratory effort and no audible wheezes Neuro: General: patient oriented x3 and No confusion Extrem: Right lower extremity: ankle Details: other ( Negative Homans) and foot Details: motor-sensory exam Details: light-touch abnormal Location: in all toes and other ( Dressing changed. Incisions clean and dry. Erythema improved. Minimal swelling.) Psych: Affect: normal affect Objective Data Vital Signs Vital Signs: Vital Signs - 24 hr 12/26/20 21:19 12/27/20 04:36 12/27/20 09:28 Temperature 97.9 F 97.7 F Pulse Rate 73 66 66 Respiratory Rate 17 20 Blood Pressure 150/63 H 141/71 H Pulse Oximetry 98 100 Intake/Output Intake/Output: Intake & Output 12/24/20 12/25/20 12/26/20 12/27/20 23:59 23:59 23:59 23:59 Intake Total 1780 1300 1560 780 Output Total 150 800 Balance 1630 1300 760 780 Meds/Results Medications: Active Medications Generic Name Dose Route Start Last Admin Trade Name Freq PRN Reason Stop Dose Admin Acetaminophen 650 mg 12/18/20 20:43 12/19/20 19:47 Acetaminophen 325 Mg Tablet PO 650 mg Q6H PRN Administration Mild Pain (1-3) or Fever Amlodipine Besylate 10 mg 12/27/20 09:00 12/27/20 09:26 Amlodipine Besylate 5 Mg Tablet PO 10 mg DAILY RODDY Administration Aspirin 81 mg 12/17/20 09:00 12/27/20 09:27 Aspirin 81 Mg Chewable Tablet PO 81 mg DAILY RODDY Administration Atorvastatin Calcium 20 mg 12/17/20 09:00 12/27/20 09:28 Atorvastatin 20 Mg Tablet PO 20 mg DAILY RODDY Administration Calcium Carbonate 1,000 mg 12/17/20 07:01 12/27/20 10:32 Calcium Carbonate (Tums) 500 Mg (200 Mg Elemental) PO 1,000 mg PRN PRN Administration Acid Reflux Dextrose 12.5 gm 12/17/20 05:53 Dextrose 50% 25 Gm/50 Ml Syringe IV PUSH PRN PRN Hypoglycemia Protocol Docusate Sodium 100 mg 12/22/20 09:28 12/27/20 09:28 Docusate Sodium 100 Mg Capsule PO Not Given BID RODDY Enoxaparin Sodium 40 mg 12/17/20 09:00
--- NOTE | 2020-12-27 15:21 | PM.DS ---
DS: Admitting Diagnosis Discharge Date 12/27/2020 Admitting Diagnosis Right foot ulcer DS: Discharge Diagnosis Discharge Diagnosis (1) Foot ulcer, right: Qualifiers: Non-pressure ulcer stage: unspecified non-pressure ulcer stage Qualified Code(s): L97.519 - Non-pressure chronic ulcer of other part of right foot with unspecified severity Code(s): L97.519 - Non-pressure chronic ulcer of other part of right foot with unspecified severity Status: Acute Assessment and Plan: Diabetic right foot ulcer secondary to puncture wound from screw that was inside his shoe which occurred several days prior to presentation. Started on empiric IV vancomycin and Zosyn (started on 12/17/2020) Blood cultures negative Seen in consultation by wound nurse, General surgery, Orthopedic surgery, Infectious Disease. Supportive care. Analgesics available as needed for pain. Ice as needed. Elevate extremity. Postop shoe for offloading Foot x-ray without evidence of acute findings, no findings to suggest osteomyelitis. Foot MRI reviewed which showed likely septic arthritis with adjacent abscess between 4th and 5th metatarsophalangeal joints likely from a puncture wound with a glass fragment seen in the location. Follow-up foot x-ray demonstrated 2-3 mm radiopaque foreign body at the plantar aspect of the base of the 4th toe. S/p excision osteomyelitis of right foot with removal of foreign body on 12/22/[address] Calvillo. Wound culture collected with scant growth of MRSA He will continue IV vancomycin q24h to complete a 4 week course. PICC line placed 12/26. Care coordination arranged home health services for IV infusions. First home infusion will be 12/28/2020. (2) Cellulitis of leg, right: Code(s): L03.115 - Cellulitis of right lower limb Status: Acute Assessment and Plan: Secondary to above. Plan as above (3) Hypokalemia: Code(s): E87.6 - Hypokalemia Status: Acute Assessment and Plan: Potassium was persistently low. Initially thought to be secondary to nausea/vomiting and poor p.o. intake, though his oral intake improved and potassium remained low. Etiology for this not entirely clear. It appears he had issues with low serum potassium at last hospitalization in office as well. Potassium was monitored and supplemented as needed. He will continue with 20 mEq p.o. potassium chloride supplement daily and recheck potassium levels in 1 week. Also initiated on 400 mg magnesium oxide daily and will recheck in 1 week. 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 Blood sugars monitored during hospital stay and more generally well controlled with sliding scale insulin. Lantus initiated during hospitalization. Continue home glimepiride, Januvia, and metformin. (5) Hypertension: Code(s): I10 - Essential (primary) hypertension Status: Acute Assessment and Plan: Blood pressure reviewed and was elevated above target. Amlodipine was increased to 10 mg daily. Continue lisinopril 20 mg b.i.d. and metoprolol succinate 100 mg daily. HCTZ was discontinued due to AWILDA. Blood pressures were well controlled with above regimen. (6) Acute kidney injury: Code(s): N17.9 - Acute kidney failure, unspecified Status: Acute Assessment and Plan: Resolved with hydration and treatment of infection. DS: Summary Hospital Course Hospital Course: Date of admission: 12/17/2020 Date of discharge: 12/27/2020 Diann
[2020-12-27 17:53] LABS: Glucose Point of Care 142 mg/dl (65-105)
[2020-12-27] MEDS: GLIMEPIRIDE 1 MG TABLET PO (18:29)
--- NOTE | 2020-12-27 19:31 | PC.NURSE ---
MD wanted vanc to be given at 1800 12/27 before discharge. RN called MD and pharmacy to verify that it is okay to hang 2100 Vanc at 1800. Both MD and pharmacy okayed it, and also put in a label comment. Vanc was hung at 1826. Pt to be discharged after vanc is done running
== END 2020-12-27 21:10 | disposition home health service (06) | DRG 580 ==
LOC: ANHED 12-17 01:10 → ANH3MED 12-17 01:51
PROVIDERS: Emergency Medicine; Internal Medicine; Orthopaedic Surgery; Physician Assistant; Admitting Provider Internal Medicine; Emergency Provider Emergency Medicine; PCP Family Medicine Adolescent Medicine; Visit Provider Hospitalist
PROC: 0QDN0ZZ Extraction of Right Metatarsal, Open Approach (ICD-10-PCS; principal; 2020-12-22 07:30)
DX: L03.115 Cellulitis of right lower limb (principal); M00.071 Staphylococcal arthritis, right ankle and foot; L97.516 Non-pressure chronic ulcer of other part of right foot with bone involvement without evidence of necrosis; M86.8X7 Other osteomyelitis, ankle and foot; N17.9 Acute kidney failure, unspecified; E11.621 Type 2 diabetes mellitus with foot ulcer; E11.69 Type 2 diabetes mellitus with other specified complication; E11.65 Type 2 diabetes mellitus with hyperglycemia; B95.62 Methicillin resistant Staphylococcus aureus infection as the cause of diseases classified elsewhere; E11.42 Type 2 diabetes mellitus with diabetic polyneuropathy; S90.454A Superficial foreign body, right lesser toe(s), initial encounter; S91.331A Puncture wound without foreign body, right foot, initial encounter; W26.8XXA Contact with other sharp object(s), not elsewhere classified, initial encounter; E87.6 Hypokalemia; N40.0 Benign prostatic hyperplasia without lower urinary tract symptoms; E78.00 Pure hypercholesterolemia, unspecified; I10 Essential (primary) hypertension; F41.0 Panic disorder [episodic paroxysmal anxiety]; Z66 Do not resuscitate; Z23 Encounter for immunization; Z86.16 Personal history of COVID-19; Z79.82 Long term (current) use of aspirin; Z79.84 Long term (current) use of oral hypoglycemic drugs; Z86.73 Personal history of transient ischemic attack (TIA), and cerebral infarction without residual deficits
CPT/HCPCS: 36415; 36569; 73630; 73720; 80048; 80053; 80202; 81001; 82565; 82948; 83036; 83605; 83690; 83735; 84484; 85014; 85018; 85025; 85027; 86140; 87040; 87070; 87075; 87077; 87186; 87205; 88300; 90471; 90715; 93005; 93922; 96365; 96366; 96367; 96372; 96375; 96376; 97110; 97116; 97161; 97165; 97530; 99285; A9270; A9577; C1751; G0378; J0743; J1650; J1815; J2405; J2543; J2704; J3010; J3370; J3475; J7030; J7120

== ENCOUNTER 2020-12-28 19:18 | Outpatient (NON) | payer MEDICARE, SELFPAY ==
[2020-12-28 19:50] LABS: Anion Gap 8 mmol/L (8-16); Blood Urea Nitrogen 30 mg/dL (9-20); Calcium 9.6 mg/dL (8.4-10.2); Carbon Dioxide 30 mmol/L (22-30); Chloride 101 mmol/L (98-107); Estimated Glomerular Filt Rate 50; Glucose 150 mg/dL (65-110); Potassium 3.6 mmol/L (3.4-5.0); Sodium 139 mmol/L (137-145)
== END 2020-12-28 19:19 | disposition home or self-care (01) ==
PROVIDERS: PCP Family Medicine Adolescent Medicine; Visit Provider Family Medicine Adolescent Medicine
DX: L97.519 Non-pressure chronic ulcer of other part of right foot with unspecified severity (principal); L03.115 Cellulitis of right lower limb
CPT/HCPCS: 80048

== ENCOUNTER 2021-01-04 12:18 | Outpatient (NON) | payer MEDICARE, SELFPAY ==
[2021-01-04 12:48] LABS: Magnesium 1.8 mg/dL (1.6-2.3)
== END 2021-01-04 12:19 | disposition home or self-care (01) ==
LOC: HOME HLTH 12:20
PROVIDERS: PCP Family Medicine Adolescent Medicine; Visit Provider Physician Assistant
DX: E87.6 Hypokalemia (principal); E83.42 Hypomagnesemia
CPT/HCPCS: 80048; 83735

== ENCOUNTER 2021-01-18 13:26 | Outpatient (RCR) | payer MEDICARE, SELFPAY ==
[2021-01-01 15:23] LABS: Anion Gap 7 mmol/L (8-16); Blood Urea Nitrogen 30 mg/dL (9-20); CRP 1.2 mg/dL (<1.0); Calcium 9.1 mg/dL (8.4-10.2); Carbon Dioxide 32 mmol/L (22-30); Chloride 101 mmol/L (98-107); Estimated Glomerular Filt Rate 55; Glucose 162 mg/dL (65-110); Potassium 3.8 mmol/L (3.4-5.0); Sodium 140 mmol/L (137-145)
[2021-01-01 15:26] LABS: Basophils Percent Auto 0.5 % (0.2-1.2); Eosinophils Absolute Auto 0.2 K/mm3 (0-0.3); Eosinophils Percent Auto 3.4 % (0-4.4); Hematocrit 32.1 % (42.0-52.0); Hemoglobin 10.4 g/dL (14.0-18.0); Immature Granulocyte Absolute 0.02 K/mm3 (0.00-0.031); Immature Granulocyte Percent A 0.3 % (0-0.5); Lymphocytes Absolute Auto 1.09 K/mm3 (0.9-3.2); Lymphocytes Percent Auto 16.8 % (18.3-44.2); Mean Corpuscular HGB Conc 32.4 g/dl (32-36); Mean Corpuscular Hemoglobin 28.8 pg (26-34); Mean Corpuscular Volume 88.9 fl (80-100); Mean Platelet Volume 10.9 fl (7.4-10.4); Monocytes Absolute Auto 0.4 K/mm3 (0.1-0.6); Monocytes Percent Auto 6.6 % (2.6-8.5); Neutrophils Absolute Auto 4.7 K/mm3 (1.3-6.7); Neutrophils Percent Auto 72.4 % (45.5-73.1); Platelet Count Result 278 k/mm3 (150-375); Red Blood Count 3.61 M/mm3 (4.6-6.20); Red Cell Distribution Width 13.7 % (11.5-14.5); White Blood Count 6.5 K/mm3 (4.5-10.0)
[2021-01-04 12:49] LABS: Anion Gap 11 mmol/L (8-16); Blood Urea Nitrogen 27 mg/dL (9-20); Calcium 9.6 mg/dL (8.4-10.2); Carbon Dioxide 29 mmol/L (22-30); Chloride 102 mmol/L (98-107); Estimated Glomerular Filt Rate 60; Glucose 116 mg/dL (65-110); Potassium 3.8 mmol/L (3.4-5.0); Sodium 142 mmol/L (137-145)
[2021-01-08 15:40] LABS: Anion Gap 8 mmol/L (8-16); Blood Urea Nitrogen 29 mg/dL (9-20); CRP 0.7 mg/dL (<1.0); Calcium 9.2 mg/dL (8.4-10.2); Carbon Dioxide 30 mmol/L (22-30); Chloride 101 mmol/L (98-107); Estimated Glomerular Filt Rate > 60; Glucose 103 mg/dL (65-110); Potassium 3.9 mmol/L (3.4-5.0); Sodium 139 mmol/L (137-145)
[2021-01-08 15:41] LABS: Basophils Percent Auto 0.4 % (0.2-1.2); Eosinophils Absolute Auto 0.2 K/mm3 (0-0.3); Eosinophils Percent Auto 4.3 % (0-4.4); Hematocrit 34.7 % (42.0-52.0); Hemoglobin 11.4 g/dL (14.0-18.0); Immature Granulocyte Absolute 0.02 K/mm3 (0.00-0.031); Immature Granulocyte Percent A 0.4 % (0-0.5); Lymphocytes Absolute Auto 0.85 K/mm3 (0.9-3.2); Mean Corpuscular HGB Conc 32.9 g/dl (32-36); Mean Corpuscular Hemoglobin 29.4 pg (26-34); Mean Corpuscular Volume 89.4 fl (80-100); Monocytes Absolute Auto 0.4 K/mm3 (0.1-0.6); Monocytes Percent Auto 8.1 % (2.6-8.5); Neutrophils Absolute Auto 3.8 K/mm3 (1.3-6.7); Neutrophils Percent Auto 70.8 % (45.5-73.1); Platelet Count Result 221 k/mm3 (150-375); Red Blood Count 3.88 M/mm3 (4.6-6.20); Red Cell Distribution Width 13.9 % (11.5-14.5); White Blood Count 5.3 K/mm3 (4.5-10.0)
[2021-01-08 15:46] LABS: Vancomycin Trough 11.5 ug/mL (10.0-20.0)
[2021-01-11 15:00] LABS: Anion Gap 7 mmol/L (8-16); Blood Urea Nitrogen 24 mg/dL (9-20); Calcium 9.6 mg/dL (8.4-10.2); Carbon Dioxide 31 mmol/L (22-30); Chloride 100 mmol/L (98-107); Estimated Glomerular Filt Rate 46; Glucose 135 mg/dL (65-110); Potassium 3.7 mmol/L (3.4-5.0); Sodium 138 mmol/L (137-145)
[2021-01-15 15:10] LABS: Basophils Percent Auto 0.5 % (0.2-1.2); Eosinophils Absolute Auto 0.2 K/mm3 (0-0.3); Hematocrit 34.3 % (42.0-52.0); Hemoglobin 11.3 g/dL (14.0-18.0); Immature Granulocyte Absolute 0.02 K/mm3 (0.00-0.031); Immature Granulocyte Percent A 0.5 % (0-0.5); Lymphocytes Absolute Auto 0.68 K/mm3 (0.9-3.2); Lymphocytes Percent Auto 16.8 % (18.3-44.2); Mean Corpuscular HGB Conc 32.9 g/dl (32-36); Mean Corpuscular Hemoglobin 29.4 pg (26-34); Mean Corpuscular Volume 89.1 fl (80-100); Mean Platelet Volume 11.3 fl (7.4-10.4); Monocytes Absolute Auto 0.4 K/mm3 (0.1-0.6); Monocytes Percent Auto 10.4 % (2.6-8.5); Neutrophils Absolute Auto 2.7 K/mm3 (1.3-6.7); Neutrophils Percent Auto 66.8 % (45.5-73.1); Platelet Count Result 158 k/mm3 (150-375); Red Blood Count 3.85 M/mm3 (4.6-6.20); Red Cell Distribution Width 13.7 % (11.5-14.5)
[2021-01-15 15:15] LABS: Anion Gap 9 mmol/L (8-16); Blood Urea Nitrogen 28 mg/dL (9-20); CRP < 0.5 mg/dL (<1.0); Calcium 9.5 mg/dL (8.4-10.2); Carbon Dioxide 28 mmol/L (22-30); Chloride 103 mmol/L (98-107); Estimated Glomerular Filt Rate > 60; Glucose 197 mg/dL (65-110); Potassium 3.8 mmol/L (3.4-5.0); Sodium 140 mmol/L (137-145)
[2021-01-15 16:03] LABS: Vancomycin Trough 11.9 ug/mL (10.0-20.0)
[2021-01-18 15:24] LABS: Anion Gap 11 mmol/L (8-16); Blood Urea Nitrogen 29 mg/dL (9-20); Calcium 9.5 mg/dL (8.4-10.2); Carbon Dioxide 27 mmol/L (22-30); Chloride 101 mmol/L (98-107); Estimated Glomerular Filt Rate > 60; Glucose 158 mg/dL (65-110); Sodium 139 mmol/L (137-145)
== END 2021-04-01 23:59 | disposition home or self-care (01) ==
LOC: HOME HLTH 13:26
PROVIDERS: PCP Family Medicine Adolescent Medicine; Visit Provider Internal Medicine Infectious Disease
DX: L97.519 Non-pressure chronic ulcer of other part of right foot with unspecified severity (principal); L03.115 Cellulitis of right lower limb
CPT/HCPCS: 36415; 80048; 80202; 85025; 86140

== ENCOUNTER 2021-07-01 17:24 | Emergency (ER) | payer MEDICARE, SELFPAY ==
[2021-07-01 17:28] VITALS: BP 165/61; PULSE 88; RESP 16; TEMP 37; O2SAT 95
--- NOTE | 2021-07-01 18:00 | ED.GENADULT ---
HPI - General Adult General Chief complaint: Nausea/Vomiting/Diarrhea Stated complaint: I think I have COVID Time Seen by Provider: 07/01/21 17:27 History of Present Illness HPI narrative: 70-year-old male presents the emergency room with acute onset vomiting that started this morning. Patient denies abdominal pain, denies mild malaise or fever. Patient is concerned that he might be reinfected with Covid. Denies shortness of breath, chest pain, or difficulty breathing. Patient states that he got the Moni shot early last year, and then tested positive for Covid in late summer. Has since had a [facility] booster. Patient states that he took a Zofran this morning following his episode of vomiting, and has since experienced no episodes of vomiting. Has been able to keep fluids down without any further nausea. Related Data Home Medications Medication Instructions Recorded Confirmed Januvia 100 mg PO DAILY 10/30/20 01/23/21 atorvastatin 20 mg PO DAILY 10/30/20 01/23/21 finasteride 5 mg PO DAILY 10/30/20 01/23/21 metoprolol succinate 100 mg PO DAILY 10/30/20 01/23/21 aspirin 81 mg PO DAILY 11/10/20 01/23/21 calcium carbonate 1,000 mg PO PRN PRN 12/17/20 01/23/21 ibuprofen 800 mg PO Q6H PRN 12/17/20 01/23/21 metformin 1,000 mg PO BID 12/17/20 01/23/21 Allergies Allergy/AdvReac Type Severity Reaction Status Date / Time No Known Allergies Allergy Verified 07/01/21 18:15 Review of Systems Review of Systems: CONSTITUTIONAL: Denies fever, chills, or sweats. EYES: Denies visual changes, redness, or discharge. ENT: Denies rhinorrhea, congestion, sore throat, or otalgia. CARDIOVASCULAR: Denies chest pain, palpitations, or edema. RESPIRATORY: Denies cough or dyspnea. GASTROINTESTINAL: Denies abdominal pain, reports vomiting x2 GENITOURINARY: Denies dysuria or hematuria. SKIN: Denies rash or itching. MUSCULOSKELETAL: Denies back pain, joint pain, or myalgia. NEUROLOGIC: Denies headache, numbness, dizziness, or weakness. PSYCHIATRIC: Denies anxiety or depression. [facility] Past Medical History Medical History Anxiety BPH (benign prostatic hyperplasia) COVID-19 (11/2020) Diabetes Diabetes mellitus with neuropathy Diabetic ulcer of right foot associated with diabetes mellitus due to underlying condition Encounter for postoperative care Foreign body of fifth toe of right foot with infection High cholesterol History of osteomyelitis Right great toe wound and osteomyelitis treated with IV antibiotics Hypertension MRSA (methicillin resistant Staphylococcus aureus) Panic attacks TIA (transient ischemic attack) (~2019) Expressive aphasia that resolved Surgical History Surgical History No significant past surgical history [place] teeth removed 1978, resident and surgeon Family History Family History Father Hypertension Cerebrovascular accident Mother Hypertension Cerebrovascular accident Family history of cancer Breast Other Heart disease Social History Social History Social History: He lives in [place] with his of 45 years. 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 He drinks on average 1 alcoholic beverage a year. He has never smoked. He denies any illicit substance use. He is independent in all activities of daily living. He and his have 4 medium to large dogs. Primary care physician: Dr. Schneider Code status: DNR/DNI. He is okay with pressors and noninvasive respiratory support if needed. Surrogate decision maker: Alcohol intake: never Substance use: never Additional occupation/education comments: Former [employer] Spot[employer] Gender identity (if verbalized by the patient): Male Spiritual care concerns: Yes Exam Narrative:
[2021-07-01 19:18] LABS: SARS-CoV-2 RNA PCR Negative
== END 2021-07-01 20:00 | disposition home or self-care (01) ==
PROVIDERS: Emergency Provider Nurse Practitioner Family; PCP Family Medicine Adolescent Medicine
DX: K52.9 Noninfective gastroenteritis and colitis, unspecified (principal); Z20.822 Contact with and (suspected) exposure to COVID-19; E11.40 Type 2 diabetes mellitus with diabetic neuropathy, unspecified; E78.00 Pure hypercholesterolemia, unspecified; I10 Essential (primary) hypertension; N40.0 Benign prostatic hyperplasia without lower urinary tract symptoms; F41.9 Anxiety disorder, unspecified; Z86.16 Personal history of COVID-19; Z86.14 Personal history of Methicillin resistant Staphylococcus aureus infection; Z86.73 Personal history of transient ischemic attack (TIA), and cerebral infarction without residual deficits; Z79.84 Long term (current) use of oral hypoglycemic drugs; Z79.82 Long term (current) use of aspirin
CPT/HCPCS: 99283; C9803; U0003; U0005

== ENCOUNTER 2022-07-21 00:17 | Emergency (ER) | payer MEDICARE, SELFPAY ==
--- NOTE | ~2022-07-21 | XR_ITS ---
EXAMINATION: XR foot LT min 3V DATE: 07/21/2022 02:54 INDICATION: Left fourth toe pain and swelling TECHNIQUE: Dorsoplantar, lateral, and 2 oblique views of the left foot were obtained. COMPARISON: None. FINDINGS: There is soft tissue swelling of the fourth toe. No fracture or radiopaque foreign body of the fourth toe are identified. There are healed fractures of the second proximal phalanx and fifth me tatarsal. There is flattening of the second metatarsal head, likely [place] infraction. Calcified at herosclerosis is noted. Mild to moderate polyarticular osteoarthritis is noted. IMPRESSION: 1. No acute osseous abnormality. Reviewed, dictated and finalized at location A.
[2022-07-21 00:24] VITALS: BP 117/55; PULSE 68; RESP 20; TEMP 36.9; O2SAT 99
--- NOTE | 2022-07-21 03:18 | ED.GENADULT ---
HPI - General Adult General Chief complaint: Skin/Abscess/Foreign Body Stated complaint: Cellulitis to left lef Time Seen by Provider: 07/21/22 02:38 History of Present Illness HPI narrative: Patient is a 71-year-old gentleman who presents the emergency department with chief complaint of redness and cellulitis to the left lower extremity. Patient reports that he had episodes of cellulitis before in the past and was treated with antibiotics several months ago patient states that he noticed his left leg started getting little red and then noticed that he felt warm as well. The patient states he was concerned that he was developing cellulitis and also reports that on his left fourth toe he had a small abrasion. The patient states he does not believe that he has a foreign body in his foot but was unsure. Related Data Home Medications Medication Instructions Recorded Confirmed aspirin 81 mg chewable tablet 81 mg PO DAILY 11/10/20 04/05/22 cephalexin 500 mg capsule 500 mg PO Q8H 04/05/22 04/05/22 Allergies Allergy/AdvReac Type Severity Reaction Status Date / Time No Known Allergies Allergy Verified 07/21/22 00:26 Review of Systems Review of Systems: A 10 system review of systems was completed on the patient and is negative except for what is stated in the HPI. Nursing and ancillary documentation was reviewed. [facility] Past Medical History Medical History Acute kidney injury Anxiety BPH (benign prostatic hyperplasia) COVID-19 (11/2020) Diabetes mellitus with neuropathy Diabetic ulcer of right foot associated with diabetes mellitus due to underlying condition Encounter for postoperative care Foreign body of fifth toe of right foot with infection High cholesterol History of erysipelas History of osteomyelitis Right great toe wound and osteomyelitis treated with IV antibiotics Hypertension MRSA (methicillin resistant Staphylococcus aureus) Panic attacks TIA (transient ischemic attack) (2018) Expressive aphasia that resolved Surgical History Surgical History No significant past surgical history [place] teeth removed 1978, resident and surgeon Family History Family History Father Hypertension Cerebrovascular accident Mother Hypertension Cerebrovascular accident Family history of cancer Breast Other Heart disease Social History Social History Social History: He lives in [place] with his of 45 years. 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 He drinks on average 1 alcoholic beverage a year. He has never smoked. He denies any illicit substance use. He is independent in all activities of daily living. He and his have 4 medium to large dogs. Primary care physician: Dr. Schneider Code status: DNR/DNI. He is okay with pressors and noninvasive respiratory support if needed. 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 HEAD: Normocephalic, atraumatic. EYES: PERRLA and EOMI. ENT: Nares clear, no rhinorrhea or epistaxis. Mucous membranes moist. NECK: Supple. CHEST: Clear to auscultation. No respiratory distress. HEART: Regular rate and rhythm. No murmur heard. Normal peripheral pulses. ABDOMEN: Soft, nontender, nondistended, normal active bowel sound
[2022-07-21] MEDS: DOXYCYCLINE HYCLATE 100 MG TABLET PO (03:51)
== END 2022-07-21 04:00 | disposition home or self-care (01) ==
PROVIDERS: Emergency Provider Emergency Medicine; PCP Family Medicine Adolescent Medicine
DX: L03.116 Cellulitis of left lower limb (principal); F41.9 Anxiety disorder, unspecified; E11.9 Type 2 diabetes mellitus without complications; I10 Essential (primary) hypertension
CPT/HCPCS: 73630; 99283; A9270

== ENCOUNTER 2023-06-22 20:59 | Emergency (ER) | payer MEDICARE, SELFPAY ==
--- NOTE | ~2023-06-22 | XR_ITS ---
EXAMINATION: XR chest 1V portable Exam Date/Time: 06/22/2023 21:44 CDT HISTORY: Choking episode Comparison: 11/10/2020. RESULT: Lines, tubes, and devices: None. Lungs and pleura: Mild mid and lower lung reticular opacities. Cardiomediastinal silhouette: Stable. Other: No acute osseous or upper abdominal finding. IMPRESSION: Mild interstitial edema. Reviewed, dictated and finalized at location K. IMPRESSION: Mild interstitial edema.
[2023-06-22 21:05] VITALS: BP 188/83; PULSE 62; RESP 18; TEMP 36.6; O2SAT 98
[2023-06-22] MEDS: GLUCAGON FOR INJ 1 MG VIAL IV PUSH (21:46)
[2023-06-22 21:48] VITALS: BP 153/105
[2023-06-22] MEDS: NITROGLYCERIN SL 0.4 MG TABLET SUBLINGUAL (21:48)
[2023-06-22 22:03] VITALS: BP 145/73
--- NOTE | 2023-06-22 22:19 | PC.NURSE ---
Pt passed PO challenge. Pt states he feels good as new . EDP notified.
--- NOTE | 2023-06-22 22:46 | ED.GENADULT ---
HPI - General Adult General Chief complaint: Unspecified Stated complaint: food stuck in throat Time Seen by Provider: 06/22/23 21:27 History of Present Illness HPI narrative: Patient is a 72-year-old gentleman presents emergency department chief complaint of dysphagia. The patient reports he was eating at a buffet and ate a chicken breast and felt as though it got stuck in his esophagus the patient states that initially the saliva was coming up but slight is still able to go down feels as though there is a fullness sensation in his esophagus. Related Data Home Medications Medication Instructions Recorded Confirmed aspirin 81 mg chewable tablet 81 mg PO DAILY 11/10/20 11/27/22 Allergies Allergy/AdvReac Type Severity Reaction Status Date / Time No Known Allergies Allergy Verified 06/22/23 21:12 Review of Systems Review of Systems: A 10 system review of systems was completed on the patient and is negative except for what is stated in the HPI. Nursing and ancillary documentation was reviewed. [facility] Past Medical History Medical History Acute kidney injury Anxiety BPH (benign prostatic hyperplasia) COVID-19 (11/2020) Diabetes mellitus with neuropathy Diabetic ulcer of right foot associated with diabetes mellitus due to underlying condition Encounter for postoperative care Foreign body of fifth toe of right foot with infection High cholesterol History of erysipelas History of osteomyelitis Right great toe wound and osteomyelitis treated with IV antibiotics Hypertension MRSA (methicillin resistant Staphylococcus aureus) Panic attacks TIA (transient ischemic attack) (2018) Expressive aphasia that resolved Surgical History Surgical History No significant past surgical history [place] teeth removed 1978, resident 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 He drinks on average 1 alcoholic beverage a year. He has never smoked. He denies any illicit substance use. He is independent in all activities of daily living. He and his have 4 medium to large dogs. Primary care physician: Dr. Schneider Code status: DNR/DNI. He is okay with pressors and noninvasive respiratory support if needed. Surrogate decision maker: Smoking status: Never smoker Second hand tobacco smoke exposure: No Alcohol intake: never Substance use: never Substance use type: does not use Living arrangements: with family Occupation/Education: retired Additional occupation/education comments: Former [employer] Gender identity (if verbalized by the patient): Male Spiritual care concerns: Yes Agree to blood products: Yes Exam Narrative: GENERAL: Well-appearing, well-nourished, and in no acute distress. HEAD: Normocephalic, atraumatic. EYES: PERRLA and EOMI. ENT: Nares clear, no rhinorrhea or epistaxis. Mucous membranes moist. NECK: Supple. CHEST: Clear to auscultation. No respiratory distress. HEART: Regular rate and rhythm. No murmur heard. Normal peripheral pulses. ABDOMEN: Soft, nontender, nondistended, normal active bowel sounds. EXTREMITIES: Normal range of motion. No edema. SKIN: Warm, dry, no rash. NEURO: No focal deficits. Alert and oriented x3. PSYCH: Normal mood and affect. Course Course Emergency Course: Differential diagnosis includes esophageal food impaction, foreign body, esophageal irritation. The patient was
== END 2023-06-22 22:59 | disposition home or self-care (01) ==
PROVIDERS: Emergency Provider Emergency Medicine; PCP Family Medicine Adolescent Medicine
DX: T18.128A Food in esophagus causing other injury, initial encounter (principal); I10 Essential (primary) hypertension; E11.9 Type 2 diabetes mellitus without complications; Z86.73 Personal history of transient ischemic attack (TIA), and cerebral infarction without residual deficits; W44.F3XA Food entering into or through a natural orifice, initial encounter
CPT/HCPCS: 71045; 96374; 99284; A9270; J1610

== ENCOUNTER 2024-04-29 07:48 | Emergency (ER) | payer MEDICARE, SELFPAY ==
--- NOTE | ~2024-04-29 | XR_ITS ---
EXAMINATION: XR chest 2V DATE: 04/29/2024 08:58 INDICATION: Chest pain. Anxiety. TECHNIQUE: Frontal and lateral views of the chest were obtained. COMPARISON: Chest single view 06/22/2023 FINDINGS: There is no pneumonia, pleural effusion, or pneumothorax. The heart size is normal. IMPRESSION: 1. No acute cardiopulmonary disease. Reviewed, dictated and finalized at location B. T SYSTEM DIRECTOR
[2024-04-29 08:15] VITALS: BP 181/92; PULSE 75; RESP 18; TEMP 36.4; O2SAT 94
--- NOTE | 2024-04-29 08:15 | ECG_ITS ---
Test Date: 2024-04-29 08:46:00 Measurements Intervals [place] Rate: 62 P: 16 [place]: 279 QRS: -4 QRSD: 100 T: 33 QT: 418 QTc: 426 Interpretive Statements SINUS RHYTHM WITH SINUS ARRHYTHMIA WITH FIRST DEGREE AV BLOCK No previous ECG available for comparison Electronically Signed On 04-29-2024 14:24:05 [employer] by Yoko Ely
[2024-04-29 08:32] VITALS: BP 171/94; PULSE 68; RESP 14; TEMP 36.4; O2SAT 97
--- NOTE | 2024-04-29 08:35 | ED.GENADULT ---
HPI - General Adult General Chief complaint: Anxiety Stated complaint: anxiety Time Seen by Provider: 04/29/24 08:34 Source: patient History of Present Illness HPI narrative: 73 years old white male drove himself to the emergency room because of anxiety. Patient reported been feeling anxious for the last 35 years and has been on Paxil 20 mg once a day. Over the last 7 days been having trouble sleeping. He denies any fever, chills, nausea, vomiting, chest pain, shortness of breath, headache or focal neuro deficit. Patient denies any suicidal or homicidal ideation Related Data Home Medications ?Medication ?Instructions ?Recorded ?Confirmed ?Last Taken ?Type aspirin 81 mg chewable tablet 81 mg PO DAILY 11/10/20 08/25/23 12/15/20 History Allergies Allergy/AdvReac Type Severity Reaction Status Date / Time No Known Allergies Allergy Verified 08/25/23 12:39 Review of Systems Review of Systems: All systems reviewed & are unremarkable except as noted in HPI and below PMFSH Past Medical History Medical History History of erysipelas Diabetes mellitus with neuropathy MRSA (methicillin resistant Staphylococcus aureus) Encounter for postoperative care Acute kidney injury Foreign body of fifth toe of right foot with infection Diabetic ulcer of right foot associated with diabetes mellitus due to underlying condition History of osteomyelitis Right great toe wound and osteomyelitis treated with IV antibiotics TIA (transient ischemic attack) (2018) Expressive aphasia that resolved BPH (benign prostatic hyperplasia) COVID-19 (11/2020) Anxiety Panic attacks Hypertension High cholesterol Surgical History Surgical History Schwertner teeth removed 1978, resident and surgeon No significant past surgical history Family History Family History Father Hypertension Cerebrovascular accident Mother Hypertension Cerebrovascular accident Family history of cancer Breast Other Heart disease Social History Social History Social History: He lives in [place] with his of 45 years. 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 He drinks on average 1 alcoholic beverage a year. He has never smoked. He denies any illicit substance use. He is independent in all activities of daily living. He and his have 4 medium to large dogs. Primary care physician: Dr. Schneider Code status: DNR/DNI. He is okay with pressors and noninvasive respiratory support if needed. Surrogate decision maker: Smoking status: Never smoker Second hand tobacco smoke exposure: No Alcohol intake: never Substance use: never Substance use type: does not use Living arrangements: with family Occupation/Education: retired Additional occupation/education comments: Former [employer] Gender identity (if verbalized by the patient): Male Spiritual care concerns: Yes Agree to blood products: Yes Exam Narrative: General appearance: Well-developed, well-nourished Skin: Normal color Head: Normocephalic, nontraumatic Eyes: Clear conjunctiva ENT: Oropharynx normal, ears normal, nose normal Neck: Supple, nontender Chest and respiratory: Airway patent, no respiratory distress, no accessory muscle use Heart: Regular rate/rhythm Abdomen: Soft, nontender, no organomegaly, quiet bowel sounds Vascular: Normal peripheral pulses, normal capillary refill. Musculoskeletal: Normal range of motion, nontender back Neurologic: Alert and oriented ?3, DETAIL MANAGER is normal as tested, no gross motor deficit Course Vital Signs Vital signs: Vital Signs Temperature 36.4 C L 04/29/24 08:15 Pulse Rate 75 04/29/24 08:15 Respiratory Rate 18 04/29/24 08:15 Blood Pressure 181/92 H 04/29/24 08:15 Pulse Oximetry 94 04/29/24 08:15 Oxygen Delivery Room Air 04/29/24 08:15 Temperature 36.4 C 04/29/24 10:13 Pulse Rate 61 04/29/24 10:13 Respiratory Rate 18 04/29/24 10:13 Blood Pressure 187/90 H 04/29/24 10:13 Pulse Oximetry 94 04/29/24 10:13 Oxygen Delivery Room Air 04/29/24 08:15 Medical Decision Making MDM Narrative Medical decision making narrative: Patient presents with insomnia Vital signs showing blood pressure 181/92, patient usually takes his blood pressure medication at night, otherwise within normal limit Physical examination is insignificant Differential diagnosis anxiety, depression and insomnia. My plan to increase Paxil to 30 mg once a day Patient denies any suicidal or homicidal ideation Vital Signs Vital Signs: Vital Signs Temperature 36.4 C L 04/29/24 08:15 Pulse Rate 75 04/29/24 08:15 Respiratory Rate 18 04/29/24 08:15 Blood Pressure 181/92 H 04/29/24 08:15 Pulse Oximetry 94 04/29/24 08:15 Oxygen Delivery Room Air 04/29/24 08:15 Temperature 36.4 C 04/29/24 10:13 Pulse Rate 61 04/29/24 10:13 Respiratory Rate 18 04/29/24 10:13 Blood Pressure 187/90 H 04/29/24 10:13 Pulse Oximetry 94 04/29/24 10:13 Oxygen Delivery Room Air 04/29/24 08:15 Lab Data 04/29/24 08:34 04/29/24 08:34 Labs: Lab Results 04/29/24 Range/Units 08:34 WBC 5.7 (4.5-10.0) K/mm3 RBC 5.10 (4.6-6.20) M/mm3 Hgb 15.2 D (14.0-18.0) g/dL Hct 44.5 (42.0-52.0) % MCV 87.3 (80-100) fl MCH 29.8 (26-34) pg MCHC 34.2 (32-36) g/dl RDW 13.0 (11.5-14.5) % Plt Count 111 L (150-375) k/mm3 MPV 11.2 H (7.4-10.4) fl Immature Gran % (Auto) 0.4 (0-0.5) % Neut % (Auto) 76.0 H (45.5-73.1) % Lymph % (Auto) 15.1 L (18.3-44.2) % [place] % (Auto) 5.8 (2.6-8.5) % Eos % (Auto) 2.3 (0-4.4) % Baso % (Auto) 0.4 (0.2-1.2) % Lymph # (Auto) 0.86 L (0.9-3.2) K/mm3 [place] # (Auto) 0.3 (0.1-0.6) K/mm3 Eos # (Auto) 0.1 (0-0.3) K/mm3 Baso # (Auto) 0.0 (0.0-0.1) K/mm3 Abs Immat Gran (auto) 0.02 (0.00-0.031) K/mm3 Absolute Neuts (auto) 4.4 (1.3-6.7) K/mm3 Absolute Nucleated RBC 0.000 (0.0-0.012) K/mm3 Nucleated RBC % 0.0 (0.0-0.2) % % Immature Plt Fraction 6.1 (0.9-11.2) % PT 14.2 (11.1-14.7) Seconds INR 1.1 APTT 28.2 (22.3-36.8) Seconds Sodium 135 L (137-145) mmol/L Potassium 3.6 (3.4-5.0) mmol/L Chloride 97 L (98-107) mmol/L Carbon Dioxide 30 (22-30) mmol/L Anion Gap 8 (4-12) mmol/L BUN 26 H (9-20) mg/dL Creatinine 0.79 (0.7-1.3) mg/dL Estim Creat Clear Calc 109 ml/min Estimated GFR > 60 (59 - ) Glucose 204 H (65-110) mg/dL Calcium 9.0 (8.4-10.2) mg/dL Total Bilirubin 0.9 (0.2-1.3) mg/dL AST 23 (17-59) U/L ALT 21 (6-50) U/L Alkaline Phosphatase 94 (38-126) U/L Troponin I < 0.012 (0.000-0.034) ng/mL Total Protein 7.0 (6.3-8.2) g/dL Albumin 4.1 (3.5-5.1) g/dL Lipase 377 H (23-300) U/L Critical Care Time Critical Care Time Critical Care Time: No Discharge Plan Discharge Clinical Impression: Insomnia Patient Disposition: Home, Self-Care Condition: Stable Instructions: Insomnia (ED), Anxiety (ED) Additional Instructions: Return if symptoms are worsening , call your family physician for appointment, take Tylenol as as needed for aches and pain, continue home medications. Increase Paxil to 30 mg once a day after consulting with your family physician Patient Language: Citizen Of [place] Prescriptions: New paroxetine HCl [Paxil] 30 mg tablet 30 mg PO QAM Qty: 30 0RF No Action Tradjenta 5 mg tablet 5 mg PO QAM Qty: 90 3RF aspirin 81 mg Tablet,Chewable 81 mg PO DAILY hydralazine 25 mg tablet 25 mg PO BID Qty: 180 1RF sildenafil [Viagra] 100 mg tablet 100 mg PO DAILY PRN (Reason: sexual activity) Qty: 14 3RF Rx Instructions: administer 30 minutes to 4 hours before activity paroxetine HCl 20 mg tablet 20 mg PO DAILY Qty: 90 2RF indapamide 2.5 mg tablet See Rx Instructions .ROUTE .COMPLEX Qty: 90 2RF Dose Instruction: Take 1 tablet by mouth once daily Rx Instructions: Take 1 tablet by mouth once daily metformin 500 mg tablet extended release 24 hr 1,500 mg PO DAILY Qty: 270 2RF atorvastatin 20 mg tablet 20 mg PO DAILY Qty: 90 2RF irbesartan 300 mg tablet 300 mg PO DAILY Qty: 90 2RF finasteride 5 mg tablet 5 mg PO DAILY Qty: 90 1RF metoprolol succinate 100 mg tablet extended release 24 hr See Rx Instructions .ROUTE .COMPLEX Qty: 180 0RF Dose Instruction: TAKE 2 TABLETS BY MOUTH ONCE DAILY FOR BLOOD PRESSURE Rx Instructions: TAKE 2 TABLETS BY MOUTH ONCE DAILY FOR BLOOD PRESSURE Follow-up/Referrals: Aaron Bailey MD [Primary Care Provider] -
[2024-04-29 08:42] LABS: Basophils Percent Auto 0.4 % (0.2-1.2); Eosinophils Absolute Auto 0.1 K/mm3 (0-0.3); Eosinophils Percent Auto 2.3 % (0-4.4); Hematocrit 44.5 % (42.0-52.0); Hemoglobin 15.2 g/dL (14.0-18.0); Immature Granulocyte Absolute 0.02 K/mm3 (0.00-0.031); Immature Granulocyte Percent A 0.4 % (0-0.5); Immature Platelet Fraction Pct 6.1 % (0.9-11.2); Lymphocytes Absolute Auto 0.86 K/mm3 (0.9-3.2); Lymphocytes Percent Auto 15.1 % (18.3-44.2); Mean Corpuscular HGB Conc 34.2 g/dl (32-36); Mean Corpuscular Hemoglobin 29.8 pg (26-34); Mean Corpuscular Volume 87.3 fl (80-100); Mean Platelet Volume 11.2 fl (7.4-10.4); Monocytes Absolute Auto 0.3 K/mm3 (0.1-0.6); Monocytes Percent Auto 5.8 % (2.6-8.5); Neutrophils Absolute Auto 4.4 K/mm3 (1.3-6.7); Platelet Count Result 111 k/mm3 (150-375); White Blood Count 5.7 K/mm3 (4.5-10.0)
[2024-04-29 08:51] LABS: Alanine Aminotransferase 21 U/L (6-50); Albumin Level 4.1 g/dL (3.5-5.1); Alkaline Phosphatase 94 U/L (38-126); Anion Gap 8 mmol/L (4-12); Aspartate Amino Transferase 23 U/L (17-59); Bilirubin,Total 0.9 mg/dL (0.2-1.3); Blood Urea Nitrogen 26 mg/dL (9-20); Carbon Dioxide 30 mmol/L (22-30); Chloride 97 mmol/L (98-107); Estimated CRCL calculation 109 ml/min; Estimated Glomerular Filt Rate > 60; Glucose 204 mg/dL (65-110); Lipase 377 U/L (23-300); Potassium 3.6 mmol/L (3.4-5.0); Sodium 135 mmol/L (137-145)
[2024-04-29 08:56] LABS: INR 1.1; Prothrombin Time 14.2 Seconds (11.1-14.7)
[2024-04-29 08:57] LABS: Partial Thromboplastin Time 28.2 Seconds (22.3-36.8)
[2024-04-29 09:03] LABS: Troponin I < 0.012 ng/mL (0.000-0.034)
[2024-04-29 09:45] VITALS: BP 194/79; PULSE 61; RESP 14; TEMP 36.6; O2SAT 95
[2024-04-29] MEDS: cloNIDine HCL 0.1 MG TABLET PO (09:48)
[2024-04-29 10:13] VITALS: BP 187/90; PULSE 61; RESP 18; TEMP 36.4; O2SAT 94
== END 2024-04-29 10:40 | disposition home or self-care (01) ==
PROVIDERS: Emergency Provider Emergency Medicine; PCP Family Medicine Adolescent Medicine
DX: G47.00 Insomnia, unspecified (principal); E11.40 Type 2 diabetes mellitus with diabetic neuropathy, unspecified; Z79.82 Long term (current) use of aspirin; Z86.73 Personal history of transient ischemic attack (TIA), and cerebral infarction without residual deficits; I10 Essential (primary) hypertension
CPT/HCPCS: 36415; 71046; 80053; 83690; 84484; 85025; 85055; 85610; 85730; 93005; 99284; A9270

== ENCOUNTER → 2025-01-03 15:12 | Outpatient (CLI) | payer MEDICARE, SELFPAY ==
--- NOTE | ~2025-01-03 | XR_ITS ---
EXAMINATION: XR foot LT 2V, 01/03/2025 15:20 CDT HISTORY: L97.529 - Non-pressure chronic ulcer of other part of lef... COMPARISON: No comparisons available. Findings: There is a remote fracture of the fifth metatarsal, no acute fracture or osseous destruction identified. Moderate degenerative changes. Soft tissue swelling. Impression: No acute fracture or malalignment. Reviewed, dictated and finalized at location P. Impression: No acute fracture or malalignment.
== END ==
LOC: EXPCRAD 15:14
PROVIDERS: PCP Nurse Practitioner Family; Visit Provider Nurse Practitioner Family
DX: L97.529 Non-pressure chronic ulcer of other part of left foot with unspecified severity (principal)
CPT/HCPCS: 73620

== ENCOUNTER 2025-01-12 07:28 | Outpatient (RCR) | payer MEDICARE, SELFPAY ==
--- NOTE | 2025-01-12 07:46 | WNDPHOTO ---
PHOTO ONLY - See Nursing Notes and/ or assessments for documentation.
[2025-01-12 08:00] VITALS: BMI 34.7
== END 2025-03-22 10:29 | disposition home or self-care (01) ==
LOC: ANHWOC 07:28
PROVIDERS: PCP Nurse Practitioner Family; Visit Provider Nurse Practitioner Family
DX: L97.529 Non-pressure chronic ulcer of other part of left foot with unspecified severity (principal); E11.40 Type 2 diabetes mellitus with diabetic neuropathy, unspecified
CPT/HCPCS: 99214; G0463

== ENCOUNTER 2025-01-15 22:00 | Inpatient (IN) | payer MEDICARE, SELFPAY ==
--- NOTE | ~2025-01-15 | XR_ITS ---
Examination: XR chest 1V portable Clinical History: nausea Comparison: 04/29/2024 Technique: Portable AP Findings: Heart size normal. Lungs clear. No acute bony abnormality. IMPRESSION: 1. No acute cardiopulmonary findings given portable technique. Reviewed, dictated and finalized at location R.
--- NOTE | ~2025-01-15 | MR_ITS ---
EXAMINATION: MR foot LT wo/w con DATE: 01/17/2025 11:10 INDICATION: Left foot diabetic infection TECHNIQUE: Magnetic resonance imaging (MRI) of the left fore/mid foot was performed without and with 20 mL Multihance intravenous contrast. Sequences included axial, sagittal and coronal T1-weighted FSE and T2-weighted FS FSE, axial T1-weighted FS FSE, and postcontrast axial, sagittal and coronal T1-we ighted FS FSE. COMPARISON: Radiographs dated 01/16/2025 FINDINGS: Old healed fracture deformity with chronic surrounding callus formation at the proximal metadiaphyseal region of the fifth metatarsal. There is a more recent intra-articular fracture extending across the lateral tuberosity the base of the fifth metatarsal which on prior radiographs appears to developed in the interval between 01/03/2025 and 01/16/2025 there is marrow edema and enhancement either side of the fracture. There is however also a deep ulceration and soft tissues plantar/lateral to the base of the fifth metatarsal which appears to extend to within 3 mm the surface of the bone with small amount of nonenhancing/nonvascularized intervening tissue. This includes likely perforation with partial tear of the abductor digiti minimi muscle and tendon which passes between the ulceration and the underlying base of the fifth metatarsal. The marrow edema and enhancement are likely reactive related to the recent fracture although early osteophytes could not be absolutely excluded. There is however no evident erosive change or geographic loss of T1 marrow fat signal to more specifically suggest this. There is polyarticular osteoarthritis at multiple tarsometatarsal and metatarsophalangeal joints. This is severe at the second metatarsophalangeal joint where there is deformity to the head of the second metatarsal which could represent sequela of chronic fracture, osteonecrosis or infection. Additional moderate osteoarthritis at the second and third tarsal metatarsal joints with associated subarticular edema-like and cystlike changes and mild at the remaining tarsometatarsal and first metatarsophalangeal joints. Mild enhancing synovitis at the first metatarsophalangeal joint without evident cortical erosions. Physiologic amount fluid in the joint space with no abnormal joint effusions, abscess or other abnormal fluid collections. The stabilizing ligaments at the ankle, the Lisfranc ligament complex and the visualized collateral ligament complex at the metatarsophalangeal joints all appear intact. Aside from the previously noted abductor digiti minimi muscle and tendon the remaining visualized portions of the flexor and extensor tendons are normal. There is mild enthesopathy with fusiform thickening and mild increased signal of the proximal central component of the plantar aponeurosis. There is diffuse moderate fatty atrophy and increased fluid signal the intrinsic musculature of the foot likely sequela of acute on chronic innervation changes in the setting of diabetic neuropathy. IMPRESSION: 1. Deep ulceration overlying the plantar/lateral base of the fifth metatarsal where there is a nondisplaced subacute fracture. There are marrow signal changes base of the fifth metatarsal likely reactive related to the fracture. Although early osteomyelitis could not be excluded there is no evident focal ostial lysis or loss of T1 marrow fat signal to more specifically suggest osteomyelitis. 2. Partial tear/likely focal perforation at the myotendinous junction of the abductor digiti minimi where it passes between the ulceration the base of the fifth metatarsal. 3. 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 Reviewed, dictated and finalized at location A. IMPRESSION: 1. Deep ulceration overlying the plantar/lateral base of the fifth metatarsal w here there is a nondisplaced subacute fracture. There are marrow signal changes base of the fifth metatarsal likely reactive related to the fracture. Although early osteomyelitis could not be excluded there is no evident focal ostial juaquin is or loss of T1 marrow fat signal to more specifically suggest osteomyelitis. 2. Partial tear/likely focal perforation at the myotendinous junction of the ab ductor digiti minimi where it passes between the ulceration the base of the fif th metatarsal. 3. 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
--- NOTE | ~2025-01-15 | XR_ITS ---
Examination: XR foot LT min 3V Clinical History: diabetic foot wound Comparison: None Technique: 3 views left foot Findings/impression: 1. Large wound plantar aspect lateral midfoot. 2. No evidence of underlying osteomyelitis. 3. Lucency along base of fifth metatarsal possibly artifact. Recommend correlation with point tenderness for pain and additional views if suspicion for fracture given suboptimal projection on these. 4. Diabetic arteriopathy. Reviewed, dictated and finalized at location R.
[2025-01-15 22:06] VITALS: BP 163/79; PULSE 82; RESP 19; TEMP 37.2; O2SAT 96
--- OUTSIDE RECORDS SUMMARY | 2025-01-15 23:57 | XMS_ITS | Encounter Summary ---
Author Organization [facility] Address [address] [place] [address] Care Team Providers Care Resolute Professional Name Role Phone Unavailable Primary Care Provider Unavailabl e Encounter Details Date Type Department Care Team (Late st Contact Info) Description 09/06/2024 Lab Requisition [facility] - DermPath Lab [address] [place] [id number] Robyn Burrows MD [address] [place] [address] Neoplasm of unspecified behavior of bone, soft tissue, and skin Social History Tobacco Use Types Packs/Day Years Used Date Smoking Tobacco: Never Assessed Sex and Gender Information Value Date Recorded Sex Assigned at Not on file Legal Sex Male 12:40 PM CDT Gender Identity Not on file Sexual Orientation Not on file documented as of this encounter Plan of Treatment Not on file documented as of this encounter Procedures Procedure Name Priority Date/Time Associated Diagnosis Comments DERMATOPATHOLOGY Routine 09/06/2024 2:09 PM CDT Neoplasm of unspecified behavior of bone, soft tissue, and skin documented in this encounter Results * DERMATOPATHOLOGY (09/06/2024 2:09 PM CDT) Case Report Dermatopathology Report Case: [id number] Authorizing Provider: Robyn Burrows MD Collected: 09/06/2024 02:09 PM Ordering Location: [facility] Physician [facility] - Received: 09/08/2024 07:37 AM DermPath Lab Pathologist: Lazara Morataya MD Specimens: A) - Skin, left lateral malar cheek B) - Skin, left medial malar cheek 11:47 AM CDT DERMATOPATHOLOGY LABORATORY Final Diagnosis Specimen A. SKIN, left lateral malar cheek: BENIGN VERRUCOUS KERATOSIS (L82.1) Specimen B. SKIN, left medial malar cheek: SEBACEOUS HYPERPLASIA (L73.8) 11:47 AM T DERMATOPATHOLOGY LABORATORY at 1147 CDT Clinical History A. Neoplasm of unspecified Behavior vs. ISK R/O CA B. Neoplasm of unspecified Behavior vs. SH vs. SK R/O CA 11:47 AM CDT DERMATOPATHOLOGY LABORATORY Gross Description Specimen A: Received is one formalin filled container labeled with the patient's name and designated left lateral malar cheek. The specimen consists of a shave biopsy measuring 7x5x4 mm. Jar 0. Specimen B: Received is one formalin filled container labeled with the patient's name and designated left medial malar cheek. The specimen consists of a shave biopsy measuring 6x3x1 mm. Jar 0. 11:47 AM T DERMATOPATHOLOGY LABORATORY Microscopic Description Specimen A. SKIN, left lateral malar cheek: Sections show hyperkeratosis, papillomatosis, hypergranulosis, and acanthosis. These histological findings can be seen in a verruca vulgaris or a seborrheic keratosis. Specimen B. SKIN, left medial malar cheek: There are prominent sebaceous gland lobules surrounding a dilated hair follicle. 11:47 AM CDT DERMATOPATHOLOGY LABORATORY Disclaimer An external and internal positive and negative controls are appropriate for the histochemical, immunohistochemical and immunofluorescence stain(s) in this case (if any), except where stated explicitly. The performance characteristics of the stain(s) cited in this report were developed and its performance characteristic determined by the Dermatopathology Laboratory at [facility], directed by Dr. Mitchell Morataya. These tests need not be, and therefore are not, approved by the [place] Food and Drug Administration. The tests are used for clinical purposes. Billing Codes Specimen Charges Stain Charges 10952 37181 1 1 11:47 AM CDT DERMATOPATHOLOGY LABORATORY Embedded Images 11:47 AM CDT DERMATOPATHOLOGY LABORATORY Pathology/Cytology TISSUE SPECIMEN FROM SKIN / Unknown 09/06/2024 2:09 PM CDT 09/08/2024 7:37 AM CDT Miscellaneous samples (specimen) TISSUE SPECIMEN FROM SKIN / Unknown 09/06/2024 2:09 PM CDT 09/08/2024 7:37 AM CDT us Robyn Burrows MD LAB - PATHOLOGY/CYTOLOGY JOSS SHEETS Final Result DERMATOPATHOLOGY LABORATORY [facility] - Department of Dermatology [facility] Medicine [address] [place] [address], [address] [phone] documented in this encounter Visit Diagnoses Diagnosis Neoplasm of unspecified behavior of bone, soft tissue, and skin documented in this encounter
--- OUTSIDE RECORDS SUMMARY | 2025-01-15 23:57 | XMS_ITS | Encounter Summary ---
Author Organization [facility] Address [address] [place] [address] Care Team Providers Care Spring Clipper Name Role Phone Unknown, Notinfile Primary Care Provider Unavail able Aaron Bailey MD Primary Care Prov ider Encounter Details Date Type Department Care Team (Late st Contact Info) Description 06/23/2017 Orders Only [facility] Information Management [address] [place] [id number] Scanning, Provider Social History Tobacco Use Types Packs/Day Years Used Date Smoking Tobacco: Never Assessed Sex and Gender Information Value Date Recorded Sex Assigned at Not on file Legal Sex Male 10:30 AM CDT Gender Identity Not on file Sexual Orientation Not on file documented as of this encounter Plan of Treatment Not on file documented as of this encounter Procedures Procedure Name Priority Date/Time Associated Diagnosis Comments CARDIOLOGY DOCUMENT SCAN 06/23/2017 documented in this encounter Results * Cardiology Document Scan (06/23/2017) Anatomical Region Laterality Modality Other Provider Scanning CV CARDIAC SERVICES PROCEDURES Final Result documented in this encounter Visit Diagnoses Not on filedocumented in this encounter Care Teams Spring Clipper Relationship Specialty Start Date End Date Unknown, Notinfile PCP - General 08/12/24 08/25/24 Aaron Bailey MD PCP - General Family Medicine 08/26/24 documented as of this encounter
--- OUTSIDE RECORDS SUMMARY | 2025-01-15 23:57 | XMS_ITS | Clinical Summary ---
Author Organization [facility] Address [address] [place] [address] Care Team Providers Care Magnet Placer Name Role Phone Unavailable Primary Care Provider Unavailabl e Source Comments [facility] [employer],non-owned Affiliates and Associated Physician Practices is amultiple site organization consisting of ambulatory clinics and hospital sitesin [place], [place], [place] and [place]. This disclosure is being madepursuant to the Care Everywhere program and may not contain all information available regarding this patient. Last updated 17.[facility] [employer] Social History Tobacco Use Types Packs/Day Years Used Date Smoking Tobacco: Never Assessed Sex and Gender Information Value Date Recorded Sex Assigned at Not on file Legal Sex Male 12:40 PM CDT Gender Identity Not on file Sexual Orientation Not on file Plan of Treatment Health Maintenance Due Date Last Done Comments COLOGUARD (AGES 45-75) - COL ON CA SCREENING 1950 COLON MONITORING 1950 COLONOSCOPY - COLON CA SCREENING 1950 CT COLONOGRAPHY - COLON CA SCREENING 1950 Colorectal Cancer Screening 1950 FIT - COLON CA SCREENING 1950 FLEX SIG - COLON CA SCREENING 1950 LIPID TESTING 1950 HEPATITIS C SCREENING 11/14/1969 DTAP/TDAP/TD VACCINES (1 - Tdap) 11/18/1970 PNEUMOCOCCAL VACCINE 50+ (1 of 1 - PCV) 11/18/2001 ZOSTER VACCINE (1 of 2) 11/18/2001 DEPRESSION SCREENING 04/07/2024 MEDICARE AWV CALENDAR YEAR 2024 COVID-19 VACCINE (1 - 2023-2 5 season) 2024 INFLUENZA VACCINE (#1) 2024 Respiratory Syncytial Virus (RSV) Vaccine Pt: or over 60 yrs (1 - 1-dose 75+ series) 11/18/2026 HEPATITIS B VACCINE Aged Out No longe r eligible based on patient's age to complete this topic HIB VACCINE Aged Out No longer eligi ble based on patient's age to complete this topic HPV VACCINE Aged Out No longer eligi ble based on patient's age to complete this topic MENINGOCOCCAL (Group B) VACC INE SHARED DECISION-MAKING Aged Out No longer eligibl e based on patient's age to complete this topic MENINGOCOCCAL GROUPS A/C/Y/W VACCINE Aged Out No longer eligible b ased on patient's age to complete this topic Insurance [facility] MEDIC[facility] ADV
--- OUTSIDE RECORDS SUMMARY | 2025-01-15 23:57 | XMS_ITS | Patient Health Record ---
Author Organization [facility] Address [address] [address] Support Name Relationship Address Phone SHANDA SMALLS Guarantor Unknown [phone] Reason For Referral No Information Plan Of Treatment No Information
--- NOTE | 2025-01-16 00:07 | ECG_ITS ---
Test Date: 2025-01-16 01:47:33 Measurements Intervals [place] Rate: 79 P: 21 CO: 268 QRS: -3 QRSD: 102 T: 28 QT: 384 QTc: 441 Interpretive Statements SINUS RHYTHM WITH FIRST DEGREE AV BLOCK DELAYED PRECORDIAL R/S TRANSITION BASELINE ARTIFACT- I, II, AVR, AVL, AVF BORDERLINE ECG Compared to ECG 04/29/2024 08:46:00 Sinus arrhythmia no longer present Electronically Signed On 01-16-2025 16:54:33 CDT by Ehsan Saenz D.O.
--- NOTE | 2025-01-16 00:13 | ED.WOUNDLAC ---
HPI - Wound/Laceration General Chief Complaint: Fever Stated Complaint: FOOT WOUND/SEPSIS Time Seen by Provider: 01/15/25 23:38 Source: patient Mode of arrival: ambulatory Limitations: no limitations History of Present Illness HPI narrative: Patient is a 74-year-old male presents to the emergency department accompanied by son complaining of a wound to his left foot. Patient is that he sees wound care here and has had a wound on his left foot has been getting progressively larger over the past 3 and half weeks, admits to discharge coming from the wound lightly with a foul odor to it and scant bleeding, has not ever seen the wound himself, notes the started to develop fevers over the past few days, has not taken any fever medication with reporting fevers being as high as 99 and change without any reported fevers being greater than 100. Patient notes he has been on Augmentin for the past 9 days. Patient notes he has no sensation in his feet at baseline. Notes that he has not been seeing a post acute care nurse practitioner, is working on getting into an orthopedist. Denies any recent injuries. Admits to nausea. Denies any chest pain or difficulty breathing. No urinary discomfort. Related Data Home Medications ?Medication ?Instructions ?Recorded ?Confirmed ?Last Taken ?Type aspirin 81 mg chewable tablet 81 mg PO DAILY 11/10/20 01/12/25 12/15/20 History Allergies Allergy/AdvReac Type Severity Reaction Status Date / Time No Known Allergies Allergy Verified 01/15/25 22:10 Review of Systems Review of Systems: A 10 system review of systems was completed on the patient and is negative except for what is stated in the HPI. Nursing and ancillary documentation was reviewed. [facility] Past Medical History Medical History History of erysipelas Diabetes mellitus with neuropathy MRSA (methicillin resistant Staphylococcus aureus) Encounter for postoperative care Acute kidney injury Foreign body of fifth toe of right foot with infection Diabetic ulcer of right foot associated with diabetes mellitus due to underlying condition History of osteomyelitis Right great toe wound and osteomyelitis treated with IV antibiotics TIA (transient ischemic attack) (2018) Expressive aphasia that resolved BPH (benign prostatic hyperplasia) COVID-19 (11/2020) Anxiety Panic attacks Hypertension High cholesterol Surgical History Surgical History [place] teeth removed 1978, resident and surgeon No significant past surgical history Family History Family History Father Hypertension Cerebrovascular accident Mother Hypertension Cerebrovascular accident Family history of cancer Breast Other Heart disease Social History Social History Social History: He lives in [place] and is newly in 2023. 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 He drinks on average 1 alcoholic beverage a year. He has never smoked. He denies any illicit substance use. He is independent in all activities of daily living. Primary care physician: Dr. Schneider Code status: DNR/DNI. He is okay with pressors and noninvasive respiratory support if needed. Surrogate decision maker: Smoking status: Never smoker Second hand tobacco smoke exposure: No Alcohol intake: never Substance use: never Substance use type: does not use Living arrangements: with family Occupation/Education: retired Additional occupation/education comments: Former [employer] Gender identity (if verbalized by the patient): Male Spiritual care concerns: Yes Agree to blood products: Yes Exam Narrative: CONST: No acute distress. Well nourished. HENMT: Head is normocephalic and atraumatic. Moist mucous membranes. No posterior oropharynx erythema. EYES: No scleral icterus. No conjunctival injection or pallor. PERRL. NECK: No meningeal signs. RESP: Able to speak in full sentences. Normal respiratory effort. CTAB. CARDIO: Regular rate. Regular rhythm. 2+ DP and radial pulses bilaterally. GI: Nondistended. No tenderness to palpation. Soft. : No CVA tenderness to palpation. SKIN: Large deep ulcer with granulation tissue present over the left lateral plantar aspect of the foot, malodorous, there is surrounding warmth and erythema, there is also bogginess to the surrounding tissue. NEURO: Oriented x3. Moves all extremities. EXTREM/MSK/BACK: No tenderness to palpation of the extremities. PSYCH: Normal affect. Course Vital Signs Vital signs: Vital Signs Temperature 99 F 01/15/25 22:06 Pulse Rate 82 01/15/25 22:06 Respiratory Rate 19 01/15/25 22:06 Blood Pressure 163/79 H 01/15/25 22:06 Pulse Oximetry 96 01/15/25 22:06 Oxygen Delivery Room Air 01/15/25 22:06 Temperature 99 F 01/15/25 22:06 Pulse Rate 82 01/15/25 22:06 Respiratory Rate 19 01/15/25 22:06 Blood Pressure 163/79 H 01/15/25 22:06 Pulse Oximetry 96 01/15/25 22:06 Oxygen Delivery Room Air 01/15/25 22:06 MDM - Wound/Laceration MDM Narrative Medical decision making narrative: Patient presents with the above complaint. Initial vitals are remarkable for no significant abnormalities. Physical examination as noted above. Differential diagnosis includes was not limited to: Diabetic foot wound, diabetic foot ulcer, osteomyelitis, cellulitis, necrotizing fasciitis. Plan discussed: Laboratory analysis, left foot x-ray, Zofran for nausea, blood cultures, wound cultures, empiric antibiotics, continues cardiac monitoring, continuous pulse oximetry, chest x-ray. CBC reveals a white blood cell count 10.9, hemoglobin of 12.6. ESR is 45. Coags are within normal limits. Comprehensive metabolic panel reveals a sodium 131, chloride 90, glucose of 246. CRP is 8.8. Lipase is 89. Magnesium is 1.3. Lactic acid of 2.3. Troponin is less than 0.012. COVID and influenza and RSV testing were negative. Left foot x-ray reveals soft tissue defect at the plantar aspect of the midfoot. Chest x-ray reveals cardiomegaly. No acute abnormality seen. EKG performed at 1:47 a.m. reveals a sinus rhythm with a first-degree AV block, no ST elevations or depressions, no T-wave abnormalities, CO interval of 268 milliseconds, QRS duration 102 milliseconds, QTC interval is 419 milliseconds. I spoke with Orthopedic surgery Dr. Cavazos notes that general surgery use typically the 1st line on these and would recommend admission to the hospitalist and consult to General surgery, no need to call General surgery now. I spoke with the hospitalist interventional neuroradiologist who has accepted the patient for admission. Lab Data 01/16/25 01:04 01/16/25 01:04 Labs: Lab Results 01/16/25 01/16/25 Range/Units 01:04 01:25 WBC 10.9 H (4.5-10.0) K/mm3 RBC 4.43 L (4.6-6.20) M/mm3 Hgb 12.6 L (14.0-18.0) g/dL Hct 37.9 L (42.0-52.0) % MCV 85.6 (80-100) fl MCH 28.4 (26-34) pg MCHC 33.2 (32-36) g/dl RDW 13.3 (11.5-14.5) % Plt Count 179 D (150-375) k/mm3 MPV 10.1 (7.4-10.4) fl Immature Gran % (Auto) 0.5 (0-0.5) % Neut % (Auto) 84.0 H (45.5-73.1) % Lymph % (Auto) 7.5 L (18.3-44.2) % [place]t % (Auto) 7.6 (2.6-8.5) % Eos % (Auto) 0.2 (0-4.4) % Baso % (Auto) 0.2 (0.2-1.2) % Lymph # (Auto) 0.81 L (0.9-3.2) K/mm3 [place]andt # (Auto) 0.8 H (0.1-0.6) K/mm3 Eos # (Auto) 0.0 (0-0.3) K/mm3 Baso # (Auto) 0.0 (0.0-0.1) K/mm3 Abs Immat Gran (auto) 0.05 H (0.00-0.031) K/mm3 Absolute Neuts (auto) 9.1 H (1.3-6.7) K/mm3 Absolute Nucleated RBC 0.000 (0.0-0.012) K/mm3 Nucleated RBC % 0.0 (0.0-0.2) % ESR 45 H (0-20) mm/hr PT 14.3 (11.1-14.7) Seconds INR 1.1 APTT 34.2 (22.3-36.8) Seconds Sodium 131 L (137-145) mmol/L Potassium 3.4 (3.4-5.0) mmol/L Chloride 90 L (98-107) mmol/L Carbon Dioxide 29 (22-30) mmol/L Anion Gap 12 (4-12) mmol/L BUN 20 (9-20) mg/dL Creatinine 0.96 (0.7-1.3) mg/dL Estim Creat Clear Calc 89 ml/min Estimated GFR > 60 (59 - ) Glucose 246 H (65-110) mg/dL Lactic Acid 2.3 H (0.7-2.0) mmol/L Calcium 9.2 (8.4-10.2) mg/dL Magnesium 1.3 L (1.6-2.3) mg/dL Total Bilirubin 1.1 (0.2-1.3) mg/dL AST 20 (17-59) U/L ALT 18 (6-50) U/L Alkaline Phosphatase 66 (38-126) U/L Troponin I < 0.012 (0.000-0.034) ng/mL C-Reactive Protein 8.8 H (<1.0) mg/dL Total Protein 7.4 (6.3-8.2) g/dL Albumin 3.9 (3.5-5.1) g/dL Lipase 89 (23-300) U/L Influenza A (RT-PCR) Negative (Negative) Influenza B (RT-PCR) Negative (Negative) RSV (RT-PCR) Negative (Negative) SARS-CoV-2 RNA (RT-PCR) Negative (Negative) Discharge Plan Discharge Patient Disposition: Still a Patient Patient Language: Tristanian Prescriptions: No Action glimepiride 1 mg tablet 1 mg PO DAILY Qty: 90 3RF amoxicillin-pot clavulanate 875-125 mg tablet 1 tablet PO BID Qty: 20 0RF amlodipine 5 mg tablet 5 mg PO DAILY Qty: 90 0RF aspirin 81 mg Tablet,Chewable 81 mg PO DAILY metoprolol succinate 100 mg tablet extended release 24 hr See Rx Instructions .ROUTE .COMPLEX Qty: 180 3RF Dose Instruction: TAKE 2 TABLETS BY MOUTH ONCE DAILY FOR BLOOD PRESSURE Rx Instructions: TAKE 2 TABLETS BY MOUTH ONCE DAILY FOR BLOOD PRESSURE indapamide 2.5 mg tablet See Rx Instructions .ROUTE .COMPLEX Qty: 90 2RF Dose Instruction: Take 1 tablet by mouth once daily Rx Instructions: Take 1 tablet by mouth once daily atorvastatin 20 mg tablet 20 mg PO DAILY Qty: 90 2RF irbesartan 300 mg tablet 300 mg PO DAILY Qty: 90 2RF finasteride 5 mg tablet 5 mg PO DAILY Qty: 90 2RF Tradjenta 5 mg tablet See Rx Instructions .ROUTE .COMPLEX Qty: 90 0RF Dose Instruction: TAKE 1 TABLET BY MOUTH IN THE MORNING Rx Instructions: TAKE 1 TABLET BY MOUTH IN THE MORNING paroxetine HCl 30 mg tablet See Rx Instructions .ROUTE .COMPLEX Qty: 30 2RF Dose Instruction: TAKE 1 TABLET BY MOUTH IN THE MORNING Rx Instructions: TAKE 1 TABLET BY MOUTH IN THE MORNING metformin 500 mg tablet extended release 24 hr See Rx Instructions .ROUTE .COMPLEX Qty: 360 0RF Dose Instruction: TAKE 4 TABLETS BY MOUTH ONCE DAILY Rx Instructions: TAKE 4 TABLETS BY MOUTH ONCE DAILY Follow-up/Referrals: Grecia Gonzalez APRN [Primary Care Provider, Family Practice] Time of Disposition: 03:03
[2025-01-16 01:14] LABS: Hematocrit 37.9 % (42.0-52.0); Hemoglobin 12.6 g/dL (14.0-18.0); Immature Granulocyte Percent A 0.5 % (0-0.5); Lymphocytes Absolute Auto 0.81 K/mm3 (0.9-3.2); Mean Corpuscular HGB Conc 33.2 g/dl (32-36); Mean Corpuscular Hemoglobin 28.4 pg (26-34); Mean Corpuscular Volume 85.6 fl (80-100); Nucleated Red Blood Cells Absolute Auto 0.000 K/mm3 (0.0-0.012); Nucleated Red Blood Cells Perc 0.0 % (0.0-0.2); Platelet Count Result 179 k/mm3 (150-375); Red Blood Count 4.43 M/mm3 (4.6-6.20); White Blood Count 10.9 K/mm3 (4.5-10.0)
[2025-01-16 01:23] LABS: INR 1.1; Prothrombin Time 14.3 Seconds (11.1-14.7)
[2025-01-16 01:24] LABS: Partial Thromboplastin Time 34.2 Seconds (22.3-36.8)
[2025-01-16] MEDS: SODIUM CHLORIDE 0.9% IV 1,000 ML 75 ML IV CONT (01:28)
[2025-01-16] MEDS: CEFEPIME 2 GM in SODIUM CHLORIDE 0.9% IV 50 ML 100 ML IVPB ×3 (01:31→23:10)
[2025-01-16] MEDS: ONDANSETRON INJ 4 MG/2 ML VIAL IV PUSH (01:33)
[2025-01-16 01:42] LABS: Alanine Aminotransferase 18 U/L (6-50); Albumin Level 3.9 g/dL (3.5-5.1); Alkaline Phosphatase 66 U/L (38-126); Anion Gap 12 mmol/L (4-12); Aspartate Amino Transferase 20 U/L (17-59); Bilirubin,Total 1.1 mg/dL (0.2-1.3); Blood Urea Nitrogen 20 mg/dL (9-20); CRP 8.8 mg/dL (<1.0); Calcium 9.2 mg/dL (8.4-10.2); Carbon Dioxide 29 mmol/L (22-30); Chloride 90 mmol/L (98-107); Estimated CRCL calculation 89 ml/min; Estimated Glomerular Filt Rate > 60; Glucose 246 mg/dL (65-110); Lipase 89 U/L (23-300); Magnesium 1.3 mg/dL (1.6-2.3); Potassium 3.4 mmol/L (3.4-5.0); Sodium 131 mmol/L (137-145); Total Protein 7.4 g/dL (6.3-8.2)
[2025-01-16] MEDS: metroNIDAZOLE 500 MG/ISO 100ML 500 MG/100 ML BAG 100 MG IVPB ×4 (01:42→23:49)
[2025-01-16 01:51] LABS: Troponin I < 0.012 ng/mL (0.000-0.034)
[2025-01-16 02:14] LABS: Influenza A QL RT-PCR Negative (Negative); Influenza B QL RT-PCR Negative (Negative); RSV RNA, RT-PCR Negative (Negative); SARS-CoV-2 RNA PCR Negative (Negative)
[2025-01-16] MEDS: MAGNESIUM SULF 2 GM/WATER 50ML 2 GM/50 ML BAG IVPB (02:41)
[2025-01-16] MEDS: VANCOMYCIN 1,250 MG/NS 250 ML 1,250 MG/250 ML BAG 166.67 MG IVPB ×3 (02:45→08:16)
[2025-01-16 04:31] LABS: Add Urine Microscopic? YES; Appearance Urine Clear (Clear); Glucose Urine UA Negative (Negative); Leukocyte Esterase Ur Negative LEU/UL (Negative); Nitrate Urine Negative (Negative); Non Pathogenic Casts 0-2; Specific Grav Ur 1.020 (1.001-1.035)
[2025-01-16 05:03] VITALS: BMI 34.6
--- NOTE | 2025-01-16 05:27 | ADMGEN ---
This patient, Christian Prado, was admitted to 3 Med Surg Room 313-01. Patient/family oriented to hospital policies and general routines including ID bracelet, bed and alarms, visiting hours, pain management, procedures, bathroom and other care routines, personal items, smoking policy, room service/diet, and visiting hours. Information on how to activate the Rapid Response Team has been discussed. Patient/Family are encouraged to report perceived risks to care and to ask questions if they do not understand what they are told or what they should do.
[2025-01-16 05:39] VITALS: BP 153/60; PULSE 76; RESP 18; TEMP 37.1; O2SAT 97
--- NOTE | 2025-01-16 07:09 | PM.IMHP ---
H&P: HPI History of Present Illness Date/Time: 01/16/25 07:09 Chief Complaint: Worsening foot wound despite being on antibiotics for 9 days Narrative: 74-year-old male with a past medical history of essential hypertension, hyperlipidemia, BPH, diabetic peripheral neuropathy, prior diabetic foot ulcers requiring surgical debridement and chronic foot deformities consistent with early Charcot changes who presented to the ER from home due to worsening left foot wound. Patient developed a wound to his lateral left foot about 3 weeks ago. He was started on antibiotics with Augmentin 9 days ago despite taking the antibiotics as directed he has had increased pain to his wound area over the last several days and on the developed low-grade temperatures up to 99?. He he denied any chills. He has had decreased appetite and increased malaise. He himself as not visualized the wound but he is noticed increased drainage from the area. Nursing staff had just dressed the wound prior to my evaluation and the gauze packed within the wound bed was already saturated with large amounts of cloudy serous material. He has not taken any Tylenol or or antipyretics at home because he wanted to know if he was developing a temperature. He reports that his glucoses for the most part usually run around 130. He checks his glucoses each morning. His glucoses when he was evaluated in the ER was 246 but he stated he drink regular soda which he does not usually do. His outpatient hemoglobin A1c on January 12 was 6.4. He denies any nausea or vomiting. He has been having normal bowel movements. He denies any dysuria, urinary frequency or other concerns. He reports that he does have chronic erythema the bilateral lower extremities that he thinks has not changed from baseline. The drainage from his foot is foul-smelling. Review of Systems Review of Systems: 12 systems were reviewed with pertinent positives and negatives per HPI. Except as documented in the HPI, all other systems were reviewed and are negative. [facility] Past Medical History Medical History (Updated 01/16/25 @ 12:36 by David Morales DO) Obesity (BMI 30.0-34.9) History of erysipelas Diabetes mellitus with neuropathy MRSA (methicillin resistant Staphylococcus aureus) Foreign body of fifth toe of right foot with infection (2020) History of osteomyelitis Right great toe wound and osteomyelitis treated with IV antibiotics TIA (transient ischemic attack) (2017) Expressive aphasia that resolved BPH (benign prostatic hyperplasia) COVID-19 (11/2020) Anxiety Panic attacks Hypertension High cholesterol Surgical History Surgical History (Updated 01/16/25 @ 07:15 by Karen Navarro DO) Status post right foot surgery (12/2020) 4th Metatarsal debridement due to osteomyelitis and foreign body removal from the medial aspect of the 5th toe performed by Dr. Calvillo [place] teeth removed 1978, resident and surgeon Family History Family History Father Hypertension Cerebrovascular accident Mother Hypertension Cerebrovascular accident Family history of cancer Breast Other Heart disease Social History Social History Social History: He lives in [place] and is newly in 2023. 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 He drinks on average 1 alcoholic beverage a year. He has never smoked. He denies any illicit substance use. He is independent in all activities of daily living. Primary care physician: Dr. Schneider Code status: DNR/DNI. He is okay with pressors and noninvasive respiratory support if needed. Surrogate decision maker: Smoking status: Never smoker Second hand tobacco smoke exposure: No Alcohol intake: never Substance use: never Substance use type: does not use Lack of Transportation: No Lack of Food: Never True Current Housing: I Have Housing Concerned About Future Housing: No Difficulty Paying Gas/Electric Bills: No Difficulty Paying for Meds: No Currently Unemployed: No Education: Master's Degree or Higher Difficulty w/ Childcare or Family Care: No Living arrangements: with family Occupation/Education: retired Additional occupation/education comments: Former [employer] Gender identity (if verbalized by the patient): Male Spiritual care concerns: Yes Agree to blood products: Yes Meds Home Medications and Allergies Home Medications ?Medication ?Instructions ?Recorded ?Confirmed ?Type aspirin 81 mg chewable tablet 81 mg PO DAILY 11/10/20 01/16/25 History glimepiride 1 mg tablet 1 mg PO DAILY #90 tabs 05/03/24 01/16/25 Rx metoprolol succinate 100 mg See Rx Instructions .Route 05/13/24 01/16/25 Rx tablet,extended release 24 hr .COMPLEX #180 tabs indapamide 2.5 mg tablet See Rx Instructions .Route 07/08/24 01/16/25 Rx .COMPLEX #90 tabs finasteride 5 mg tablet 5 mg PO DAILY #90 tabs 07/18/24 01/16/25 Rx irbesartan 300 mg tablet 300 mg PO DAILY #90 tabs 07/18/24 01/16/25 Rx Tradjenta 5 mg tablet (linagliptin) See Rx Instructions .Route 11/09/24 01/16/25 Rx .COMPLEX #90 tabs paroxetine HCl 30 mg tablet See Rx Instructions .Route 12/28/24 01/16/25 Rx .COMPLEX #30 tabs metformin 500 mg tablet,extended See Rx Instructions .Route 12/29/24 01/16/25 Rx release 24 hr .COMPLEX #360 tabs amoxicillin 875 mg-potassium 1 tablet PO BID #20 tabs 01/12/25 01/16/25 Rx clavulanate 125 mg tablet amlodipine 5 mg tablet 5 mg PO DAILY 01/16/25 01/16/25 History Allergies Allergy/AdvReac Type Severity Reaction Status Date / Time shrimp Allergy Unknown Itching Verified 01/16/25 18:13 Vital Signs Vital Signs - 24 hr 01/15/25 22:06 01/16/25 05:28 01/16/25 05:39 Temperature 99 F 98.8 F Pulse Rate 82 76 Respiratory Rate 19 18 Blood Pressure 163/79 H 153/60 H Pulse Oximetry 96 97 Oxygen Delivery Room Air Room Air Exam Narrative: Weight 129 kg BMI 34.6 Const: Other: Obese, poor hygiene, no acute distress HENMT: Other: Mucous membranes are moist, no oral pharyngeal erythema, crowded posterior oropharynx Eyes: Other: No scleral icterus, no conjunctival pallor Neck: Other: Large neck circumference, no JVD Resp: Other: Clear to auscultation bilaterally, no increased work of breathing Cardio: Other: Regular rate, regular rhythm, 2+ bilateral radial pedal pulses GI: Other: Obese, soft, nontender, normoactive bowel sounds Skin: Other: Chronic erythema to bilateral lower extremities in the lateral anterior wilkinson, no increased warmth, large baseball size wound to the base of the left foot draining large amounts of cloudy serous almost purulent appearing material that is foul smelling with some surrounding erythema and warmth, no fluctuance in surrounding tissues Neuro: Other: Alert orient x4, speech is clear, no facial asymmetry, no localizing neurologic deficits noted during the course of conversation, chronic neuropathic discomfort to bilateral lower extremities Extrem: Other: Bony deformities of bilateral lateral feet on plantar surface suspicious for Charcot deformity with associated foot wound as discussed above and with chronic scab to the 4th toe of the right foot Psych: Other: Appropriate mood and affect, pleasant and cooperative, intact judgment and insight H&P: Results Labs Labs: Laboratory Tests 01/16/25 01:04 01/16/25 01:04 01/16/25 01/16/25 01/16/25 01:04 01: 04:19 WBC 10.9 H RBC 4.43 L Hgb 12.6 L Hct 37.9 L MCV 85.6 MCH 28.4 MCHC 33.2 RDW 13.3 Plt Count 179 D MPV 10.1 Immature Gran % (Auto) 0.5 Neut % (Auto) 84.0 H Lymph % (Auto) 7.5 L Parker % (Auto) 7.6 Eos % (Auto) 0.2 Baso % (Auto) 0.2 Lymph # (Auto) 0.81 L Parker # (Auto) 0.8 H Eos # (Auto) 0.0 Baso # (Auto) 0.0 Abs Immat Gran (auto) 0.05 H Absolute Neuts (auto) 9.1 H Absolute Nucleated RBC 0.000 Nucleated RBC % 0.0 ESR 45 H PT 14.3 INR 1.1 APTT 34.2 Sodium 131 L Potassium 3.4 Chloride 90 L Carbon Dioxide 29 Anion Gap 12 BUN 20 Creatinine 0.96 Estim Creat Clear Calc 89 Estimated GFR > 60 Glucose 246 H POC Capillary Glucose Lactic Acid 2.3 H Calcium 9.2 Magnesium 1.3 L Total Bilirubin 1.1 AST 20 ALT 18 Alkaline Phosphatase 66 Troponin I < 0.012 C-Reactive Protein 8.8 H Total Protein 7.4 Albumin 3.9 Lipase 89 Urine Color Yellow Urine Appearance Clear Urine pH 6.0 Ur Specific Leland 1.020 Urine Protein Trace Urine Glucose (UA) Negative Urine Ketones Negative Ur Blood (Man) Negative Urine Nitrate Negative Urine Bilirubin Negative Urine Urobilinogen 1.0 Leukocyte Esterase Rfl Negative Urine RBC 3-5 H Urine WBC 0-5 Ur Squamous Epith Cells None seen Urine Bacteria None seen Urine Casts 0-2 Influenza A (RT-PCR) Negative Influenza B (RT-PCR) Negative RSV (RT-PCR) Negative SARS-CoV-2 RNA (RT-PCR) Negative 01/16/25 01/16/25 04:42 06:10 WBC RBC Hgb Hct MCV MCH MCHC RDW Plt Count MPV Immature Gran % (Auto) Neut % (Auto) Lymph % (Auto) Parker % (Auto) Eos % (Auto) Baso % (Auto) Lymph # (Auto) Parker # (Auto) Eos # (Auto) Baso # (Auto) Abs Immat Gran (auto) Absolute Neuts (auto) Absolute Nucleated RBC Nucleated RBC % ESR PT INR APTT Sodium Potassium Chloride Carbon Dioxide Anion Gap BUN Creatinine Estim Creat Clear Calc Estimated GFR Glucose POC Capillary Glucose 215 H Lactic Acid 1.0 Calcium Magnesium Total Bilirubin AST ALT Alkaline Phosphatase Troponin I C-Reactive Protein Total Protein Albumin Lipase Urine Color Urine Appearance Urine pH Ur Specific Leland Urine Protein Urine Glucose (UA) Urine Ketones Ur Blood (Man) Urine Nitrate Urine Bilirubin Urine Urobilinogen Leukocyte Esterase Rfl Urine RBC Urine WBC Ur Squamous Epith Cells Urine Bacteria Urine Casts Influenza A (RT-PCR) Influenza B (RT-PCR) RSV (RT-PCR) SARS-CoV-2 RNA (RT-PCR) Assessment and Plan Assessment and plan (1) Diabetic foot ulcer: Qualifiers: Diabetes mellitus type: other specified (including CHELO) Diabetic foot ulcer location: midfoot Laterality: left Non-pressure ulcer stage: with other severity Qualified Code(s): E13.621 - Other specified diabetes mellitus with foot ulcer; L97.428 - Non-pressure chronic ulcer of left heel and midfoot with other specified severity Code(s): E11.621 - Type 2 diabetes mellitus with foot ulcer; L97.509 - Non-pressure chronic ulcer of other part of unspecified foot with unspecified severity Status: Acute (2) Type 2 diabetes mellitus with hyperglycemia, without long-term current use of insulin: Code(s): E11.65 - Type 2 diabetes mellitus with hyperglycemia Status: Acute (3) Hypomagnesemia: Code(s): E83.42 - Hypomagnesemia Status: Acute Plan Patient has diabetic foot ulcer with failure of outpatient treatment with Augmentin. Patient has subsequently been started on empiric antibiotic therapy with cefepime vanc and Flagyl per antibiotic stewardship guidelines. Wound cultures were obtained from the ER. Blood cultures have been obtained and are pending. Patient did have some mild lactic acidosis and mildly elevated white count but did not meet sepsis criteria. Will repeat CBC in a.m.. Patient has moderate hyperglycemia in the setting of relatively well controlled diabetes despite of complications of neuropathy. A1c earlier this month was 6.4. Will resume the patient's oral hypoglycemic medications except for metformin. Metformin will be held due to lactic acidosis. Patient was given 1 L IV fluids at 75 mL an hour lactic acidosis has already resolved. Will place patient on moderate dose sliding scale insulin with Accu-Cheks a.c. HS. And hypoglycemia protocol as needed. Patient had incidental finding of hypo magnesemia and received 2 g magnesium sulfate rider in the ER. Will repeat electrolyte panel and magnesium level in a.m.. Patient has been admitted as observation status. MEDICAL DECISION MAKING NARRATIVE -Spoke with the ED provider in detail regarding patient's evaluation, workup and management -Patient seen and examined at bedside -Collaborated with patient's nurse at the bedside in detail and addressed all concerns -Labs, electrolytes, radiology, investigations and test results personally reviewed and interpreted unless otherwise specified -ED/Consult/Nursing/Ancilliary notes on the chart reviewed and appreciated -Spoke with patient at bedside and diagnosis and plan of care was discussed. All questions answered. Quality VTE Prophylaxis VTE prophylaxis: pharmacologic ordered (Lovenox 40 mg subQ daily.) Hospitalist [facility] Advance Care Plan I have confirmed that the patient's Advanced Care Plan is present, code status is documented, or surrogate decision maker is listed in patient medical record.: Yes Medication Reconciliation I have utilized all available resources to obtain, update and review the patients current medications (includes all prescriptions, OTC, herbals, cannabis, and nutritional supplements).: Yes
[2025-01-16] MEDS: ASPIRIN 81 MG CHEWABLE TABLET PO (08:16)
[2025-01-16] MEDS: INDAPAMIDE 2.5 MG TABLET PO (08:17)
[2025-01-16] MEDS: FINASTERIDE 5 MG TABLET PO (08:17)
[2025-01-16] MEDS: METOPROLOL SUCCINATE EXT REL 100 MG TABCR 200 MG PO (08:17)
[2025-01-16] MEDS: GLIMEPIRIDE 1 MG TABLET PO (08:17)
[2025-01-16] MEDS: ENOXAPARIN 40 MG/0.4 ML SYRINGE SUB-Q (08:18)
[2025-01-16] MEDS: IRBESARTAN 150 MG TABLET 300 MG PO (08:18)
--- NOTE | 2025-01-16 08:34 | P.PNIM_ITS ---
Progress Note: A&P Assessment and Plan (1) Diabetic foot ulcer: Qualifiers: Diabetes mellitus type: other specified (including CHELO) Diabetic foot ulcer location: midfoot Laterality: left Non-pressure ulcer stage: with other severity Qualified Code(s): E13.621 - Other specified diabetes mellitus with foot ulcer; L97.428 - Non-pressure chronic ulcer of left heel and midfoot with other specified severity Code(s): E11.621 - Type 2 diabetes mellitus with foot ulcer; L97.509 - Non-pressure chronic ulcer of other part of unspecified foot with unspecified severity Status: Acute (2) Type 2 diabetes mellitus with hyperglycemia, without long-term current use of insulin: Code(s): E11.65 - Type 2 diabetes mellitus with hyperglycemia Status: Acute (3) Hypomagnesemia: Code(s): E83.42 - Hypomagnesemia Status: Acute Plan Patient has diabetic foot ulcer with failure of outpatient treatment with Augmentin. Patient has subsequently been started on empiric antibiotic therapy with cefepime vanc and Flagyl per antibiotic stewardship guidelines. Wound cultures were obtained from the ER. Blood cultures have been obtained and are pending. Patient did have some mild lactic acidosis and mildly elevated white count but did not meet sepsis criteria. Will repeat CBC in a.m. Patient has moderate hyperglycemia in the setting of relatively well controlled diabetes despite of complications of neuropathy. A1c earlier this month was 6.4. Will resume the patient's oral hypoglycemic medications except for metformin. Metformin will be held due to lactic acidosis. Patient was given 1 L IV fluids at 75 mL an hour lactic acidosis has already resolved. Will place patient on moderate dose sliding scale insulin with Accu-Cheks a.c. HS. And hypoglycemia protocol as needed. Patient had incidental finding of hypo magnesemia and received 2 g magnesium sulfate rider in the ER. Will repeat electrolyte panel and magnesium level in a.m. Patient has been admitted as observation status. 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 Aerobic culture was canceled, Reordered --wound nurse consulted for a.m. --surgery consult it does not require debridement at this time Hyperglycemia home meds: Metformin 500, glimepiride 1 mg, Tradjenta 5 mg Hypertension Irbesartan 300mg daily, Metoprolol 200mg ER daily, indapamide 2.5mg daily Hypomagnesemia--s/p 2G IV Magnesium Anxiety --Paroxetine 30mg daily--continue Hx TIA --ASA daily Time Spent With Patient Time: 55 minutes Subjective Date/time seen: 01/16/25 08:34 Interval history: Still has mild erythema to left leg, took a picture on patient's phone. Wound draining for a few weeks, has had neuropathy for years. Nonsurgical at this time. Wound nurse to see tomorrow. Review of Systems Review of Systems: 12 systems were reviewed with pertinent positives and negatives per HPI. Except as documented in the HPI, all other systems were reviewed and are negative. Exam Narrative: Weight 129 kg BMI 34.6 General - Awake and alert. No acute distress Eyes - PERRLA, EOM intact ENT - No thrush, No erythema Neck - No noticeable or palpable swelling Lymph Nodes - No lymphadenopathy Cardiovascular - RRR no m/r/g, no JVD Lungs: Clear to auscultation, No wheezing, use of accessory muscles, no crackles Skin - Skin warm and dry, no wounds or rashes Abdomen - Normal bowel sounds, abdomen soft and nontender Extremities - Trace LLE edema, cyanosis or clubbing, Left foot wound open, minimal purulence Musculoskeletal - 5/5 strength, normal range of motion, no swollen or erythematous joints. Neurological ? Alert and oriented x 3, CN 2-12 grossly intact. Decreased sensation bilateral LE Psych: Normal mood and affect Objective Data Vital Signs Vital Signs: Vital Signs - 24 hr 01/15/25 22:06 01/16/25 05:28 01/16/25 05:39 Temperature 99 F 98.8 F Pulse Rate 82 76 Respiratory Rate 19 18 Blood Pressure 163/79 H 153/60 H Pulse Oximetry 96 97 Oxygen Delivery Room Air Room Air Intake/Output Intake/Output: Intake & Output 01/13/25 01/14/25 01/15/25 01/16/25 23:59 23:59 23:59 23:59 Intake Total 200 Balance 200 Meds/Results Medications: Active Medications Generic Name Dose Route Start Last Admin Trade Name Freq PRN Reason Stop Dose Admin Amlodipine Besylate 5 mg 01/16/25 21:00 Amlodipine Besylate 5 Mg Tablet PO HS RODDY Aspirin 81 mg 01/16/25 08:00 01/16/25 08:16 Aspirin 81 Mg Chewable Tablet PO 81 mg DAILY@0800 RODDY Administration Dextrose 12.5 gm 01/16/25 06:20 Dextrose 50% 25 Gm/50 Ml Syringe IV PUSH PRN PRN Hypoglycemia Protocol Enoxaparin Sodium 40 mg 01/16/25 09:00 01/16/25 08:18 Enoxaparin 40 Mg/0.4 Ml Syringe SUB-Q 40 mg DAILY RODDY Administration Finasteride 5 mg 01/16/25 09:00 01/16/25 08:17 Finasteride 5 Mg Tablet PO 5 mg DAILY RODDY Administration Glimepiride 1 mg 01/16/25 09:00 01/16/25 08:17 Glimepiride 1 Mg Tablet PO 1 mg DAILY RODDY Administration Glucagon 1 mg 01/16/25 06:20 Glucagon For Inj 1 Mg Vial IM PRN PRN Hypoglycemia Protocol Glucose 15 gm 01/16/25 06:20 Glucose Oral Gel 15 Gm Of Glucse In 37.5 Gm Tube PO PRN PRN Hypoglycemia Protocol Cefepime HCl 2 gm/ Sodium 50 mls @ 100 mls/hr 01/16/25 11:00 Chloride IVPB Q12H RODDY Metronidazole 500 mg in 100 mls @ 100 mls/hr 01/16/25 08:00 01/16/25 08:19 Flagyl 500 Mg/Iso Soln 100 Ml IVPB 100 mls/hr Q8H RODDY Administration Sodium Chloride 1,000 mls @ 75 mls/hr 01/16/25 00:12 01/16/25 01:28 Normal Saline Iv IV CONT 01/16/25 13:31 75 mls/hr .[id number] STA Administration Dextrose 1,000 mls @ 100 mls/hr 01/16/25 06:20 Dextrose 5% 1,000 Ml IVPB PRN PRN Hypoglycemia Protocol Vancomycin HCl 1,500 mg in 500 mls @ 250 mls/hr 01/16/25 17:00 Vancomycin 1,500 Mg/Ns 500 Ml IVPB Q12H RODDY Indapamide 2.5 mg 01/16/25 09:00 01/16/25 08:17 Indapamide 2.5 Mg Tablet PO 2.5 mg DAILY RODDY Administration Insulin Aspart 3 - 6 units 01/16/25 08:00 01/16/25 08:31 Insulin Aspart (*Bkc) 100 Units/Ml SUB-Q Not Given TIDWM [facility] Protocol Insulin Aspart 1 - 3 units 01/16/25 21:00 Insulin Aspart (*Bkc) 100 Units/Ml SUB-Q HS [facility] Protocol Irbesartan 300 mg 01/16/25 09:00 01/16/25 08:18 Irbesartan 150 Mg Tablet PO 300 mg DAILY RODDY Administration Metoprolol Succinate 200 mg 01/16/25 09:00 01/16/25 08:17 Metoprolol Succinate Ext Rel 100 Mg Tabcr PO 200 mg DAILY RODDY Administration Paroxetine HCl 10 mg 01/16/25 09:00 01/16/25 08:23 Paroxetine 10 Mg Tablet PO 10 mg DAILY RODDY Administration Sitagliptin Phosphate 100 mg 01/16/25 09:00 01/16/25 08:17 Sitagliptin Phosphate 100 Mg Tablet PO 100 mg QAM RODDY Administration Labs Labs: Laboratory Results - last 24 hr 01/16/25 01/16/25 01/16/25 01:04 01:25 04:19 WBC 10.9 H RBC 4.43 L Hgb 12.6 L Hct 37.9 L MCV 85.6 MCH 28.4 MCHC 33.2 RDW 13.3 Plt Count 179 D MPV 10.1 Immature Gran % (Auto) 0.5 Neut % (Auto) 84.0 H Lymph % (Auto) 7.5 L [place] % (Auto) 7.6 Eos % (Auto) 0.2 Baso % (Auto) 0.2 Lymph # (Auto) 0.81 L [place] # (Auto) 0.8 H Eos # (Auto) 0.0 Baso # (Auto) 0.0 Abs Immat Gran (auto) 0.05 H Absolute Neuts (auto) 9.1 H Absolute Nucleated RBC 0.000 Nucleated RBC % 0.0 ESR 45 H PT 14.3 INR 1.1 APTT 34.2 Sodium 131 L Potassium 3.4 Chloride 90 L Carbon Dioxide 29 Anion Gap 12 BUN 20 Creatinine 0.96 Estim Creat Clear Calc 89 Estimated GFR > 60 Glucose 246 H POC Capillary Glucose Lactic Acid 2.3 H Calcium 9.2 Magnesium 1.3 L Total Bilirubin 1.1 AST 20 ALT 18 Alkaline Phosphatase 66 Troponin I < 0.012 C-Reactive Protein 8.8 H Total Protein 7.4 Albumin 3.9 Lipase 89 Urine Color Yellow Urine Appearance Clear Urine pH 6.0 Ur Specific [place] 1.020 Urine Protein Trace Urine Glucose (UA) Negative Urine Ketones Negative Ur Blood (Man) Negative Urine Nitrate Negative Urine Bilirubin Negative Urine Urobilinogen 1.0 Leukocyte Esterase Rfl Negative Urine RBC 3-5 H Urine WBC 0-5 Ur Squamous Epith Cells None seen Urine Bacteria None seen Urine Casts 0-2 Influenza A (RT-PCR) Negative Influenza B (RT-PCR) Negative RSV (RT-PCR) Negative SARS-CoV-2 RNA (RT-PCR) Negative 01/16/25 01/16/25 01/16/25 04:42 06:10 07:35 WBC RBC Hgb Hct MCV MCH MCHC RDW Plt Count MPV Immature Gran % (Auto) Neut % (Auto) Lymph % (Auto) [place] % (Auto) Eos % (Auto) Baso % (Auto) Lymph # (Auto) [place] # (Auto) Eos # (Auto) Baso # (Auto) Abs Immat Gran (auto) Absolute Neuts (auto) Absolute Nucleated RBC Nucleated RBC % ESR PT INR APTT Sodium Potassium Chloride Carbon Dioxide Anion Gap BUN Creatinine Estim Creat Clear Calc Estimated GFR Glucose POC Capillary Glucose 215 H 171 H Lactic Acid 1.0 Calcium Magnesium Total Bilirubin AST ALT Alkaline Phosphatase Troponin I C-Reactive Protein Total Protein Albumin Lipase Urine Color Urine Appearance Urine pH Ur Specific [place] Urine Protein Urine Glucose (UA) Urine Ketones Ur Blood (Man) Urine Nitrate Urine Bilirubin Urine Urobilinogen Leukocyte Esterase Rfl Urine RBC Urine WBC Ur Squamous Epith Cells Urine Bacteria Urine Casts Influenza A (RT-PCR) Influenza B (RT-PCR) RSV (RT-PCR) SARS-CoV-2 RNA (RT-PCR) Quality VTE Prophylaxis VTE prophylaxis: pharmacologic ordered (Lovenox 40 mg subQ daily.) Hospitalist MIPS Advance Care Plan I have confirmed that the patient's Advanced Care Plan is present, code status is documented, or surrogate decision maker is listed in patient medical record.: Yes Medication Reconciliation I have utilized all available resources to obtain, update and review the patients current medications (includes all prescriptions, OTC, herbals, cannabis, and nutritional supplements).: Yes
--- NOTE | 2025-01-16 12:27 | PM.CNGS ---
Assessment and Plan Assessment and plan (1) Diabetic foot ulcer: Qualifiers: Diabetes mellitus type: type 2 Diabetic foot ulcer location: midfoot Laterality: left Non-pressure ulcer stage: with fat layer exposed Qualified Code(s): E11.621 - Type 2 diabetes mellitus with foot ulcer; L97.422 - Non-pressure chronic ulcer of left heel and midfoot with fat layer exposed Code(s): E11.621 - Type 2 diabetes mellitus with foot ulcer; L97.509 - Non-pressure chronic ulcer of other part of unspecified foot with unspecified severity Status: Acute Assessment and Plan: I have reviewed the foot x-ray and assess the patient. He has a wound on the lateral plantar aspect of his midfoot but there does not appear to be a significant amount of necrotic tissue or tunneling. Will continue local wound care with silver gel dressing changes. Will also have wound care nurses assess foot tomorrow. He has signs of cellulitis to the leg as well and has been placed on broad-spectrum IV antibiotics. Will continue to monitor for resolution of infection. (2) Type 2 diabetes mellitus with hyperglycemia, without long-term current use of insulin: Code(s): E11.65 - Type 2 diabetes mellitus with hyperglycemia Status: Acute (3) Cellulitis of left lower leg: Code(s): L03.116 - Cellulitis of left lower limb Status: Acute History of Present Illness Consult details Consult date: 01/16/25 Reason for consult: other (diabetic foot ulcer) Requesting physician: Karen Navarro, Narrative: This is a 74-year-old man who I am asked to see for a left foot diabetic ulcer. The patient presented to the emergency department last night with worsening problems with the wound. He 1st noticed this about 3 weeks ago and had been performing local wound care. His PCP placed him on Augmentin and he had been on this for about 9 days prior to presentation to the ED. he also had seen the wound care nurses in the wound clinic 5 days ago and a local debridement was performed and he has been doing topical treatment. He has noticed worsening swelling and redness to the left leg. He also began experiencing fevers at home yesterday. He denies any pain but admits to neuropathy and lack of sensation of his foot. He has had other foot wound problems in the past and has required debridement but has not required any amputations. He is diabetic and hemoglobin A1c yesterday was 6.4%. Review of Systems Review of Systems: All systems reviewed & are unremarkable except as noted in HPI and below Constitutional: Constitutional: Reports fever(s) Eyes: Eyes: Denies change in vision ENT: Denies hearing loss, Denies neck pain and Denies sore throat Cardiovascular: Cardiovascular: Denies chest pain and Denies dyspnea Respiratory: Respiratory: Denies cough, Denies dyspnea and Denies wheezing Gastrointestinal: Gastrointestinal: Denies nausea and Denies vomiting Genitourinary: Genitourinary: Denies hematuria and Denies dysuria Musculoskeletal: Musculoskeletal: Reports as per HPI and Denies neck pain Allergic/Immunologic: Allergic/Immunologic: Denies wheezing [facility] Past Medical History Medical History (Updated 01/16/25 @ 12:36 by David Morales DO) Obesity (BMI 30.0-34.9) History of erysipelas Diabetes mellitus with neuropathy MRSA (methicillin resistant Staphylococcus aureus) Foreign body of fifth toe of right foot with infection (2020) History of osteomyelitis Right great toe wound and osteomyelitis treated with IV antibiotics TIA (transient ischemic attack) (2017) Expressive aphasia that resolved BPH (benign prostatic hyperplasia) COVID-19 (11/2020) Anxiety Panic attacks Hypertension High cholesterol Surgical History Surgical History (Updated 01/16/25 @ 07:15 by Karen Navarro DO) Status post right foot surgery (12/2020) 4th Metatarsal debridement due to osteomyelitis and foreign body removal from the medial aspect of the 5th toe performed by Dr. Calvillo [place] teeth removed 1978, resident and surgeon Family History Family History Father Hypertension Cerebrovascular accident Mother Hypertension Cerebrovascular accident Family history of cancer Breast Other Heart disease Social History Social History Social History: He lives in [place] and is newly in 2023. 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. He drinks on average 1 alcoholic beverage a year. He has never smoked. He denies any illicit substance use. He is independent in all activities of daily living. Primary care physician: Dr. Schneider Code status: DNR/DNI. He is okay with pressors and noninvasive respiratory support if needed. Surrogate decision maker: Smoking status: Never smoker Second hand tobacco smoke exposure: No Alcohol intake: never Substance use: never Substance use type: does not use Lack of Transportation: No Lack of Food: Never True Current Housing: I Have Housing Concerned About Future Housing: No Difficulty Paying Gas/Electric Bills: No Difficulty Paying for Meds: No Currently Unemployed: No Education: Master's Degree or Higher Difficulty w/ Childcare or Family Care: No Living arrangements: with family Occupation/Education: retired Additional occupation/education comments: Former [employer] Gender identity (if verbalized by the patient): Male Spiritual care concerns: Yes Agree to blood products: Yes Meds Home Medications and Allergies Home Medications ?Medication ?Instructions ?Recorded ?Confirmed ?Type aspirin 81 mg chewable tablet 81 mg PO DAILY 11/10/20 01/16/25 History glimepiride 1 mg tablet 1 mg PO DAILY #90 tabs 05/03/24 01/16/25 Rx metoprolol succinate 100 mg See Rx Instructions .Route 05/13/24 01/16/25 Rx tablet,extended release 24 hr .COMPLEX #180 tabs indapamide 2.5 mg tablet See Rx Instructions .Route 07/08/24 01/16/25 Rx .COMPLEX #90 tabs finasteride 5 mg tablet 5 mg PO DAILY #90 tabs 07/18/24 01/16/25 Rx irbesartan 300 mg tablet 300 mg PO DAILY #90 tabs 07/18/24 01/16/25 Rx Tradjenta 5 mg tablet (linagliptin) See Rx Instructions .Route 11/09/24 01/16/25 Rx .COMPLEX #90 tabs paroxetine HCl 30 mg tablet See Rx Instructions .Route 12/28/24 01/16/25 Rx .COMPLEX #30 tabs metformin 500 mg tablet,extended See Rx Instructions .Route 12/29/24 01/16/25 Rx release 24 hr .COMPLEX #360 tabs amoxicillin 875 mg-potassium 1 tablet PO BID #20 tabs 01/12/25 01/16/25 Rx clavulanate 125 mg tablet amlodipine 5 mg tablet 5 mg PO DAILY 01/16/25 01/16/25 History Allergies Allergy/AdvReac Type Severity Reaction Status Date / Time No Known Allergies Allergy Verified 01/15/25 22:10 Vital Signs Vital Signs - 24 hr 01/15/25 22:06 01/16/25 05:28 01/16/25 05:39 Temperature 99 F 98.8 F Pulse Rate 82 76 Respiratory Rate 19 18 Blood Pressure 163/79 H 153/60 H Pulse Oximetry 96 97 Oxygen Delivery Room Air Room Air Exam Const: General: alert; No acute distress Orientation/consciousness: patient oriented x3 Limitations: no limitations HENMT: Head: normocephalic and atraumatic Ears: hearing grossly normal bilaterally Face/Nose/Sinus: Normal external nose present and Normal nares present Mouth: Yes Normal oral and palatal mucosa present and Yes moist mucous membranes Eyes: General: appearance normal, both eyes and all related structures Conjunctivae: conjunctivae normal Sclera: sclerae normal Pupils: Equal, round and reactive pupils present EOM: EOMs intact bilaterally Neck: Neck: normal visual inspection, full ROM, no lymphadenopathy, supple and no JVD Lymphatic: no lymphadenopathy noted Chest: Chest palpation & inspection: normal inspection of the chest Resp: Effort & Inspection: normal respiratory effort and able to speak in complete sentences Auscultation: clear to auscultation bilaterally Percussion: percussion normal Cardio: Jugular venous distension: no JVD Rate: regular rate Rhythm: regular rhythm Heart sounds: S1 normal heart sound present and S2 normal heart sound present Peripheral pulses: Peripheral pulses 2+ throughout GI: Inspection: normal to inspection GI Palp: Yes Soft to palpation and No Tenderness to palpation present (GI) Auscultation: normal bowel sounds : General: Yes no CVA tenderness Back/Spine/Pelvis: Back: no CVA tenderness Skin: General skin exam: normal color and dry skin Neuro: General: patient oriented x3, gait normal, moves all extremities, no focal motor deficits and CN's II-XI intact bilaterally Cranial nerves: Yes Equal, round and reactive pupils present Speech: normal speech Extrem: General: normal to inspection and capillary refill normal Other: Left foot wound along the lateral plantar surface of the mid shaft of the 5th metatarsal. Wound measuring 4 cm x 3.5 cm with about 95% healthy granulation tissue. Minimal purulence drainage but no deep tunneling noted. Easily palpable dorsalis pedis posterior tibial pulse. Pitting edema to left foot and lower leg. Mild erythema to left lower leg. Results Labs 01/16/25 01:04 01/16/25 01:04 Labs: Abnormal lab results 01/16/25 01/16/25 01/16/25 Range/Units 01:04 04:19 04:42 WBC 10.9 H (4.5-10.0) K/mm3 RBC 4.43 L (4.6-6.20) M/mm3 Hgb 12.6 L (14.0-18.0) g/dL Hct 37.9 L (42.0-52.0) % Neut % (Auto) 84.0 H (45.5-73.1) % Lymph % (Auto) 7.5 L (18.3-44.2) % Lymph # (Auto) 0.81 L (0.9-3.2) K/mm3 [place] # (Auto) 0.8 H (0.1-0.6) K/mm3 Abs Immat Gran (auto) 0.05 H (0.00-0.031) K/mm3 Absolute Neuts (auto) 9.1 H (1.3-6.7) K/mm3 ESR 45 H (0-20) mm/hr Sodium 131 L (137-145) mmol/L Chloride 90 L (98-107) mmol/L Glucose 246 H (65-110) mg/dL POC Capillary Glucose 215 H (65-105) mg/dl Lactic Acid 2.3 H (0.7-2.0) mmol/L Magnesium 1.3 L (1.6-2.3) mg/dL C-Reactive Protein 8.8 H (<1.0) mg/dL Urine RBC 3-5 H (0-2) /hpf 01/16/25 01/16/25 Range/Units 07:35 11:38 WBC (4.5-10.0) K/mm3 RBC (4.6-6.20) M/mm3 Hgb (14.0-18.0) g/dL Hct (42.0-52.0) % Neut % (Auto) (45.5-73.1) % Lymph % (Auto) (18.3-44.2) % Lymph # (Auto) (0.9-3.2) K/mm3 [place] # (Auto) (0.1-0.6) K/mm3 Abs Immat Gran (auto) (0.00-0.031) K/mm3 Absolute Neuts (auto) (1.3-6.7) K/mm3 ESR (0-20) mm/hr Sodium (137-145) mmol/L Chloride (98-107) mmol/L Glucose (65-110) mg/dL POC Capillary Glucose 171 H 170 H (65-105) mg/dl Lactic Acid (0.7-2.0) mmol/L Magnesium (1.6-2.3) mg/dL C-Reactive Protein (<1.0) mg/dL Urine RBC (0-2) /hpf Diabetes panel 01/16/25 Range/Units 01:04 Sodium 131 L (137-145) mmol/L Potassium 3.4 (3.4-5.0) mmol/L Chloride 90 L (98-107) mmol/L Carbon Dioxide 29 (22-30) mmol/L BUN 20 (9-20) mg/dL Creatinine 0.96 (0.7-1.3) mg/dL Glucose 246 H (65-110) mg/dL Calcium 9.2 (8.4-10.2) mg/dL AST 20 (17-59) U/L ALT 18 (6-50) U/L Alkaline Phosphatase 66 (38-126) U/L Total Protein 7.4 (6.3-8.2) g/dL Albumin 3.9 (3.5-5.1) g/dL Calcium panel 01/16/25 Range/Units 01:04 Calcium 9.2 (8.4-10.2) mg/dL Albumin 3.9 (3.5-5.1) g/dL Pituitary panel 01/16/25 Range/Units 01:04 Sodium 131 L (137-145) mmol/L Potassium 3.4 (3.4-5.0) mmol/L Chloride 90 L (98-107) mmol/L Carbon Dioxide 29 (22-30) mmol/L BUN 20 (9-20) mg/dL Creatinine 0.96 (0.7-1.3) mg/dL Glucose 246 H (65-110) mg/dL Calcium 9.2 (8.4-10.2) mg/dL Adrenal panel 01/16/25 Range/Units 01:04 Sodium 131 L (137-145) mmol/L Potassium 3.4 (3.4-5.0) mmol/L Chloride 90 L (98-107) mmol/L Carbon Dioxide 29 (22-30) mmol/L BUN 20 (9-20) mg/dL Creatinine 0.96 (0.7-1.3) mg/dL Glucose 246 H (65-110) mg/dL Calcium 9.2 (8.4-10.2) mg/dL Total Bilirubin 1.1 (0.2-1.3) mg/dL AST 20 (17-59) U/L ALT 18 (6-50) U/L Alkaline Phosphatase 66 (38-126) U/L Total Protein 7.4 (6.3-8.2) g/dL Albumin 3.9 (3.5-5.1) g/dL All other labs normal. Imaging Additional studies: ITS Impressions Chest X-Ray 01/16/25 09:39 IMPRESSION: 1. No acute cardiopulmonary findings given portable technique.
[2025-01-16 14:15] VITALS: BP 130/54; PULSE 70; RESP 17; TEMP 36.9; O2SAT 95
[2025-01-16] MEDS: VANCOMYCIN 1,500 MG/NS 500 ML 1,500 MG/500 ML BAG 250 MG IVPB (16:46)
[2025-01-16 22:00] VITALS: BP 147/71; PULSE 75; RESP 18; TEMP 37.1; O2SAT 96
[2025-01-17 02:35] VITALS: BP 148/60; PULSE 68; RESP 17; TEMP 36.4; O2SAT 99
[2025-01-17] MEDS: VANCOMYCIN 1,500 MG/NS 500 ML 1,500 MG/500 ML BAG 250 MG IVPB (04:20)
[2025-01-17 06:00] VITALS: BP 145/62; PULSE 68; RESP 16; TEMP 36.7; O2SAT 98
[2025-01-17 06:49] LABS: Hematocrit 35.8 % (42.0-52.0); Hemoglobin 12.0 g/dL (14.0-18.0); Mean Corpuscular HGB Conc 33.5 g/dl (32-36); Mean Corpuscular Hemoglobin 29.2 pg (26-34); Mean Corpuscular Volume 87.1 fl (80-100); Platelet Count Result 150 k/mm3 (150-375); Red Blood Count 4.11 M/mm3 (4.6-6.20); White Blood Count 6.6 K/mm3 (4.5-10.0)
[2025-01-17 07:36] LABS: Anion Gap 5 mmol/L (4-12); Blood Urea Nitrogen 15 mg/dL (9-20); Calcium 8.2 mg/dL (8.4-10.2); Carbon Dioxide 32 mmol/L (22-30); Chloride 96 mmol/L (98-107); Estimated CRCL calculation 100 ml/min; Estimated Glomerular Filt Rate > 60; Glucose 152 mg/dL (65-110); Magnesium 1.7 mg/dL (1.6-2.3); Potassium 3.0 mmol/L (3.4-5.0); Sodium 133 mmol/L (137-145)
[2025-01-17] MEDS: metroNIDAZOLE 500 MG/ISO 100ML 500 MG/100 ML BAG 100 MG IVPB ×2 (08:34→15:34)
[2025-01-17 08:58] VITALS: PULSE 68
[2025-01-17] MEDS: ASPIRIN 81 MG CHEWABLE TABLET PO (08:58)
[2025-01-17] MEDS: METOPROLOL SUCCINATE EXT REL 100 MG TABCR 200 MG PO (08:58)
[2025-01-17] MEDS: FINASTERIDE 5 MG TABLET PO (09:00)
[2025-01-17] MEDS: GLIMEPIRIDE 1 MG TABLET PO (09:00)
[2025-01-17] MEDS: INDAPAMIDE 2.5 MG TABLET PO (09:01)
[2025-01-17] MEDS: IRBESARTAN 150 MG TABLET 300 MG PO (09:02)
[2025-01-17] MEDS: ENOXAPARIN 40 MG/0.4 ML SYRINGE SUB-Q (09:04)
[2025-01-17 09:30] VITALS: BP 164/68; PULSE 75; RESP 20; TEMP 36.7; O2SAT 93
--- NOTE | 2025-01-17 11:03 | PC.NURSE ---
On 01/17/25, the student, [Columba Miller ], provided care and completed [facility] documentation on this patient. I have reviewed the student's documentation and agree with the findings.
--- NOTE | 2025-01-17 11:12 | PM.PNGS ---
Progress Note: A&P Assessment and Plan (1) Diabetic foot ulcer: Qualifiers: Diabetes mellitus type: type 2 Diabetic foot ulcer location: midfoot Laterality: left Non-pressure ulcer stage: with fat layer exposed Qualified Code(s): E11.621 - Type 2 diabetes mellitus with foot ulcer; L97.422 - Non-pressure chronic ulcer of left heel and midfoot with fat layer exposed Code(s): E11.621 - Type 2 diabetes mellitus with foot ulcer; L97.509 - Non-pressure chronic ulcer of other part of unspecified foot with unspecified severity Status: Acute Assessment and Plan: MRI of left foot today. Will follow for results. WBC 6.6 today. Continue IV antibiotics. Wound care team evaluated patient today. Will continue with daily local wound ccare per their recommendations. (2) Type 2 diabetes mellitus with hyperglycemia, without long-term current use of insulin: Code(s): E11.65 - Type 2 diabetes mellitus with hyperglycemia Status: Acute (3) Cellulitis of left lower leg: Code(s): L03.116 - Cellulitis of left lower limb Status: Acute Plan Discussed patient's case and plan of care with Dr. Morales. Subjective Subjective Date/Time Seen: 01/17/25 11:12 Patient reports: no new complaints and afebrile Interval history: Patient is doing well today. No complaints of pain. Exam Extrem: General: normal to inspection and capillary refill normal Other: Left foot wound along the lateral plantar surface of the mid shaft of the 5th metatarsal. Wound measuring 4 cm x 3.5 cm with about 95% healthy granulation tissue. Minimal purulence drainage but no deep tunneling noted. Easily palpable dorsalis pedis posterior tibial pulse. Pitting edema to left foot and lower leg. Mild erythema to left lower leg. Objective Data Vital Signs Vital Signs: Vital Signs - 24 hr 01/16/25 14:15 01/16/25 21:02 01/16/25 22:00 Temperature 98.4 F 98.8 F Pulse Rate 70 75 Respiratory Rate 17 18 Blood Pressure 130/54 L 147/71 H Pulse Oximetry 95 96 Oxygen Delivery Room Air 01/17/25 06:00 01/17/25 08:00 01/17/25 08:58 Temperature 98.1 F Pulse Rate 68 68 Respiratory Rate 16 Blood Pressure 145/62 H Pulse Oximetry 98 Oxygen Delivery Room Air 01/17/25 09:30 Temperature 98.1 F Pulse Rate 75 Respiratory Rate 20 Blood Pressure 164/68 H Pulse Oximetry 93 Oxygen Delivery Intake/Output Intake/Output: Intake & Output 01/14/25 01/15/25 01/16/25 01/17/25 23:59 23:59 23:59 23:59 Intake Total 2270 890 Output Total 1400 1330 Balance 870 -440 Meds/Results Medications: Active Medications Generic Name Dose Route Start Last Admin Trade Name Freq PRN Reason Stop Dose Admin Amlodipine Besylate 5 mg 01/16/25 21:00 01/16/25 20:58 Amlodipine Besylate 5 Mg Tablet PO 5 mg HS RODDY Administration Aspirin 81 mg 01/16/25 08:00 01/17/25 08:58 Aspirin 81 Mg Chewable Tablet PO 81 mg DAILY@0800 RODDY Administration Dextrose 12.5 gm 01/16/25 06:20 Dextrose 50% 25 Gm/50 Ml Syringe IV PUSH PRN PRN Hypoglycemia Protocol Enoxaparin Sodium 40 mg 01/16/25 09:00 01/17/25 09:04 Enoxaparin 40 Mg/0.4 Ml Syringe SUB-Q 40 mg DAILY RODDY Administration Finasteride 5 mg 01/16/25 09:00 01/17/25 09:00 Finasteride 5 Mg Tablet PO 5 mg DAILY RODDY Administration Glimepiride 1 mg 01/16/25 09:00 01/17/25 09:00 Glimepiride 1 Mg Tablet PO 1 mg DAILY RODDY Administration Glucagon 1 mg 01/16/25 06:20 Glucagon For Inj 1 Mg Vial IM PRN PRN Hypoglycemia Protocol Glucose 15 gm 01/16/25 06:20 Glucose Oral Gel 15 Gm Of Glucse In 37.5 Gm Tube PO PRN PRN Hypoglycemia Protocol Cefepime HCl 2 gm/ Sodium 50 mls @ 100 mls/hr 01/16/25 11:00 01/16/25 23:40 Chloride IVPB Infused Q12H RODDY Infusion Metronidazole 500 mg in 100 mls @ 100 mls/hr 01/16/25 08:00 01/17/25 08:34 Flagyl 500 Mg/Iso Soln 100 Ml IVPB 100 mls/hr Q8H RODDY Administration Dextrose 1,000 mls @ 100 mls/hr 01/16/25 06:20 Dextrose 5% 1,000 Ml IVPB PRN PRN Hypoglycemia Protocol Vancomycin HCl 1,500 mg in 500 mls @ 250 mls/hr 01/16/25 17:00 01/17/25 06:20 Vancomycin 1,500 Mg/Ns 500 Ml IVPB Infused Q12H RODDY Infusion Indapamide 2.5 mg 01/16/25 09:00 01/17/25 09:01 Indapamide 2.5 Mg Tablet PO 2.5 mg DAILY RODDY Administration Insulin Aspart 3 - 6 units 01/16/25 08:00 01/17/25 08:34 Insulin Aspart (*Bkc) 100 Units/Ml SUB-Q Not Given TIDWM [facility] Protocol Insulin Aspart 1 - 3 units 01/16/25 21:00 01/16/25 21:01 Insulin Aspart (*Bkc) 100 Units/Ml SUB-Q Not Given HS [facility] Protocol Irbesartan 300 mg 01/16/25 09:00 01/17/25 09:02 Irbesartan 150 Mg Tablet PO 300 mg DAILY RODDY Administration Metoprolol Succinate 200 mg 01/16/25 09:00 01/17/25 08:58 Metoprolol Succinate Ext Rel 100 Mg Tabcr PO 200 mg DAILY RODDY Administration Paroxetine HCl 10 mg 01/16/25 09:00 01/17/25 09:01 Paroxetine 10 Mg Tablet PO 10 mg DAILY RODDY Administration Sitagliptin Phosphate 100 mg 01/16/25 09:00 01/17/25 09:03 Sitagliptin Phosphate 100 Mg Tablet PO 100 mg QAM RODDY Administration Radiology Results: ITS Impressions Chest X-Ray 01/16/25 09:39 IMPRESSION: 1. No acute cardiopulmonary findings given portable technique. Labs Labs: Laboratory Results - last 24 hr 01/16/25 01/16/25 01/16/25 11:38 16:54 21:00 WBC RBC Hgb Hct MCV MCH MCHC RDW Plt Count MPV Sodium Potassium Chloride Carbon Dioxide Anion Gap BUN Creatinine Estim Creat Clear Calc Estimated GFR Glucose POC Capillary Glucose 170 H 139 H 142 H Calcium Magnesium 01/17/25 01/17/25 05:55 07:58 WBC 6.6 RBC 4.11 L Hgb 12.0 L Hct 35.8 L MCV 87.1 MCH 29.2 MCHC 33.5 RDW 13.2 Plt Count 150 MPV 10.6 H Sodium 133 L Potassium 3.0 L Chloride 96 L Carbon Dioxide 32 H Anion Gap 5 BUN 15 D Creatinine 0.84 Estim Creat Clear Calc 100 Estimated GFR > 60 Glucose 152 H POC Capillary Glucose 153 H Calcium 8.2 L Magnesium 1.7
[2025-01-17] MEDS: CEFEPIME 2 GM in SODIUM CHLORIDE 0.9% IV 50 ML 100 ML IVPB ×2 (11:32→23:00)
[2025-01-17 11:45] VITALS: BMI 34.6
[2025-01-17] MEDS: POTASSIUM CHLORIDE 20 MEQ ER TABLET 40 MEQ PO (13:15)
--- NOTE | 2025-01-17 15:09 | PM.IMPN ---
Progress Note: A&P Assessment and Plan (1) Diabetic foot ulcer: Qualifiers: Diabetes mellitus type: type 2 Diabetic foot ulcer location: midfoot Laterality: left Non-pressure ulcer stage: with fat layer exposed Qualified Code(s): E11.621 - Type 2 diabetes mellitus with foot ulcer; L97.422 - Non-pressure chronic ulcer of left heel and midfoot with fat layer exposed Code(s): E11.621 - Type 2 diabetes mellitus with foot ulcer; L97.509 - Non-pressure chronic ulcer of other part of unspecified foot with unspecified severity Status: Acute Assessment and Plan: Patient has diabetic foot ulcer with failure of outpatient treatment with Augmentin. Patient has subsequently been started on empiric antibiotic therapy with cefepime vanc and Flagyl per antibiotic stewardship guidelines. -Wound cultures were obtained from the ER. -Blood cultures have been obtained and are pending. -Would cultures pending. -Patient did have some mild lactic acidosis and mildly elevated white count but did not meet sepsis criteria. -WBC count now normal -MRI of the left foot shows deep ulceration overlying the plantar/lateral base of the 5th metatarsal where there is a nondisplaced subacute fracture. Early signs of osteomyelitis cannot be excluded all their there is no evidence of focal osteolysis or loss of T1 marrow fat signal. -Infectious disease is consulted on case -General surgery consulted on case (2) Type 2 diabetes mellitus with hyperglycemia, without long-term current use of insulin: Code(s): E11.65 - Type 2 diabetes mellitus with hyperglycemia Status: Acute Assessment and Plan: Patient has moderate hyperglycemia in the setting of relatively well controlled diabetes despite of complications of neuropathy. A1c earlier this month was 6.4. -Will resume the patient's oral hypoglycemic medications except for metformin. Metformin will be held due to lactic acidosis. -Patient was given 1 L IV fluids at 75 mL an hour lactic acidosis has already resolved. -Will place patient on moderate dose sliding scale insulin with Accu-Cheks a.c. HS. And hypoglycemia protocol as needed. (3) Hypomagnesemia: Code(s): E83.42 - Hypomagnesemia Status: Acute Assessment and Plan: -Patient had incidental finding of hypo magnesemia and received 2 g magnesium sulfate rider in the ER. -Will repeat electrolyte panel and magnesium level in a.m. (4) Charcot joint of foot: Code(s): M14.679 - Charcot's joint, unspecified ankle and foot Status: Acute Assessment and Plan: Needs to see charcots operation specialist following discharge (5) Hypokalemia: Code(s): E87.6 - Hypokalemia Status: Resolved Assessment and Plan: K+ is 3.0 today, replace wiht 40 meq kcl recheck tomorrow. Plan MEDICAL DECISION MAKING NARRATIVE -Spoke with the ED provider in detail regarding patient's evaluation, workup and management -Patient seen and examined at bedside -Collaborated with patient's nurse at the bedside in detail and addressed all concerns -Labs, electrolytes, radiology, investigations and test results personally reviewed and interpreted unless otherwise specified -ED/Consult/Nursing/Ancilliary notes on the chart reviewed and appreciated -Spoke with patient at bedside and diagnosis and plan of care was discussed. All questions answered. Subjective Date/time seen: 01/17/25 15:09 Interval history: Patient doing good today. He is not having any pain in the foot. He did have an MRI done of the left foot. Early signs of osteomyelitis cannot be excluded on the MRI but evidence was not found to suggest he had an active osteomyelitis infection. He is being seen by infectious disease and general surgery. Wound cultures obtained. Results pending. Exam Narrative: GENERAL: Comfortable, no acute distress EYES: EOM intact b/l RESPIRATORY: clear to auscultation, no increased respiratory effort CARDIO: Regular rate and rhythm SKIN/EXTREMITIES: Wound on left foot, charcot foot NEURO: PROM intact, answers questions appropriately, A&O x4 Objective Data Vital Signs Vital Signs: Vital Signs - 24 hr 01/16/25 21:02 01/16/25 22:00 01/17/25 02:35 Temperature 98.8 F 97.5 F L Pulse Rate 75 68 Respiratory Rate 18 17 Blood Pressure 147/71 H 148/60 H Pulse Oximetry 96 99 Oxygen Delivery Room Air 01/17/25 06:00 01/17/25 08:00 01/17/25 08:58 Temperature 98.1 F Pulse Rate 68 68 Respiratory Rate 16 Blood Pressure 145/62 H Pulse Oximetry 98 Oxygen Delivery Room Air 01/17/25 09:30 Temperature 98.1 F Pulse Rate 75 Respiratory Rate 20 Blood Pressure 164/68 H Pulse Oximetry 93 Oxygen Delivery Intake/Output Intake/Output: Intake & Output 01/14/25 01/15/25 01/16/25 01/17/25 23:59 23:59 23:59 23:59 Intake Total 2270 990 Output Total 1400 1330 Balance 870 -340 Meds/Results Medications: Active Medications Generic Name Dose Route Start Last Admin Trade Name Freq PRN Reason Stop Dose Admin Amlodipine Besylate 5 mg 01/16/25 21:00 01/16/25 20:58 Amlodipine Besylate 5 Mg Tablet PO 5 mg HS RODDY Administration Aspirin 81 mg 01/16/25 08:00 01/17/25 08:58 Aspirin 81 Mg Chewable Tablet PO 81 mg DAILY@0800 RODDY Administration Dextrose 12.5 gm 01/16/25 06:20 Dextrose 50% 25 Gm/50 Ml Syringe IV PUSH PRN PRN Hypoglycemia Protocol Enoxaparin Sodium 40 mg 01/16/25 09:00 01/17/25 09:04 Enoxaparin 40 Mg/0.4 Ml Syringe SUB-Q 40 mg DAILY RODDY Administration Finasteride 5 mg 01/16/25 09:00 01/17/25 09:00 Finasteride 5 Mg Tablet PO 5 mg DAILY RODDY Administration Glimepiride 1 mg 01/16/25 09:00 01/17/25 09:00 Glimepiride 1 Mg Tablet PO 1 mg DAILY RODDY Administration Glucagon 1 mg 01/16/25 06:20 Glucagon For Inj 1 Mg Vial IM PRN PRN Hypoglycemia Protocol Glucose 15 gm 01/16/25 06:20 Glucose Oral Gel 15 Gm Of Glucse In 37.5 Gm Tube PO PRN PRN Hypoglycemia Protocol Cefepime HCl 2 gm/ Sodium 50 mls @ 100 mls/hr 01/16/25 11:00 01/17/25 11:32 Chloride IVPB 100 mls/hr Q12H RODDY Administration Metronidazole 500 mg in 100 mls @ 100 mls/hr 01/16/25 08:00 01/17/25 09:34 Flagyl 500 Mg/Iso Soln 100 Ml IVPB Infused Q8H RODDY Infusion Dextrose 1,000 mls @ 100 mls/hr 01/16/25 06:20 Dextrose 5% 1,000 Ml IVPB PRN PRN Hypoglycemia Protocol Vancomycin HCl 1,500 mg in 500 mls @ 250 mls/hr 01/16/25 17:00 01/17/25 06:20 Vancomycin 1,500 Mg/Ns 500 Ml IVPB Infused Q12H RODDY Infusion Indapamide 2.5 mg 01/16/25 09:00 01/17/25 09:01 Indapamide 2.5 Mg Tablet PO 2.5 mg DAILY RODDY Administration Insulin Aspart 3 - 6 units 01/16/25 08:00 01/17/25 13:00 Insulin Aspart (*Bkc) 100 Units/Ml SUB-Q Not Given TIDWM [facility] Protocol Insulin Aspart 1 - 3 units 01/16/25 21:00 01/16/25 21:01 Insulin Aspart (*Bkc) 100 Units/Ml SUB-Q Not Given HS [facility] Protocol Irbesartan 300 mg 01/16/25 09:00 01/17/25 09:02 Irbesartan 150 Mg Tablet PO 300 mg DAILY RODDY Administration Metoprolol Succinate 200 mg 01/16/25 09:00 01/17/25 08:58 Metoprolol Succinate Ext Rel 100 Mg Tabcr PO 200 mg DAILY RODDY Administration Paroxetine HCl 10 mg 01/16/25 09:00 01/17/25 09:01 Paroxetine 10 Mg Tablet PO 10 mg DAILY RODDY Administration Sitagliptin Phosphate 100 mg 01/16/25 09:00 01/17/25 09:03 Sitagliptin Phosphate 100 Mg Tablet PO 100 mg QAM RODDY Administration Radiology Results: ITS Impressions Chest X-Ray 01/16/25 09:39 IMPRESSION: 1. No acute cardiopulmonary findings given portable technique. Foot MRI 01/17/25 11:14 IMPRESSION: 1. Deep ulceration overlying the plantar/lateral base of the fifth metatarsal where there is a nondisplaced subacute fracture. There are marrow signal changes base of the fifth metatarsal likely reactive related to the fracture. Although early osteomyelitis could not be excluded there is no evident focal ostial lysis or loss of T1 marrow fat signal to more specifically suggest osteomyelitis. 2. Partial tear/likely focal perforation at the myotendinous junction of the abductor digiti minimi where it passes between the ulceration the base of the fifth metatarsal. 3. 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 Labs Labs: Laboratory Results - last 24 hr 01/16/25 01/16/25 01/17/25 16:54 21:00 05:55 WBC 6.6 RBC 4.11 L Hgb 12.0 L Hct 35.8 L MCV 87.1 MCH 29.2 MCHC 33.5 RDW 13.2 Plt Count 150 MPV 10.6 H Sodium 133 L Potassium 3.0 L Chloride 96 L Carbon Dioxide 32 H Anion Gap 5 BUN 15 D Creatinine 0.84 Estim Creat Clear Calc 100 Estimated GFR > 60 Glucose 152 H POC Capillary Glucose 139 H 142 H Calcium 8.2 L Magnesium 1.7 01/17/25 01/17/25 07:58 11:56 WBC RBC Hgb Hct MCV MCH MCHC RDW Plt Count MPV Sodium Potassium Chloride Carbon Dioxide Anion Gap BUN Creatinine Estim Creat Clear Calc Estimated GFR Glucose POC Capillary Glucose 153 H 148 H Calcium Magnesium
[2025-01-17] MEDS: VANCOMYCIN 1,750 MG/NS 500 ML 1,750 MG/500 ML BAG 150 MG IVPB (17:50)
--- NOTE | 2025-01-17 19:15 | WPDIDCN ---
Assessment and Plan Assessment and plan (1) Charcot joint of foot: Code(s): M14.679 - Charcot's joint, unspecified ankle and foot Status: Acute (2) Cellulitis of left lower leg: Code(s): L03.116 - Cellulitis of left lower limb Status: Acute Plan #diabetic foot. No definitive evidence of osteomyelitis. No cervical or peripheral vascular disease. Next item post MRI. Outpatient Keflex by Augmentin. Reviewed concerned about strep /strep species. Remote history of MRSA. #diabetes. Plan: Follow on cefepime Flagyl vancomycin. Next follow-up blood cultures. Based on chronicity and severity of wounds in presenting signs, I would favor 2 week course of ertapenem plus daptomycin via midline with close follow-up in [facility]. In the midline. Discussed pharmacy. Patient was seen via telemedicine with the affected audio/visual interface. Was in [facility] I was in my office in [facility]. Patient consented telemedicine. HPI Data of Consult Date/Time: 01/17/25 19:15 Requesting Physician: Karen Navarro DO Primary Care Provider: Grecia Gonzalez APRN Consult Narrative Reason for consult: Diabetic foot infection Narrative: Christian Prado is a 74 year old male History of diabetes. Previous history of diabetic foot infections in the past. She recalls being treated interrupt past with IV antibiotic therapy. The patient's recent admission, developed a foot ulcer that is caring for with outpatient wound care. Trial of Keflex then switched to Augmentin. Has had about 8 days of Augmentin started developing some fevers. Occasional chills. Came back again to the ED. Has been on cefepime vancomycin and Flagyl. Blood culture so far no growth to date from 01/16. Superficial cultures negative. With the Wound Care, previous bone exposure has. MRI without a definitive evidence of osteomyelitis of the foot without. Doing well now. No fevers. Tolerating antibiotics. No rash. [facility] Past Medical History Medical History (Updated 01/17/25 @ 15:10 by Shonna Guerrero PA-C) Obesity (BMI 30.0-34.9) History of erysipelas Diabetes mellitus with neuropathy MRSA (methicillin resistant Staphylococcus aureus) Foreign body of fifth toe of right foot with infection (2020) History of osteomyelitis Right great toe wound and osteomyelitis treated with IV antibiotics TIA (transient ischemic attack) (2018) Expressive aphasia that resolved BPH (benign prostatic hyperplasia) COVID-19 (11/2020) Anxiety Panic attacks Hypertension High cholesterol Surgical History Surgical History (Updated 01/16/25 @ 07:15 by Karen Navarro DO) Status post right foot surgery (12/2020) 4th Metatarsal debridement due to osteomyelitis and foreign body removal from the medial aspect of the 5th toe performed by Dr. Calvillo [place] teeth removed 1978, resident and surgeon Family History Family History Father Hypertension Cerebrovascular accident Mother Hypertension Cerebrovascular accident Family history of cancer Breast Other Heart disease Social History Social History Social History: He lives in [place] and is newly in 2023. 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 He drinks on average 1 alcoholic beverage a year. He has never smoked. He denies any illicit substance use. He is independent in all activities of daily living. Primary care physician: Dr. Schneider Code status: DNR/DNI. He is okay with pressors and noninvasive respiratory support if needed. Surrogate decision maker: Smoking status: Never smoker Second hand tobacco smoke exposure: No Alcohol intake: never Substance use: never Substance use type: does not use Lack of Transportation: No Lack of Food: Never True Current Housing: I Have Housing Concerned About Future Housing: No Difficulty Paying Gas/Electric Bills: No Difficulty Paying for Meds: No Currently Unemployed: No Education: Master's Degree or Higher Difficulty w/ Childcare or Family Care: No Living arrangements: with family Occupation/Education: retired Additional occupation/education comments: Former [employer] Gender identity (if verbalized by the patient): Male Spiritual care concerns: Yes Agree to blood products: Yes Meds Home Medications and Allergies Home Medications ?Medication ?Instructions ?Recorded ?Confirmed ?Type aspirin 81 mg chewable tablet 81 mg PO DAILY 11/10/20 01/16/25 History glimepiride 1 mg tablet 1 mg PO DAILY #90 tabs 05/03/24 01/16/25 Rx metoprolol succinate 100 mg See Rx Instructions .Route 05/13/24 01/16/25 Rx tablet,extended release 24 hr .COMPLEX #180 tabs indapamide 2.5 mg tablet See Rx Instructions .Route 07/08/24 01/16/25 Rx .COMPLEX #90 tabs finasteride 5 mg tablet 5 mg PO DAILY #90 tabs 07/18/24 01/16/25 Rx irbesartan 300 mg tablet 300 mg PO DAILY #90 tabs 07/18/24 01/16/25 Rx Tradjenta 5 mg tablet (linagliptin) See Rx Instructions .Route 11/09/24 01/16/25 Rx .COMPLEX #90 tabs paroxetine HCl 30 mg tablet See Rx Instructions .Route 12/28/24 01/16/25 Rx .COMPLEX #30 tabs metformin 500 mg tablet,extended See Rx Instructions .Route 12/29/24 01/16/25 Rx release 24 hr .COMPLEX #360 tabs amoxicillin 875 mg-potassium 1 tablet PO BID #20 tabs 01/12/25 01/16/25 Rx clavulanate 125 mg tablet amlodipine 5 mg tablet 5 mg PO DAILY 01/16/25 01/16/25 History Allergies Allergy/AdvReac Type Severity Reaction Status Date / Time shrimp Allergy Unknown Itching Verified 01/16/25 18:13 Vital Signs Vital Signs - 24 hr 01/16/25 21:02 01/16/25 22:00 01/17/25 02:35 Temperature 37.1 C 36.4 C L Pulse Rate 75 68 Respiratory Rate 18 17 Blood Pressure 147/71 H 148/60 H Pulse Oximetry 96 99 Oxygen Delivery Room Air 01/17/25 06:00 01/17/25 08:00 01/17/25 08:58 Temperature 36.7 C Pulse Rate 68 68 Respiratory Rate 16 Blood Pressure 145/62 H Pulse Oximetry 98 Oxygen Delivery Room Air 01/17/25 09:30 Temperature 36.7 C Pulse Rate 75 Respiratory Rate 20 Blood Pressure 164/68 H Pulse Oximetry 93 Oxygen Delivery Exam Narrative: Seen via telemedicine. Alert oriented person place and time. MRI reviewed. Patient without any phlebitis. No rash noted. And offloaded Results Labs 01/17/25 05:55 01/17/25 05:55 Labs: Short CBC 01/17/25 Range/Units 05:55 WBC 6.6 (4.5-10.0) K/mm3 Hgb 12.0 L (14.0-18.0) g/dL Hct 35.8 L (42.0-52.0) % Plt Count 150 (150-375) k/mm3 [facility] 01/17/25 05:55 Sodium 133 L Potassium 3.0 L Chloride 96 L Carbon Dioxide 32 H BUN 15 D Creatinine 0.84 Glucose 152 H Calcium 8.2 L
[2025-01-17 20:11] VITALS: BP 163/73; PULSE 74; RESP 14; TEMP 36.5; O2SAT 96
[2025-01-18] MEDS: metroNIDAZOLE 500 MG/ISO 100ML 500 MG/100 ML BAG 100 MG IVPB ×4 (00:01→23:16)
[2025-01-18] MEDS: CALCIUM CARBONATE (TUMS) 500 MG (200 MG ELEMENTAL) PO (00:33)
[2025-01-18 05:15] VITALS: BP 166/78; PULSE 74; RESP 16; TEMP 36.6; O2SAT 95
[2025-01-18] MEDS: VANCOMYCIN 1,750 MG/NS 500 ML 1,750 MG/500 ML BAG 175 MG IVPB ×2 (05:17→17:32)
[2025-01-18 07:00] LABS: Estimated CRCL calculation 107 ml/min; Estimated Glomerular Filt Rate > 60
[2025-01-18 08:17] LABS: Anion Gap 9 mmol/L (4-12); Blood Urea Nitrogen 13 mg/dL (9-20); Calcium 8.4 mg/dL (8.4-10.2); Carbon Dioxide 28 mmol/L (22-30); Chloride 94 mmol/L (98-107); Glucose 167 mg/dL (65-110); Hematocrit 36.6 % (42.0-52.0); Hemoglobin 12.2 g/dL (14.0-18.0); Mean Corpuscular HGB Conc 33.3 g/dl (32-36); Mean Corpuscular Hemoglobin 28.6 pg (26-34); Mean Corpuscular Volume 85.9 fl (80-100); Platelet Count Result 159 k/mm3 (150-375); Potassium 3.1 mmol/L (3.4-5.0); Red Blood Count 4.26 M/mm3 (4.6-6.20); Sodium 131 mmol/L (137-145); White Blood Count 7.3 K/mm3 (4.5-10.0)
--- NOTE | 2025-01-18 08:23 | P.PNIM_ITS ---
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 Patient has subsequently been started on empiric antibiotic therapy with cefepime vanc and Flagyl per antibiotic stewardship guidelines. * Wound cultures were obtained from the ER. * Blood cultures have been obtained and are pending. * Would cultures pending. * Patient did have some mild lactic acidosis and mildly elevated white count but did not meet sepsis criteria. * WBC count now normal * MRI of the left foot shows deep ulceration overlying the plantar/lateral base of the 5th metatarsal where there is a nondisplaced subacute fracture. Early signs of osteomyelitis cannot be excluded all their there is no evidence of focal osteolysis or loss of T1 marrow fat signal. * Infectious disease is consulted on case * General surgery consulted on case * Continue cefepime, Flagyl, vancomycin * Follow blood/wound cultures * ID recommends at this time 2 week course of ertapenem and daptomycin, [facility]- [facility], however continue to follow cultures at this time (2) Type 2 diabetes mellitus with hyperglycemia, without long-term current use of insulin: Code(s): E11.65 - Type 2 diabetes mellitus with hyperglycemia Status: Acute Assessment and Plan: Patient has moderate hyperglycemia in the setting of relatively well controlled diabetes despite of complications of neuropathy. A1c earlier this month was 6.4. * Will resume the patient's oral hypoglycemic medications except for metformin. Metformin will be held due to lactic acidosis. * Patient was given 1 L IV fluids at 75 mL an hour lactic acidosis has already resolved. * Will place patient on moderate dose sliding scale insulin with Accu-Cheks a.c. HS. And hypoglycemia protocol as needed. (3) Hypomagnesemia: Code(s): E83.42 - Hypomagnesemia Status: Acute Assessment and Plan: * Patient had incidental finding of hypo magnesemia and received 2 g magnesium sulfate rider in the ER. * Will repeat electrolyte panel and magnesium level in a.m. 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 He denies any pain in the foot at this time. Continue to be followed by Infectious Disease and General surgery. Wound/blood culture still pending at this time. Per ID recommendations, continue cefepime, Flagyl, vancomycin, follow up on blood cultures. Would favor 2 week course of ertapenem plus daptomycin via midline with follow-up [facility]. Review of Systems Review of Systems: 12 systems were reviewed with pertinent positives and negatives per HPI. Except as documented in the HPI, all other systems were reviewed and are negative. Exam Narrative: GENERAL: Comfortable, no acute distress EYES: EOM intact b/l RESPIRATORY: clear to auscultation, no increased respiratory effort CARDIO: Regular rate and rhythm SKIN/EXTREMITIES: Wound on left foot, charcot foot NEURO: PROM intact, answers questions appropriately, A&O x4 Const: Other: Obese, poor hygiene, no acute distress HENMT: Other: Mucous membranes are moist, no oral pharyngeal erythema, crowded posterior oropharynx Eyes: Other: No scleral icterus, no conjunctival pallor Neck: Other: Large neck circumference, no JVD Resp: Other: Clear to auscultation bilaterally, no increased work of breathing Cardio: Other: Regular rate, regular rhythm, 2+ bilateral radial pedal pulses GI: Other: Obese, soft, nontender, normoactive bowel sounds Skin: Other: Chronic erythema to bilateral lower extremities in the lateral anterior wilkinson, no increased warmth, large baseball size wound to the base of the left foot draining large amounts of cloudy serous almost purulent appearing material that is foul smelling with some surrounding erythema and warmth, no fluctuance in surrounding tissues Neuro: Other: Alert orient x4, speech is clear, no facial asymmetry, no localizing neurologic deficits noted during the course of conversation, chronic neuropathic discomfort to bilateral lower extremities Extrem: Other: Bony deformities of bilateral lateral feet on plantar surface suspicious for Charcot deformity with associated foot wound as discussed above and with chronic scab to the 4th toe of the right foot Psych: Other: Appropriate mood and affect, pleasant and cooperative, intact judgment and insight Objective Data Vital Signs Vital Signs: Vital Signs - 24 hr 01/17/25 08:58 01/17/25 09:30 01/17/25 20:00 Temperature 98.1 F Pulse Rate 68 75 Respiratory Rate 20 Blood Pressure 164/68 H Pulse Oximetry 93 Oxygen Delivery Room Air 01/17/25 20:11 01/18/25 05:15 Temperature 97.7 F 97.8 F Pulse Rate 74 74 Respiratory Rate 14 16 Blood Pressure 163/73 H 166/78 H Pulse Oximetry 96 95 Oxygen Delivery Intake/Output Intake/Output: Intake & Output 01/15/25 01/16/25 01/17/25 01/18/25 23:59 23:59 23:59 23:59 Intake Total 2270 2520 550 Output Total 1400 3130 200 Balance 870 -610 350 Meds/Results Medications: Active Medications Generic Name Dose Route Start Last Admin Trade Name Freq PRN Reason Stop Dose Admin Amlodipine Besylate 5 mg 01/16/25 21:00 01/17/25 20:35 Amlodipine Besylate 5 Mg Tablet PO 5 mg HS RODDY Administration Aspirin 81 mg 01/16/25 08:00 01/17/25 08:58 Aspirin 81 Mg Chewable Tablet PO 81 mg DAILY@0800 RODDY Administration Calcium Carbonate 200 mg 01/17/25 23:42 01/18/25 00:33 Calcium Carbonate (Tums) 500 Mg (200 Mg Elemental) PO 200 mg Q6H PRN Administration Indigestion Dextrose 12.5 gm 01/16/25 06:20 Dextrose 50% 25 Gm/50 Ml Syringe IV PUSH PRN PRN Hypoglycemia Protocol Enoxaparin Sodium 40 mg 01/16/25 09:00 01/17/25 09:04 Enoxaparin 40 Mg/0.4 Ml Syringe SUB-Q 40 mg DAILY RODDY Administration Finasteride 5 mg 01/16/25 09:00 01/17/25 09:00 Finasteride 5 Mg Tablet PO 5 mg DAILY RODDY Administration Glimepiride 1 mg 01/16/25 09:00 01/17/25 09:00 Glimepiride 1 Mg Tablet PO 1 mg DAILY RODDY Administration Glucagon 1 mg 01/16/25 06:20 Glucagon For Inj 1 Mg Vial IM PRN PRN Hypoglycemia Protocol Glucose 15 gm 01/16/25 06:20 Glucose Oral Gel 15 Gm Of Glucse In 37.5 Gm Tube PO PRN PRN Hypoglycemia Protocol Cefepime HCl 2 gm/ Sodium 50 mls @ 100 mls/hr 01/16/25 11:00 01/17/25 23:30 Chloride IVPB Infused Q12H RODDY Infusion Metronidazole 500 mg in 100 mls @ 100 mls/hr 01/16/25 08:00 01/18/25 01:01 Flagyl 500 Mg/Iso Soln 100 Ml IVPB Infused Q8H RODDY Infusion Dextrose 1,000 mls @ 100 mls/hr 01/16/25 06:20 Dextrose 5% 1,000 Ml IVPB PRN PRN Hypoglycemia Protocol Vancomycin HCl 1,750 mg in 500 mls @ 250 mls/hr 01/17/25 18:00 01/18/25 05:17 Vancomycin 1,750 Mg/Ns 500 Ml IVPB 175 mls/hr Q12H RODDY Administration Indapamide 2.5 mg 01/16/25 09:00 01/17/25 09:01 Indapamide 2.5 Mg Tablet PO 2.5 mg DAILY RODDY Administration Insulin Aspart 3 - 6 units 01/16/25 08:00 01/17/25 17:30 Insulin Aspart (*Bkc) 100 Units/Ml SUB-Q Not Given TIDWM [facility] Protocol Insulin Aspart 1 - 3 units 01/16/25 21:00 01/17/25 20:36 Insulin Aspart (*Bkc) 100 Units/Ml SUB-Q Not Given HS [facility] Protocol Irbesartan 300 mg 01/16/25 09:00 01/17/25 09:02 Irbesartan 150 Mg Tablet PO 300 mg DAILY RODDY Administration Metoprolol Succinate 200 mg 01/16/25 09:00 01/17/25 08:58 Metoprolol Succinate Ext Rel 100 Mg Tabcr PO 200 mg DAILY RODDY Administration Paroxetine HCl 10 mg 01/16/25 09:00 01/17/25 09:01 Paroxetine 10 Mg Tablet PO 10 mg DAILY RODDY Administration Potassium Chloride 40 meq 01/18/25 08:22 Potassium Chloride 20 Meq Er Tablet PO 01/18/25 08:23 ONCE ONE Sitagliptin Phosphate 100 mg 01/16/25 09:00 01/17/25 09:03 Sitagliptin Phosphate 100 Mg Tablet PO 100 mg QAM RODDY Administration Radiology Results: ITS Impressions Chest X-Ray 01/16/25 09:39 IMPRESSION: 1. No acute cardiopulmonary findings given portable technique. Foot MRI 01/17/25 11:14 IMPRESSION: 1. Deep ulceration overlying the plantar/lateral base of the fifth metatarsal where there is a nondisplaced subacute fracture. There are marrow signal changes base of the fifth metatarsal likely reactive related to the fracture. Although early osteomyelitis could not be excluded there is no evident focal ostial lysis or loss of T1 marrow fat signal to more specifically suggest osteomyelitis. 2. Partial tear/likely focal perforation at the myotendinous junction of the abductor digiti minimi where it passes between the ulceration the base of the fifth metatarsal. 3. 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 Labs Labs: Laboratory Results - last 24 hr 01/17/25 01/17/25 01/17/25 11:56 16:07 17:10 WBC RBC Hgb Hct MCV MCH MCHC RDW Plt Count MPV Sodium Potassium Chloride Carbon Dioxide Anion Gap BUN Creatinine Estim Creat Clear Calc Estimated GFR Glucose POC Capillary Glucose 148 H 144 H Calcium Vancomycin Trough 12.4 01/17/25 01/18/25 20:13 05:44 WBC 7.3 RBC 4.26 L Hgb 12.2 L Hct 36.6 L MCV 85.9 MCH 28.6 MCHC 33.3 RDW 13.1 Plt Count 159 MPV 11.0 H Sodium 131 L Potassium 3.1 L Chloride 94 L Carbon Dioxide 28 Anion Gap 9 BUN 13 Creatinine 0.78 Estim Creat Clear Calc 107 Estimated GFR > 60 Glucose 167 H POC Capillary Glucose 131 H Calcium 8.4 Vancomycin Trough Quality VTE Prophylaxis VTE prophylaxis: pharmacologic ordered (Lovenox 40 mg subQ daily.)
[2025-01-18] MEDS: IRBESARTAN 150 MG TABLET 300 MG PO (08:53)
[2025-01-18 08:54] VITALS: PULSE 82
[2025-01-18] MEDS: GLIMEPIRIDE 1 MG TABLET PO (08:54)
[2025-01-18] MEDS: POTASSIUM CHLORIDE 20 MEQ ER TABLET 40 MEQ PO (08:54)
[2025-01-18] MEDS: INDAPAMIDE 2.5 MG TABLET PO (08:54)
[2025-01-18] MEDS: ASPIRIN 81 MG CHEWABLE TABLET PO (08:54)
[2025-01-18] MEDS: FINASTERIDE 5 MG TABLET PO (08:54)
[2025-01-18] MEDS: METOPROLOL SUCCINATE EXT REL 100 MG TABCR 200 MG PO (08:54)
[2025-01-18] MEDS: ENOXAPARIN 40 MG/0.4 ML SYRINGE SUB-Q (08:55)
[2025-01-18] MEDS: CEFEPIME 2 GM in SODIUM CHLORIDE 0.9% IV 50 ML 100 ML IVPB ×2 (10:57→22:46)
--- NOTE | 2025-01-18 12:02 | WPDINFPN2 ---
Progress Note: A&P Assessment and Plan (1) Charcot joint of foot: Code(s): M14.679 - Charcot's joint, unspecified ankle and foot Status: Acute (2) Cellulitis of left lower leg: Code(s): L03.116 - Cellulitis of left lower limb Status: Acute Plan #diabetic foot. No definitive evidence of osteomyelitis. No cervical or peripheral vascular disease. Next item post MRI. Outpatient Keflex by Augmentin. Reviewed concerned about strep /strep species. Remote history of MRSA. --MRI with possible osteomyelitis but may be due to fx #diabetes. Plan: Follow on cefepime Flagyl vancomycin. Next follow-up blood cultures. Based on chronicity and severity of wounds in presenting signs, I would favor 2 week course of ertapenem plus daptomycin via midline with close follow-up in [facility]. f/u on wound cx for final abx recs f/u on blood cxs check ESR, CRP Patient was seen via telemedicine with the affected audio/visual interface. Was in [facility] I was in my office in [place]. Patient consented telemedicine. d/w pharmacy staff Subjective Date/time seen: 01/18/25 12:02 Interval history: no fever Exam Narrative: On room air, non-toxic, NAD Left foot dressed +edema of LLE but no angry erythema no tinea pedis Objective Data Vital Signs Vital Signs: Vital Signs - 24 hr 01/17/25 20:00 01/17/25 20:11 01/18/25 05:15 Temperature 97.7 F 97.8 F Pulse Rate 74 74 Respiratory Rate 14 16 Blood Pressure 163/73 H 166/78 H Pulse Oximetry 96 95 Oxygen Delivery Room Air 01/18/25 08:00 01/18/25 08:54 Temperature Pulse Rate 82 Respiratory Rate Blood Pressure Pulse Oximetry Oxygen Delivery Room Air Intake/Output Intake/Output: Intake & Output 01/15/25 01/16/25 01/17/25 01/18/25 23:59 23:59 23:59 23:59 Intake Total 2270 2520 790 Output Total 1400 3130 500 Balance 870 -610 290 Meds/Results Medications: Active Medications Generic Name Dose Route Start Last Admin Trade Name Freq PRN Reason Stop Dose Admin Amlodipine Besylate 5 mg 01/16/25 21:00 01/17/25 20:35 Amlodipine Besylate 5 Mg Tablet PO 5 mg HS RODDY Administration Aspirin 81 mg 01/16/25 08:00 01/18/25 08:54 Aspirin 81 Mg Chewable Tablet PO 81 mg DAILY@0800 RODDY Administration Calcium Carbonate 200 mg 01/17/25 23:42 01/18/25 00:33 Calcium Carbonate (Tums) 500 Mg (200 Mg Elemental) PO 200 mg Q6H PRN Administration Indigestion Dextrose 12.5 gm 01/16/25 06:20 Dextrose 50% 25 Gm/50 Ml Syringe IV PUSH PRN PRN Hypoglycemia Protocol Enoxaparin Sodium 40 mg 01/16/25 09:00 01/18/25 08:55 Enoxaparin 40 Mg/0.4 Ml Syringe SUB-Q 40 mg DAILY RODDY Administration Finasteride 5 mg 01/16/25 09:00 01/18/25 08:54 Finasteride 5 Mg Tablet PO 5 mg DAILY RODDY Administration Glimepiride 1 mg 01/16/25 09:00 01/18/25 08:54 Glimepiride 1 Mg Tablet PO 1 mg DAILY RODDY Administration Glucagon 1 mg 01/16/25 06:20 Glucagon For Inj 1 Mg Vial IM PRN PRN Hypoglycemia Protocol Glucose 15 gm 01/16/25 06:20 Glucose Oral Gel 15 Gm Of Glucse In 37.5 Gm Tube PO PRN PRN Hypoglycemia Protocol Cefepime HCl 2 gm/ Sodium 50 mls @ 100 mls/hr 01/16/25 11:00 01/18/25 10:57 Chloride IVPB 100 mls/hr Q12H RODDY Administration Metronidazole 500 mg in 100 mls @ 100 mls/hr 01/16/25 08:00 01/18/25 08:55 Flagyl 500 Mg/Iso Soln 100 Ml IVPB 100 mls/hr Q8H RODDY Administration Dextrose 1,000 mls @ 100 mls/hr 01/16/25 06:20 Dextrose 5% 1,000 Ml IVPB PRN PRN Hypoglycemia Protocol Vancomycin HCl 1,750 mg in 500 mls @ 250 mls/hr 01/17/25 18:00 01/18/25 05:17 Vancomycin 1,750 Mg/Ns 500 Ml IVPB 175 mls/hr Q12H RODDY Administration Indapamide 2.5 mg 01/16/25 09:00 01/18/25 08:54 Indapamide 2.5 Mg Tablet PO 2.5 mg DAILY RODDY Administration Insulin Aspart 3 - 6 units 01/16/25 08:00 01/18/25 08:53 Insulin Aspart (*Bkc) 100 Units/Ml SUB-Q Not Given TIDWM [facility] Protocol Insulin Aspart 1 - 3 units 01/16/25 21:00 01/17/25 20:36 Insulin Aspart (*Bkc) 100 Units/Ml SUB-Q Not Given HS [facility] Protocol Irbesartan 300 mg 01/16/25 09:00 01/18/25 08:53 Irbesartan 150 Mg Tablet PO 300 mg DAILY RODDY Administration Metoprolol Succinate 200 mg 01/16/25 09:00 01/18/25 08:54 Metoprolol Succinate Ext Rel 100 Mg Tabcr PO 200 mg DAILY RODDY Administration Paroxetine HCl 30 mg 01/18/25 09:00 01/18/25 08:55 Paroxetine 10 Mg Tablet PO 30 mg DAILY RODDY Administration Sitagliptin Phosphate 100 mg 01/16/25 09:00 01/18/25 08:55 Sitagliptin Phosphate 100 Mg Tablet PO 100 mg QAM RODDY Administration Radiology Results: ITS Impressions Chest X-Ray 01/16/25 09:39 IMPRESSION: 1. No acute cardiopulmonary findings given portable technique. Foot MRI 01/17/25 11:14 IMPRESSION: 1. Deep ulceration overlying the plantar/lateral base of the fifth metatarsal where there is a nondisplaced subacute fracture. There are marrow signal changes base of the fifth metatarsal likely reactive related to the fracture. Although early osteomyelitis could not be excluded there is no evident focal ostial lysis or loss of T1 marrow fat signal to more specifically suggest osteomyelitis. 2. Partial tear/likely focal perforation at the myotendinous junction of the abductor digiti minimi where it passes between the ulceration the base of the fifth metatarsal. 3. 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 Labs Labs: Laboratory Results - last 24 hr 01/17/25 01/17/25 01/17/25 16:07 17:10 20:13 WBC RBC Hgb Hct MCV MCH MCHC RDW Plt Count MPV Sodium Potassium Chloride Carbon Dioxide Anion Gap BUN Creatinine Estim Creat Clear Calc Estimated GFR Glucose POC Capillary Glucose 144 H 131 H Calcium Vancomycin Trough 12.4 01/18/25 01/18/25 01/18/25 05:44 08:17 11:21 WBC 7.3 RBC 4.26 L Hgb 12.2 L Hct 36.6 L MCV 85.9 MCH 28.6 MCHC 33.3 RDW 13.1 Plt Count 159 MPV 11.0 H Sodium 131 L Potassium 3.1 L Chloride 94 L Carbon Dioxide 28 Anion Gap 9 BUN 13 Creatinine 0.78 Estim Creat Clear Calc 107 Estimated GFR > 60 Glucose 167 H POC Capillary Glucose 155 H 263 H Calcium 8.4 Vancomycin Trough
[2025-01-18] MEDS: INSULIN ASPART (*BKC) 100 UNITS/ML SUB-Q (12:26)
--- NOTE | 2025-01-18 13:33 | P.PNGS_ITS ---
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 No evident focal osteolysis or loss of T1 marrow fat signal to more specifically suggest osteomyelitis although early osteomyelitis could not be excluded. Partial tear/likely focal perforation at the myotendinous junction of the abductor digiti minimi where it passes between the ulceration the base of the 5th metat arsal. * WBC 7.3 today. Erythema to foot seems improved. Continue IV antibiotics. * Continue daily local wound care. (2) Type 2 diabetes mellitus with hyperglycemia, without long-term current use of insulin: Code(s): E11.65 - Type 2 diabetes mellitus with hyperglycemia Status: Acute (3) Cellulitis of left lower leg: Code(s): L03.116 - Cellulitis of left lower limb Status: Acute Plan Discussed patient's case and plan of care with Dr. Morales. Subjective Subjective Date/Time Seen: 01/18/25 13:33 Patient reports: no new complaints, tolerating a regular diet (diabetic) and afebrile Interval history: Patient doing well today. No new complaints. Afebrile. WBC 7.3. Exam Extrem: General: normal to inspection and capillary refill normal Other: Left foot wound along the lateral plantar surface of the mid shaft of the 5th metatarsal. Wound measuring 4 cm x 3.5 cm with about 95% healthy granulation tissue. Minimal purulence drainage but no deep tunneling noted. Easily palpable dorsalis pedis posterior tibial pulse. Pitting edema to left foot and lower leg. Mild erythema to left lower leg. Objective Data Vital Signs Vital Signs: Vital Signs - 24 hr 01/17/25 20:00 01/17/25 20:11 01/18/25 05:15 Temperature 97.7 F 97.8 F Pulse Rate 74 74 Respiratory Rate 14 16 Blood Pressure 163/73 H 166/78 H Pulse Oximetry 96 95 Oxygen Delivery Room Air 01/18/25 08:00 01/18/25 08:54 Temperature Pulse Rate 82 Respiratory Rate Blood Pressure Pulse Oximetry Oxygen Delivery Room Air Intake/Output Intake/Output: Intake & Output 01/15/25 01/16/25 01/17/25 01/18/25 23:59 23:59 23:59 23:59 Intake Total 2270 2520 1008 Output Total 1400 3130 625 Balance 870 -067 383 Meds/Results Medications: Active Medications Generic Name Dose Route Start Last Admin Trade Name Freq PRN Reason Stop Dose Admin Amlodipine Besylate 5 mg 01/16/25 21:00 01/17/25 20:35 Amlodipine Besylate 5 Mg Tablet PO 5 mg HS RODDY Administration Aspirin 81 mg 01/16/25 08:00 01/18/25 08:54 Aspirin 81 Mg Chewable Tablet PO 81 mg DAILY@0800 RODDY Administration Calcium Carbonate 200 mg 01/17/25 23:42 01/18/25 00:33 Calcium Carbonate (Tums) 500 Mg (200 Mg Elemental) PO 200 mg Q6H PRN Administration Indigestion Dextrose 12.5 gm 01/16/25 06:20 Dextrose 50% 25 Gm/50 Ml Syringe IV PUSH PRN PRN Hypoglycemia Protocol Enoxaparin Sodium 40 mg 01/16/25 09:00 01/18/25 08:55 Enoxaparin 40 Mg/0.4 Ml Syringe SUB-Q 40 mg DAILY RODDY Administration Finasteride 5 mg 01/16/25 09:00 01/18/25 08:54 Finasteride 5 Mg Tablet PO 5 mg DAILY RODDY Administration Glimepiride 1 mg 01/16/25 09:00 01/18/25 08:54 Glimepiride 1 Mg Tablet PO 1 mg DAILY RODDY Administration Glucagon 1 mg 01/16/25 06:20 Glucagon For Inj 1 Mg Vial IM PRN PRN Hypoglycemia Protocol Glucose 15 gm 01/16/25 06:20 Glucose Oral Gel 15 Gm Of Glucse In 37.5 Gm Tube PO PRN PRN Hypoglycemia Protocol Cefepime HCl 2 gm/ Sodium 50 mls @ 100 mls/hr 01/16/25 11:00 01/18/25 10:57 Chloride IVPB 100 mls/hr Q12H RODDY Administration Metronidazole 500 mg in 100 mls @ 100 mls/hr 01/16/25 08:00 01/18/25 09:55 Flagyl 500 Mg/Iso Soln 100 Ml IVPB Infused Q8H RODDY Infusion Dextrose 1,000 mls @ 100 mls/hr 01/16/25 06:20 Dextrose 5% 1,000 Ml IVPB PRN PRN Hypoglycemia Protocol Vancomycin HCl 1,750 mg in 500 mls @ 250 mls/hr 01/17/25 18:00 01/18/25 05:17 Vancomycin 1,750 Mg/Ns 500 Ml IVPB 175 mls/hr Q12H RODDY Administration Indapamide 2.5 mg 01/16/25 09:00 01/18/25 08:54 Indapamide 2.5 Mg Tablet PO 2.5 mg DAILY RODDY Administration Insulin Aspart 3 - 6 units 01/16/25 08:00 01/18/25 12:26 Insulin Aspart (*Bkc) 100 Units/Ml SUB-Q 4 units TIDWM [facility] Administration Protocol Insulin Aspart 1 - 3 units 01/16/25 21:00 01/17/25 20:36 Insulin Aspart (*Bkc) 100 Units/Ml SUB-Q Not Given HS [facility] Protocol Irbesartan 300 mg 01/16/25 09:00 01/18/25 08:53 Irbesartan 150 Mg Tablet PO 300 mg DAILY RODDY Administration Metoprolol Succinate 200 mg 01/16/25 09:00 01/18/25 08:54 Metoprolol Succinate Ext Rel 100 Mg Tabcr PO 200 mg DAILY RODDY Administration Paroxetine HCl 30 mg 01/18/25 09:00 01/18/25 08:55 Paroxetine 10 Mg Tablet PO 30 mg DAILY RODDY Administration Sitagliptin Phosphate 100 mg 01/16/25 09:00 01/18/25 08:55 Sitagliptin Phosphate 100 Mg Tablet PO 100 mg QAM RODDY Administration Radiology Results: ITS Impressions Chest X-Ray 01/16/25 09:39 IMPRESSION: 1. No acute cardiopulmonary findings given portable technique. Foot MRI 01/17/25 11:14 IMPRESSION: 1. Deep ulceration overlying the plantar/lateral base of the fifth metatarsal where there is a nondisplaced subacute fracture. There are marrow signal changes base of the fifth metatarsal likely reactive related to the fracture. Although early osteomyelitis could not be excluded there is no evident focal ostial lysis or loss of T1 marrow fat signal to more specifically suggest osteomyelitis. 2. Partial tear/likely focal perforation at the myotendinous junction of the abductor digiti minimi where it passes between the ulceration the base of the fifth metatarsal. 3. 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 Labs Labs: Laboratory Results - last 24 hr 01/17/25 01/17/25 01/17/25 16:07 17:10 20:13 WBC RBC Hgb Hct MCV MCH MCHC RDW Plt Count MPV Sodium Potassium Chloride Carbon Dioxide Anion Gap BUN Creatinine Estim Creat Clear Calc Estimated GFR Glucose POC Capillary Glucose 144 H 131 H Calcium Vancomycin Trough 12.4 01/18/25 01/18/25 01/18/25 05:44 08:17 11:21 WBC 7.3 RBC 4.26 L Hgb 12.2 L Hct 36.6 L MCV 85.9 MCH 28.6 MCHC 33.3 RDW 13.1 Plt Count 159 MPV 11.0 H Sodium 131 L Potassium 3.1 L Chloride 94 L Carbon Dioxide 28 Anion Gap 9 BUN 13 Creatinine 0.78 Estim Creat Clear Calc 107 Estimated GFR > 60 Glucose 167 H POC Capillary Glucose 155 H 263 H Calcium 8.4 Vancomycin Trough
[2025-01-18 14:00] VITALS: BP 166/64; PULSE 72; RESP 12; TEMP 38.5; O2SAT 98
[2025-01-18 17:01] LABS: CRP 18.3 mg/dL (<1.0)
[2025-01-18 17:36] VITALS: TEMP 37.1
[2025-01-18 21:16] VITALS: BP 165/55; PULSE 77; RESP 18; TEMP 36.6; O2SAT 96
[2025-01-19 04:48] VITALS: BP 162/77; PULSE 67; RESP 18; TEMP 36; O2SAT 97
[2025-01-19 05:42] LABS: Estimated CRCL calculation 109 ml/min; Estimated Glomerular Filt Rate > 60
[2025-01-19] MEDS: VANCOMYCIN 2,000 MG/NS 500 ML 2,000 MG/500 ML BAG 250 MG IVPB ×2 (06:28→18:04)
--- NOTE | 2025-01-19 07:23 | P.PNIM_ITS ---
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 Patient has subsequently been started on empiric antibiotic therapy with cefepime vanc and Flagyl per antibiotic stewardship guidelines. * Wound cultures were obtained from the ER. * Blood cultures have been obtained and are pending. * Would cultures pending. * Patient did have some mild lactic acidosis and mildly elevated white count but did not meet sepsis criteria. * WBC count now normal * MRI of the left foot shows deep ulceration overlying the plantar/lateral base of the 5th metatarsal where there is a nondisplaced subacute fracture. Early signs of osteomyelitis cannot be excluded all their there is no evidence of focal osteolysis or loss of T1 marrow fat signal. * Infectious disease following, appreciate antibiotic discharge recommendations * General surgery has cleared patient for discharge from their stent * Continue cefepime, Flagyl, vancomycin * Blood cultures show no growth to date * ID recommends at this time 2 week course of ertapenem and daptomycin, follow- [facility] with [facility], however continue to follow cultures at this time * Wound culture: Gram-negative bacilli, no specificities as of yet (2) Type 2 diabetes mellitus with hyperglycemia, without long-term current use of insulin: Code(s): E11.65 - Type 2 diabetes mellitus with hyperglycemia Status: Acute Assessment and Plan: Patient has moderate hyperglycemia in the setting of relatively well controlled diabetes despite of complications of neuropathy. A1c earlier this month was 6.4. * Will resume the patient's oral hypoglycemic medications except for metformin. Metformin will be held due to lactic acidosis. * Patient was given 1 L IV fluids at 75 mL an hour lactic acidosis has already resolved. * Will place patient on moderate dose sliding scale insulin with Accu-Cheks a.c. HS. And hypoglycemia protocol as needed. (3) Hypomagnesemia: Code(s): E83.42 - Hypomagnesemia Status: Acute Assessment and Plan: * Patient had incidental finding of hypo magnesemia and received 2 g magnesium sulfate rider in the ER. * Will repeat electrolyte panel and magnesium level in a.m. (4) Charcot joint of foot: Code(s): M14.679 - Charcot's joint, unspecified ankle and foot Status: Acute Assessment and Plan: * Needs to see [facility]ots civil engineering specialist following discharge (5) Hypokalemia: Code(s): E87.6 - Hypokalemia Status: Resolved Assessment and Plan: * K+ is 3.0 on 01/17, replace wiht 40 meq kcl * recheck tomorrow * 01/18: K 3.1 * Will give additional supplementation Subjective Date/time seen: 01/19/25 07:23 Interval history: 74-year-old male with a past medical history of essential hypertension, hyperlipidemia, BPH, diabetic peripheral neuropathy, prior diabetic foot ulcers requiring surgical debridement and chronic foot deformities consistent with early Charcot changes who presented to the ER from home due to worsening left foot wound. 01/19/2025 Patient sitting comfortably bed at time of examination. General surgery cleared for discharge from their standpoint, however were still waiting on ID specific recommendations, which are waiting on wound culture specificities. Wound culture showing growth of Gram-negative bacilli, however still awaiting specificities. Patient otherwise doing well and wound has been repacked Review of Systems Review of Systems: 12 systems were reviewed with pertinent positives and negatives per HPI. Except as documented in the HPI, all other systems were reviewed and are negative. Exam Narrative: GENERAL: Comfortable, no acute distress EYES: EOM intact b/l RESPIRATORY: clear to auscultation, no increased respiratory effort CARDIO: Regular rate and rhythm SKIN/EXTREMITIES: Wound on left foot, charcot foot NEURO: PROM intact, answers questions appropriately, A&O x4 Const: Other: Obese, poor hygiene, no acute distress HENMT: Other: Mucous membranes are moist, no oral pharyngeal erythema, crowded posterior oropharynx Eyes: Other: No scleral icterus, no conjunctival pallor Neck: Other: Large neck circumference, no JVD Resp: Other: Clear to auscultation bilaterally, no increased work of breathing Cardio: Other: Regular rate, regular rhythm, 2+ bilateral radial pedal pulses GI: Other: Obese, soft, nontender, normoactive bowel sounds Skin: Other: Chronic erythema to bilateral lower extremities in the lateral anterior wilkinson, no increased warmth, large baseball size wound to the base of the left foot draining large amounts of cloudy serous almost purulent appearing material that is foul smelling with some surrounding erythema and warmth, no fluctuance in surrounding tissues Neuro: Other: Alert orient x4, speech is clear, no facial asymmetry, no localizing neurologic deficits noted during the course of conversation, chronic neuropathic discomfort to bilateral lower extremities Extrem: Other: Bony deformities of bilateral lateral feet on plantar surface suspicious for Charcot deformity with associated foot wound as discussed above and with chronic scab to the 4th toe of the right foot Psych: Other: Appropriate mood and affect, pleasant and cooperative, intact judgment and insight Objective Data Vital Signs Vital Signs: Vital Signs - 24 hr 01/18/25 08:00 01/18/25 08:54 01/18/25 14:00 Temperature 101.3 F H Pulse Rate 82 72 Respiratory Rate 12 Blood Pressure 166/64 H Pulse Oximetry 98 Oxygen Delivery Room Air 01/18/25 17:36 01/18/25 20:00 01/18/25 21:16 Temperature 98.7 F 98 F Pulse Rate 77 Respiratory Rate 18 Blood Pressure 165/55 H Pulse Oximetry 96 Oxygen Delivery Room Air 01/19/25 04:48 Temperature 96.8 F L Pulse Rate 67 Respiratory Rate 18 Blood Pressure 162/77 H Pulse Oximetry 97 Oxygen Delivery Intake/Output Intake/Output: Intake & Output 01/16/25 01/17/25 01/18/25 01/19/25 23:59 23:59 23:59 23:59 Intake Total 2270 2520 2538 650 Output Total 1400 3130 1950 1480 Balance 870 -610 588 -830 Meds/Results Medications: Active Medications Generic Name Dose Route Start Last Admin Trade Name Freq PRN Reason Stop Dose Admin Amlodipine Besylate 5 mg 01/16/25 21:00 01/18/25 20:51 Amlodipine Besylate 5 Mg Tablet PO 5 mg HS RODDY Administration Aspirin 81 mg 01/16/25 08:00 01/18/25 08:54 Aspirin 81 Mg Chewable Tablet PO 81 mg DAILY@0800 [facility] Administration Calcium Carbonate 200 mg 01/17/25 23:42 01/18/25 00:33 Calcium Carbonate (Tums) 500 Mg (200 Mg Elemental) PO 200 mg Q6H PRN Administration Indigestion Dextrose 12.5 gm 01/16/25 06:20 Dextrose 50% 25 Gm/50 Ml Syringe IV PUSH PRN PRN Hypoglycemia Protocol Enoxaparin Sodium 40 mg 01/16/25 09:00 01/18/25 08:55 Enoxaparin 40 Mg/0.4 Ml Syringe SUB-Q 40 mg DAILY RODDY Administration Finasteride 5 mg 01/16/25 09:00 01/18/25 08:54 Finasteride 5 Mg Tablet PO 5 mg DAILY RODDY Administration Glimepiride 1 mg 01/16/25 09:00 01/18/25 08:54 Glimepiride 1 Mg Tablet PO 1 mg DAILY RODDY Administration Glucagon 1 mg 01/16/25 06:20 Glucagon For Inj 1 Mg Vial IM PRN PRN Hypoglycemia Protocol Glucose 15 gm 01/16/25 06:20 Glucose Oral Gel 15 Gm Of Glucse In 37.5 Gm Tube PO PRN PRN Hypoglycemia Protocol Cefepime HCl 2 gm/ Sodium 50 mls @ 100 mls/hr 01/16/25 11:00 01/18/25 23:16 Chloride IVPB Infused Q12H RODDY Infusion Metronidazole 500 mg in 100 mls @ 100 mls/hr 01/16/25 08:00 01/19/25 00:16 Flagyl 500 Mg/Iso Soln 100 Ml IVPB Infused Q8H RODDY Infusion Dextrose 1,000 mls @ 100 mls/hr 01/16/25 06:20 Dextrose 5% 1,000 Ml IVPB PRN PRN Hypoglycemia Protocol Vancomycin HCl 2,000 mg in 500 mls @ 250 mls/hr 01/19/25 07:00 01/19/25 06:28 Vancomycin 2,000 Mg/Ns 500 Ml IVPB 250 mls/hr Q12H RODDY Administration Indapamide 2.5 mg 01/16/25 09:00 01/18/25 08:54 Indapamide 2.5 Mg Tablet PO 2.5 mg DAILY RODDY Administration Insulin Aspart 3 - 6 units 01/16/25 08:00 01/18/25 17:23 Insulin Aspart (*Bkc) 100 Units/Ml SUB-Q Not Given TIDWM RODDY Protocol Insulin Aspart 1 - 3 units 01/16/25 21:00 01/18/25 21:50 Insulin Aspart (*Bkc) 100 Units/Ml SUB-Q Not Given HS [facility] Protocol Irbesartan 300 mg 01/16/25 09:00 01/18/25 08:53 Irbesartan 150 Mg Tablet PO 300 mg DAILY RODDY Administration Metoprolol Succinate 200 mg 01/16/25 09:00 01/18/25 08:54 Metoprolol Succinate Ext Rel 100 Mg Tabcr PO 200 mg DAILY RODDY Administration Paroxetine HCl 30 mg 01/18/25 09:00 01/18/25 08:55 Paroxetine 10 Mg Tablet PO 30 mg DAILY RODDY Administration Sitagliptin Phosphate 100 mg 01/16/25 09:00 01/18/25 08:55 Sitagliptin Phosphate 100 Mg Tablet PO 100 mg QAM RODDY Administration Radiology Results: ITS Impressions Chest X-Ray 01/16/25 09:39 IMPRESSION: 1. No acute cardiopulmonary findings given portable technique. Foot MRI 01/17/25 11:14 IMPRESSION: 1. Deep ulceration overlying the plantar/lateral base of the fifth metatarsal where there is a nondisplaced subacute fracture. There are marrow signal changes base of the fifth metatarsal likely reactive related to the fracture. Although early osteomyelitis could not be excluded there is no evident focal ostial lysis or loss of T1 marrow fat signal to more specifically suggest osteomyelitis. 2. Partial tear/likely focal perforation at the myotendinous junction of the abductor digiti minimi where it passes between the ulceration the base of the fifth metatarsal. 3. 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 Labs Labs: Laboratory Results - last 24 hr 01/18/25 01/18/25 01/18/25 05:44 08:17 11:21 WBC 7.3 RBC 4.26 L Hgb 12.2 L Hct 36.6 L MCV 85.9 MCH 28.6 MCHC 33.3 RDW 13.1 Plt Count 159 MPV 11.0 H ESR Sodium 131 L Potassium 3.1 L Chloride 94 L Carbon Dioxide 28 Anion Gap 9 BUN 13 Creatinine 0.78 Estim Creat Clear Calc 107 Estimated GFR > 60 Glucose 167 H POC Capillary Glucose 155 H 263 H Calcium 8.4 C-Reactive Protein Vancomycin Trough 01/18/25 01/18/25 01/18/25 16:15 16:52 18:26 WBC RBC Hgb Hct MCV MCH MCHC RDW Plt Count MPV ESR 15 Sodium Potassium Chloride Carbon Dioxide Anion Gap BUN Creatinine Estim Creat Clear Calc Estimated GFR Glucose POC Capillary Glucose 119 H 166 H Calcium C-Reactive Protein 18.3 H Vancomycin Trough 01/18/25 01/19/25 20:06 05:13 WBC RBC Hgb Hct MCV MCH MCHC RDW Plt Count MPV ESR Sodium Potassium Chloride Carbon Dioxide Anion Gap BUN Creatinine 0.77 Estim Creat Clear Calc 109 Estimated GFR > 60 Glucose POC Capillary Glucose 150 H Calcium C-Reactive Protein Vancomycin Trough 14.3 Quality VTE Prophylaxis VTE prophylaxis: pharmacologic ordered (Lovenox 40 mg subQ daily.)
--- NOTE | 2025-01-19 08:14 | P.PNINF_ITS ---
Progress Note: A&P Assessment and Plan (1) Charcot joint of foot: Code(s): M14.679 - Charcot's joint, unspecified ankle and foot Status: Acute (2) Cellulitis of left lower leg: Code(s): L03.116 - Cellulitis of left lower limb Status: Acute Plan #diabetic foot. --MRI with possible osteomyelitis but may be due to fx #diabetes. Plan: cefepime Flagyl vancomycin. Based on chronicity and severity of wounds in presenting signs, I would favor 2 week course of ertapenem plus daptomycin via midline with close follow-up in [facility]. Final abx recs depend on wound cx f/u on wound cx for final abx recs--so far GNRs f/u on blood cxs from 01/16--NGTD repeat ESR 15 Patient was seen via telemedicine with the affected audio/visual interface. Was in [facility] I was in my office in [place]. Patient consented telemedicine. d/w pharmacy staff Subjective Date/time seen: 01/19/25 08:14 Interval history: No leukocytosis Exam Narrative: NAD, non-toxic, on room air Objective Data Vital Signs Vital Signs: Vital Signs - 24 hr 01/18/25 08:54 01/18/25 14:00 01/18/25 17:36 Temperature 101.3 F H 98.7 F Pulse Rate 82 72 Respiratory Rate 12 Blood Pressure 166/64 H Pulse Oximetry 98 Oxygen Delivery 01/18/25 20:00 01/18/25 21:16 01/19/25 04:48 Temperature 98 F 96.8 F L Pulse Rate 77 67 Respiratory Rate 18 18 Blood Pressure 165/55 H 162/77 H Pulse Oximetry 96 97 Oxygen Delivery Room Air Intake/Output Intake/Output: Intake & Output 01/16/25 01/17/25 01/18/25 01/19/25 23:59 23:59 23:59 23:59 Intake Total 2270 2520 2538 650 Output Total 1400 3130 1950 1480 Balance 870 -610 588 -830 Meds/Results Medications: Active Medications Generic Name Dose Route Start Last Admin Trade Name Freq PRN Reason Stop Dose Admin Amlodipine Besylate 5 mg 01/16/25 21:00 01/18/25 20:51 Amlodipine Besylate 5 Mg Tablet PO 5 mg HS RODDY Administration Aspirin 81 mg 10/12/25 08:00 01/18/25 08:54 Aspirin 81 Mg Chewable Tablet PO 81 mg DAILY@0800 [facility] Administration Calcium Carbonate 200 mg 01/17/25 23:42 01/18/25 00:33 Calcium Carbonate (Tums) 500 Mg (200 Mg Elemental) PO 200 mg Q6H PRN Administration Indigestion Dextrose 12.5 gm 01/16/25 06:20 Dextrose 50% 25 Gm/50 Ml Syringe IV PUSH PRN PRN Hypoglycemia Protocol Enoxaparin Sodium 40 mg 01/16/25 09:00 01/18/25 08:55 Enoxaparin 40 Mg/0.4 Ml Syringe SUB-Q 40 mg DAILY RODDY Administration Finasteride 5 mg 01/16/25 09:00 01/18/25 08:54 Finasteride 5 Mg Tablet PO 5 mg DAILY RODDY Administration Glimepiride 1 mg 01/16/25 09:00 01/18/25 08:54 Glimepiride 1 Mg Tablet PO 1 mg DAILY RODDY Administration Glucagon 1 mg 01/16/25 06:20 Glucagon For Inj 1 Mg Vial IM PRN PRN Hypoglycemia Protocol Glucose 15 gm 01/16/25 06:20 Glucose Oral Gel 15 Gm Of Glucse In 37.5 Gm Tube PO PRN PRN Hypoglycemia Protocol Cefepime HCl 2 gm/ Sodium 50 mls @ 100 mls/hr 01/16/25 11:00 01/18/25 23:16 Chloride IVPB Infused Q12H RODDY Infusion Metronidazole 500 mg in 100 mls @ 100 mls/hr 01/16/25 08:00 01/19/25 00:16 Flagyl 500 Mg/Iso Soln 100 Ml IVPB Infused Q8H RODDY Infusion Dextrose 1,000 mls @ 100 mls/hr 01/16/25 06:20 Dextrose 5% 1,000 Ml IVPB PRN PRN Hypoglycemia Protocol Vancomycin HCl 2,000 mg in 500 mls @ 250 mls/hr 01/19/25 07:00 01/19/25 06:28 Vancomycin 2,000 Mg/Ns 500 Ml IVPB 250 mls/hr Q12H RODDY Administration Indapamide 2.5 mg 01/16/25 09:00 01/18/25 08:54 Indapamide 2.5 Mg Tablet PO 2.5 mg DAILY RODDY Administration Insulin Aspart 3 - 6 units 01/16/25 08:00 01/18/25 17:23 Insulin Aspart (*Bkc) 100 Units/Ml SUB-Q Not Given TIDWM [facility] Protocol Insulin Aspart 1 - 3 units 01/16/25 21:00 01/18/25 21:50 Insulin Aspart (*Bkc) 100 Units/Ml SUB-Q Not Given HS RODDY Protocol Irbesartan 300 mg 01/16/25 09:00 01/18/25 08:53 Irbesartan 150 Mg Tablet PO 300 mg DAILY RODDY Administration Metoprolol Succinate 200 mg 01/16/25 09:00 01/18/25 08:54 Metoprolol Succinate Ext Rel 100 Mg Tabcr PO 200 mg DAILY RODDY Administration Paroxetine HCl 30 mg 01/18/25 09:00 01/18/25 08:55 Paroxetine 10 Mg Tablet PO 30 mg DAILY RODDY Administration Sitagliptin Phosphate 100 mg 01/16/25 09:00 01/18/25 08:55 Sitagliptin Phosphate 100 Mg Tablet PO 100 mg QAM RODDY Administration Radiology Results: ITS Impressions Chest X-Ray 01/16/25 09:39 IMPRESSION: 1. No acute cardiopulmonary findings given portable technique. Foot MRI 01/17/25 11:14 IMPRESSION: 1. Deep ulceration overlying the plantar/lateral base of the fifth metatarsal where there is a nondisplaced subacute fracture. There are marrow signal changes base of the fifth metatarsal likely reactive related to the fracture. Although early osteomyelitis could not be excluded there is no evident focal ostial lysis or loss of T1 marrow fat signal to more specifically suggest osteomyelitis. 2. Partial tear/likely focal perforation at the myotendinous junction of the abductor digiti minimi where it passes between the ulceration the base of the fifth metatarsal. 3. 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 Labs Labs: Laboratory Results - last 24 hr 01/18/25 01/18/25 01/18/25 05:44 08:17 11:21 WBC 7.3 RBC 4.26 L Hgb 12.2 L Hct 36.6 L MCV 85.9 MCH 28.6 MCHC 33.3 RDW 13.1 Plt Count 159 MPV 11.0 H ESR Sodium 131 L Potassium 3.1 L Chloride 94 L Carbon Dioxide 28 Anion Gap 9 BUN 13 Creatinine Estim Creat Clear Calc Estimated GFR Glucose 167 H POC Capillary Glucose 155 H 263 H Calcium 8.4 C-Reactive Protein Vancomycin Trough 01/18/25 01/18/25 01/18/25 16:15 16:52 18:26 WBC RBC Hgb Hct MCV MCH MCHC RDW Plt Count MPV ESR 15 Sodium Potassium Chloride Carbon Dioxide Anion Gap BUN Creatinine Estim Creat Clear Calc Estimated GFR Glucose POC Capillary Glucose 119 H 166 H Calcium C-Reactive Protein 18.3 H Vancomycin Trough 01/18/25 01/19/25 01/19/25 20:06 05:13 07:46 WBC RBC Hgb Hct MCV MCH MCHC RDW Plt Count MPV ESR Sodium Potassium Chloride Carbon Dioxide Anion Gap BUN Creatinine 0.77 Estim Creat Clear Calc 109 Estimated GFR > 60 Glucose POC Capillary Glucose 150 H 171 H Calcium C-Reactive Protein Vancomycin Trough 14.3
[2025-01-19] MEDS: INDAPAMIDE 2.5 MG TABLET PO (08:23)
[2025-01-19] MEDS: IRBESARTAN 150 MG TABLET 300 MG PO (08:23)
[2025-01-19] MEDS: ASPIRIN 81 MG CHEWABLE TABLET PO (08:23)
[2025-01-19 08:24] VITALS: PULSE 70
[2025-01-19] MEDS: METOPROLOL SUCCINATE EXT REL 100 MG TABCR 200 MG PO (08:24)
[2025-01-19] MEDS: GLIMEPIRIDE 1 MG TABLET PO (08:24)
[2025-01-19] MEDS: FINASTERIDE 5 MG TABLET PO (08:24)
[2025-01-19] MEDS: metroNIDAZOLE 500 MG/ISO 100ML 500 MG/100 ML BAG 100 MG IVPB (08:25)
[2025-01-19] MEDS: ENOXAPARIN 40 MG/0.4 ML SYRINGE SUB-Q (08:27)
--- NOTE | 2025-01-19 10:51 | PM.PNGS ---
Progress Note: A&P Assessment and Plan (1) Diabetic foot ulcer: Qualifiers: Diabetes mellitus type: type 2 Diabetic foot ulcer location: midfoot Laterality: left Non-pressure ulcer stage: with fat layer exposed Qualified Code(s): E11.621 - Type 2 diabetes mellitus with foot ulcer; L97.422 - Non-pressure chronic ulcer of left heel and midfoot with fat layer exposed Code(s): E11.621 - Type 2 diabetes mellitus with foot ulcer; L97.509 - Non-pressure chronic ulcer of other part of unspecified foot with unspecified severity Status: Acute Assessment and Plan: Surgically stable for discharge with antibiotics per ID recommendations. Continue daily local wound care with silver gel and Hydrofera blue foam. Follow-up in the wound clinic after discharge. He is also planning referral to Charcot clinic at [facility] on discharge. (2) Type 2 diabetes mellitus with hyperglycemia, without long-term current use of insulin: Code(s): E11.65 - Type 2 diabetes mellitus with hyperglycemia Status: Acute (3) Cellulitis of left lower leg: Code(s): L03.116 - Cellulitis of left lower limb Status: Acute Plan Discussed patient's case and plan of care with Dr. Morales. Subjective Subjective Date/Time Seen: 01/19/25 10:51 Patient reports: no new complaints and afebrile Interval history: No changes overnight. Patient reports improvement in swelling in left foot. Patient has neuropathy and denies any pain in his foot. Exam Const: General: comfortable and no acute distress Orientation/consciousness: patient oriented x3 Extrem: Other: Left foot wound along the lateral plantar surface of the mid shaft of the 5th metatarsal. Wound measuring 4 cm x 3.5 cm with about 95% healthy granulation tissue and a small area of yellow tissue in the center of the wound. No purulent drainage. No tunneling. No significant erythema of the left foot, edema improved. Objective Data Vital Signs Vital Signs: Vital Signs - 24 hr 01/18/25 14:00 01/18/25 17:36 01/18/25 20:00 Temperature 101.3 F H 98.7 F Pulse Rate 72 Respiratory Rate 12 Blood Pressure 166/64 H Pulse Oximetry 98 Oxygen Delivery Room Air 01/18/25 21:16 01/19/25 04:48 01/19/25 08:24 Temperature 98 F 96.8 F L Pulse Rate 77 67 70 Respiratory Rate 18 18 Blood Pressure 165/55 H 162/77 H Pulse Oximetry 96 97 Oxygen Delivery Intake/Output Intake/Output: Intake & Output 01/16/25 01/17/25 01/18/25 01/19/25 23:59 23:59 23:59 23:59 Intake Total 2270 2520 2538 890 Output Total 1400 3130 1950 1480 Balance 870 610 588 -590 Meds/Results Medications: Active Medications Generic Name Dose Route Start Last Admin Trade Name Freq PRN Reason Stop Dose Admin Amlodipine Besylate 5 mg 01/16/25 21:00 01/18/25 20:51 Amlodipine Besylate 5 Mg Tablet PO 5 mg HS RODDY Administration Aspirin 81 mg 01/16/25 08:00 01/19/25 08:23 Aspirin 81 Mg Chewable Tablet PO 81 mg DAILY@0800 RODDY Administration Calcium Carbonate 200 mg 01/17/25 23:42 01/18/25 00:33 Calcium Carbonate (Tums) 500 Mg (200 Mg Elemental) PO 200 mg Q6H PRN Administration Indigestion Dextrose 12.5 gm 01/16/25 06:20 Dextrose 50% 25 Gm/50 Ml Syringe IV PUSH PRN PRN Hypoglycemia Protocol Enoxaparin Sodium 40 mg 01/16/25 09:00 01/19/25 08:27 Enoxaparin 40 Mg/0.4 Ml Syringe SUB-Q 40 mg DAILY RODDY Administration Finasteride 5 mg 01/16/25 09:00 01/19/25 08:24 Finasteride 5 Mg Tablet PO 5 mg DAILY RODDY Administration Glimepiride 1 mg 01/16/25 09:00 01/19/25 08:24 Glimepiride 1 Mg Tablet PO 1 mg DAILY RODDY Administration Glucagon 1 mg 01/16/25 06:20 Glucagon For Inj 1 Mg Vial IM PRN PRN Hypoglycemia Protocol Glucose 15 gm 01/16/25 06:20 Glucose Oral Gel 15 Gm Of Glucse In 37.5 Gm Tube PO PRN PRN Hypoglycemia Protocol Cefepime HCl 2 gm/ Sodium 50 mls @ 100 mls/hr 01/16/25 11:00 01/18/25 23:16 Chloride IVPB Infused Q12H RODDY Infusion Metronidazole 500 mg in 100 mls @ 100 mls/hr 01/16/25 08:00 01/19/25 08:25 Flagyl 500 Mg/Iso Soln 100 Ml IVPB 100 mls/hr Q8H RODDY Administration Dextrose 1,000 mls @ 100 mls/hr 01/16/25 06:20 Dextrose 5% 1,000 Ml IVPB PRN PRN Hypoglycemia Protocol Vancomycin HCl 2,000 mg in 500 mls @ 250 mls/hr 01/19/25 07:00 01/19/25 06:28 Vancomycin 2,000 Mg/Ns 500 Ml IVPB 250 mls/hr Q12H RODDY Administration Indapamide 2.5 mg 01/16/25 09:00 01/19/25 08:23 Indapamide 2.5 Mg Tablet PO 2.5 mg DAILY RODDY Administration Insulin Aspart 3 - 6 units 01/16/25 08:00 01/19/25 08:25 Insulin Aspart (*Bkc) 100 Units/Ml SUB-Q Not Given TIDWM [facility] Protocol Insulin Aspart 1 - 3 units 01/16/25 21:00 01/18/25 21:50 Insulin Aspart (*Bkc) 100 Units/Ml SUB-Q Not Given HS RODDY Protocol Irbesartan 300 mg 01/16/25 09:00 01/19/25 08:23 Irbesartan 150 Mg Tablet PO 300 mg DAILY RODDY Administration Metoprolol Succinate 200 mg 01/16/25 09:00 01/19/25 08:24 Metoprolol Succinate Ext Rel 100 Mg Tabcr PO 200 mg DAILY RODDY Administration Paroxetine HCl 30 mg 01/18/25 09:00 01/19/25 08:24 Paroxetine 10 Mg Tablet PO 30 mg DAILY RODDY Administration Sitagliptin Phosphate 100 mg 01/16/25 09:00 01/19/25 08:24 Sitagliptin Phosphate 100 Mg Tablet PO 100 mg QAM RODDY Administration Radiology Results: ITS Impressions Chest X-Ray 01/16/25 09:39 IMPRESSION: 1. No acute cardiopulmonary findings given portable technique. Foot MRI 01/17/25 11:14 IMPRESSION: 1. Deep ulceration overlying the plantar/lateral base of the fifth metatarsal where there is a nondisplaced subacute fracture. There are marrow signal changes base of the fifth metatarsal likely reactive related to the fracture. Although early osteomyelitis could not be excluded there is no evident focal ostial lysis or loss of T1 marrow fat signal to more specifically suggest osteomyelitis. 2. Partial tear/likely focal perforation at the myotendinous junction of the abductor digiti minimi where it passes between the ulceration the base of the fifth metatarsal. 3. 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 Labs Labs: Laboratory Results - last 24 hr 01/18/25 01/18/25 01/18/25 11:21 16:15 16:52 ESR 15 Creatinine Estim Creat Clear Calc Estimated GFR POC Capillary Glucose 263 H 119 H C-Reactive Protein 18.3 H Vancomycin Trough 01/18/25 01/18/25 01/19/25 18:26 20:06 05:13 ESR Creatinine 0.77 Estim Creat Clear Calc 109 Estimated GFR > 60 POC Capillary Glucose 166 H 150 H C-Reactive Protein Vancomycin Trough 14.3 01/19/25 07:46 ESR Creatinine Estim Creat Clear Calc Estimated GFR POC Capillary Glucose 171 H C-Reactive Protein Vancomycin Trough
[2025-01-19] MEDS: CEFEPIME 2 GM in SODIUM CHLORIDE 0.9% IV 50 ML 100 ML IVPB ×2 (11:42→23:28)
[2025-01-19 14:00] VITALS: BP 151/69; PULSE 66; RESP 16; TEMP 36.8; O2SAT 98
--- NOTE | 2025-01-19 18:11 | PC.NURSE ---
Vira Robles from surgery asked this nurse to create a template of the sponge used to dress this patients foot wound. The patient refused for this nurse to do it on this shift because surgery just changed it. Patient states he will let the next nurse know to cut out a template at the next dressing change. This nurse will pass the task on to the following nurse.
[2025-01-19 21:40] VITALS: BP 139/62; PULSE 67; RESP 18; TEMP 37.1; O2SAT 98
[2025-01-20 06:00] VITALS: BP 164/71; PULSE 67; RESP 18; TEMP 36.8; O2SAT 97
[2025-01-20] MEDS: VANCOMYCIN 2,000 MG/NS 500 ML 2,000 MG/500 ML BAG 250 MG IVPB (06:06)
[2025-01-20] MEDS: IRBESARTAN 150 MG TABLET 300 MG PO (08:54)
[2025-01-20 08:55] VITALS: PULSE 76; O2SAT 97
[2025-01-20] MEDS: METOPROLOL SUCCINATE EXT REL 100 MG TABCR 200 MG PO (08:55)
[2025-01-20] MEDS: ASPIRIN 81 MG CHEWABLE TABLET PO (08:55)
[2025-01-20] MEDS: FINASTERIDE 5 MG TABLET PO (08:57)
[2025-01-20] MEDS: INDAPAMIDE 2.5 MG TABLET PO (08:57)
[2025-01-20] MEDS: GLIMEPIRIDE 1 MG TABLET PO (08:58)
[2025-01-20] MEDS: ENOXAPARIN 40 MG/0.4 ML SYRINGE SUB-Q (08:58)
[2025-01-20] MEDS: INSULIN ASPART (*BKC) 100 UNITS/ML SUB-Q (12:20)
[2025-01-20] MEDS: CEFEPIME 2 GM in SODIUM CHLORIDE 0.9% IV 50 ML 100 ML IVPB (12:22)
[2025-01-20 14:00] VITALS: BP 145/70; PULSE 69; RESP 16; TEMP 36.2; O2SAT 99
--- NOTE | 2025-01-20 14:18 | P.PNINF_ITS ---
Progress Note: A&P Assessment and Plan (1) Charcot joint of foot: Code(s): M14.679 - Charcot's joint, unspecified ankle and foot Status: Acute (2) Cellulitis of left lower leg: Code(s): L03.116 - Cellulitis of left lower limb Status: Acute Plan #diabetic foot. --MRI with possible osteomyelitis but may be due to fx #diabetes. Plan: continue cefepime while here stop flagyl stop vanco wound cx with GNRs f/u on blood cxs from 01/16--NGTD repeat ESR 15 place midline--ordered ok to discharge on ertapenem 1 gram IV Q24 hrs through January 31 weekly cmp, cbc faxed to my office at [phone] f/u in wound care clinic Patient was seen via telemedicine with the affected audio/visual interface. Was in [facility] while I was in my office in [place]. Patient consented telemedicine. d/w pharmacy staff and nursing staff Subjective Date/time seen: 01/20/25 14:18 Interval history: no fever Exam Narrative: NAD, non-toxic, on room air Objective Data Vital Signs Vital Signs: Vital Signs - 24 hr 01/19/25 20:00 01/19/25 21:40 01/20/25 06:00 Temperature 98.8 F 98.2 F Pulse Rate 67 67 Respiratory Rate 18 18 Blood Pressure 139/62 164/71 H Pulse Oximetry 98 97 Oxygen Delivery Room Air 01/20/25 08:55 Temperature Pulse Rate 76 Respiratory Rate Blood Pressure Pulse Oximetry Oxygen Delivery Intake/Output Intake/Output: Intake & Output 01/17/25 01/18/25 01/19/25 01/20/25 23:59 23:59 23:59 23:59 Intake Total 2520 2538 2650 1010 Output Total 3130 1950 3480 2150 [facility] -610 588 -830 -1140 Meds/Results Medications: Active Medications Generic Name Dose Route Start Last Admin Trade Name Freq PRN Reason Stop Dose Admin Amlodipine Besylate 5 mg 01/16/25 21:00 01/19/25 21:05 Amlodipine Besylate 5 Mg Tablet PO 5 mg HS RODDY Administration Aspirin 81 mg 01/16/25 08:00 01/20/25 08:55 Aspirin 81 Mg Chewable Tablet PO 81 mg DAILY@0800 RODDY Administration Calcium Carbonate 200 mg 01/17/25 23:42 01/18/25 00:33 Calcium Carbonate (Tums) 500 Mg (200 Mg Elemental) PO 200 mg Q6H PRN Administration Indigestion Dextrose 12.5 gm 01/16/25 06:20 Dextrose 50% 25 Gm/50 Ml Syringe IV PUSH PRN PRN Hypoglycemia Protocol Enoxaparin Sodium 40 mg 01/16/25 09:00 01/20/25 08:58 Enoxaparin 40 Mg/0.4 Ml Syringe SUB-Q 40 mg DAILY RODDY Administration Finasteride 5 mg 01/16/25 09:00 01/20/25 08:57 Finasteride 5 Mg Tablet PO 5 mg DAILY RODDY Administration Glimepiride 1 mg 01/16/25 09:00 01/20/25 08:58 Glimepiride 1 Mg Tablet PO 1 mg DAILY RODDY Administration Glucagon 1 mg 01/16/25 06:20 Glucagon For Inj 1 Mg Vial IM PRN PRN Hypoglycemia Protocol Glucose 15 gm 01/16/25 06:20 Glucose Oral Gel 15 Gm Of Glucse In 37.5 Gm Tube PO PRN PRN Hypoglycemia Protocol Cefepime HCl 2 gm/ Sodium 50 mls @ 100 mls/hr 01/16/25 11:00 01/20/25 12:22 Chloride IVPB 100 mls/hr Q12H RODDY Administration Dextrose 1,000 mls @ 100 mls/hr 01/16/25 06:20 Dextrose 5% 1,000 Ml IVPB PRN PRN Hypoglycemia Protocol Indapamide 2.5 mg 01/16/25 09:00 01/20/25 08:57 Indapamide 2.5 Mg Tablet PO 2.5 mg DAILY RODDY Administration Insulin Aspart 3 - 6 units 01/16/25 08:00 01/20/25 12:20 Insulin Aspart (*Bkc) 100 Units/Ml SUB-Q 3 units TIDWM RODDY Administration Protocol Insulin Aspart 1 - 3 units 01/16/25 21:00 01/19/25 21:09 Insulin Aspart (*Bkc) 100 Units/Ml SUB-Q Not Given HS RODDY Protocol Irbesartan 300 mg 01/16/25 09:00 01/20/25 08:54 Irbesartan 150 Mg Tablet PO 300 mg DAILY RODDY Administration Metoprolol Succinate 200 mg 01/16/25 09:00 01/20/25 08:55 Metoprolol Succinate Ext Rel 100 Mg Tabcr PO 200 mg DAILY RODDY Administration Paroxetine HCl 30 mg 01/18/25 09:00 01/20/25 08:57 Paroxetine 10 Mg Tablet PO 30 mg DAILY RODDY Administration Sitagliptin Phosphate 100 mg 01/16/25 09:00 01/20/25 08:57 Sitagliptin Phosphate 100 Mg Tablet PO 100 mg QAM RODDY Administration Radiology Results: ITS Impressions Chest X-Ray 01/16/25 09:39 IMPRESSION: 1. No acute cardiopulmonary findings given portable technique. Foot MRI 01/17/25 11:14 IMPRESSION: 1. Deep ulceration overlying the plantar/lateral base of the fifth metatarsal where there is a nondisplaced subacute fracture. There are marrow signal changes base of the fifth metatarsal likely reactive related to the fracture. Although early osteomyelitis could not be excluded there is no evident focal ostial lysis or loss of T1 marrow fat signal to more specifically suggest osteomyelitis. 2. Partial tear/likely focal perforation at the myotendinous junction of the abductor digiti minimi where it passes between the ulceration the base of the fifth metatarsal. 3. 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 Labs Labs: Laboratory Results - last 24 hr 01/19/25 01/19/25 01/20/25 16:02 20:32 07:42 POC Capillary Glucose 169 H 148 H 189 H 01/20/25 11:55 POC Capillary Glucose 211 H
[2025-01-20] MEDS: LIDOCAINE 1% LOCAL INJ 2 ML AMPUL 5 ML INFILTRATE (14:45)
--- NOTE | 2025-01-20 15:07 | P.PNIM_ITS ---
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 Patient has subsequently been started on empiric antibiotic therapy with cefepime vanc and Flagyl per antibiotic stewardship guidelines. * Wound cultures were obtained from the ER. * Blood cultures have been obtained and are pending. * Would cultures pending. * Patient did have some mild lactic acidosis and mildly elevated white count but did not meet sepsis criteria. * WBC count now normal * MRI of the left foot shows deep ulceration overlying the plantar/lateral base of the 5th metatarsal where there is a nondisplaced subacute fracture. Early signs of osteomyelitis cannot be excluded all their there is no evidence of focal osteolysis or loss of T1 marrow fat signal. * Infectious disease following, appreciate antibiotic discharge recommendations * General surgery has cleared patient for discharge from their stent * Continue cefepime, Flagyl, vancomycin * Blood cultures show no growth to date * ID recommends ertapenem 1 gram Q 24 hrs until January 31, 2025, [facility] with [facility] * Wound culture: Gram-negative bacilli, no specificities as of yet * weekly cmp, cbc faxed to my office at [phone] (Infectious Disease) * order placed to have midline catheter placed * CM working on getting home infusion and IV antibiotics set up, patient has done this before in the past * discharge patient once arrangements are confirmed (2) Type 2 diabetes mellitus with hyperglycemia, without long-term current use of insulin: Code(s): E11.65 - Type 2 diabetes mellitus with hyperglycemia Status: Acute Assessment and Plan: Patient has moderate hyperglycemia in the setting of relatively well controlled diabetes despite of complications of neuropathy. A1c earlier this month was 6.4. * Will resume the patient's oral hypoglycemic medications except for metformin. Metformin will be held due to lactic acidosis. * Patient was given 1 L IV fluids at 75 mL an hour lactic acidosis has already resolved. * Will place patient on moderate dose sliding scale insulin with Accu-Cheks a.c. HS. And hypoglycemia protocol as needed. (3) Hypomagnesemia: Code(s): E83.42 - Hypomagnesemia Status: Acute Assessment and Plan: * Patient had incidental finding of hypo magnesemia and received 2 g magnesium sulfate rider in the ER. * Will repeat electrolyte panel and magnesium level in a.m. (4) Charcot joint of foot: Code(s): M14.679 - Charcot's joint, unspecified ankle and foot Status: Acute Assessment and Plan: * Needs to see [employer] operating systems specialist following discharge (5) Hypokalemia: Code(s): E87.6 - Hypokalemia Status: Resolved Assessment and Plan: * s/p replacement * BMP in am Subjective Date/time seen: 01/20/25 15:07 Interval history: 74-year-old male with a past medical history of essential hypertension, hyperlipidemia, BPH, diabetic peripheral neuropathy, prior diabetic foot ulcers requiring surgical debridement and chronic foot deformities consistent with early Charcot changes who presented to the ER from home due to worsening left foot wound. 01/20/2025 Patient seen for a routine follow up visit. Patient seen sitting up in bed, in no acute distress. Patient denies acute pain. ID is recommending IV ertapenem until 01/31. Orders placed for patient to have midline placed. CM working on setting up home infusion and obtaining antibiotics to be delivered to patients home. Patient cleared for discharge by orthopedic surgery. Patient will need to follow up outptaient with the wound clinic. Plan for patient to discharge home tomorrow if home infusion ready. Review of Systems Review of Systems: 12 systems were reviewed with pertinent positives and negatives per HPI. Except as documented in the HPI, all other systems were reviewed and are negative. Exam Narrative: GENERAL: Comfortable, no acute distress EYES: EOM intact b/l RESPIRATORY: clear to auscultation, no increased respiratory effort CARDIO: Regular rate and rhythm SKIN/EXTREMITIES: Wound on left foot, charcot foot NEURO: PROM intact, answers questions appropriately, A&O x4 Const: Other: Obese, poor hygiene, no acute distress HENMT: Other: Mucous membranes are moist Eyes: Other: No scleral icterus, no conjunctival pallor Neck: Other: Large neck circumference Resp: Other: Clear to auscultation bilaterally, no increased work of breathing Cardio: Other: Regular rate, regular rhythm GI: Other: Obese, soft, nontender, normoactive bowel sounds Skin: Other: Chronic erythema to bilateral lower extremities in the lateral anterior wilkinson, no increased warmth, dressing to left foot wound Neuro: Other: Alert orient x4, speech is clear, no facial asymmetry, no localizing neurologic deficits noted during the course of conversation, chronic neuropathic discomfort to bilateral lower extremities Extrem: Other: Bony deformities of bilateral lateral feet on plantar surface suspicious for Charcot deformity Psych: Other: Appropriate mood and affect, pleasant and cooperative, intact judgment and insight Objective Data Vital Signs Vital Signs: Vital Signs - 24 hr 01/19/25 20:00 01/19/25 21:40 01/20/25 06:00 Temperature 98.8 F 98.2 F Pulse Rate 67 67 Respiratory Rate 18 18 Blood Pressure 139/62 164/71 H Pulse Oximetry 98 97 Oxygen Delivery Room Air 01/20/25 08:55 01/20/25 08:55 Temperature Pulse Rate 76 Respiratory Rate Blood Pressure Pulse Oximetry 97 Oxygen Delivery Room Air Intake/Output Intake/Output: Intake & Output 01/17/25 01/18/25 01/19/25 01/20/25 23:59 23:59 23:59 23:59 Intake Total 2520 2538 2650 1010 Output Total 3130 1950 3480 2150 Balance -610 588 -830 -1140 Meds/Results Medications: Active Medications Generic Name Dose Route Start Last Admin Trade Name Freq PRN Reason Stop Dose Admin Amlodipine Besylate 5 mg 01/16/25 21:00 01/19/25 21:05 Amlodipine Besylate 5 Mg Tablet PO 5 mg HS RODDY Administration Aspirin 81 mg 01/16/25 08:00 01/20/25 08:55 Aspirin 81 Mg Chewable Tablet PO 81 mg DAILY@0800 RODDY Administration Calcium Carbonate 200 mg 01/17/25 23:42 01/18/25 00:33 Calcium Carbonate (Tums) 500 Mg (200 Mg Elemental) PO 200 mg Q6H PRN Administration Indigestion Dextrose 12.5 gm 01/16/25 06:20 Dextrose 50% 25 Gm/50 Ml Syringe IV PUSH PRN PRN Hypoglycemia Protocol Enoxaparin Sodium 40 mg 01/16/25 09:00 01/20/25 08:58 Enoxaparin 40 Mg/0.4 Ml Syringe SUB-Q 40 mg DAILY RODDY Administration Finasteride 5 mg 01/16/25 09:00 01/20/25 08:57 Finasteride 5 Mg Tablet PO 5 mg DAILY RODDY Administration Glimepiride 1 mg 01/16/25 09:00 01/20/25 08:58 Glimepiride 1 Mg Tablet PO 1 mg DAILY RODDY Administration Glucagon 1 mg 01/16/25 06:20 Glucagon For Inj 1 Mg Vial IM PRN PRN Hypoglycemia Protocol Glucose 15 gm 01/16/25 06:20 Glucose Oral Gel 15 Gm Of Glucse In 37.5 Gm Tube PO PRN PRN Hypoglycemia Protocol Cefepime HCl 2 gm/ Sodium 50 mls @ 100 mls/hr 01/16/25 11:00 01/20/25 12:22 Chloride IVPB 100 mls/hr Q12H RODDY Administration Dextrose 1,000 mls @ 100 mls/hr 01/16/25 06:20 Dextrose 5% 1,000 Ml IVPB PRN PRN Hypoglycemia Protocol Indapamide 2.5 mg 01/16/25 09:00 01/20/25 08:57 Indapamide 2.5 Mg Tablet PO 2.5 mg DAILY RODDY Administration Insulin Aspart 3 - 6 units 01/16/25 08:00 01/20/25 12:20 Insulin Aspart (*Bkc) 100 Units/Ml SUB-Q 3 units TIDWM RODDY Administration Protocol Insulin Aspart 1 - 3 units 01/16/25 21:00 01/19/25 21:09 Insulin Aspart (*Bkc) 100 Units/Ml SUB-Q Not Given HS RODDY Protocol Irbesartan 300 mg 01/16/25 09:00 01/20/25 08:54 Irbesartan 150 Mg Tablet PO 300 mg DAILY RODDY Administration Metoprolol Succinate 200 mg 01/16/25 09:00 01/20/25 08:55 Metoprolol Succinate Ext Rel 100 Mg Tabcr PO 200 mg DAILY RODDY Administration Paroxetine HCl 30 mg 01/18/25 09:00 01/20/25 08:57 Paroxetine 10 Mg Tablet PO 30 mg DAILY RODDY Administration Sitagliptin Phosphate 100 mg 01/16/25 09:00 01/20/25 08:57 Sitagliptin Phosphate 100 Mg Tablet PO 100 mg QAM RODDY Administration Radiology Results: ITS Impressions Chest X-Ray 01/16/25 09:39 IMPRESSION: 1. No acute cardiopulmonary findings given portable technique. Foot MRI 01/17/25 11:14 IMPRESSION: 1. Deep ulceration overlying the plantar/lateral base of the fifth metatarsal where there is a nondisplaced subacute fracture. There are marrow signal changes base of the fifth metatarsal likely reactive related to the fracture. Although early osteomyelitis could not be excluded there is no evident focal ostial lysis or loss of T1 marrow fat signal to more specifically suggest osteomyelitis. 2. Partial tear/likely focal perforation at the myotendinous junction of the abductor digiti minimi where it passes between the ulceration the base of the fifth metatarsal. 3. 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 Labs Labs: Laboratory Results - last 24 hr 01/19/25 01/19/25 01/20/25 16:02 20:32 07:42 POC Capillary Glucose 169 H 148 H 189 H 01/20/25 11:55 POC Capillary Glucose 211 H Quality VTE Prophylaxis VTE prophylaxis: pharmacologic ordered (Lovenox 40 mg subQ daily.)
[2025-01-20 20:00] VITALS: PULSE 65; RESP 16; O2SAT 97
[2025-01-20 20:15] VITALS: BP 165/70; PULSE 65; RESP 16; TEMP 36.1; O2SAT 97
[2025-01-20] MEDS: SALINE LOCK FLUSH 10 ML IV PUSH (21:57)
[2025-01-21] MEDS: CEFEPIME 2 GM in SODIUM CHLORIDE 0.9% IV 50 ML 100 ML IVPB (00:02)
[2025-01-21 04:20] VITALS: BP 163/75; PULSE 66; RESP 16; TEMP 35.9; O2SAT 98
[2025-01-21] MEDS: SALINE LOCK FLUSH 10 ML IV PUSH ×2 (06:00→14:52)
[2025-01-21 06:19] LABS: Hematocrit 39.5 % (42.0-52.0); Hemoglobin 12.9 g/dL (14.0-18.0); Immature Granulocyte Percent A 0.6 % (0-0.5); Lymphocytes Absolute Auto 0.83 K/mm3 (0.9-3.2); Mean Corpuscular HGB Conc 32.7 g/dl (32-36); Mean Corpuscular Hemoglobin 28.4 pg (26-34); Mean Corpuscular Volume 87.0 fl (80-100); Nucleated Red Blood Cells Absolute Auto 0.000 K/mm3 (0.0-0.012); Nucleated Red Blood Cells Perc 0.0 % (0.0-0.2); Platelet Count Result 202 k/mm3 (150-375); Red Blood Count 4.54 M/mm3 (4.6-6.20); White Blood Count 6.9 K/mm3 (4.5-10.0)
[2025-01-21 06:43] LABS: Alanine Aminotransferase 13 U/L (6-50); Albumin Level 3.5 g/dL (3.5-5.1); Alkaline Phosphatase 60 U/L (38-126); Anion Gap 7 mmol/L (4-12); Aspartate Amino Transferase 23 U/L (17-59); Bilirubin,Total 0.4 mg/dL (0.2-1.3); Blood Urea Nitrogen 18 mg/dL (9-20); Calcium 8.9 mg/dL (8.4-10.2); Carbon Dioxide 34 mmol/L (22-30); Chloride 93 mmol/L (98-107); Estimated CRCL calculation 97 ml/min; Estimated Glomerular Filt Rate > 60; Glucose 184 mg/dL (65-110); Potassium 3.2 mmol/L (3.4-5.0); Sodium 134 mmol/L (137-145); Total Protein 7.0 g/dL (6.3-8.2)
[2025-01-21] MEDS: IRBESARTAN 150 MG TABLET 300 MG PO (08:33)
[2025-01-21] MEDS: FINASTERIDE 5 MG TABLET PO (08:33)
[2025-01-21] MEDS: ASPIRIN 81 MG CHEWABLE TABLET PO (08:33)
[2025-01-21] MEDS: GLIMEPIRIDE 1 MG TABLET PO (08:33)
[2025-01-21] MEDS: ENOXAPARIN 40 MG/0.4 ML SYRINGE SUB-Q (08:33)
[2025-01-21] MEDS: INDAPAMIDE 2.5 MG TABLET PO (08:33)
[2025-01-21 08:34] VITALS: PULSE 65
[2025-01-21] MEDS: METOPROLOL SUCCINATE EXT REL 100 MG TABCR 200 MG PO (08:34)
--- NOTE | 2025-01-21 09:15 | PCNWS ---
Weekly nutritional screen. Patient is tolerating current Diabetic consistent carb diet with adequate intake, 100% recorded. No weight loss reported. No nutritional needs at this time.
[2025-01-21] MEDS: ERTAPENEM SODIUM 1 GM in SODIUM CHLORIDE 0.9% IV 50 ML 100 ML IVPB (10:56)
[2025-01-21 14:00] VITALS: BP 129/65; PULSE 67; RESP 16; TEMP 36.6; O2SAT 99
--- NOTE | 2025-01-21 14:15 | PM.PNGS ---
Progress Note: A&P Assessment and Plan (1) Diabetic foot ulcer: Qualifiers: Diabetes mellitus type: type 2 Diabetic foot ulcer location: midfoot Laterality: left Non-pressure ulcer stage: with fat layer exposed Qualified Code(s): E11.621 - Type 2 diabetes mellitus with foot ulcer; L97.422 - Non-pressure chronic ulcer of left heel and midfoot with fat layer exposed Code(s): E11.621 - Type 2 diabetes mellitus with foot ulcer; L97.509 - Non-pressure chronic ulcer of other part of unspecified foot with unspecified severity Status: Acute Assessment and Plan: Surgically stable for discharge with antibiotics per ID recommendations - ertapenem through 01/31. Midline to be placed. Patient taught IV care. Continue daily local wound care with silver gel and Hydrofera blue foam. Follow-up in the wound clinic after discharge. He is also planning referral to Charcot clinic at [facility] on discharge. (2) Type 2 diabetes mellitus with hyperglycemia, without long-term current use of insulin: Code(s): E11.65 - Type 2 diabetes mellitus with hyperglycemia Status: Acute (3) Cellulitis of left lower leg: Code(s): L03.116 - Cellulitis of left lower limb Status: Acute Plan Discussed patient's case and plan of care with Dr. Morales. Subjective Subjective Date/Time Seen: 01/21/25 14:15 Patient reports: no new complaints, feels better and tolerating a regular diet (diabetic) Interval history: Patient doing well. Doing home IV teaching upon my visit. Exam Extrem: General: normal to inspection and capillary refill normal Other: Lefty foot wound being managed with daily care per nursing staff. Dressing is dry and intact without drainage present. Some mild redness apparent, but does not appear to be cellulitis. Edema to left lower extremity. Objective Data Vital Signs Vital Signs: Vital Signs - 24 hr 01/20/25 20:00 01/20/25 20:15 01/21/25 04:20 Temperature 96.9 F L 96.6 F L Pulse Rate 65 65 66 Respiratory Rate 16 16 16 Blood Pressure 165/70 H 163/75 H Pulse Oximetry 97 97 98 Oxygen Delivery Room Air 01/21/25 08:00 01/21/25 08:34 Temperature Pulse Rate 65 Respiratory Rate Blood Pressure Pulse Oximetry Oxygen Delivery Room Air Intake/Output Intake/Output: Intake & Output 01/18/25 01/19/25 01/20/25 01/21/25 23:59 23:59 23:59 23:59 Intake Total 2538 2650 1500 780 Output Total 0910 1021 2400 1224 Balance 588 -830 -900 -445 Meds/Results Medications: Active Medications Generic Name Dose Route Start Last Admin Trade Name Freq PRN Reason Stop Dose Admin Amlodipine Besylate 5 mg 01/16/25 21:00 01/20/25 21:57 Amlodipine Besylate 5 Mg Tablet PO 5 mg HS RODDY Administration Aspirin 81 mg 01/16/25 08:00 01/21/25 08:33 Aspirin 81 Mg Chewable Tablet PO 81 mg DAILY@0800 RODDY Administration Calcium Carbonate 200 mg 01/17/25 23:42 01/18/25 00:33 Calcium Carbonate (Tums) 500 Mg (200 Mg Elemental) PO 200 mg Q6H PRN Administration Indigestion Dextrose 12.5 gm 01/16/25 06:20 Dextrose 50% 25 Gm/50 Ml Syringe IV PUSH PRN PRN Hypoglycemia Protocol Enoxaparin Sodium 40 mg 01/16/25 09:00 01/21/25 08:33 Enoxaparin 40 Mg/0.4 Ml Syringe SUB-Q 40 mg DAILY RODDY Administration Finasteride 5 mg 01/16/25 09:00 01/21/25 08:33 Finasteride 5 Mg Tablet PO 5 mg DAILY RODDY Administration Glimepiride 1 mg 01/16/25 09:00 01/21/25 08:33 Glimepiride 1 Mg Tablet PO 1 mg DAILY RODDY Administration Glucagon 1 mg 01/16/25 06:20 Glucagon For Inj 1 Mg Vial IM PRN PRN Hypoglycemia Protocol Glucose 15 gm 01/16/25 06:20 Glucose Oral Gel 15 Gm Of Glucse In 37.5 Gm Tube PO PRN PRN Hypoglycemia Protocol Dextrose 1,000 mls @ 100 mls/hr 01/16/25 06:20 Dextrose 5% 1,000 Ml IVPB PRN PRN Hypoglycemia Protocol Ertapenem 1 gm/ Sodium 50 mls @ 100 mls/hr 01/21/25 10:00 01/21/25 10:56 Chloride IVPB 01/31/25 09:29 100 mls/hr DAILY RODDY Administration Indapamide 2.5 mg 01/16/25 09:00 01/21/25 08:33 Indapamide 2.5 Mg Tablet PO 2.5 mg DAILY RODDY Administration Insulin Aspart 3 - 6 units 01/16/25 08:00 01/21/25 11:42 Insulin Aspart (*Bkc) 100 Units/Ml SUB-Q Not Given TIDWM [facility] Protocol Insulin Aspart 1 - 3 units 01/16/25 21:00 01/20/25 21:57 Insulin Aspart (*Bkc) 100 Units/Ml SUB-Q Not Given HS [facility] Protocol Irbesartan 300 mg 01/16/25 09:00 01/21/25 08:33 Irbesartan 150 Mg Tablet PO 300 mg DAILY RODDY Administration Metoprolol Succinate 200 mg 01/16/25 09:00 01/21/25 08:34 Metoprolol Succinate Ext Rel 100 Mg Tabcr PO 200 mg DAILY RODDY Administration Paroxetine HCl 30 mg 01/18/25 09:00 01/21/25 08:33 Paroxetine 10 Mg Tablet PO 30 mg DAILY RODDY Administration Sitagliptin Phosphate 100 mg 01/16/25 09:00 01/21/25 08:33 Sitagliptin Phosphate 100 Mg Tablet PO 100 mg QAM RODDY Administration Sodium Chloride 10 ml 01/20/25 22:00 01/21/25 06:00 Saline Lock Flush IV PUSH 10 ml Q8HR RODDY Administration Sodium Chloride 10 ml 01/20/25 15:11 Saline Lock Flush IV PUSH PRN PRN Flush Sodium Chloride 20 ml 01/20/25 15:11 Saline Lock Flush IV PUSH PRN PRN after blood draws Radiology Results: ITS Impressions Chest X-Ray 01/16/25 09:39 IMPRESSION: 1. No acute cardiopulmonary findings given portable technique. Foot MRI 01/17/25 11:14 IMPRESSION: 1. Deep ulceration overlying the plantar/lateral base of the fifth metatarsal where there is a nondisplaced subacute fracture. There are marrow signal changes base of the fifth metatarsal likely reactive related to the fracture. Although early osteomyelitis could not be excluded there is no evident focal ostial lysis or loss of T1 marrow fat signal to more specifically suggest osteomyelitis. 2. Partial tear/likely focal perforation at the myotendinous junction of the abductor digiti minimi where it passes between the ulceration the base of the fifth metatarsal. 3. 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 Labs Labs: Laboratory Results - last 24 hr 01/20/25 01/20/25 01/21/25 17:06 20:13 05:54 WBC 6.9 RBC 4.54 L Hgb 12.9 L Hct 39.5 L MCV 87.0 MCH 28.4 MCHC 32.7 RDW 13.0 Plt Count 202 MPV 10.4 Immature Gran % (Auto) 0.6 H Neut % (Auto) 76.2 H Lymph % (Auto) 12.0 L [place] % (Auto) 7.1 Eos % (Auto) 3.8 Baso % (Auto) 0.3 Lymph # (Auto) 0.83 L [place] # (Auto) 0.5 Eos # (Auto) 0.3 Baso # (Auto) 0.0 Abs Immat Gran (auto) 0.04 H Absolute Neuts (auto) 5.3 Absolute Nucleated RBC 0.000 Nucleated RBC % 0.0 Sodium 134 L Potassium 3.2 L Chloride 93 L Carbon Dioxide 34 H Anion Gap 7 BUN 18 Creatinine 0.87 Estim Creat Clear Calc 97 Estimated GFR > 60 Glucose 184 H POC Capillary Glucose 125 H 178 H Calcium 8.9 Total Bilirubin 0.4 AST 23 ALT 13 Alkaline Phosphatase 60 Total Protein 7.0 Albumin 3.5 01/21/25 01/21/25 07:34 11:34 WBC RBC Hgb Hct MCV MCH MCHC RDW Plt Count MPV Immature Gran % (Auto) Neut % (Auto) Lymph % (Auto) [place] % (Auto) Eos % (Auto) Baso % (Auto) Lymph # (Auto) [place] # (Auto) Eos # (Auto) Baso # (Auto) Abs Immat Gran (auto) Absolute Neuts (auto) Absolute Nucleated RBC Nucleated RBC % Sodium Potassium Chloride Carbon Dioxide Anion Gap BUN Creatinine Estim Creat Clear Calc Estimated GFR Glucose POC Capillary Glucose 177 H 190 H Calcium Total Bilirubin AST ALT Alkaline Phosphatase Total Protein Albumin
--- NOTE | 2025-01-21 15:45 | P.DS_ITS ---
DS: Admitting Diagnosis Discharge Date 01/21/2025 Admitting Diagnosis diabetic foot ulcer DS: Discharge Diagnosis Discharge Diagnosis (1) Diabetic foot ulcer: Qualifiers: Diabetes mellitus type: type 2 Diabetic foot ulcer location: midfoot Laterality: left Non-pressure ulcer stage: with fat layer exposed Qualified Code(s): E11.621 - Type 2 diabetes mellitus with foot ulcer; L97.422 - Non- pressure chronic ulcer of left heel and midfoot with fat layer exposed Code(s): E11.621 - Type 2 diabetes mellitus with foot ulcer; L97.509 - Non-pressure chronic ulcer of other part of unspecified foot with unspecified severity Status: Acute Assessment and Plan: Patient has diabetic foot ulcer with failure of outpatient treatment with Augmentin. Patient has subsequently been started on empiric antibiotic therapy with cefepime vanc and Flagyl per antibiotic stewardship guidelines. * Wound cultures were obtained from the ER. * Blood cultures have been obtained and are pending. * Would cultures pending. * Patient did have some mild lactic acidosis and mildly elevated white count but did not meet sepsis criteria. * WBC count now normal * MRI of the left foot shows deep ulceration overlying the plantar/lateral base of the 5th metatarsal where there is a nondisplaced subacute fracture. Early signs of osteomyelitis cannot be excluded all their there is no evidence of focal osteolysis or loss of T1 marrow fat signal. * Infectious disease following, appreciate antibiotic discharge recommendations * General surgery has cleared patient for discharge from their stent * Continue cefepime, Flagyl, vancomycin * Blood cultures show no growth to date * ID recommends ertapenem 1 gram Q 24 hrs until January 31, 2025, follow-up with [facility] * Wound culture: Gram-negative bacilli, no specificities as of yet * weekly cmp, cbc faxed to my office at [phone] (Infectious Disease) * midline catheter placed * CM working on getting home infusion and IV antibiotics set up, patient has done this before in the past * home infusion nurse came to see patient and complete teaching, IV antibiotics are confirmed to be delivered to patient's house * discharge patient home today (2) Type 2 diabetes mellitus with hyperglycemia, without long-term current use of insulin: Code(s): E11.65 - Type 2 diabetes mellitus with hyperglycemia Status: Acute Assessment and Plan: Patient has moderate hyperglycemia in the setting of relatively well controlled diabetes despite of complications of neuropathy. A1c earlier this month was 6.4. * Will resume the patient's oral hypoglycemic medications except for metformin. Metformin will be held due to lactic acidosis. * Patient was given 1 L IV fluids at 75 mL an hour lactic acidosis has already resolved. * Will place patient on moderate dose sliding scale insulin with Accu-Cheks a.c. HS. And hypoglycemia protocol as needed. (3) Hypomagnesemia: Code(s): E83.42 - Hypomagnesemia Status: Acute Assessment and Plan: * Patient had incidental finding of hypo magnesemia and received 2 g magnesium sulfate rider in the ER. * resolved (4) Charcot joint of foot: Code(s): M14.679 - Charcot's joint, unspecified ankle and foot Status: Acute Assessment and Plan: * Needs to see charcots video conference specialist following discharge (5) Hypokalemia: Code(s): E87.6 - Hypokalemia Status: Resolved Assessment and Plan: * s/p replacement * resolved DS: Summary Hospital Course Reason for hospitalization: diabetic foot ulcer Hospital Course: Patient is a 74 year old male with PMH of HTN, HLD, BPH, DM type 2, diabetic peripheral neuropathy, prior diabetic foot ulcers requiring surgical debridement and chronic foot deformities consistent with Charcot changes. Patient presented to the ER due to a worsening foot wound. patient was treated with Augmentin for 9 days and he reports he took them as directed. Patient was initially started on IV cefepime, flagyl and vancomycin. Patient had an MRI of the left foot that showed deep ulceration overlying the plantar/lateral base of the 5th metatarsal where there is a nondisplaced subacute fracture. Early signs of osteomyelitis cannot be excluded there is no evident focal ostial lysis or loss of T1 marrow fat signal to more specifically suggest osteomyelitis. General surgery was consulted and recommended conservative management with wound care and IV ant ibiotics. Infectious diseases was consulted for antibiotic recommendations. Patient was switched to IV ertapenem 1 gram Q 24 hours until January 31, 2025. Patient had a midline catheter placed. Patient has done home infusion in the past. Case management got home infusion set up and home infusion nurse saw patient in the hospital for teaching and IV antibiotics were set up to be delivered to the patient's house. Patient was given wound care instructions. Patient is to follow up with the wound care center after discharge. Patient will need to follow up with ID and general surgery after discharge. Patient's final wound cultures were pending at discharge and will be followed by ID. Patient will need a weekly CMP, CBC faxed to ID after discharge. Patient was discharged home with HHC, IV antibiotics and follow up at the Wound Care Center. Patient was also scheduled a follow up visit with the Charcot foot clinic at [facility] per ortho. Time Spent with Patient Time attestation: Total time spent providing and/or coordinating discharge services: 40 Minutes Exam Const: Other: Obese, poor hygiene, no acute distress HENMT: Other: Mucous membranes are moist Eyes: Other: No scleral icterus, no conjunctival pallor Neck: Other: Large neck circumference Resp: Other: Clear to auscultation bilaterally, no increased work of breathing Cardio: Other: Regular rate, regular rhythm GI: Other: Obese, soft, nontender, normoactive bowel sounds Skin: Other: Chronic erythema to bilateral lower extremities in the lateral anterior wilkinson, no increased warmth, dressing to left foot wound Neuro: Other: Alert orient x4, speech is clear, no facial asymmetry, no localizing neurologic deficits noted during the course of conversation, chronic neuropathic discomfort to bilateral lower extremities Extrem: Other: Bony deformities of bilateral lateral feet on plantar surface suspicious for Charcot deformity Psych: Other: Appropriate mood and affect, pleasant and cooperative, intact judgment and insight DS: Data Data Completed and Pending Labs on day of discharge: Labs from last 24 hours 01/21/25 01/21/25 01/21/25 11:34 07:34 05:54 WBC 6.9 RBC 4.54 L Hgb 12.9 L Hct 39.5 L MCV 87.0 MCH 28.4 MCHC 32.7 RDW 13.0 Plt Count 202 MPV 10.4 Immature Gran % (Auto) 0.6 H Neut % (Auto) 76.2 H Lymph % (Auto) 12.0 L [place] % (Auto) 7.1 Eos % (Auto) 3.8 Baso % (Auto) 0.3 Lymph # (Auto) 0.83 L [place] # (Auto) 0.5 Eos # (Auto) 0.3 Baso # (Auto) 0.0 Abs Immat Gran (auto) 0.04 H Absolute Neuts (auto) 5.3 Absolute Nucleated RBC 0.000 Nucleated RBC % 0.0 Sodium 134 L Potassium 3.2 L Chloride 93 L Carbon Dioxide 34 H Anion Gap 7 BUN 18 Creatinine 0.87 Estim Creat Clear Calc 97 Estimated GFR > 60 Glucose 184 H POC Capillary Glucose 190 H 177 H Calcium 8.9 Total Bilirubin 0.4 AST 23 ALT 13 Alkaline Phosphatase 60 Total Protein 7.0 Albumin 3.5 01/20/25 01/20/25 20:13 17:06 WBC RBC Hgb Hct MCV MCH MCHC RDW Plt Count MPV Immature Gran % (Auto) Neut % (Auto) Lymph % (Auto) [place] % (Auto) Eos % (Auto) Baso % (Auto) Lymph # (Auto) [place] # (Auto) Eos # (Auto) Baso # (Auto) Abs Immat Gran (auto) Absolute Neuts (auto) Absolute Nucleated RBC Nucleated RBC % Sodium Potassium Chloride Carbon Dioxide Anion Gap BUN Creatinine Estim Creat Clear Calc Estimated GFR Glucose POC Capillary Glucose 178 H 125 H Calcium Total Bilirubin AST ALT Alkaline Phosphatase Total Protein Albumin Preliminary micro results at discharge 01/16/25 01:04 Anaerobic Culture - Preliminary Foot Left 01/17/25 20:40 Aerobic Culture - Preliminary Foot - Unspecified Gram negative bacilli isolated 01/16/25 01:04 Blood Culture - Preliminary Blood 01/16/25 01:04 Blood Culture - Preliminary Blood Imaging Radiologist's impression: Ordering Physician: Rakan Meredith DO Date of Service: 01/16/25 Procedure(s): XR chest 1V portable Accession Number(s): [id number] cc: Rakan Meredith DO; Karen Navarro DO; Grecia Gonzalez APRN~ Examination: XR chest 1V portable Clinical History: nausea Comparison: 04/29/2024 Technique: Portable AP Findings: Heart size normal. Lungs clear. No acute bony abnormality. IMPRESSION: 1. No acute cardiopulmonary findings given portable technique. Reviewed, dictated and finalized at location R. Ordering Physician: Rakan Meredith DO Date of Service: 01/16/25 Procedure(s): XR foot LT min 3V Accession Number(s): [id number] cc: Rakan Meredith DO; Karen Navarro DO; Grecia Gonzalez APRN~ Examination: XR foot LT min 3V Clinical History: diabetic foot wound Comparison: None Technique: 3 views left foot Findings/impression: 1. Large wound plantar aspect lateral midfoot. 2. No evidence of underlying osteomyelitis. 3. Lucency along base of fifth metatarsal possibly artifact. Recommend correlation with point tenderness for pain and additional views if suspicion for fracture given suboptimal projection on these. 4. Diabetic arteriopathy. Reviewed, dictated and finalized at location R. Ordering Physician: Stefanie Moulton APRN Date of Service: 01/17/25 Procedure(s): MR foot LT wo/w con Accession Number(s): [id number] cc: Karen Navarro DO; Stefanie Moulton APRN; Grecia Gonzalez APRN~ EXAMINATION: MR foot LT wo/w con DATE: 01/17/2025 11:10 INDICATION: Left foot diabetic infection TECHNIQUE: Magnetic resonance imaging (MRI) of the left fore/mid foot was performed without and with 20 mL Multihance intravenous contrast. Sequences included axial, sagittal and coronal T1-weighted FSE and T2-weighted FS FSE, axial T1-weighted FS FSE, and postcontrast axial, sagittal and coronal T1- weighted FS FSE. COMPARISON: Radiographs dated 01/16/2025 FINDINGS: Old healed fracture deformity with chronic surrounding callus formation at the proximal metadiaphyseal region of the fifth metatarsal. There is a more recent intra-articular fracture extending across the lateral tuberosity the base of the fifth metatarsal which on prior radiographs appears to developed in the interval between 01/03/2025 and 01/16/2025 there is marrow edema and enhancement either side of the fracture. There is however also a deep ulceration and soft tissues plantar/lateral to the base of the fifth metatarsal which appears to extend to within 3 mm the surface of the bone with small amount of nonenhancing/nonvascularized intervening tissue. This includes likely perforation with partial tear of the abductor digiti minimi muscle and tendon which passes between the ulceration and the underlying base of the fifth metatarsal. The marrow edema and enhancement are likely reactive related to the recent fracture although early osteophytes could not be absolutely excluded. There is however no evident erosive change or geographic loss of T1 marrow fat signal to more specifically suggest this. There is polyarticular osteoarthritis at multiple tarsometatarsal and metatarsophalangeal joints. This is severe at the second metatarsophalangeal joint where there is deformity to the head of the second metatarsal which could represent sequela of chronic fracture, osteonecrosis or infection. Additional moderate osteoarthritis at the second and third tarsal metatarsal joints with associated subarticular edema-like and cystlike changes and mild at the remaining tarsometatarsal and first metatarsophalangeal joints. Mild enhancing synovitis at the first metatarsophalangeal joint without evident cortical erosions. Physiologic amount fluid in the joint space with no abnormal joint effusions, abscess or other abnormal fluid collections. The stabilizing lig aments at the ankle, the Lisfranc ligament complex and the visualized collateral ligament complex at the metatarsophalangeal joints all appear intact. Aside from the previously noted abductor digiti minimi muscle and tendon the remaining visualized portions of the flexor and extensor tendons are normal. There is mild enthesopathy with fusiform thickening and mild increased signal of the proximal central component of the plantar aponeurosis. There is diffuse moderate fatty atrophy and increased fluid signal the intrinsic musculature of the foot likely sequela of acute on chronic innervation changes in the setting of diabetic neuropathy. IMPRESSION: 1. Deep ulceration overlying the plantar/lateral base of the fifth metatarsal where there is a nondisplaced subacute fracture. There are marrow signal changes base of the fifth metatarsal likely reactive related to the fracture. Although early osteomyelitis could not be excluded there is no evident focal ostial lysis or loss of T1 marrow fat signal to more specifically suggest osteomyelitis. 2. Partial tear/likely focal perforation at the myotendinous junction of the abductor digiti minimi where it passes between the ulceration the base of the fifth metatarsal. 3. 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 Reviewed, dictated and finalized at location A. Discharge Plan Discharge Attending physician on discharge: Kendrick Koch Consulting providers: Stefanie Moulton; David Morales; Tu Baltazar; Andriy Posada; Ehsan Saenz; Glenys Painter; Shonna Guerrero; Shayla Robles; Anton Singh; Jacob Webb; Roro Kerns Discharging Clinician: Jacquelin Iraheta Patient Disposition: Home with Home Health Service Activity: as tolerated Diet: diabetic Wound Care Instructions: other - see discharge instructions Discharge Instructions: Per Care Coordination: [facility] ([phone]) will call to set up initial visit. RN please fax discharge instructions to [phone]. * Wound care: Apply silver gel to the left lateral foot wound and place a piece of Hydrofera blue foam into the wound bed (ONLY the size of the inside of the wound, do not have any of the foam on the skin), then cover with an ABD and rolled gauze dressing. Change dressing daily. It is better to cut the foam too small rather than too big. * Call the [place] wound clinic to schedule a follow-up in their clinic after discharge. [phone] * You should avoid putting weight on the left foot wound. Attempt heel-touch weight bearing when walking or transfering on the left leg. You can try the wedge shoe or postop shoe when walking, but if this is rubbing on the wound or is too tight, then avoid this footwear. * Call your PCP for a referral to the Charcot clinic at [facility]. Patient Instructions: Antibiotic Form, Aspirin (By mouth) Patient Language: Bulgarian Stand Alone Forms: General Discharge Information Follow-up/Referrals: Grecia Gonzalez APRN [Primary Care Provider, Family Practice] Referral Note: call for an appointment to be seen within 1-2 weeks of discharge Discharge Medications: New ertapenem 1 gram recon soln 1 g IV Q24H Continued glimepiride 1 mg tablet 1 mg PO DAILY Qty: 90 3RF aspirin 81 mg Tablet,Chewable 81 mg PO DAILY amlodipine 5 mg tablet 5 mg PO DAILY metoprolol succinate 100 mg tablet extended release 24 hr See Rx Instructions .ROUTE .COMPLEX Qty: 180 3RF Dose Instruction: TAKE 2 TABLETS BY MOUTH ONCE DAILY FOR BLOOD PRESSURE Rx Instructions: TAKE 2 TABLETS BY MOUTH ONCE DAILY FOR BLOOD PRESSURE indapamide 2.5 mg tablet See Rx Instructions .ROUTE .COMPLEX Qty: 90 2RF Dose Instruction: Take 1 tablet by mouth once daily Rx Instructions: Take 1 tablet by mouth once daily irbesartan 300 mg tablet 300 mg PO DAILY Qty: 90 2RF finasteride 5 mg tablet 5 mg PO DAILY Qty: 90 2RF paroxetine HCl 30 mg tablet See Rx Instructions .ROUTE .COMPLEX Qty: 30 2RF Dose Instruction: TAKE 1 TABLET BY MOUTH IN THE MORNING Rx Instructions: TAKE 1 TABLET BY MOUTH IN THE MORNING metformin 500 mg tablet extended release 24 hr See Rx Instructions .ROUTE .COMPLEX Qty: 360 0RF Dose Instruction: TAKE 4 TABLETS BY MOUTH ONCE DAILY Rx Instructions: TAKE 4 TABLETS BY MOUTH ONCE DAILY Discontinued amoxicillin-pot clavulanate 875-125 mg tablet 1 tablet PO BID Qty: 20 0RF No Action Tradjenta 5 mg tablet See Rx Instructions .ROUTE .COMPLEX Qty: 90 0RF Dose Instruction: TAKE 1 TABLET BY MOUTH IN THE MORNING Rx Instructions: TAKE 1 TABLET BY MOUTH IN THE MORNING Date of admission: 01/17/25 10:19 Primary Care Provider: Grecia Gonzalez Admitting Provider: Karen Navarro Attending physician on admission: Jacquelin Iraheta Condition: Stable Quality VTE Prophylaxis VTE prophylaxis: pharmacologic ordered (Lovenox 40 mg subQ daily.)
--- NOTE | 2025-01-28 15:28 | PCCDE ---
01/28/25: DM educator placed courtesy follow up call. Message left.
== END 2025-01-21 18:50 | disposition home health service (06) | DRG 638 ==
LOC: ANHED 01-16 03:03 → ANH3MEDSUR 01-16 03:57
PROVIDERS: Internal Medicine Infectious Disease; Admitting Provider Internal Medicine; Emergency Provider Student in an Organized Health Care Education/Training Program; PCP Nurse Practitioner Family; Visit Provider Nurse Practitioner Adult Health
DX: E11.621 Type 2 diabetes mellitus with foot ulcer (principal); E87.20 Acidosis, unspecified; L97.422 Non-pressure chronic ulcer of left heel and midfoot with fat layer exposed; L03.116 Cellulitis of left lower limb; M86.8X7 Other osteomyelitis, ankle and foot; E11.610 Type 2 diabetes mellitus with diabetic neuropathic arthropathy; E11.42 Type 2 diabetes mellitus with diabetic polyneuropathy; E11.65 Type 2 diabetes mellitus with hyperglycemia; E87.6 Hypokalemia; E83.42 Hypomagnesemia; D72.829 Elevated white blood cell count, unspecified; N40.0 Benign prostatic hyperplasia without lower urinary tract symptoms; I10 Essential (primary) hypertension; E78.00 Pure hypercholesterolemia, unspecified; M14.672 Charcot's joint, left ankle and foot; M14.671 Charcot's joint, right ankle and foot; B96.5 Pseudomonas (aeruginosa) (mallei) (pseudomallei) as the cause of diseases classified elsewhere; S92.355A Nondisplaced fracture of fifth metatarsal bone, left foot, initial encounter for closed fracture; X58.XXXA Exposure to other specified factors, initial encounter; E66.9 Obesity, unspecified; F10.90 Alcohol use, unspecified, uncomplicated; Z66 Do not resuscitate; Z20.822 Contact with and (suspected) exposure to COVID-19; Z68.34 Body mass index [BMI] 34.0-34.9, adult; Z86.14 Personal history of Methicillin resistant Staphylococcus aureus infection; Z86.16 Personal history of COVID-19; Z79.84 Long term (current) use of oral hypoglycemic drugs; Z79.82 Long term (current) use of aspirin; Z79.2 Long term (current) use of antibiotics; Z86.73 Personal history of transient ischemic attack (TIA), and cerebral infarction without residual deficits
CPT/HCPCS: 36410; 36415; 71045; 73630; 73720; 80048; 80053; 80202; 81001; 82565; 82948; 83605; 83690; 83735; 84484; 85025; 85027; 85610; 85652; 85730; 86140; 87040; 87070; 87075; 87186; 87205; 87637; 93005; 96365; 96366; 96367; 96372; 96375; 99285; A9270; A9577; C1751; G0378; J0692; J1335; J1650; J1815; J1836; J2003; J2405; J3373; J3475; J7030

== ENCOUNTER 2025-02-28 20:14 | Emergency (ER) | payer MEDICARE, SELFPAY ==
--- NOTE | ~2025-02-28 | XR_ITS ---
XR foot LT min 3V, XR tibia fibula LT 2V 02/28/2025 23:11 (accession [id number]), 02/28/2025 23:09 (accession [id number]) Indication: Diabetic wound Procedure: 4 views left foot and 2 views left tibia/fibula Comparison: 01/03/2025 Findings: There is an ulceration overlying the proximal aspect of the fifth metatarsal with soft tissue swelling. There is periosteal reaction in the fifth metatarsal adjacent to the ulceration, suspicious for chronic osteomyelitis. There is a new transverse intra-articular fracture base of the fifth metatarsal. Small degenerative calcaneal enthesophytes. There is atherosclerosis. There is mild diffuse soft tissue swelling surrounding the tibia and fibula. There is osteoarthritis of the left knee. No other fractures are seen. Impression: 1: Acute intra-articular fracture transversely oriented at the base of the fifth metatarsal. 2: Soft tissue ulceration/swelling with adjacent periosteal reaction of the fifth metatarsal consistent with osteomyelitis. Reviewed, dictated and finalized at location [facility] [employer] Impression: 1: Acute intra-articular fracture transversely oriented at the base of the fift h metatarsal. 2: Soft tissue ulceration/swelling with adjacent periosteal reaction of the fif th metatarsal consistent with osteomyelitis. Impression: 1: Acute intra-articular fracture transversely oriented at the base of the fift h metatarsal. 2: Soft tissue ulceration/swelling with adjacent periosteal reaction of the fif th metatarsal consistent with osteomyelitis.
--- OUTSIDE RECORDS SUMMARY | 2025-02-28 20:16 | XMS_ITS | Encounter Summary ---
Author Organization [facility] Healthcare Address [address] [place] [address] Care Team Providers Care Community Recreation Coordinator Name Role Phone Unknown, Notinfile Primary Care Provider Unavail able Aaron Bailey MD Primary Care Prov ider Encounter Details Date Type Department Care Team (Late st Contact Info) Description 06/23/2017 Orders Only [facility] [place] Health Information Management [address] [place] [id number] Scanning, Provider Social History Tobacco Use Types [...] on filedocumented in this encounter Care Teams Community Recreation Coordinator Relationship Specialty Start Date End Date Unknown, Notinfile PCP - General 08/12/24 08/25/24 Aaron Bailey MD PCP - General Family Medicine 08/26/24 documented as of this encounter
--- OUTSIDE RECORDS SUMMARY | 2025-02-28 20:16 | XMS_ITS | Clinical Summary ---
Author Organization [facility] [address] Address [address] [place] [address] Care Team Providers Care Communication Arts Lecturer Name Role Phone Aaron Bailey MD Primary Care Prov ider Allergies No known active allergies Medications atorvastatin (LIPITOR) 20 mg tablet Take 1 tablet (20 mg total) by mouth daily 07/18/2024 Active finasteride (PROSCAR) 5 mg tablet Take 1 tablet (5 mg total) by mouth daily 07/18/2024 Active glimepiride (AMARYL) 1 mg tablet Take 1 tablet (1 mg total) by mouth daily 07/29/2024 Active indapamide (LOZOL) 2.5 mg tablet Take 1 tablet (2.5 mg total) by mouth daily 07/08/2024 Active irbesartan (AVAPRO) 300 mg tablet Take 1 tablet (300 mg total) by mouth daily 07/18/2024 Active Tradjenta 5 mg tablet Take 1 tablet (5 mg total) by mouth every morning 05/13/2024 Active metoprolol XL (TOPROL-XL) 100 mg 24 hr tablet TAKE 2 TABLETS BY MOUTH ONCE DAILY FOR BLOOD PRESSURE 05/13/2024 Active PARoxetine (PAXIL) 30 mg tablet Take 1 tablet (30 mg total) by mouth every morning 08/04/2024 Active metFORMIN (GLUCOPHAGE) 500 mg tablet Take 1 tablet (500 mg total) by mouth 2 (two) times a day with meals Active Active Problems No known active problems Social History Tobacco Use Types Packs/Day Years Used Date Smoking Tobacco: Never Smokeless Tobacco: Never Tobacco Cessation:Counseling Given: No AUDIT-C Answer Date Recorded Q1: How often do you have a drink containing alcohol? Never 08/26/2024 Q2: How many drinks containi ng alcohol do you have on a typical day when you are drinking? Patient does not drink Q3: How often do you have si x or more drinks on one occasion? Never 08/26/2024 Sex and Gender Information Value Date Recorded Sex Assigned at Not on file Legal Sex Male 10:30 AM CDT Gender Identity Not on file Sexual Orientation Not on file Last Filed Vital Signs Vital Sign Reading Time Taken Comments Blood Pressure 209/81 08/26/2024 8:58 AM CDT Pulse 70 08/26/2024 8:58 AM CDT Temperature 37.1 C (98.7 F) 08/12/2024 8:02 AM CDT Respiratory Rate 16 08/26/2024 8:58 AM CDT Oxygen Saturation 98% 08/12/2024 8:02 AM CDT Inhaled Oxygen Concentration - - Weight 139.7 kg (308 lb) 08/26/2024 8:58 AM CDT Height 193 cm (6' 4) 08/26/2024 8:58 AM CDT Body Mass Index 37.49 08/26/2024 8:58 AM CDT Plan of Treatment Health Maintenance Due Date Last Done Comments Colon Cancer Screening-Colonoscopy 1950 Depression Screening 1950 Fall Risk Assessment 1950 Hepatitis C Screening 1950 Hepatitis B Screening 11/18/1969 Pneumococcal vaccine 65+ (1 of 1 - PCV) 11/18/2001 Zoster Vaccine (1 of 2) 11/18/2001 Well Visit 65+ 11/18/2016 Covid-19 Vaccine (2024-2 6 season) 2024 02/05/2023, 01/01/2022, 03/26/2021, Additional history exists Influenza Vaccine (#1) 2024 DTaP/Tdap/Td Vaccine (2 - Td or Tdap) 12/17/2030 12/17/2020 Insurance MEDICARE [employer] MEDICARE Care Teams Communication Arts Lecturer Relationship Specialty Start Date End Date Aaron Bailey MD PCP - General Family Medicine 08/26/24
--- OUTSIDE RECORDS SUMMARY | 2025-02-28 20:16 | XMS_ITS | Encounter Summary ---
Author Organization [facility] Address [address] [place] [address] Care Team Providers Care Director Of Brand Marketing Name Role Phone Unavailable Primary Care Provider Unavailabl e Encounter Details Date Type Department Care Team (Late st Contact Info) Description 09/06/2024 Lab Requisition [facility] - DermPath Lab [address] [place] [id number] Robyn Burrows MD [address] [place] [address] Neoplasm of unspecified behavior of bone, soft [...] PM CDT) Case Report Dermatopathology Report Case: [id number] Authorizing Provider: Robyn Burrows MD Collected: 09/06/2024 02:09 PM Ordering Location: [facility] Physician [facility] - Received: 09/08/2024 07:37 AM DermPath Lab [...] characteristic determined by the Dermatopathology Laboratory at [facility], directed by Dr. Mitchell Morataya. These tests need not be, and therefore are not, approved by the [place] Food and Drug Administration. The tests are used for clinical purposes. Billing Codes Specimen Charges Stain Charges 61226 20820 1 1 11:47 AM CDT DERMATOPATHOLOGY LABORATORY Embedded Images 11:47 AM CDT DERMATOPATHOLOGY LABORATORY Pathology/Cytology TISSUE SPECIMEN FROM SKIN / Unknown 09/06/2024 2:09 PM CDT 09/08/2024 7:37 AM CDT Miscellaneous samples (specimen) TISSUE SPECIMEN FROM SKIN / Unknown 09/06/2024 2:09 PM CDT 09/08/2024 7:37 AM CDT us Robyn Burrows MD LAB - PATHOLOGY/CYTOLOGY JOSS SHEETS Final Result DERMATOPATHOLOGY LABORATORY [facility] - Department of Dermatology [facility] Medicine [address] [place] [address], [address] [phone] documented in this encounter Visit Diagnoses Diagnosis Neoplasm of unspecified behavior of bone, soft tissue, and skin documented in this encounter
--- OUTSIDE RECORDS SUMMARY | 2025-02-28 20:16 | XMS_ITS | Clinical Summary ---
Author Organization [facility] Address [address] [place] [address] Care Team Providers Care Watch Technician Name Role Phone Unavailable Primary Care Provider Unavailabl e Source Comments [facility],non-owned Affiliates and Associated Physician Practices is amultiple site organization consisting of ambulatory clinics and hospital sitesin [place], [place], [place] and [place]. This disclosure is being madepursuant to the Care Everywhere program and may not contain all information available regarding this patient. Last updated 17.[facility] Social History Tobacco Use Types Packs/Day Years [...] CALENDAR YEAR 2024 COVID-19 VACCINE (1 - 2024-2 6 season) 2024 INFLUENZA VACCINE (#1) 2024 Respiratory [...] patient's age to complete this topic Insurance [facility] MEDICARE ADV
[2025-02-28 20:23] VITALS: BP 153/63; PULSE 77; RESP 16; TEMP 37.2; O2SAT 99
[2025-02-28 21:08] LABS: Hematocrit 39.7 % (42.0-52.0); Hemoglobin 13.2 g/dL (14.0-18.0); Immature Granulocyte Percent A 0.5 % (0-0.5); Lymphocytes Absolute Auto 1.20 K/mm3 (0.9-3.2); Mean Corpuscular HGB Conc 33.2 g/dl (32-36); Mean Corpuscular Hemoglobin 28.7 pg (26-34); Mean Corpuscular Volume 86.3 fl (80-100); Nucleated Red Blood Cells Absolute Auto 0.000 K/mm3 (0.0-0.012); Nucleated Red Blood Cells Perc 0.0 % (0.0-0.2); Platelet Count Result 180 k/mm3 (150-375); Red Blood Count 4.60 M/mm3 (4.6-6.20); White Blood Count 9.5 K/mm3 (4.5-10.0)
[2025-02-28 21:19] LABS: Alanine Aminotransferase 24 U/L (6-50); Albumin Level 4.1 g/dL (3.5-5.1); Alkaline Phosphatase 76 U/L (38-126); Anion Gap 10 mmol/L (4-12); Aspartate Amino Transferase 33 U/L (17-59); Bilirubin,Total 1.0 mg/dL (0.2-1.3); Blood Urea Nitrogen 28 mg/dL (9-20); Calcium 9.2 mg/dL (8.4-10.2); Carbon Dioxide 31 mmol/L (22-30); Chloride 93 mmol/L (98-107); Estimated CRCL calculation 71 ml/min; Estimated Glomerular Filt Rate 59; Glucose 228 mg/dL (65-110); Potassium 3.1 mmol/L (3.4-5.0); Sodium 134 mmol/L (137-145); Total Protein 7.7 g/dL (6.3-8.2)
[2025-02-28 22:00] VITALS: BP 147/77; PULSE 73; RESP 16; O2SAT 98
--- NOTE | 2025-02-28 22:42 | ED.EXTPRO ---
HPI - Extremity Problem General Chief complaint: Extremity Problem,Nontraumatic Stated complaint: L foot infection; concern for cellulitis Time Seen by Provider: 02/28/25 22:09 History of Present Illness HPI Narrative: 74-year-old male with history of Charcot deformity, diabetes, previous MRSA infection. Patient presents to the emergency department today with cellulitis of his left lower extremity. He has been dealing with a diabetic foot ulcer on the dorsum/lateral aspect of his 5th digit on the left foot and had a hospitalization requiring IV antibiotics. Patient was discharged with a midline and ertapenem which he has since completed. He followed up with his regular doctor on the of last month and was doing well. Wound was healing without any further signs of active infection and he denies any cellulitis that time. Over last few days he has noticed that he has had a recurrence of cellulitis in his wilkinson circumferentially but his wound on his left lower extremity near the ulcers actually better and not having any signs of active infection. No purulent drainage. He took a dose of his leftover Augmentin at home but was not getting improvement so he came to the hospital. No systemic features such as measurable fever, no subjective chills. No nausea vomiting, abdominal pain. No traumatic injuries. Does not have a midline and has completed his ertapenem as of the last . Related Data Home Medications ?Medication ?Instructions ?Recorded ?Confirmed ?Last Taken ?Type aspirin 81 mg chewable tablet 81 mg PO DAILY 11/10/20 01/31/25 01/14/25 History amlodipine 5 mg tablet 5 mg PO DAILY 01/16/25 01/31/25 01/15/25 History Allergies Allergy/AdvReac Type Severity Reaction Status Date / Time shrimp Allergy Unknown Itching Verified 02/28/25 20:23 Review of Systems Review of Systems: As reviewed above in HPI All systems reviewed & are unremarkable except as noted in HPI and below PMFSH Past Medical History Medical History Obesity (BMI 30.0-34.9) History of erysipelas Diabetes mellitus with neuropathy MRSA (methicillin resistant Staphylococcus aureus) Foreign body of fifth toe of right foot with infection (2020) History of osteomyelitis Right great toe wound and osteomyelitis treated with IV antibiotics TIA (transient ischemic attack) (2017) Expressive aphasia that resolved BPH (benign prostatic hyperplasia) COVID-19 (11/2020) Anxiety Panic attacks Hypertension High cholesterol Surgical History Surgical History Status post right foot surgery (12/2020) 4th Metatarsal debridement due to osteomyelitis and foreign body removal from the medial aspect of the 5th toe performed by Dr. Calvillo Hume teeth removed 1979, resident and surgeon Family History Family History Father Hypertension Cerebrovascular accident Mother Hypertension Cerebrovascular accident Family history of cancer Breast Other Heart disease Social History Social History Social History: He lives in [place] and is newly in 2023. 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 He drinks on average 1 alcoholic beverage a year. He has never smoked. He denies any illicit substance use. He is independent in all activities of daily living. Primary care physician: Dr. Schneider Code status: DNR/DNI. He is okay with pressors and noninvasive respiratory support if needed. Surrogate decision maker: Smoking status: Never smoker Second hand tobacco smoke exposure: No Alcohol intake: never Substance use: never Substance use type: does not use Lack of Transportation: No Lack of Food: Never True Current Housing: I Have Housing Concerned About Future Housing: No Difficulty Paying Gas/Electric Bills: No Difficulty Paying for Meds: No Currently Unemployed: No Education: Master's Degree or Higher Difficulty w/ Childcare or Family Care: No Living arrangements: with family Occupation/Education: retired Additional occupation/education comments: Former [employer] Gender identity (if verbalized by the patient): Male Spiritual care concerns: Yes Agree to blood products: Yes Exam Narrative: GENERAL: [Well-appearing, well-nourished, and in no acute distress.] HEAD: [Normocephalic, atraumatic.] EYES: [PERRLA and EOMI.] ENT: Nares clear, no rhinorrhea or epistaxis. Mucous membranes moist. NECK: Supple. CHEST: [Clear to auscultation. No respiratory distress.] HEART: [Regular rate and rhythm]. No murmur heard. [Normal peripheral pulses.] ABDOMEN: [Soft, nondistended], [nontender], [No rigidity or guarding] EXTREMITIES: Mild extremity edema 1+ pitting and blanching erythema. Left lower extremity has obvious signs of cellulitis with redness, warmth and erythema circumferentially over the distal lower leg not involving the ankle or distally towards the foot. Left lateral foot ulcer is well healing, granulation tissue present, no surrounding erythema or warmth, no induration or tenderness to palpation. Chronic reduced sensation to the pinpoint touch without any changes. No purulent drainage or any serosanguineous drainage. Non contiguous with the above-noted cellulitis of the wilkinson. SKIN: Warm, dry, no rash. NEURO: [No focal deficits]. Alert and oriented [x3.] PSYCH: [Normal mood and affect.] Course Vital Signs Vital signs: Vital Signs Temperature 37.2 C 02/28/25 20:23 Pulse Rate 77 02/28/25 20:23 Respiratory Rate 16 02/28/25 20:23 Blood Pressure 153/63 H 02/28/25 20:23 Pulse Oximetry 99 02/28/25 20:23 Oxygen Delivery Room Air 02/28/25 20:23 Temperature 37.2 C 02/28/25 20:23 Pulse Rate 73 02/28/25 22:00 Respiratory Rate 16 02/28/25 22:00 Blood Pressure 147/77 H 02/28/25 22:00 Pulse Oximetry 98 02/28/25 22:00 Oxygen Delivery Room Air 02/28/25 22:00 MDM - Extremity (Nontraumatic) MDM Narrative Medical decision making narrative: 74-year-old male with history of Charcot deformity, diabetes, previous MRSA infection. Patient presents to the emergency department today with cellulitis of his left lower extremity. He has been dealing with a diabetic foot ulcer on the dorsum/lateral aspect of his 5th digit on the left foot and had a hospitalization requiring IV antibiotics. Patient was discharged with a midline and ertapenem which he has since completed. He followed up with his regular doctor on the of last month and was doing well. Wound was healing without any further signs of active infection and he denies any cellulitis that time. Over last few days he has noticed that he has had a recurrence of cellulitis in his wilkinson circumferentially but his wound on his left lower extremity near the ulcers actually better and not having any signs of active infection. No purulent drainage. He took a dose of his leftover Augmentin at home but was not getting improvement so he came to the hospital. No systemic features such as measurable fever, no subjective chills. No nausea vomiting, abdominal pain. No traumatic injuries. Does not have a midline and has completed his ertapenem as of the 27th last month. Mild extremity edema 1+ pitting and blanching erythema. Left lower extremity has obvious signs of cellulitis with redness, warmth and erythema circumferentially over the distal lower leg not involving the ankle or distally towards the foot. Left lateral foot ulcer is well healing, granulation tissue present, no surrounding erythema or warmth, no induration or tenderness to palpation. Chronic reduced sensation to the pinpoint touch without any changes. No purulent drainage or any serosanguineous drainage. Non contiguous with the above-noted cellulitis of the wilkinson. Patient is overall well-appearing with no systemic signs of infection at this time. He is afebrile and not tachycardic. Blood pressure chronically elevated but not significant. X-rays obtained of the left leg and foot and he was given IV dose of vancomycin given his history of MRSA infection and Augmentin will not cover this. Laboratory studies obtained. Patient might be able to go home with additional antibiotic regimen given that the cellulitis appears localized and separate from his diabetic foot infection that was already treated and well healing in appearance. Will re-evaluate. Wound culture was obtained as well as imaging which will be reviewed. Patient's laboratory studies are reassuring. No leukocytosis or significant anemia worse than baseline. Normal platelet count. Blood cultures sent. Wound culture sent. Creatinine is normal. Glucose mildly elevated but not significant. Normal lactic acid. Minor early low potassium but chronic based on previous labs. X-rays independently reviewed and showed acute bony anomalies per my interpretation. Patient received several rounds of vancomycin here and remains hemodynamically stable. Discussed options including going home with antibiotics that cover MRSA and skin infections and have him follow-up with his primary care provider and given strict return precautions. Patient would like to go home and will be discharged home with doxycycline with strict return precautions. Lab Data 02/28/25 20:44 02/28/25 20:44 Labs: Lab Results 02/28/25 02/28/25 Range/Units 20:44 22:57 WBC 9.5 (4.5-10.0) K/mm3 RBC 4.60 (4.6-6.20) M/mm3 Hgb 13.2 L (14.0-18.0) g/dL Hct 39.7 L (42.0-52.0) % MCV 86.3 (80-100) fl MCH 28.7 (26-34) pg MCHC 33.2 (32-36) g/dl RDW 14.5 (11.5-14.5) % Plt Count 180 (150-375) k/mm3 MPV 10.1 (7.4-10.4) fl Immature Gran % (Auto) 0.5 (0-0.5) % Neut % (Auto) 78.9 H (45.5-73.1) % Lymph % (Auto) 12.7 L (18.3-44.2) % Lucas % (Auto) 6.8 (2.6-8.5) % Eos % (Auto) 1.0 (0-4.4) % Baso % (Auto) 0.1 L (0.2-1.2) % Lymph # (Auto) 1.20 (0.9-3.2) K/mm3 Lucas # (Auto) 0.6 (0.1-0.6) K/mm3 Eos # (Auto) 0.1 (0-0.3) K/mm3 Baso # (Auto) 0.0 (0.0-0.1) K/mm3 Abs Immat Gran (auto) 0.05 H (0.00-0.031) K/mm3 Absolute Neuts (auto) 7.5 H (1.3-6.7) K/mm3 Absolute Nucleated RBC 0.000 (0.0-0.012) K/mm3 Nucleated RBC % 0.0 (0.0-0.2) % Sodium 134 L (137-145) mmol/L Potassium 3.1 L (3.4-5.0) mmol/L Chloride 93 L (98-107) mmol/L Carbon Dioxide 31 H (22-30) mmol/L Anion Gap 10 (4-12) mmol/L BUN 28 H D (9-20) mg/dL Creatinine 1.20 (0.7-1.3) mg/dL Estim Creat Clear Calc 71 ml/min Estimated GFR 59 (59 - ) Glucose 228 H (65-110) mg/dL Lactic Acid 1.5 (0.7-2.0) mmol/L Calcium 9.2 (8.4-10.2) mg/dL Total Bilirubin 1.0 (0.2-1.3) mg/dL AST 33 (17-59) U/L ALT 24 (6-50) U/L Alkaline Phosphatase 76 (38-126) U/L Total Protein 7.7 (6.3-8.2) g/dL Albumin 4.1 (3.5-5.1) g/dL Discharge Plan Discharge Clinical Impression: Cellulitis of left lower leg, Foot ulcer, left Diabetes mellitus with neuropathy Qualifiers: Diabetes mellitus type: type 2 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 We have prescribed you 10 days of antibiotics. If no significant improvement discussed with your PCP about changing antibiotics. If worsening symptoms or new emergent concerns return to the ER. Patient Language: Sinhala Prescriptions: New doxycycline hyclate 100 mg capsule 100 mg PO BID 10 Days Qty: 20 0RF No Action glimepiride 1 mg tablet 1 mg PO DAILY Qty: 90 3RF aspirin 81 mg Tablet,Chewable 81 mg PO DAILY amlodipine 5 mg tablet 5 mg PO DAILY ertapenem 1 gram recon soln 1 g IV Q24H metoprolol succinate 100 mg tablet extended release 24 hr See Rx Instructions .ROUTE .COMPLEX Qty: 180 3RF Dose Instruction: TAKE 2 TABLETS BY MOUTH ONCE DAILY FOR BLOOD PRESSURE Rx Instructions: TAKE 2 TABLETS BY MOUTH ONCE DAILY FOR BLOOD PRESSURE indapamide 2.5 mg tablet See Rx Instructions .ROUTE .COMPLEX Qty: 90 2RF Dose Instruction: Take 1 tablet by mouth once daily Rx Instructions: Take 1 tablet by mouth once daily irbesartan 300 mg tablet 300 mg PO DAILY Qty: 90 2RF finasteride 5 mg tablet 5 mg PO DAILY Qty: 90 2RF paroxetine HCl 30 mg tablet See Rx Instructions .ROUTE .COMPLEX Qty: 30 2RF Dose Instruction: TAKE 1 TABLET BY MOUTH IN THE MORNING Rx Instructions: TAKE 1 TABLET BY MOUTH IN THE MORNING metformin 500 mg tablet extended release 24 hr See Rx Instructions .ROUTE .COMPLEX Qty: 360 0RF Dose Instruction: TAKE 4 TABLETS BY MOUTH ONCE DAILY Rx Instructions: TAKE 4 TABLETS BY MOUTH ONCE DAILY Tradjenta 5 mg tablet See Rx Instructions .ROUTE .COMPLEX Qty: 90 0RF Dose Instruction: TAKE 1 TABLET BY MOUTH IN THE MORNING Rx Instructions: TAKE 1 TABLET BY MOUTH IN THE MORNING Follow-up/Referrals: Grecia Gonzalez APRN [Primary Care Provider, Family Practice] Time of Disposition: 02:31
[2025-02-28] MEDS: VANCOMYCIN 1,250 MG/NS 250 ML 1,250 MG/250 ML BAG 166.67 MG IVPB (23:19)
[2025-03-01] MEDS: VANCOMYCIN 1,250 MG/NS 250 ML 1,250 MG/250 ML BAG 166.67 MG IVPB (01:08)
== END 2025-03-01 02:53 | disposition home or self-care (01) ==
PROVIDERS: Emergency Provider Student in an Organized Health Care Education/Training Program; PCP Nurse Practitioner Family
DX: L03.116 Cellulitis of left lower limb (principal); E11.40 Type 2 diabetes mellitus with diabetic neuropathy, unspecified; E11.621 Type 2 diabetes mellitus with foot ulcer; L97.529 Non-pressure chronic ulcer of other part of left foot with unspecified severity; Z79.82 Long term (current) use of aspirin; M14.672 Charcot's joint, left ankle and foot; I10 Essential (primary) hypertension; E78.5 Hyperlipidemia, unspecified
CPT/HCPCS: 36415; 73590; 73630; 80053; 83605; 85025; 87040; 87070; 87075; 87077; 87186; 96365; 96366; 99284; J3373